=== PATIENT | male | born 1940 | race Caucasian/White ===

== ENCOUNTER 2016-12-06 12:20 | Emergency (ER) | payer OTHER ==
[~2016-12-06] VITALS: Ht 185.4 cm; Wt 117.2 kg
[~2016-12-06 12:20] MED LIST: FLUT0.15 NAE; NAPR1TAB9 PO
[2016-12-06 12:26] VITALS: TEMP 36.6; Ht 185.4 cm; Wt 117.2 kg
[2016-12-06 12:37] VITALS: O2SAT 94
--- NOTE | 2016-12-06 13:05 | EMERGENCY ROOM VISIT NOTE ---
History Report prepared by Miko: Frank García Under the Supervision of: Dr. Melecio Mcneil M.D. First contact with patient: 12:50 Chief Complaint: PALPITATIONS Stated Complaint: HEART PALPITATION, DIZZY, SOB X 2 DAYS Nursing Triage Summary: Triage note: Pt denies any chest pain. pt reports he was seen at [facility] Critique^It and sent to ed for further eval. pt reports heart palpitations, dizziness and shortness of breath "it has been going on for awhile but i have been blowing it off." History of Present Illness The patient is a 76 year old male who presents to the Emergency Room via referral from [facility] with complaints of episodes of dizziness that started around 3 weeks ago. The patient notes that at night, he occasionally gets episodes where he has trouble speaking, he gets groggy, and his head would turn to the side uncontrollably. During the episodes, he also experiences arm numbness and chest pressure. The episodes usually would last around a half an hour. Lately, he notes that he has been getting a bit nauseated. He says that he also has been having episodes of dizziness in the past few weeks, and it is getting to the point where he has to be careful getting out of bed in the morning. The patient additionally notes intermittent shortness of breath, and he currently feels short of breath. He has never seen any doctors for these symptoms before today at [facility]. He says these kind of episodes have occurred a couple times in the past before these past 3 weeks. The patient denies any back pain and any recent confusion was denied by a friend. The patient is an ex-smoker. He says that he does not drink any alcohol. Source of History: patient, friend Onset: 3 weeks ago Position: other (global - dizziness) Symptom Intensity: has to be careful getting out of bed in morning Timing: other (episodes) Associated Symptoms: + SOB, + chest pain, + nausea, + numbness (arm), No back pain Note: Associated symptoms: Head turns to side uncontrollably during episodes. Denies recent confusion. Review of Systems See HPI for pertinent positives & negatives. A total of 10 systems reviewed and were otherwise negative. Past Medical & Surgical Medical Problems: (1) HTN (hypertension) (2) Stomach problems Old medical records were reviewed. Nurse's notes were reviewed and I agree with. Family History No significant family history Social History Smoking Status: Never Smoker Alcohol Use: none Marital Status: single Housing Status: lives alone Occupation Status: unemployed Current/Historical Medications Scheduled Fish Oil (Rockwell-3), 1 CAP PO QAM Fluticasone Propionate (Nasal) (Flonase Allergy Relief), 2 SPRAYS CHUCK DAILY Multiple Vitamins W/ Minerals (Multi For Him 50+), 1 TAB PO DAILY Oregano (Oil Of Oregano), 1 CAP PO DAILY Potassium Chloride (Potassium Chloride), 3,500 MEQ PO UD Turmeric (Curcuma Longa) (Bulk (Turmeric), 1 DOSE PO DAILY Scheduled PRN Naproxen (Aleve), 440-660 MG PO UD PRN for Pain Allergies Coded Allergies: No Known Allergies (Verified , 12/06/16) Physical Exam Vital Signs Date Time Temp Pulse Resp B/P Pulse Ox O2 Delivery O2 Flow Rate FiO2 12/06/16 15:35 80 16 179/122 95 Room Air 12/06/16 15:03 75 18 187/103 94 Room Air 12/06/16 14:12 79 18 147/97 94 Room Air 12/06/16 12:53 78 12/06/16 12:37 94 Room Air 12/06/16 12:26 36.6 88 18 215/109 96 Room Air Physical Exam General: Well developed well nourished non ill appearing older in no acute distress, breathing comfortably on room air. Normal speech. Alert and oriented x3. HEENT: Normal cephalic atraumatic. Pupils are equal round and reactive to light. Extraocular movements are intact. Oropharynx is pink with moist mucous membranes. No swelling of the mouth lips or tongue. Neck: Supple with a midline trachea. No meningeal signs or stiffness, no JVD or bruits. No Stridor. Chest: Clear to auscultation bilaterally. No wheezes or rhonchi. No increased work of breathing. Heart: regular rate and rhythm. Abdomen: Soft nontender, nondistended without rebound guarding or rigidity. Extremities: No cyanosis clubbing or edema. No calf tenderness or assymetry Spine/Back. Non tender to palpation. No CVA tenderness Skin: Good turgor without rashes. Neurologic exam: Cranial nerves two through 12 are intact. Motor and sensation are intact and symmetrical throughout. Finger to nose intact. No tremor. Medical Decision & Procedures ER Provider Diagnostic Interpretation: Radiology results as stated below per my review and radiologist interpretation: HEAD CT NONCONTRAST CT DOSE: 614.27 mGy.cm HISTORY: dizziness TECHNIQUE: Multiaxial CT images of the head were performed without the use of intravenous contrast. Automated exposure control was utilized for this study. Comparison: None. Findings: The paranasal sinuses and mastoid air cells are clear. The calvarium and skull base are intact. The ventricles and sulci are within normal limits. There is no mass, hematoma, midline shift, or acute infarct. Impression: No acute intracranial abnormality. Electronically signed by: Tre Lee M.D. 12/06/2016 1:59 PM Dictated Date/Time: 12/06/2016 1:36 PM SINGLE VIEW CHEST CLINICAL HISTORY: Atypical chest pain. Dizziness. FINDINGS: An AP, portable, upright chest radiograph is compared to study dated 06/07/2011. The examination is degraded by portable technique, apical lordotic positioning, and patient rotation. The heart is enlarged and there is atherosclerotic calcification of the thoracic aorta. The pulmonary vasculature is noncongested. Chronic interstitial thickening is unchanged. No airspace consolidation or large pleural effusion is identified. No pneumothorax is seen. The skeletal structures are osteopenic. Degenerative change is noted throughout the thoracic spine. Arthritic change is present in the shoulders. IMPRESSION: Cardiomegaly with no acute cardiopulmonary abnormality. Electronically signed by: Luis Tillman M.D. 12/06/2016 1:52 PM Dictated Date/Time: 12/06/2016 1:51 PM Laboratory Results 12/06/16 12:40 Red Blood Count 5.53, Mean Corpuscular Volume 90.8, Mean Corpuscular Hemoglobin 32.0, Mean Corpuscular Hemoglobin Concent 35.3, Mean Platelet Volume 9.8, Neutrophils (%) (Auto) 69.1, Lymphocytes (%) (Auto) 16.7, Monocytes (%) (Auto) 7.5, Eosinophils (%) (Auto) 6.0, Basophils (%) (Auto) 0.4, Neutrophils # (Auto) 6.31, Lymphocytes # (Auto) 1.53, Monocytes # (Auto) 0.69, Eosinophils # (Auto) 0.55, Basophils # (Auto) 0.04 12/06/16 12:40 Test 12/06/16 12:40 4/13/17 13:02 12/06/16 13:10 White Blood Count 9.15 K/uL (4.8-10.8) Red Blood Count 5.53 M/uL (4.7-6.1) Hemoglobin 17.7 g/dL (14.0-18.0) Hematocrit 50.2 % (42-52) Mean Corpuscular Volume 90.8 fL (80-100) Mean Corpuscular Hemoglobin 32.0 pg (25-34) Mean Corpuscular Hemoglobin Concent 35.3 g/dl (32-36) Platelet Count 235 K/uL (130-400) Mean Platelet Volume 9.8 fL (7.4-10.4) Neutrophils (%) (Auto) 69.1 % Lymphocytes (%) (Auto) 16.7 % Monocytes (%) (Auto) 7.5 % Eosinophils (%) (Auto) 6.0 % Basophils (%) (Auto) 0.4 % Neutrophils # (Auto) 6.31 K/uL (1.4-6.5) Lymphocytes # (Auto) 1.53 K/uL (1.2-3.4) Monocytes # (Auto) 0.69 K/uL (0.11-0.59) Eosinophils # (Auto) 0.55 K/uL (0-0.5) Basophils # (Auto) 0.04 K/uL (0-0.2) RDW Standard Deviation 44.9 fL (36.4-46.3) RDW Coefficient of Variation 13.6 % (11.5-14.5) Immature Granulocyte % (Auto) 0.3 % Immature Granulocyte # (Auto) 0.03 K/uL (0.00-0.02) Anion Gap 7.0 mmol/L (3-11) Est Creatinine Clear Calc Drug Dose 65.8 ml/min Estimated GFR () 61.9 Estimated GFR (Non- 53.4 BUN/Creatinine Ratio 19.8 (10-20) Calcium Level 9.2 mg/dl (8.5-10.1) Total Bilirubin 0.5 mg/dl (0.2-1) Direct Bilirubin 0.1 mg/dl (0-0.2) Aspartate Amino Transf (AST/SGOT) 16 U/L (15-37) Alanine Aminotransferase (ALT/SGPT) 26 U/L (12-78) Alkaline Phosphatase 100 U/L (45-117) Total Creatine Kinase 163 U/L (39-308) Creatine Kinase MB 2.9 ng/ml (0.5-3.6) Total Protein 7.8 gm/dl (6.4-8.2) Albumin 4.3 gm/dl (3.4-5.0) Lipase 133 U/L (73-393) Thyroid Stimulating Hormone (TSH) 2.160 uIu/ml (0.300-4.500) Creatine Kinase MB Ratio (0-3.0) Bedside Troponin I 0.020 ng/ml (0-0.045) Laboratory studies as stated above per my review. ECG Indication: SOB/dyspnea Rate (beats per minute): 79 Rhythm: normal sinus Findings: 1st degree AV block, other (right bundle branch block, LVH, nonspecific T-wave abnormalities) Comparison ECG Date: compared to June 07 2011, T waves were nonspecific at present Change: Second ECG: Normal sinus rhythm at 70 bpm with a 1st degree AV block. T-wave inversions laterally which appear new compared to ECG #1. ED Course 1249: Past medical records reviewed. The patient was evaluated in room A2, and a complete history and physical examination were performed. 1416: I reevaluated the patient and he is comfortable. We are going to do a second EKG. 1448: I reevaluated the patient and I told him that his EKG has very concerning changes for a possible blockage that could cause heart attack or , but the patient refuses to stay. He also refuses a chest CT. The patient is willing to follow up with someone tomorrow. We will have case management come down to talk to the patient. The patient's blood pressure has come down to 140s/90s. 1518: The caseworker intake has notified me that the patient has a scheduled appointment with Dr. Claudia Montalvo at 1245 tomorrow. The patient is agreeable to this appointment. 1521: Ordered Aspirin Chew 324 mg PO. 1525: Upon reevaluation, the patient's blood pressure is back up to 180/110. I discussed the results and treatment plan with him. He verbalized agreement of the treatment plan. The patient was discharged home. I gave the patient a prescription for Hydrochlorothiazide. Medical Decision Differentials include, but are not limited to; acute coronary syndrome, arrhythmia, central neurologic process, electrolyte or metabolic abnormality, infection. This patient comes in as described above. He's had multiple different complaints and is somewhat vague historian. he had has dizziness at times. He also has some shortness of breath and chest pain at times. This seems to have been going on for several weeks or so. He looks well at presen.t he also is noted have high blood pressure and do not know what he runs a baseline. He was seen in [facility] who sent over here. I reviewed his EKGs from [facility] on [facility] 1 EKG, he ,did have some T-wave inversions laterally. His EKG here does not appear ischemic appearing. Chest x-ray, EKG, and multiple blood testing was obtained including CAT scan of his head he does have a normal neurologic exam. The patient and his friend have made it very clear that he will not agree to stay inpatient and wants to go home. He did agree to have a workup here. He was reassessed frequently. His initial EKG was unremarkable without ischemia. I did a second EKG and he does have T-wave inversions that were absent on the first. His cardiac enzymes are normal. CAT scan of his head is unremarkable. He has a normal neurologic exam he has nothing to suggest a posterior circulation problem. His blood pressure seems to be very labile it's normal limits up minutes down. He's not been treated for this. This could be a cause or an effect. I talked to the patient at length. I told him I was concerned that this could be related to his heart and his EKG changes be from a heart blockage and he could go home and of a heart attack. he aknowledges this but absolutely refuses to be admitted. He had was given aspirin prior to arrival. I suggest we do a CAT scan of his chest but he declines this as well. I did have her case management team get him follow-up with Dr. Taylor tomorrow and he could have further workup as an outpatient and can watch his blood pressure. I did start him on HCTZ and he was given prescription for 25 mg they will need further recheck his blood pressure. He was happy with the plan and again adamantly declines admission and we have helped arrange follow-up tomorrow for close recheck. Impression Primary Impression: Dizziness Additional Impression: Chest pain Scribe Attestation The scribe's documentation has been prepared under my direction and personally reviewed by me in its entirety. I confirm that the note above accurately reflects all work, treatment, procedures, and medical decision making performed by me. Departure Information Dispostion Home / Self-Care Referrals No Doctor, Assigned (PCP) Forms HOME CARE DOCUMENTATION FORM, IMPORTANT VISIT INFORMATION, WORK / SCHOOL INSTRUCTIONS Patient Instructions My [facility] Additional Instructions Rest. Drink plenty of fluids. Take an enteric-coated 325 mg aspirin once a day Return if: Worsening of symptoms, reconsideration upon being admitted, shortness of breath, numbness weakness, fever chills, any new problems or concerns Follow-up with your doctor that we are hoping you get in with tomorrow. He will likely need further workup. Dr. Taylor I am concerned that this may be her heart and you may have a heart blockage based on EKG changes. As we discussedn I do think that you should be admitted to the hospital but you declined. Please return if your symptoms worsen or you reconsider and ensure that he get close follow-up with your doctor Problem Qualifiers
[2016-12-06 13:20] LABS: BASO % 0.4 %; BASO ABS # 0.04 K/uL (0-0.2); COMPLETE YES; HEMATOCRIT 50.2 % (42-52); IG% 0.3 %; LYMPH % 16.7 %; LYMPH ABS # 1.53 K/uL (1.2-3.4); MEAN CELL VOLUME 90.8 fL (80-100); MEAN CORPUSCULAR HGB CONC 35.3 g/dl (32-36); MEAN PLATELET VOLUME 9.8 fL (7.4-10.4); MONO % 7.5 %; NEUT % 69.1 %; PLATELET COUNT 235 K/uL (130-400); POTASSIUM 4.3 mmol/L (3.5-5.1); RED BLOOD COUNT 5.53 M/uL (4.7-6.1); WHITE BLOOD COUNT 9.15 K/uL (4.8-10.8)
[2016-12-06 13:26] LABS: BUN/CREATININE RATIO 19.8 (10-20); CALCIUM 9.2 mg/dl (8.5-10.1); CREATININE 1.3 mg/dl (0.60-1.40)
[2016-12-06] MEDS ORDERED: OMEG10007 PO (13:29)
[2016-12-06] MEDS ORDERED: TURMPOW PO (13:29)
[2016-12-06] MEDS ORDERED: MULT-221 PO (13:29)
[2016-12-06] MEDS ORDERED: POTA1GRA PO (13:29)
[2016-12-06] MEDS ORDERED: OREGCAP PO (13:29)
--- NOTE | 2016-12-06 13:54 | DIAGNOSTIC IMAGING REPORT ---
SINGLE VIEW CHEST CLINICAL HISTORY: Atypical chest pain. Dizziness. FINDINGS: An AP, portable, upright chest radiograph is compared to study dated 06/07/2011. The examination is degraded by portable technique, apical lordotic positioning, and patient rotation. The heart is enlarged and there is atherosclerotic calcification of the thoracic aorta. The pulmonary vasculature is noncongested. Chronic interstitial thickening is unchanged. No airspace consolidation or large pleural effusion is identified. No pneumothorax is seen. The skeletal structures are osteopenic. Degenerative change is noted throughout the thoracic spine. Arthritic change is present in the shoulders. IMPRESSION: Cardiomegaly with no acute cardiopulmonary abnormality. Electronically signed by: Luis Tillman M.D. 12/06/2016 1:52 PM Dictated Date/Time: 12/06/2016 1:51 PM
--- NOTE | 2016-12-06 14:01 | DIAGNOSTIC IMAGING REPORT ---
HEAD CT NONCONTRAST CT DOSE: 614.27 mGy.cm HISTORY: dizziness TECHNIQUE: Multiaxial CT images of the head were performed without the use of intravenous contrast. Automated exposure control was utilized for this study. Comparison: None. Findings: The paranasal sinuses and mastoid air cells are clear. The calvarium and skull base are intact. The ventricles and sulci are within normal limits. There is no mass, hematoma, midline shift, or acute infarct. Impression: No acute intracranial abnormality. Electronically signed by: Tre Lee M.D. 12/06/2016 1:59 PM Dictated Date/Time: 12/06/2016 1:36 PM
[2016-12-06] MEDS ORDERED: ASPIRIN 81 MG CHEW PO STA (15:21)
[2016-12-06 15:22] LABS: CKMB/CK RATIO 1.8 (0-3.0); THYROID STIMULATING HORMONE 2.16 uIu/ml (0.300-4.500)
[2016-12-06 15:35] VITALS: BP 179/122; PULSE 80; O2SAT 95
== END 2016-12-06 15:44 | disposition home or self-care (01) ==
LOC: C.EDB 12:22 → C.EDA 15:44
DX: R42 Dizziness and giddiness (principal); R07.9 Chest pain, unspecified; I44.0 Atrioventricular block, first degree; I45.10 Unspecified right bundle-branch block; I10 Essential (primary) hypertension; Z87.19 Personal history of other diseases of the digestive system; Z79.899 Other long term (current) drug therapy

== ENCOUNTER 2023-09-30 16:41 | Inpatient (IN) ==
--- NOTE | 2023-09-30 17:25 | Emergency Department Note ---
Impression & Plan Acute confusion, Chest pain ED Provider Note HISTORY OF PRESENT ILLNESS: Patient is an 82-year-old male presenting with chest pain and altered mental status. Patient reportedly was at a buddhist service when he became very altered and was speaking gibberish. He reportedly complained he had some substernal chest pain and they called EMS. On arrival to the ER, the patient is very confused and does not know where he is. He is able to state his name but nothing else. He states that it feels like he has a elephant sitting on his chest. He does not know if he is short of breath or having any abdominal pain. ROS: as above PHYSICAL EXAM: Constitutional: Patient appears in distress. HENT: Head: Normocephalic and atraumatic. Eyes: EOMI, PERRL Mouth/Throat: Mucous membranes moist. Neck: Trachea midline. Neck supple. Cardiovascular: RRR, No murmurs, rubs or gallops. Intact distal pulses. Pulmonary/Chest: No respiratory distress. Breath sounds clear and equal bilaterally. No wheezes or rales. Abdominal: Abdomen soft, no tenderness, rebound or guarding. Musculoskeletal: No edema, tenderness or deformity noted. Skin: Warm and dry. No rash, erythema, pallor or cyanosis Neurological: Alert. CN II-XII grossly intact, moving all extremities spontaneously MDM: - Vitals signs stable - History obtained via patient and EMS, given patient's confusion. Patient presents with confusion and chest pain. Patient reportedly was at a buddhist service when he became very altered and was speaking gibberish. He also was complaining of some chest pain and they called EMS. Patient is confused and does not know where he is. He is able to state his name. He states he feels like an elephant is sitting on his chest. He does not know if he is short of breath or having any abdominal pain. - Chronic conditions affecting care: HTN - Differential diagnoses include, but are not limited to: Acute coronary syndrome; pulmonary embolism; dissection; tension pneumothorax; esophageal rupture; pneumonia; UTI - Order placed for continuous cardiac monitoring. At this time, monitor showed rate of 80 bpm with normal sinus rhythm, per my interpretation. - External medical records reviewed. EMS run sheet was reviewed. Patient was vitally stable and route. No medications were given prehospital. - EKG interpreted by myself showed normal sinus rhythm. Rate 100 bpm. QT 362. Noted have right bundle branch block and a left anterior fascicular block. - Laboratory workup interpreted by myself showed slight leukocytosis (WBC 11.59); stable electrolytes; CKD; normal troponin; normal procalcitonin; normal lipase - CXR negative for pneumonia, per my interpretation - CT head wo contrast negative for acute intracranial pathology. - Repeat troponin WNL - UA negative for infection - Heart score 4 (History +1 moderately suspicious; EKG +0; Age +2; Risk factors +1; Initial troponin +0), amounting to a moderate score. - Patient is still very confused in the ER. He does not know where he is or how he got here. Friend at bedside does not think this is patient's normal. - Discussion was had with health care facilities inspector about patient's case and need for admission - Hospitalist consulted for admission - Patient admitted to [facility] for further evaluation and management. ASSESSMENT AND PLAN: Diagnosis: confusion; chest pain Plan: admit Past Med/Surg History Medical History SOB (shortness of breath) Stomach problems HTN (hypertension) Social History Smoking Status: Former smoker Preferred Language: Samoan Feels Safe at Home: Yes Allergies Allergies Allergy/AdvReac Type Severity Reaction Status Date / Time No Known Allergies Allergy Unknown Verified 09/30/23 17:05 Home Meds Home Medications Medication Instructions Recorded Confirmed hydrochlorothiazide 25 mg tablet 25 mg PO QAM 09/11/23 09/30/23 meclizine 25 mg tablet 25 mg PO TID PRN Dizziness 09/11/23 09/30/23 Results & Data (ED) Vital Signs Vital Signs - 24 hr 09/30/23 16:53 09/30/23 17:04 09/30/23 19:00 Temperature 36.6 C Temperature Source Oral Pulse Rate 104 H 105 H 102 H Pulse Rate from SpO2 Sensor Respiratory Rate 20 22 Blood Pressure 166/96 H Blood Pressure Mean 119 Pulse Oximetry 93 94 Oxygen Delivery Method Room Air Oxygen Flow Rate Sepsis Recent Fever Within 48 Hours No Sepsis New/Unexplained Change in Mental Status Yes Sepsis Action Taken by Nursing Physician Notified 09/30/23 19:33 09/30/23 20:30 09/30/23 20:48 Temperature Temperature Source Pulse Rate 92 H 91 H Pulse Rate from SpO2 Sensor 94 H Respiratory Rate 22 Blood Pressure Blood Pressure Mean Pulse Oximetry 94 Oxygen Delivery Method Room Air Room Air Oxygen Flow Rate 96 Sepsis Recent Fever Within 48 Hours Sepsis New/Unexplained Change in Mental Status Sepsis Action Taken by Nursing 09/30/23 21:13 09/30/23 22:00 09/30/23 23:00 Temperature Temperature Source Pulse Rate 92 H 88 82 Pulse Rate from SpO2 Sensor 93 H Respiratory Rate 21 20 14 Blood Pressure 117/84 109/81 117/77 Blood Pressure Mean 95 90 90 Pulse Oximetry 95 95 96 Oxygen Delivery Method Room Air Room Air Room Air Oxygen Flow Rate Sepsis Recent Fever Within 48 Hours Sepsis New/Unexplained Change in Mental Status Sepsis Action Taken by Nursing Laboratory Data 09/30/23 17:00 09/30/23 17:00 Lab Results 09/30/23 09/30/23 09/30/23 Range/Units 17:00 21:06 21:28 WBC 11.59 H (4.8-10.8) K/ul RBC 4.78 (4.70-6.10) M/uL Hgb 15.3 (14.0-18.0) g/dl Hct 44.8 (42.0-52.0) % MCV 93.7 (80.0-100.0) fL MCH 32.0 (25.0-34.0) pg MCHC 34.2 (32.0-36.0) g/dL RDW Std Deviation 44.9 (36.4-46.3) fL RDW Coeff of [place] 13.0 (11.5-14.5) % Plt Count 269 (130-400) K/uL MPV 9.1 L (9.4-12.4) fL Immature Gran % (Auto) 0.4 % Neut % (Auto) 75.8 % Lymph % (Auto) 13.9 % [place] % (Auto) 5.8 % Eos % (Auto) 3.6 % Baso % (Auto) 0.5 % Neut # (Auto) 8.78 H (1.40-6.50) K/uL Lymph # (Auto) 1.61 (1.20-3.40) K/uL [place] # (Auto) 0.67 H (0.11-0.59) K/uL Eos # (Auto) 0.42 (0.00-0.50) K/uL Baso # (Auto) 0.06 (0.00-0.20) K/uL Immature Gran # (Auto) 0.05 (0.01-0.20) K/uL PT 12.2 H (9.0-12.0) Seconds INR 1.1 (0.9-1.1) Sodium 139 (136-145) mmol/L Potassium 3.6 (3.5-5.1) mmol/L Chloride 105 (98-107) mmol/L Carbon Dioxide 27 (21-32) mmol/L Anion Gap 7 (3-11) BUN 22 (6-23) mg/dl Creatinine 1.45 H (0.6-1.4) mg/dl Est Cr Clr Drug Dosing 47.5 ml/min Est GFR ( Amer) 52.0 ml/min Est GFR (Non-Af Amer) 44.8 ml/min BUN/Creatinine Ratio 15.2 (10-20) Glucose 148 H (70-99(Fasting)) mg/dl Calcium 9.0 (8.6-10.3) mg/dl Total Bilirubin 0.7 (0.2-1.0) mg/dl AST 19 (13-39) U/L ALT 13 (7-52) U/L Alkaline Phosphatase 79 (34-104) U/L Troponin I High Sens 9.3 9.6 (0-20) pg/ml Total Protein 6.7 (6.0-8.3) gm/dl Albumin 4.0 (3.4-5.0) gm/dl Globulin 2.7 (2.5-4.0) gm/dl Albumin/Globulin Ratio 1.5 (0.9-2) Lipase 12 (11-82) U/L Procalcitonin < 0.05 (0-0.5) ng/ml Urine Color Yellow Urine Appearance Clear (Clear) Urine pH 6.5 (4.5-7.5) Ur Specific [place] 1.016 (1.000-1.030) Urine Protein Negative (Negative) Urine Glucose (UA) Negative (Negative) Urine Ketones Trace H (Negative) Urine Blood Negative (Negative) Urine Nitrite Negative (Negative) Urine Bilirubin Negative (Negative) Urine Urobilinogen Negative (Negative) Ur Leukocyte Esterase Negative (Negative) Imaging Data Radiologist's Impression: Chest X-Ray 09/30/23 17:18 XR chest 1V portable CLINICAL HISTORY: Chest pain, nonspecific COMPARISON STUDY: Chest radiograph September 11, 2023. FINDINGS: Lung volumes are normal. Lungs are clear. There is no pneumothorax or pleural effusion. Mild cardiomegaly is again noted. Mediastinal contours are normal. There is no evidence for pulmonary edema. IMPRESSION: No acute cardiopulmonary findings. No change in appearance of the chest. ACT 112: Negative or not required by law. Electronically signed by: Temo Villanueva M.D. 09/30/2023 7:[address] 09/30/23 17:18 CT OF THE HEAD WITHOUT CONTRAST CLINICAL HISTORY: Confusion. COMPARISON STUDY: Head CT and CTA of the head November 20, 2020. CT DOSE: 703.85 mGy.cm TECHNIQUE: Helical axial images of the head were obtained without IV contrast. Automated exposure control was utilized for the study. A dose lowering technique was utilized adhering to the principles of ALARA. FINDINGS: No acute intracranial hemorrhage, midline shift or mass effect is present. The ventricular system is stable. The basal cisterns are patent. No extra-axial collections are present. There are no findings to suggest acute dural sinus thrombosis or acute territorial infarct. No significant calvarial abnormalities are present. Visualized portions of the sinuses and mastoid air cells are clear. IMPRESSION: No acute intracranial findings. ACT 112: Negative or not required by law. Electronically signed by: Temo Villanueva M.D. 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
[2023-09-30 17:44] LABS: Basophils # (auto) 0.06 K/uL (0.00-0.20); Basophils % (auto) 0.5 %; Eosinophils # (auto) 0.42 K/uL (0.00-0.50); Eosinophils % (auto) 3.6 %; Hematocrit (blood only) 44.8 % (42.0-52.0); Hemoglobin 15.3 g/dl (14.0-18.0); Immature Granulocytes # (auto) 0.05 K/uL (0.01-0.20); Immature Granulocytes % (auto) 0.4 %; Lymphocytes # (auto) 1.61 K/uL (1.20-3.40); Lymphocytes % (auto) 13.9 %; Mean Corpuscular Hgb Conc 34.2 g/dL (32.0-36.0); Mean Corpuscular Volume 93.7 fL (80.0-100.0); Mean Platelet Volume 9.1 fL (9.4-12.4); Monocytes # (auto) 0.67 K/uL (0.11-0.59); Monocytes % (auto) 5.8 %; Neutrophils # (auto) 8.78 K/uL (1.40-6.50); Neutrophils % (auto) 75.8 %; Platelet Count 269 K/uL (130-400); RDW Standard Deviation 44.9 fL (36.4-46.3); Red Blood Count 4.78 M/uL (4.70-6.10); White Blood Count 11.59 K/ul (4.8-10.8)
[2023-09-30 18:00] LABS: Albumin Globulin Ratio 1.5 (0.9-2); BUN Creatinine Ratio 15.2 (10-20); Bilirubin,Total 0.7 mg/dl (0.2-1.0); Creatinine Clr Calc Pharmacy 47.5 ml/min; Est GFR (Non-African American) 44.8 ml/min; Globulin 2.7 gm/dl (2.5-4.0); Potassium 3.6 mmol/L (3.5-5.1); Total Protein 6.7 gm/dl (6.0-8.3)
[2023-09-30 18:07] LABS: INR 1.1 (0.9-1.1); Prothrombin Time 12.2 Seconds (9.0-12.0)
[2023-09-30 18:08] LABS: Troponin I High Sensitivity 9.3 pg/ml (0-20)
--- NOTE | 2023-09-30 18:31 | CT Scan Report ---
CT OF THE HEAD WITHOUT CONTRAST CLINICAL HISTORY: Confusion. COMPARISON STUDY: Head CT and CTA of the head November 20, 2020. CT DOSE: 703.85 mGy.cm TECHNIQUE: Helical axial images of the head were obtained without IV contrast. Automated exposure con trol was utilized for the study. A dose lowering technique was utilized adhering to the principles o f ALARA. FINDINGS: No acute intracranial hemorrhage, midline shift or mass effect is present. The ventricular system is stable. The basal cisterns are patent. No extra-axial collections are present. There are no findings to suggest acute dural sinus thrombosis or acute territorial infarct. No significant calvar ial abnormalities are present. Visualized portions of the sinuses and mastoid air cells are clear. IMPRESSION: No acute intracranial findings. ACT 112: Negative or not required by law. Electronically signed by: Temo Villanueva M.D. 09/30/2023 6:29 PM
--- NOTE | 2023-09-30 19:24 | XRay Report ---
XR chest 1V portable CLINICAL HISTORY: Chest pain, nonspecific COMPARISON STUDY: Chest radiograph September 11, 2023. FINDINGS: Lung volumes are normal. Lungs are clear. There is no pneumothorax or pleural effusion. Mil d cardiomegaly is again noted. Mediastinal contours are normal. There is no evidence for pulmonary ed roya. IMPRESSION: No acute cardiopulmonary findings. No change in appearance of the chest. ACT 112: Negative or not required by law. Electronically signed by: Temo Villanueva M.D. 09/30/2023 7:23 PM
[2023-09-30 21:29] LABS: Appearance Urine Clear (Clear); Bilirubin Urine Negative (Negative); Blood Urine Negative (Negative); Color Urine Yellow; Glucose Urine UA Negative (Negative); Ketones Urine Trace (Negative); Leukocyte Esterase Urine Negative (Negative); Nitrite Urine Negative (Negative); Protein Urine Negative (Negative); Specific Gravity Urine 1.016 (1.000-1.030); Urobilinogen Urine Negative (Negative); pH Urine 6.5 (4.5-7.5)
--- NOTE | 2023-10-01 02:12 | History & Physical Report ---
Date of Service October 01, 2023 Assessment & Plan (1) Acute confusion: Plan: 82-year-old male with past medical history significant for hypertension, abdominal aortic aneurysm, CKD stage III, mild vascular dementia with agitation was brought in by friend because he was confused and speaking gibberish and also complained of chest pain. When he came in he was confused and seemed only oriented to name. Currently patient is more alert and awake and oriented x 3. Now he agrees that he took 2 THC Gummies for his right shoulder pain. He is having a lot of right shoulder pain and states he has appointment 5 weeks from now. And one of his friends gave him THC Gummies. After after he took two gummies Patient states that he does not know what happened. He states he [place] [facility] the [facility] of [facility]. After he took Gummies he was walking out and does not know what he happened and what he talked. He also had some chest pain, like elephant sitting on his chest but that resolved now and he thinks it was a gas pain. Denies any shortness of breath. No headaches. Vision is okay. Has some runny nose and sore throat and some cough. Denies any fevers. Appetite is okay. Has some nausea. Has some abdominal discomfort. He said he had diarrhea before but that got resolved. Micturating okay. Currently resting comfortably and hemodynamically stable. Acute confusion CT head is okay Currently patient seems to back to baseline though he is repeating himself while talking Admits that he took 2 THC Gummies Will check drug screen And monitor Chest pain Currently resolved Abnormal EKG Will follow repeat EKG was bradycardic on monitor. Follow serial cardiac enzymes and echo Telemetry Cardiac consult in a.m. History of hypertension On hydrochlorothiazide History of mild vascular dementia with agitation We will monitor for delirium History of CKD stage III Creatinine 1.4 Seems around baseline We will monitor Right shoulder pain Pain control May consider pain management while in the hospital DVT prophylaxis SCDs Disposition Observation telemetry Full code History of Present Illness Chief Complaint: Confusion and chest pain Primary Care Provider: Gabino Taylor MD 82-year-old male with past medical history significant for hypertension, abdominal aortic aneurysm, CKD stage III, mild vascular dementia with agitation was brought in by friend because he was confused and speaking gibberish and also complained of chest pain. When he came in he was confused and seemed only oriented to name. Currently patient is more alert and awake and oriented x 3. Now he agrees that he took 2 THC Gummies for his right shoulder pain. He is having a lot of right shoulder pain and states he has appointment 5 weeks from now. And one of his friends gave him THC Gummies. After after he took two gummies Patient states that he does not know what happened. He states he lives in the basement of [facility]. After he took Gummies he was walking out and does not know what he happened and what he talked. He also had some chest pain, like elephant sitting on his chest but that resolved now and he thinks it was a gas pain. Denies any shortness of breath. No headaches. Vision is okay. Has some runny nose and sore throat and some cough. Denies any fevers. Appetite is okay . Has some nausea. Has some abdominal discomfort. He said he had diarrhea before but that got resolved. Micturating okay. Currently resting comfortably and hemodynamically stable. Past medical history. As mentioned above Past surgical history. No surgical history on file Social history. . Quit smoking 2011. No alcohol use. No drug use. Family history. No family history on file Allergies Allergy/AdvReac Type Severity Reaction Status Date / Time No Known Allergies Allergy Unknown Verified 09/30/23 17:05 Home Medications Medication Instructions Recorded Confirmed Type hydrochlorothiazide 25 mg tablet 25 mg PO QAM 09/11/23 09/30/23 History meclizine 25 mg tablet 25 mg PO TID PRN Dizziness 09/11/23 09/30/23 History Past Med/Surg History Medical History SOB (shortness of breath) Stomach problems HTN (hypertension) Social History Smoking Status: Former smoker Tobacco Type: Cigarettes Hx Alcohol Use: No Hx Substance Use: No Preferred Language: Lithuanian Communication Ability: Effective Qualifications Examiner Required: No Beliefs That Will Affect Care: None Current Living Situation: Alone Feels Safe at Home: Yes Safety Concerns: Feels Safe At This Time Review of Systems Review of Systems: All systems reviewed & are unremarkable except as noted in HPI & below Physical Exam Physical Exam: General- Not in distress Head- atraumatic Eyes- PERRL ENT- oropharynx clear Neck- supple, no JVD. Lungs- clear to auscultation no wheezing or crackles. Heart- regular rhythm; no murmur, no gallop. Abdomen- normal bowel sounds, soft, nontender, no distension. Extremities- no pretibial edema, no erythema seen. Neuro- alert, oriented x 3; PERRL no facial palsy; no dysarthria; motor 5/5 bilaterally; no pronator drift coordination of movements normal sensations intact. Skin- warm & dry Results & Data Results & Data Vital Signs (Past 12 Hours) Vital Signs Temp Pulse Resp BP Pulse Ox O2 Del Method O2 Flow Rate 10/01/23 00:41 79 10/01/23 00:30 81 19 98 10/01/23 00:00 79 16 96 Room Air 09/30/23 23:30 93 H 20 96 Room Air 09/30/23 23:00 82 14 117/77 96 Room Air 09/30/23 22:00 88 20 109/81 95 Room Air 09/30/23 21:13 92 H 21 117/84 95 Room Air 09/30/23 20:48 91 H 09/30/23 20:30 92 H 22 94 Room Air 09/30/23 19:33 Room Air 96 09/30/23 19:00 102 H 22 94 09/30/23 17:04 105 H 09/30/23 16:53 36.6 C 104 H 20 166/96 H 93 Room Air Diagnostic Findings Laboratory Results WBC 11.59 K/ul (4.8-10.8) H 09/30/23 17:00 RBC 4.78 M/uL (4.70-6.10) 09/30/23 17:00 Hgb 15.3 g/dl (14.0-18.0) 09/30/23 17:00 Hct 44.8 % (42.0-52.0) 09/30/23 17:00 MCV 93.7 fL (80.0-100.0) 09/30/23 17:00 MCH 32.0 pg (25.0-34.0) 09/30/23 17:00 MCHC 34.2 g/dL (32.0-36.0) 09/30/23 17:00 RDW Std Deviation 44.9 fL (36.4-46.3) 09/30/23 17:00 RDW Coeff of Beulah 13.0 % (11.5-14.5) 09/30/23 17:00 Plt Count 269 K/uL (130-400) 09/30/23 17:00 MPV 9.1 fL (9.4-12.4) L 09/30/23 17:00 Immature Gran % (Auto) 0.4 % 09/30/23 17:00 Neut % (Auto) 75.8 % 09/30/23 17:00 Lymph % (Auto) 13.9 % 09/30/23 17:00 Valencia % (Auto) 5.8 % 09/30/23 17:00 Eos % (Auto) 3.6 % 09/30/23 17:00 Baso % (Auto) 0.5 % 09/30/23 17:00 Neut # (Auto) 8.78 K/uL (1.40-6.50) H 09/30/23 17:00 Lymph # (Auto) 1.61 K/uL (1.20-3.40) 09/30/23 17:00 Valencia # (Auto) 0.67 K/uL (0.11-0.59) H 09/30/23 17:00 Eos # (Auto) 0.42 K/uL (0.00-0.50) 09/30/23 17:00 Baso # (Auto) 0.06 K/uL (0.00-0.20) 09/30/23 17:00 Immature Gran # (Auto) 0.05 K/uL (0.01-0.20) 09/30/23 17:00 PT 12.2 Seconds (9.0-12.0) H 09/30/23 17:00 INR 1.1 (0.9-1.1) 09/30/23 17:00 Sodium 139 mmol/L (136-145) 09/30/23 17:00 Potassium 3.6 mmol/L (3.5-5.1) 09/30/23 17:00 Chloride 105 mmol/L (98-107) 09/30/23 17:00 Carbon Dioxide 27 mmol/L (21-32) 09/30/23 17:00 Anion Gap 7 (3-11) 09/30/23 17:00 BUN 22 mg/dl (6-23) 09/30/23 17:00 Creatinine 1.45 mg/dl (0.6-1.4) H 09/30/23 17:00 Est Cr Clr Drug Dosing 47.5 ml/min 09/30/23 17:00 Est GFR ( Amer) 52.0 ml/min 09/30/23 17:00 Est GFR (Non-Af Amer) 44.8 ml/min 09/30/23 17:00 BUN/Creatinine Ratio 15.2 (10-20) 09/30/23 17:00 Glucose 148 mg/dl (70-99(Fasting)) H 09/30/23 17:00 Calcium 9.0 mg/dl (8.6-10.3) 09/30/23 17:00 Total Bilirubin 0.7 mg/dl (0.2-1.0) 09/30/23 17:00 AST 19 U/L (13-39) 09/30/23 17:00 ALT 13 U/L (7-52) 09/30/23 17:00 Alkaline Phosphatase 79 U/L (34-104) 09/30/23 17:00 Troponin I High Sens 9.6 pg/ml (0-20) 09/30/23 21:28 Total Protein 6.7 gm/dl (6.0-8.3) 09/30/23 17:00 Albumin 4.0 gm/dl (3.4-5.0) 09/30/23 17:00 Globulin 2.7 gm/dl (2.5-4.0) 09/30/23 17:00 Albumin/Globulin Ratio 1.5 (0.9-2) 09/30/23 17:00 Lipase 12 U/L (11-82) 09/30/23 17:00 Procalcitonin < 0.05 ng/ml (0-0.5) 09/30/23 17:00 Urine Color Yellow 09/30/23 21:06 Urine Appearance Clear (Clear) 09/30/23 21:06 Urine pH 6.5 (4.5-7.5) 09/30/23 21:06 Ur Specific Beaver 1.016 (1.000-1.030) 09/30/23 21:06 Urine Protein Negative (Negative) 09/30/23 21:06 Urine Glucose (UA) Negative (Negative) 09/30/23 21:06 Urine Ketones Trace (Negative) H 09/30/23 21:06 Urine Blood Negative (Negative) 09/30/23 21:06 Urine Nitrite Negative (Negative) 09/30/23 21:06 Urine Bilirubin Negative (Negative) 09/30/23 21:06 Urine Urobilinogen Negative (Negative) 09/30/23 21:06 Ur Leukocyte Esterase Negative (Negative) 09/30/23 21:06 Impressions Chest X-Ray 09/30/23 17:18 XR chest 1V portable CLINICAL HISTORY: Chest pain, nonspecific COMPARISON STUDY: Chest radiograph September 11, 2023. FINDINGS: Lung volumes are normal. Lungs are clear. There is no pneumothorax or pleural effusion. Mild cardiomegaly is again noted. Mediastinal contours are normal. There is no evidence for pulmonary edema. IMPRESSION: No acute cardiopulmonary findings. No change in appearance of the chest. ACT 112: Negative or not required by law. Electronically signed by: Temo Villanueva M.D. 09/30/2023 7:[address] 09/30/23 17:18 CT OF THE HEAD WITHOUT CONTRAST CLINICAL HISTORY: Confusion. COMPARISON STUDY: Head CT and CTA of the head November 20, 2020. CT DOSE: 703.85 mGy.cm TECHNIQUE: Helical axial images of the head were obtained without IV contrast. Automated exposure control was utilized for the study. A dose lowering technique was utilized adhering to the principles of ALARA. FINDINGS: No acute intracranial hemorrhage, midline shift or mass effect is present. The ventricular system is stable. The basal cisterns are patent. No extra-axial collections are present. There are no findings to suggest acute dural sinus thrombosis or acute territorial infarct. No significant calvarial abnormalities are present. Visualized portions of the sinuses and mastoid air cells are clear. IMPRESSION: No acute intracranial findings. ACT 112: Negative or not required by law. Electronically signed by: Temo Villanueva M.D. 09/30/2023 6:29 PM ECG Additional Comments: ECG. Wide QRS rhythm with right bundle branch and left anterior fascicle block, bifascicular block Heart rate of 100. Left ventricle hypertrophy Code Status & VTE Plan VTE Prophylaxis Plan VTE Prophylaxis will be ordered: Yes
[2023-10-01] MEDS ORDERED: NITROGLYCERIN SL 0.4 MG/TAB TAB SL PRN (03:46)
[2023-10-01] MEDS ORDERED: MECLIZINE HCL 25 MG TAB PO PRN (03:46)
[2023-10-01] MEDS ORDERED: POLYETHYLENE (MIRALAX) 17 GM PACK PO PRN (03:46)
--- OUTSIDE RECORDS SUMMARY | 2023-10-01 04:07 | External Medical Summary | Summary of Care ---
Author Name Unknown Organization [facility] Address [address] [place] [address] Phone [phone] Care Team Providers Care Wound/Ostomy Nurse Name Role Phone Gabino Taylor MD Primary Care Provider [phone] Reason for Visit * Reason Comments Physical-Exam Pt here for cpe, c/o extreme pain in bilateral shoulder pain, c/o dizziness. Pt appears to be confused and agitated Encounter Details Date Type Department Care Team (Late st Contact Info) Description 09/25/2023 10:20 AM EST Office Visit Family Practice [facility] [address] [place] [id number] Gabino Taylor MD [address] [place] [id number] Mild vascular dementia with agitation (HCC)*; Infrarenal abdominal aortic aneurysm (AAA) without rupture (HCC); HTN, goal below 130/80; Stage 3a chronic kidney disease (HCC); Overweight (BMI 25.0-29.9) Allergies No known active allergiesdocumented as of this encounter (statuses as of 09/25/2023) Medications Medication Sig Dispensed Refills Start Date End Date Status methocarbamol (ROBAMOL) 500 MG Tablet Take 1 Tab by mouth 4 times a day. 30 Tab 0 01/05/2020 Active Clindamycin Phosphate 1 % external solutionIndicati ons:Facial rash Apply topically to affected area 2 times a day. To affected area of skin. 60 mL 11 05/13/2020 Active Meclizine HCl 25 MG Oral Tablet (Antivert)Indica tions:Dizziness Take 1 Tab by mouth 3 times a day as needed for Dizziness. 60 Tab 1 11/30/2020 Active hydroCHLOROthiaz brittney 25 MG Oral Tablet (Hydrodiuril)Ind ications:HTN, goal below 150/90 Take 1 Tablet by mouth in the morning. 90 Tablet 3 07/08/2023 Active amLODIPine (NORVASC) 5 MG TabletIndication s:HTN, goal below 150/90 TAKE 1 TABLET BY MOUTH EVERY DAY 90 Tab 3 02/03/2020 09/25/2023 Discontinued documented as of this encounter (statuses as of 09/25/2023) Active Problems Problem Noted Date Diagnosed Date Infrarenal abdominal aortic aneurysm (AAA) witho ut rupture 09/25/2023 Overweight (BMI 25.0-29.9) 09/25/2023 Mild vascular dementia with agitation 09/25/2023 Stage 3a chronic kidney disease 09/24/2023 HTN, goal below 130/80 12/07/2016 documented as of this encounter (statuses as of 09/25/2023) Resolved Problems Problem Noted Date Diagnosed Date Resolved Date Obesity, Class I, BMI 30.0-3 4.9 (see actual BMI) 09/24/2023 09/25/2023 documented as of this encounter (statuses as of 09/25/2023) Social History Tobacco Use Types Packs/Day Years Used Date Smoking Tobacco: Former Cigarettes Q uit: 12/08/2011 Smokeless Tobacco: Never Alcohol Use Standard Drinks/Week Comments No 0 (1 standard drink = 0.6 oz pur e alcohol) PHQ-2 Answer Date Recorded PHQ-2 Score 12 10/22/2018 Sex and Gender Information Value Date Recorded Sex Assigned at Not on file Gender Identity Not on file Sexual Orientation Not on file Job Start Date Occupation Industry Not on file Not on file Not on file documented as of this encounter Last Filed Vital Signs Vital Sign Reading Time Taken Comments Blood Pressure 122/72 09/25/2023 10:32 AM EST Pulse 72 09/25/2023 10:32 AM EST Temperature 36.3 C (97.4 F) 09/25/2023 10:[address] Respiratory Rate 18 09/25/2023 10:32 AM EST Oxygen Saturation - - Inhaled Oxygen Concentration - - Weight 93 kg (205 lb) 09/25/2023 10:32 AM EST Height 177.8 cm (5' 10") 09/25/2023 10:32 AM EST Body Mass Index 29.41 09/25/2023 10:32 AM EST documented in this encounter Progress Notes * Gabino Taylor MD - 09/25/2023 5:48 PM EST SUBJECTIVE: Rossy Lagunas is a 82 year old male. Chief Complaint Patient presents with Physical-Exam Pt here for cpe, c/o extreme pain in bilateral shoulder pain, c/o dizziness. Pt appears to be confused and agitated HPI: Here for CPE. Was brought by a "friend" who waits in the waiting room. I have seen Rossy a few times over the past several years. He is mildly demented and does not particularly like to follow up regularly with me. He was recently in the ED for abdominal pain but doesn't seem to remember. He is pleasant and has some neighbors who keep an eye on him. 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 30 Tab 0 Clindamycin Phosphate 1 % external solution Apply topically to affected area 2 times a day. To affected area of skin. 60 mL 11 Meclizine HCl 25 MG Oral Tablet (Antivert) Take 1 Tab by mouth 3 times a day as needed for Dizziness. 60 Tab 1 hydroCHLOROthiazide 25 MG Oral Tablet (Hydrodiuril) Take 1 Tablet by mouth in the morning. 90 Tablet 3 No current facility-administered medications for this visit. Allergy: Review of patient's allergies indicates: No Known Allergies OBJECTIVE: BP 122/72 | Pulse 72 | Temp 36.3 C (97.4 F) (Tympanic) | Resp 18 | Ht 1.778 m (5' 10") | Wt 93kg (205 lb) | BMI 29.41 kg/m | BSA 2.14 m Gen: nad Lungs: ctab Heart: rrr, no mrg Ext: no c/c/e Neuro: no focal deficits ASSESSMENT AND PLAN: (F01.A11) Mild vascular dementia with agitation (HCC) (primary encounter diagnosis) Plan: stable (I71.43) Infrarenal abdominal aortic aneurysm (AAA) without rupture (HCC) Plan: patient not interested in follow up at this time (I10) HTN, goal below 130/80 Plan: stable (N18.31) Stage 3a chronic kidney disease (HCC) Plan: stable (E66.3) Overweight (BMI 25.0-29.9) Plan: stable Follow up as needed. No other complaints were offered at this time. Gabino Taylor MD documented in this encounter Plan of Treatment Upcoming Encounters Date Type Department Care Team (Late st Contact Info) Description 10/09/2023 9:30 AM EST Office Visit Orthopaedics [facility] [address] [place] [id number] Patricia Lala MD [address] [place] [phone] Health Maintenance Due Date Last Done Comments COVID-19 Vaccine (#1) 06/06/1941 AAA Monitoring 12/06/1959 Albumin/Creatinine Ratio 12/06/1959 CKD PHOS USE SMARTSET 64875 12/06/1959 DTaP,Tdap,and Td Vaccines (1 - Tdap) 1960 Zoster Vaccines (1 of 2) 12/06/1991 Pneumococcal Vaccine: 65+ Years (1 - PCV) 2006 Depression, Most Recent Scor e >= 10 (will fire each visit until score < 10) 10/23/2018 10/22/2018 Influenza Vaccine (FLU shot) (#1) 2023 07/25/2007 GFR 01/30/2024 07/31/2023, 11/30/2020 CKD HGB USE SMARTSET 57461 07/31/202407/31, 07/31/2023 GARDASIL-HPV IMMUNIZATION SERIES Aged Out No longer eligible b ased on patient's age to complete this topic Hepatitis B Aged Out No longer eligi ble based on patient's age to complete this topic MENINGOCOCCAL (MENACTRA/MENVEO) Aged Out No longer eligible b ased on patient's age to complete this topic documented as of this encounter Medical Devices Not on filedocumented as of this encounter Visit Diagnoses Diagnosis Mild vascular dementia with agitation (HCC)- Primary Infrarenal abdominal aortic aneurysm (AAA) without rupture (HCC) HTN, goal below 130/80 Unspecified essential hypertension Stage 3a chronic kidney disease (HCC) Overweight (BMI 25.0-29.9) Overweight documented in this encounter Care Teams Wound/Ostomy Nurse Relationship Specialty Start Date End Date Gabino Taylor MD [address] [place] [id number] PCP - General Family Medicine 12/07/16 documented as of this encounter
[2023-10-01] MEDS: SODIUM CHLORIDE 0.9% 1,000 ML IV SCH (04:48)
[2023-10-01 06:30] LABS: Basophils # (auto) 0.05 K/uL (0.00-0.20); Basophils % (auto) 0.5 %; Eosinophils % (auto) 4.1 %; Hemoglobin 14.1 g/dl (14.0-18.0); Immature Granulocytes # (auto) 0.04 K/uL (0.01-0.20); Immature Granulocytes % (auto) 0.4 %; Lymphocytes # (auto) 1.33 K/uL (1.20-3.40); Lymphocytes % (auto) 13.5 %; Mean Corpuscular Hgb Conc 34.4 g/dL (32.0-36.0); Mean Corpuscular Volume 93.2 fL (80.0-100.0); Mean Platelet Volume 8.9 fL (9.4-12.4); Monocytes # (auto) 0.75 K/uL (0.11-0.59); Monocytes % (auto) 7.6 %; Neutrophils # (auto) 7.25 K/uL (1.40-6.50); Neutrophils % (auto) 73.9 %; Platelet Count 253 K/uL (130-400); RDW Coefficient of Variation 13.1 % (11.5-14.5); RDW Standard Deviation 44.6 fL (36.4-46.3); White Blood Count 9.82 K/ul (4.8-10.8)
[2023-10-01 06:40] LABS: BUN Creatinine Ratio 18.8 (10-20); Calcium 8.9 mg/dl (8.6-10.3); Creatinine Clr Calc Pharmacy 51.8 ml/min; Est GFR (African American) 57.7 ml/min; Est GFR (Non-African American) 49.8 ml/min; Magnesium 2.1 mg/dl (1.7-2.4); Potassium 3.8 mmol/L (3.5-5.1)
[2023-10-01 06:44] LABS: Amphetamines+Metham, Urine Neg (Neg); Barbiturates, Urine Neg (Neg); Benzodiazepine, Urine Neg (Neg); Cocaine, Urine Neg (Neg); MDMA (Ecstacy), Urine Neg (Neg); Marijuana, Urine Pos (Neg); Methadone, Urine Neg (Neg); Opiate, Urine Neg (Neg); Phencyclidine, Urine Neg (Neg)
[2023-10-01 06:46] LABS: Troponin I High Sensitivity 8.2 pg/ml (0-20)
[2023-10-01] MEDS: ACETAMINOPHEN 325 MG TAB PO PRN (07:38)
--- NOTE | 2023-10-01 07:53 | Electrocardiogram Report ---
Test Reason : Blood Pressure : / mmHG Vent. Rate : 100 BPM Atrial Rate : 000 BPM P-R Int : 000 ms QRS Dur : 134 ms QT Int : 362 ms P-R-T Axes : 000 -68 089 degrees QTc Int : 466 ms Probable Sinus rhythm with 1st degree A-V block Right bundle branch block Left anterior fascicular block Left ventricular hypertrophy with repolarization abnormality ( R in aVL , Romhilt-Iqbal ) Abnormal ECG When compared with ECG of 11-SEP-2023 14:28, P waves more diffficult to discern Right bundle branch block now present Confirmed by Gabino Pichardo ([id number]) on 10/01/2023 7:52:52 AM Referred By: REFERRED SELF Confirmed By:Gabino Pichardo
[2023-10-01] MEDS: hydroCHLOROthiazide 25 MG TAB PO SCH (09:02)
--- NOTE | 2023-10-01 10:11 | XRay Report ---
XR shoulder RT min 2V routine HISTORY: 82 years-old Male Shoulder Pain chronic right shoulder pain COMPARISON: Chest radiograph of same day TECHNIQUE: 3 views of the right shoulder FINDINGS: Moderate AC joint with severe glenohumeral osteoarthritis. No acute fracture, dislocation or opaque f oreign body. The imaged lung beltran appear clear. IMPRESSION: 1. No acute fracture or dislocation. 2. Severe glenohumeral osteoarthritis. ACT 112: Negative or not required by law. The above report was generated using voice recognition software. It may contain grammatical, syntax o r spelling errors. Electronically signed by: Bong Suarez M.D. 10/01/2023 10:10 AM
--- NOTE | 2023-10-01 11:02 | Electrocardiogram Report ---
Test Reason : Blood Pressure : / mmHG Vent. Rate : 061 BPM Atrial Rate : 061 BPM P-R Int : 374 ms QRS Dur : 134 ms QT Int : 460 ms P-R-T Axes : 017 -67 -30 degrees QTc Int : 463 ms Sinus rhythm with 1st degree A-V block Right bundle branch block Left anterior fascicular block Voltage criteria for left ventricular hypertrophy Possible Old Septal infarct (cited on or before 01-OCT-2023) Abnormal ECG When compared with ECG of 30-SEP-2023 16:53, Vent. rate has decreased BY 39 BPM Borderline Criteria for Septal infarct now present Confirmed by Gabino Pichardo ([id number]) on 10/01/2023 11:02:02 AM Referred By: REFERRED SELF Confirmed By:Gabino Pichardo
[2023-10-01 11:32] LABS: Adenovirus PCR Not Detected (NotDetected); Bordetella parapertussis PCR Not Detected (NotDetected); Bordetella pertussis PCR Not Detected (NotDetected); Chlamydia pneumoniae PCR Not Detected (NotDetected); Coronavirus 229E PCR Not Detected (NotDetected); Coronavirus CoV-2 (COVID19)PCR Not Detected (NotDetected); Coronavirus HKU1 PCR Not Detected (NotDetected); Coronavirus NL63 PCR Not Detected (NotDetected); Coronavirus OC43PCR Not Detected (NotDetected); Human Metapneumovirus PCR Not Detected (NotDetected); Influenza A PCR Not Detected (NotDetected); Influenza B PCR Not Detected (NotDetected); Mycoplasma pneumoniae PCR Not Detected (NotDetected); Parainfluenza Virus 1 PCR Not Detected (NotDetected); Parainfluenza Virus 2 PCR Not Detected (NotDetected); Parainfluenza Virus 3 PCR Not Detected (NotDetected); Parainfluenza Virus 4 PCR Not Detected (NotDetected); Respiratory Syncytial VirusPCR Not Detected (NotDetected); Rhinovirus/Enterovirus PCR Not Detected (NotDetected)
--- NOTE | 2023-10-01 12:07 | Cardiology Consultation ---
Date of Consultation October 01, 2023 Assessment & Plan (1) Chest pain: (2) Trifascicular block: (3) Acute confusion: (4) Aortic stenosis: Plan 82-year-old male admitted with acute confusion. Reports symptoms of atypical chest discomfort not suggestive of exertional angina. There is no evidence of acute coronary syndrome. Bedside echocardiogram demonstrating normal wall motion with mild aortic valve stenosis. No further inpatient testing recommended at this time. Recommend outpatient follow-up to consider stress testing pending reassessment. Surveillance of mild aortic stenosis recommended in 2 to 5 years. Conduction disease noted with first-degree AV block, right bundle branch block, and left anterior fascicular block (trifascicular block). Patient asymptomatic with telemetry demonstrates evidence of asymptomatic sinus bradycardia at 40 bpm. Continue telemetry monitoring while hospitalized. Assess TSH. Avoid AV cameron blocking agents. Recommend outpatient follow-up. Consider ZIO monitor for further assessment with any symptoms including lightheadedness, dizziness, syncope, or near syncope. History of Present Illness Reason for Consultation: Chest pain Requesting Physician: Dr. Draper Attending Physician: Jay Draper MD History of Present Illness 82-year-old patient presented to the emergency department with confusion. Patient does not recall events immediately prior to arrival. Most recent memory includes taking CBD gummy for treatment of chronic shoulder discomfort. Normally he takes one half of the edible gummy, however, yesterday he took both halves in rapid succession. Denies any THC use, however, urine drug screen is positive for THC. He does not recall events immediately upon arrival to the ER. At some point he mentioned chest pain to a healthcare provider who subsequently ordered a cardiology consult. Patient reports intermittent bilateral shoulder discomfort ongoing for several years. Denies exertional chest discomfort or unusual shortness of breath. Notes occasional episodes of epigastric and lower substernal discomfort in the a.m. upon awakening. Discomfort typically resolves spontaneous in the morning. Symptoms are intermittent and not consistently reproducible. Denies palpitations, lightheadedness, dizziness, syncope, or near syncope. No orthopnea, PND, or lower extremity edema. Conversation is somewhat tangential. Patient is a poor historian. Family friend present at bedside who also notes issues with ongoing confusion for several months. Allergies Allergy/AdvReac Type Severity Reaction Status Date / Time No Known Allergies Allergy Unknown Verified 09/30/23 17:05 Home Medications Medication Instructions Recorded Confirmed Type hydrochlorothiazide 25 mg tablet 25 mg PO QAM 09/11/23 09/30/23 History meclizine 25 mg tablet 25 mg PO TID PRN Dizziness 09/11/23 09/30/23 History Patient History Medical History SOB (shortness of breath) Stomach problems HTN (hypertension) Social History Smoking Status: Former smoker Tobacco Type: Cigarettes Hx Alcohol Use: No Hx Substance Use: No Preferred Language: Belarusian Communication Ability: Effective Crew Scheduler Required: No Beliefs That Will Affect Care: None Current Living Situation: Alone Feels Safe at Home: Yes Safety Concerns: Feels Safe At This Time Review of Systems Review of Systems: All systems reviewed & are unremarkable except as noted in Subjective Physical Exam Constitutional: well developed and well nourished Respiratory: no respiratory distress and no labored breathing Auscultation: lungs clear to auscultation bilaterally; no crackles, no rales, no rhonchi and no wheezes Cardiovascular: Rate/Rhythm: regular rate and regular rhythm Heart Sounds: normal S1, normal S2 and + murmur (1/6 JANI) Gastrointestinal (Abdomen): Inspection/Auscultation: abdomen normal to inspection and normal bowel sounds; abdomen not distended Percussion/Palpation: abdomen soft; abdomen nontender, no guarding and abdomen not rigid Neurologic: CN's II-XI intact bilaterally and moves all extremities; no focal motor deficits Results & Data Vital Signs (Past 12 Hours) Vital Signs Temp Pulse Pulse Resp BP BP Pulse Ox 10/01/23 11:30 58 L 20 118/84 97 10/01/23 07:30 58 L 17 157/74 H 96 10/01/23 07:13 63 10/01/23 05:58 37.1 C 52 L 18 120/71 99 10/01/23 05:00 67 15 130/78 95 10/01/23 04:05 55 L 10/01/23 04:00 52 L 15 110/67 99 10/01/23 03:56 10/01/23 03:54 36.7 C 65 16 121/93 99 10/01/23 03:00 69 22 121/93 98 10/01/23 02:00 65 14 128/73 96 10/01/23 01:32 67 22 124/79 96 10/01/23 00:41 79 10/01/23 00:30 81 19 98 10/01/23 00:00 79 16 96 Pulse Ox O2 Del Method O2 Del Method 10/01/23 11:30 Room Air 10/01/23 07:30 Room Air 10/01/23 07:13 10/01/23 05:58 Room Air 10/01/23 05:00 Room Air 10/01/23 04:05 10/01/23 04:00 Room Air 10/01/23 03:56 98 Room Air 10/01/23 03:54 Room Air 10/01/23 03:00 Room Air 10/01/23 02:00 Room Air 10/01/23 01:32 Room Air 10/01/23 00:41 10/01/23 00:30 10/01/23 00:00 Room Air Laboratory Results Cardiac Enzymes 09/30/23 09/30/23 10/01/23 Range/Units 17:00 21:28 05:57 AST 19 (13-39) U/L Troponin I High Sens 9.3 9.6 8.2 (0-20) pg/ml Coagulation 09/30/23 Range/Units 17:00 PT 12.2 H (9.0-12.0) Seconds CBC 09/30/23 10/01/23 Range/Units 17:00 05:57 WBC 11.59 H 9.82 (4.8-10.8) K/ul RBC 4.78 4.40 L (4.70-6.10) M/uL Hgb 15.3 14.1 (14.0-18.0) g/dl Hct 44.8 41.0 L (42.0-52.0) % Plt Count 269 253 (130-400) K/uL Neut # (Auto) 8.78 H 7.25 H (1.40-6.50) K/uL Lymph # (Auto) 1.61 1.33 (1.20-3.40) K/uL [place] # (Auto) 0.67 H 0.75 H (0.11-0.59) K/uL Eos # (Auto) 0.42 0.40 (0.00-0.50) K/uL Baso # (Auto) 0.06 0.05 (0.00-0.20) K/uL Comprehensive Metabolic Panel 09/30/23 10/01/23 Range/Units 17:00 05:57 Sodium 139 137 (136-145) mmol/L Potassium 3.6 3.8 (3.5-5.1) mmol/L Chloride 105 103 (98-107) mmol/L Carbon Dioxide 27 28 (21-32) mmol/L BUN 22 25 H (6-23) mg/dl Creatinine 1.45 H 1.33 (0.6-1.4) mg/dl Glucose 148 H 105 H (70-99(Fasting)) mg/dl Calcium 9.0 8.9 (8.6-10.3) mg/dl AST 19 (13-39) U/L ALT 13 (7-52) U/L Alkaline Phosphatase 79 (34-104) U/L Total Protein 6.7 (6.0-8.3) gm/dl Albumin 4.0 (3.4-5.0) gm/dl Intake and Output 09/30/23 10/01/23 10/01/23 22:59 06:59 14:59 Other: Weight 93.6 kg 93.6 kg Weight Measurement Method [facility] Additional Comments: ECG: Sinus bradycardia with first-degree AV block, right bundle branch block, left anterior fascicular block (1) Chest pain Chest pain type: other chest pain Qualified Code(s): R07.89 - Other chest pain
[2023-10-01 13:28] LABS: Troponin I High Sensitivity 9.4 pg/ml (0-20)
[2023-10-01 13:38] LABS: Thyroid Stimulating Hormone 1.207 uIu/ml (0.300-4.500)
--- NOTE | 2023-10-01 14:07 | Hospitalist Progress Note ---
Date of Service October 01, 2023 Assessment & Plan (1) Acute confusion: Plan: 82-year-old male with past medical history significant for hypertension, abdominal aortic aneurysm, CKD stage III, mild vascular dementia with agitation was brought in by friend because he was confused and speaking gibberish and also complained of chest pain. When he came in he was confused and seemed only oriented to name. Currently patient is more alert and awake and oriented x 3. Now he agrees that he took 2 THC Gummies for his right shoulder pain. He is having a lot of right shoulder pain and states he has appointment 5 weeks from now. And one of his friends gave him THC Gummies. After after he took two gummies Patient states that he does not know what happened. He states [place] of [place]. After he took Gummies he was walking out and does not know what he happened and what he talked. He also had some chest pain, like elephant sitting on his chest but that resolved now and he thinks it was a gas pain. Denies any shortness of breath. No headaches. Vision is okay. Has some runny nose and sore throat and some cough. Denies any fevers. Appetite is okay. Has some nausea. Has some abdominal discomfort. He said he had diarrhea before but that got resolved. Micturating okay. Currently resting comfortably and hemodynamically stable. Acute confusion Likely toxic encephalopathy secondary to THC --CT head:No acute intracranial findings. -- Toxicology screen positive for THC Confusion resolved Advised to avoid THC in the future. Patient understands and agrees Mental status back to baseline Chest pain--Resolved Trifascicular block Arctic stenosis Sinus bradycardia --CXR:No acute cardiopulmonary findings. No change in appearance of the chest. --Normal TSH --ECHO: Left ventricle systolic function is normal. EF 60 to 65%. Moderate concentric LVH. Ventricle wall motion is normal. Attic valve is trileaflet. Attic valve is mildly calcified. Mild valvular aortic stenosis. Mild aortic regurgitation. Mild tricuspid regurgitation. --Troponin x 3 negative Appreciate cardiology input Avoid AV cameron blocking agents Advised to follow-up with cardiology as outpatient Will likely need ZIO monitor arranged Despite explaining the risks and complications of need for further observation while hospitalized, patient prefers to be discharged home today He understands the risks and complications and agrees to follow-up with PCP and cardiology as outpatient Mild Cough Chest x-ray showed no signs of pneumonia Bio fire negative Normal procalcitonin Conservative management for now HTN On hydrochlorothiazide H/O Mild vascular dementia with agitation As per records Oriented x 3 during my encounter CKD stage III Creatinine 1.4>1.3 Renal function at baseline Avoid nephrotoxic agents as able Monitor Right shoulder pain Chronic secondary to arthritis Reported rotator cuff tear --Shoulder X ray:No acute fracture or dislocation. Severe glenohumeral os teoarthritis. Plans to follow-up with PCP/orthopedics on discharge Currently denies any significant pain Offered evaluation by orthopedics while inpatient, patient currently not interested DVT prophylaxis SCDs Code Status Full code Disposition Home Admission and Anticipated Discharge Date Admission Date: October 01, 2023 Subjective Patient is seen and examined at bedside Eager to get discharged Reports right shoulder pain is chronic Admits to have dry cough but otherwise no complaints Denies any chest pain, dizziness, nausea, vomiting, abdominal pain Review of Systems Review of Systems: All systems reviewed & are unremarkable except as noted in Subjective Physical Exam Physical Exam: Physical Exam: Vitals signs as noted above General Appearance:Moderately built and nourished, no apparent distress Head: normocephalic, Atraumatic Eyes: normal inspection, EOMI Neck: supple, Trachea midline Respiratory/Chest: Normal breath sounds, CTA, No accessory muscle use Cardiovascular: S1, S2, + murmur Abdomen/GI:Soft, Non tender, Bowel sounds present Extremities/Musculoskeletal:normal inspection, no edema Neurologic/Psych:AAOX3, grossly no focal neurological deficits Skin: normal color, warm Results & Data Results & Data Vital Signs (Past 12 Hours) Vital Signs Temp Pulse Pulse Resp BP BP Pulse Ox 10/01/23 11:30 58 L 20 118/84 97 10/01/23 07:30 58 L 17 157/74 H 96 10/01/23 07:13 63 10/01/23 05:58 37.1 C 52 L 18 120/71 99 10/01/23 05:00 67 15 130/78 95 10/01/23 04:05 55 L 10/01/23 04:00 52 L 15 110/67 99 10/01/23 03:56 10/01/23 03:54 36.7 C 65 16 121/93 99 10/01/23 03:00 69 22 121/93 98 02/06/24 02:00 65 14 128/73 96 Pulse Ox O2 Del Method O2 Del Method 10/01/23 11:30 Room Air 10/01/23 07:30 Room Air 10/01/23 07:13 10/01/23 05:58 Room Air 10/01/23 05:00 Room Air 10/01/23 04:05 10/01/23 04:00 Room Air 10/01/23 03:56 98 Room Air 10/01/23 03:54 Room Air 10/01/23 03:00 Room Air 10/01/23 02:00 Room Air Laboratory Results Short CBC 09/30/23 10/01/23 Range/Units 17:00 05:57 WBC 11.59 H 9.82 (4.8-10.8) K/ul Hgb 15.3 14.1 (14.0-18.0) g/dl Hct 44.8 41.0 L (42.0-52.0) % Plt Count 269 253 (130-400) K/uL BMP 09/30/23 10/01/23 17:00 05:57 Sodium 139 137 Potassium 3.6 3.8 Chloride 105 103 Carbon Dioxide 27 28 BUN 22 25 H Creatinine 1.45 H 1.33 Glucose 148 H 105 H Calcium 9.0 8.9 Liver Function 09/30/23 Range/Units 17:00 Total Bilirubin 0.7 (0.2-1.0) mg/dl AST 19 (13-39) U/L ALT 13 (7-52) U/L Alkaline Phosphatase 79 (34-104) U/L Albumin 4.0 (3.4-5.0) gm/dl Urine 09/30/23 Range/Units 21:06 Urine Color Yellow Urine Appearance Clear (Clear) Urine pH 6.5 (4.5-7.5) Ur Specific Ethel 1.016 (1.000-1.030) Urine Protein Negative (Negative) Urine Glucose (UA) Negative (Negative)
--- NOTE | 2023-10-01 14:19 | Communication Note ---
Date of Service: October 01, 2023 By CMS guidelines, a determination that the admission or continued stay is not medically necessary has been made by a member of the UR committee and a ph ysician for this hospital stay, therefore a Code 44 will be completed and the Inpatient admission will be changed to outpatient.
--- NOTE | 2023-10-01 14:20 | Discharge Summary ---
Date of Service October 01, 2023 Admission HPI Per Admitting Provider 82-year-old male with past medical history significant for hypertension, abdominal aortic aneurysm, CKD stage III, mild vascular dementia with agitation was brought in by friend because he was confused and speaking gibberish and also complained of chest pain. When he came in he was confused and seemed only oriented to name. Currently patient is more alert and awake and oriented x 3. Now he agrees that he took 2 THC Gummies for his right shoulder pain. He is having a lot of right shoulder pain and states he has appointment 5 weeks from now. And one of his friends gave him THC Gummies. After after he took two gummies Patient states that he does not know what happened. He states he lives in the basement of scientologist. After he took Gummies he was walking out and does not know what he happened and what he talked. He also had some chest pain, like elephant sitting on his chest but that resolved now and he thinks it was a gas pain. Denies any shortness of breath. No headaches. Vision is okay. Has some runny nose and sore throat and some cough. Denies any fevers. Appetite is okay. Has some nausea. Has some abdominal discomfort. He said he had diarrhea before but that got resolved. Micturating okay. Currently resting comfortably and hemodynamically stable. Past medical history. As mentioned above Past surgical history. No surgical history on file Social history. . Quit smoking 2011. No alcohol use. No drug use. Family history. No family history on file Admission Exam Per Admitting Provider General- Not in distress Head- atraumatic Eyes- PERRL ENT- oropharynx clear Neck- supple, no JVD. Lungs- clear to auscultation no wheezing or crackles. Heart- regular rhythm; no murmur, no gallop. Abdomen- normal bowel sounds, soft, nontender, no distension. Extremities- no pretibial edema, no erythema seen. Neuro- alert, oriented x 3; PERRL no facial palsy; no dysarthria; motor 5/5 florentino aterally; no pronator drift coordination of movements normal sensations intact. Skin- warm & dry Principal Diagnosis Toxic encephalopathy--Resolved Chest pain--resolved Right shoulder osteoarthritis Discharge Data Allergies Allergy/AdvReac Type Severity Reaction Status Date / Time No Known Allergies Allergy Unknown Verified 09/30/23 17:05 Consultations 09/30/23 22:36 ED Decision to Admit Stat 10/01/23 08:00 Consult Cardiology Routine Procedures Performed Laboratory Results WBC 9.82 K/ul (4.8-10.8) 10/01/23 05:57 RBC 4.40 M/uL (4.70-6.10) L 10/01/23 05:57 Hgb 14.1 g/dl (14.0-18.0) 10/01/23 05:57 Hct 41.0 % (42.0-52.0) L 10/01/23 05:57 MCV 93.2 fL (80.0-100.0) 10/01/23 05:57 MCH 32.0 pg (25.0-34.0) 10/01/23 05:57 MCHC 34.4 g/dL (32.0-36.0) 10/01/23 05:57 RDW Std Deviation 44.6 fL (36.4-46.3) 10/01/23 05:57 RDW Coeff of [place] 13.1 % (11.5-14.5) 10/01/23 05:57 Plt Count 253 K/uL (130-400) 10/01/23 05:57 MPV 8.9 fL (9.4-12.4) L 10/01/23 05:57 Immature Gran % (Auto) 0.4 % 10/01/23 05:57 Neut % (Auto) 73.9 % 10/01/23 05:57 Lymph % (Auto) 13.5 % 10/01/23 05:57 [place] % (Auto) 7.6 % 10/01/23 05:57 Eos % (Auto) 4.1 % 10/01/23 05:57 Baso % (Auto) 0.5 % 10/01/23 05:57 Neut # (Auto) 7.25 K/uL (1.40-6.50) H 10/01/23 05:57 Lymph # (Auto) 1.33 K/uL (1.20-3.40) 10/01/23 05:57 [place] # (Auto) 0.75 K/uL (0.11-0.59) H 10/01/23 05:57 Eos # (Auto) 0.40 K/uL (0.00-0.50) 10/01/23 05:57 Baso # (Auto) 0.05 K/uL (0.00-0.20) 10/01/23 05:57 Immature Gran # (Auto) 0.04 K/uL (0.01-0.20) 10/01/23 05:57 PT 12.2 Seconds (9.0-12.0) H 09/30/23 17:00 INR 1.1 (0.9-1.1) 09/30/23 17:00 Sodium 137 mmol/L (136-145) 10/01/23 05:57 Potassium 3.8 mmol/L (3.5-5.1) 10/01/23 05:57 Chloride 103 mmol/L (98-107) 10/01/23 05:57 Carbon Dioxide 28 mmol/L (21-32) 10/01/23 05:57 Anion Gap 6 (3-11) 10/01/23 05:57 BUN 25 mg/dl (6-23) H 10/01/23 05:57 Creatinine 1.33 mg/dl (0.6-1.4) 10/01/23 05:57 Est Cr Clr Drug Dosing 51.8 ml/min 10/01/23 05:57 Est GFR ( Amer) 57.7 ml/min 10/01/23 05:57 Est GFR (Non-Af Amer) 49.8 ml/min 10/01/23 05:57 BUN/Creatinine Ratio 18.8 (10-20) 10/01/23 05:57 Glucose 105 mg/dl (70-99(Fasting)) H 10/01/23 05:57 Calcium 8.9 mg/dl (8.6-10.3) 10/01/23 05:57 Magnesium 2.1 mg/dl (1.7-2.4) 10/01/23 05:57 Total Bilirubin 0.7 mg/dl (0.2-1.0) 09/30/23 17:00 AST 19 U/L (13-39) 09/30/23 17:00 ALT 13 U/L (7-52) 09/30/23 17:00 Alkaline Phosphatase 79 U/L (34-104) 09/30/23 17:00 Troponin I High Sens 9.4 pg/ml (0-20) 10/01/23 12:36 Total Protein 6.7 gm/dl (6.0-8.3) 09/30/23 17:00 Albumin 4.0 gm/dl (3.4-5.0) 09/30/23 17:00 Globulin 2.7 gm/dl (2.5-4.0) 09/30/23 17:00 Albumin/Globulin Ratio 1.5 (0.9-2) 09/30/23 17:00 Lipase 12 U/L (11-82) 09/30/23 17:00 Procalcitonin < 0.05 ng/ml (0-0.5) 09/30/23 17:00 TSH 1.207 uIu/ml (0.300-4.500) 10/01/23 12:36 Urine Color Yellow 09/30/23 21:06 Urine Appearance Clear (Clear) 09/30/23 21:06 Urine pH 6.5 (4.5-7.5) 09/30/23 21:06 Ur Specific [place] 1.016 (1.000-1.030) 09/30/23 21:06 Urine Protein Negative (Negative) 09/30/23 21:06 Urine Glucose (UA) Negative (Negative) 09/30/23 21:06 Urine Ketones Trace (Negative) H 09/30/23 21:06 Urine Blood Negative (Negative) 09/30/23 21:06 Urine Nitrite Negative (Negative) 09/30/23 21:06 Urine Bilirubin Negative (Negative) 09/30/23 21:06 Urine Urobilinogen Negative (Negative) 09/30/23 21:06 Ur Leukocyte Esterase Negative (Negative) 09/30/23 21:06 Urine Opiates Screen Neg (Neg) 10/01/23 05:33 Ur Methadone, Qual Neg (Neg) 10/01/23 05:33 Urine Barbiturates Neg (Neg) 10/01/23 05:33 Ur Phencyclidine (PCP) Neg (Neg) 10/01/23 05:33 U Amphetamin/Meth Scrn Neg (Neg) 10/01/23 05:33 MDMA (Ecstasy) Screen Neg (Neg) 10/01/23 05:33 U Benzodiazepines Scrn Neg (Neg) 10/01/23 05:33 Ur Cocaine Metabolite Neg (Neg) 10/01/23 05:33 U Marijuana (THC) Screen Pos (Neg) H 10/01/23 05:33 Adenovirus (PCR) Not Detected (NotDetected) 10/01/23 10:20 B. pertussis DNA (PCR) Not Detected (NotDetected) 10/01/23 10:20 B.parapertussis DNA PCR Not Detected (NotDetected) 10/01/23 10:20 C. pneumoniae DNA (PCR) Not Detected (NotDetected) 10/01/23 10:20 Coronavirus OC43 (PCR) Not Detected (NotDetected) 10/01/23 10:20 Coronavirus HKU1 (PCR) Not Detected (NotDetected) 10/01/23 10:20 Coronavirus 229E (PCR) Not Detected (NotDetected) 10/01/23 10:20 SARS-CoV-2 (PCR) Not Detected (NotDetected) 10/01/23 10:20 Coronavirus NL63 (PCR) Not Detected (NotDetected) 10/01/23 10:20 Human Metapneumovir PCR Not Detected (NotDetected) 10/01/23 10:20 Influenza Type A (PCR) Not Detected (NotDetected) 10/01/23 10:20 Influenza Type B (PCR) Not Detected (NotDetected) 10/01/23 10:20 M. pneumoniae (PCR) Not Detected (NotDetected) 10/01/23 10:20 Parainfluenza 1 (PCR) Not Detected (NotDetected) 10/01/23 10:20 Parainfluenza 2 (PCR) Not Detected (NotDetected) 10/01/23 10:20 Parainfluenza 3 (PCR) Not Detected (NotDetected) 10/01/23 10:20 Parainfluenza 4 (PCR) Not Detected (NotDetected) 10/01/23 10:20 RSV (PCR) Not Detected (NotDetected) 10/01/23 10:20 Entero/Rhino (PCR) Not Detected (NotDetected) 10/01/23 10:20 Impressions Chest X-Ray 09/30/23 17:18 XR chest 1V portable CLINICAL HISTORY: Chest pain, nonspecific COMPARISON STUDY: Chest radiograph September 11, 2023. FINDINGS: Lung volumes are normal. Lungs are clear. There is no pneumothorax or pleural effusion. Mild cardiomegaly is again noted. Mediastinal contours are normal. There is no evidence for pulmonary edema. IMPRESSION: No acute cardiopulmonary findings. No change in appearance of the chest. ACT 112: Negative or not required by law. Electronically signed by: Temo Villanueva M.D. 09/30/2023 7:[address] 09/30/23 17:18 CT OF THE HEAD WITHOUT CONTRAST CLINICAL HISTORY: Confusion. COMPARISON STUDY: Head CT and CTA of the head November 20, 2020. CT DOSE: 703.85 mGy.cm TECHNIQUE: Helical axial images of the head were obtained without IV contrast. Automated exposure control was utilized for the study. A dose lowering technique was utilized adhering to the principles of ALARA. FINDINGS: No acute intracranial hemorrhage, midline shift or mass effect is present. The ventricular system is stable. The basal cisterns are patent. No extra-axial collections are present. There are no findings to suggest acute dural sinus thrombosis or acute territorial infarct. No significant calvarial abnormalities are present. Visualized portions of the sinuses and mastoid air cells are clear. IMPRESSION: No acute intracranial findings. ACT 112: Negative or not required by law. Electronically signed by: Temo Villanueva M.D. 09/30/2023 6:29 PM Shoulder X-Ray 10/01/23 09:13 XR shoulder RT min 2V routine HISTORY: 82 years-old Male Shoulder Pain chronic right shoulder pain COMPARISON: Chest radiograph of same day TECHNIQUE: 3 views of the right shoulder FINDINGS: Moderate AC joint with severe glenohumeral osteoarthritis. No acute fracture, dislocation or opaque foreign body. The imaged lung beltran appear clear. IMPRESSION: 1. No acute fracture or dislocation. 2. Severe glenohumeral osteoarthritis. ACT 112: Negative or not required by law. The above report was generated using voice recognition software. It may contain grammatical, syntax or spelling errors. Electronically signed by: Bong Suarez M.D. 10/01/2023 10:10 AM Ordered Studies 09/30/23 17:18 CT head/brain wo con Stat Hospital Course (1) Acute confusion: 82-year-old male with past medical history significant for hypertension, abdominal aortic aneurysm, CKD stage III, mild vascular dementia with agitation was brought in by friend because he was confused and speaking gibberish and also complained of chest pain. When he came in he was confused and seemed only oriented to name. Currently patient is more alert and awake and oriented x 3. Now he agrees that he took 2 THC Gummies for his right shoulder pain. He is having a lot of right shoulder pain and states he has appointment 5 weeks from now. And one of his friends gave him THC Gummies. After after he took two gummies Patient states that he does not know what happened. He states he lives in the basement of scientologist. After he took Gummies he was walking out and does not know what he happened and what he talked. He also had some chest pain, like elephant sitting on his chest but that resolved now and he thinks it was a gas pain. Denies any shortness of breath. No headaches. Vision is okay. Has some runny nose and sore throat and some cough. Denies any fevers. Appetite is okay. Has some nausea. Has some abdominal discomfort. He said he had diarrhea before but that got resolved. Micturating okay. Currently resting comfortably and hemodynamically stable. Acute confusion Likely toxic encephalopathy secondary to THC --CT head:No acute intracranial findings. -- Toxicology screen positive for THC Confusion resolved Advised to avoid THC in the future. Patient understands and agrees Mental status back to baseline Chest pain--Resolved Trifascicular block Arctic stenosis Sinus bradycardia --CXR:No acute cardiopulmonary findings. No change in appearance of the chest. --Normal TSH --ECHO: Left ventricle systolic function is normal. EF 60 to 65%. Moderate concentric LVH. Ventricle wall motion is normal. Attic valve is trileaflet. Attic valve is mildly calcified. Mild valvular aortic stenosis. Mild aortic regurgitation. Mild tricuspid regurgitation. --Troponin x 3 negative Appreciate cardiology input Avoid AV cameron blocking agents Advised to follow-up with cardiology as outpatient Will likely need ZIO monitor arranged Despite explaining the risks and complications of need for further observation while hospitalized, patient prefers to be discharged home today He understands the risks and complications and agrees to follow-up with PCP and cardiology as outpatient Mild Cough Chest x-ray showed no signs of pneumonia Bio fire negative Normal procalcitonin Conservative management for now HTN On hydrochlorothiazide H/O Mild vascular dementia with agitation As per records Oriented x 3 during my encounter CKD stage III Creatinine 1.4>1.3 Renal function at baseline Avoid nephrotoxic agents as able Monitor Right shoulder pain Chronic secondary to arthritis Reported rotator cuff tear --Shoulder X ray:No acute fracture or dislocation. Severe glenohumeral osteoarthritis. Plans to follow-up with PCP/orthopedics on discharge Currently denies any significant pain Offered evaluation by orthopedics while inpatient, patient currently not interested DVT prophylaxis SCDs Code Status Full code Disposition Home Total Time Total Time Spent Total Time Spent (In Minutes): 55 minutes Discharge Plan Discharge Items Patient Disposition: Home - Self-Care Reason For Visit: CONFUSION, CHEST PAIN Discharge Diagnosis: Toxic encephalopathy--Resolved Chest pain--resolved Right shoulder osteoarthritis Activity: Per Instructions section Exercise/Sports: Wait until after follow-up appointment Non-emergency contact: Primary Care Provider Call non-emergency contact if: you have any medication questions, your symptoms worsen, your pain is concerning for you and you have a fever Follow-up/Referrals: Gabino Taylor MD [Primary Care Provider] - (Date & Time 10/08/2023 3:20 PM Provider Gabino Taylor MD Department [facility] ) Diet: Heart Healthy Addtl Attending Provider Instructions: Follow-up with your primary care physician Dr. Taylor on 10/08/2023 3:20 PM Follow-up with your sales forecast analyst Dr. Hernandez in 3 to 4 weeks as advised. Follow-up with your orthopedic surgeon for further management of right shoulder pain as advised -- Your sales forecast analyst recommends outpatient stress test and ZIO monitor as outpatient. --Avoid using THC/marijuana as advised Seek immediate medical attention if your symptoms reoccur or worsen Please take all medications as instructed on discharge list below. Please call if you have any questions or problems. You can reach a [facility] hospitalist on duty at [facility] 24 hours a day by calling [phone] Pending Studies at Discharge: No Stand-Alone Forms: My [facility], Smoking Cessation Medications and DC Order Prescriptions: Continued meclizine 25 mg Tablet 25 mg PO TID PRN (Reason: Dizziness) hydrochlorothiazide 25 mg tablet 25 mg PO QAM Discharge Orders: Discharge Order (Routine); Ordered 10/01/23 Ordered By: Jay Draper Admission Data Admit Date/Time: 10/01/23 01:57 Attending Provider: Jay Draper Admit Provider: Willie Levine Primary Care Provider: Gabino Tayolr Other Providers: Willie Levine; [place] Hernandez
--- NOTE | 2023-10-01 23:54 | Communication Note ---
Date of Service: October 01, 2023 Code 44 attestation: 82-year-old male with admitted with acute confusion likely secondary to use of THC with history of aortic stenosis. He was appropriately cared and his confusion cleared. He was seen by the corporate strategist for his cardiac issues and he was discharged home by the attending in a stable medical condition By CMS guidelines, a determination that the admission or continued stay is not medically necessary has been made by a member of the UR committee and a physician for this hospital stay, therefore a Code 44 will be completed and the Inpatient admission will be changed to outpatient. Dr. Luiz Garcia Member UR committee
[2023-10-03 13:12] LABS: Marijuana Quant, GCMS Urine 796 ng/mL (<5)
== END 2023-10-01 14:45 | disposition home or self-care (01) | DRG 917 ==
LOC: ED 16:41 → EDINP 10-01 01:57

== ENCOUNTER 2024-08-17 15:17 | Inpatient (IN) ==
[2024-08-17 16:09] LABS: Basophils # (auto) 0.05 K/uL (0.00-0.20); Basophils % (auto) 0.6 %; Eosinophils # (auto) 0.32 K/uL (0.00-0.50); Hematocrit (blood only) 48.2 % (42.0-52.0); Hemoglobin 16.3 g/dl (14.0-18.0); Immature Granulocytes # (auto) 0.03 K/uL (0.01-0.20); Immature Granulocytes % (auto) 0.4 %; Lymphocytes % (auto) 17.7 %; Mean Corpuscular Hemoglobin 32.1 pg (25.0-34.0); Mean Corpuscular Hgb Conc 33.8 g/dL (32.0-36.0); Mean Corpuscular Volume 95.1 fL (80.0-100.0); Mean Platelet Volume 9.2 fL (9.4-12.4); Monocytes % (auto) 6.3 %; Neutrophils # (auto) 5.62 K/uL (1.40-6.50); Platelet Count 249 K/uL (130-400); RDW Coefficient of Variation 13.7 % (11.5-14.5); RDW Standard Deviation 47.9 fL (36.4-46.3); Red Blood Count 5.07 M/uL (4.70-6.10); White Blood Count 7.92 K/ul (4.8-10.8)
--- NOTE | 2024-08-17 16:20 | CT Scan Report ---
EXAM: CT Head Without Intravenous Contrast INDICATION: Confusion TECHNIQUE: Axial computed tomography images of the head/brain without intravenous contrast. Sagittal and/or coronal reformats are provided. Sagittal and coronal reformatted images were created and reviewed. This CT exam was performed using one or more of the following dose reduction techniques: automated exposure control, adjustment of the mA and/or kV according to patient size, and/or use of iterative reconstruction technique. COMPARISON: 09/30/2023 FINDINGS: Limitations: None. Brain and extra-axial spaces: There is age appropriate cortical atrophy and chronic ischemic periventricular white matter hypodensity. No acute infarct, hemorrhage or mass noted. Bones/joints: No acute changes. Soft tissues: No significant abnormality noted. Vasculature: Intracranial atherosclerotic calcification is noted. Sinuses: No layering fluid in the visualized portions of the paranasal sinuses. Mastoid air cells: No mastoid effusion. Orbits: No significant abnormality noted. IMPRESSION: Cerebral atrophy. No acute changes. ACT 112: Negative or not required by law. Electronically signed by Hilda Faria 08-17-2024 4:19 PM
[2024-08-17 16:28] LABS: Albumin Globulin Ratio 1.6 (0.9-2); Albumin Level 4.6 gm/dl (3.4-5.0); Bilirubin,Total 1.1 mg/dl (0.2-1.0); Calcium 10.2 mg/dl (8.6-10.3); Creatinine Clr Calc Pharmacy 51.2 ml/min; Globulin 2.9 gm/dl (2.5-4.0); Total Protein 7.5 gm/dl (6.0-8.3)
--- NOTE | 2024-08-17 16:29 | Emergency Department Note ---
Impression & Plan Acute confusion, Altered mental status, unspecified, Bradycardia ED Provider Note NAME: LI GALLAGHER AGE: 83 SEX: M : 1940 ARRIVES VIA: Ambulance INFORMANT: [Patient][friend, POA] ED PROVIDER(S): [Luis Hou MD] CHIEF COMPLAINT: Altered mental status HISTORY OF PRESENT ILLNESS: The patient is an 83-year-old male who presents to the ER with an altered mental state. He has been on the decline lately. Recently, he was placed on some medications for depression but, he has not shown any improvement. He has been having some hallucinations. He apparently has also been eating some CBD Gummies from a local store. The patient was found today outside in the cold, it is around 20 F. He was wearing shorts, he did not know why he was outside or where he was. He was brought for evaluation. As per the power of attorney law clerk at bedside, the patient requires placement. They have been trying to do this on their own outpatient but have been unsuccessful. The patient is currently living alone. The patient denies any pain but otherwise cannot really give a concise history. He is a very poor historian and seems confused. PMHx/PSHx/Social Hx: See Below PHYSICAL EXAM: GENERAL: Patient is in no acute distress. HEENT: No acute trauma, normocephalic atraumatic, mucous membranes moist, no nasal congestion. NECK: No stridor, no adenopathy, no meningismus, trachea is midline. LUNGS: Scattered crackles heard, no wheezing, no respiratory distress. HEART: 2/6 systolic murmur, regular rate and rhythm. ABDOMEN: Soft, nontender, no peritonitis. EXTREMITIES: No cyanosis, full range of motion of all the joints without pain or difficulty. NEUROLOGIC: Awake, no acute motor or sensory deficits, no focal weakness. Poor historian. SKIN: No jaundice, no diaphoresis. DIFFERENTIAL DIAGNOSIS: Dementia, intracranial bleeding, UTI, electrolyte imbalance, medication reaction, among others. EMERGENCY DEPARTMENT PROCEDURES: MEDICAL DECISION MAKING: There is no leukocytosis or concerning anemia. There is a normal platelet count. No renal failure or significant electrolyte abnormality. No concerning liver enzyme elevation. Ammonia level was not elevated. The patient appeared to be in a euthyroid state. ECG shows a sinus rhythm, no dysrhythmia or ischemia. Cardiac enzyme testing x 1 is not consistent with acute cardiac injury. Urinalysis suggest some dehydration, no infection. Aspirin, Tylenol and alcohol levels were undetectable. Lyme disease testing was negative. Urine tox does show marijuana. Brain CT shows no acute bleed or mass effect. Chest x-ray does not show pneumonia or CHF. On exam, the patient was confused. He was not toxic or febrile. Patient presents after being found wandering outside in the cold wearing shorts. He was not felt safe at home. The cause for his confusion and disorientation is unclear. Certainly, he may be having some difficulty with the CBD Gummies he has been consuming. This may be just a worsening of dementia. I did speak with the patient's power of attorney law clerk. I spoke with the patient. The on-call hospitalist has been consulted. Case management has been involved. Of note, the patient was found to be bradycardic during his ED stay, he was asymptomatic with the bradycardia. Prior/Outside records/notes reviewed: Today's EMS notes describing his presentation and transport to this hospital. ECG per my interpretation: Indication was weakness and confusion. The ECG shows a sinus rhythm with some sinus arrhythmia. There is a first-degree AV block. The rate is 68. There is LVH present. No obvious ST elevation, no PVCs. The QTc is 489. Continuous Cardiac Monitoring per my interpretation: An order was placed for continuous cardiac monitoring. The monitor shows a rate of 42 with sinus bradycardia with a first-degree block. Imaging/x-ray results per my interpretation: Chest x-ray does not show mediastinal widening, pneumonia or pneumothorax. Chronic Medical/Social conditions affecting care: Advanced age. Care/Management discussed with: Case management, the on-call hospitalist. Level of care consideration(s): After review of the information above and other included data: --I believe the patient requires escalation of care to admission DISPOSITION: Admission Past Med/Surg History Problem List (Updated 08/17/24 @ 23:53 by Luis Hou MD) Bradycardia (Acute) Acute confusion (Acute) Altered mental status, unspecified (Acute) No significant past surgical history Trifascicular block SOB (shortness of breath) (Acute) Stomach problems (Chronic) HTN (hypertension) (Chronic) Medical History Aortic stenosis Social History Smoking Status: Unknown if ever smoked Tobacco Type: Cigarettes Hx Alcohol Use: No Hx Substance Use: Yes Preferred Language: Faroese Communication Ability: Effective Investment Advisor Required: No Beliefs That Will Affect Care: None Current Living Situation: Alone Feels Safe at Home: Yes Safety Concerns: Feels Safe At This Time Assistive Devices: Glasses Allergies Allergies Allergy/AdvReac Type Severity Reaction Status Date / Time No Known Allergies Allergy Unknown Verified 02/09/24 17:09 Home Meds Home Medications Medication Instructions Recorded Confirmed hydrochlorothiazide 25 mg tablet 25 mg PO QAM 09/11/23 08/17/24 aspirin 81 mg tablet,delayed 81 mg PO DAILY 02/09/24 08/17/24 release diclofenac sodium 50 mg 50 mg PO BID PRN Pain 08/17/24 08/17/24 tablet,delayed release escitalopram oxalate 10 mg tablet 10 mg PO DAILY 08/17/24 08/17/24 lisinopril 10 mg tablet 10 mg PO DAILY 08/17/24 08/17/24 meclizine 25 mg tablet 25 mg PO TID PRN Dizziness 08/17/24 08/17/24 quetiapine 25 mg tablet 25 mg PO DAILY 08/17/24 08/17/24 Results & Data (ED) Vital Signs Vital Signs - 24 hr 08/17/24 15:39 08/17/24 15:45 08/17/24 15:58 Temperature 36.8 C Temperature Source Rectal Pulse Rate 81 69 Pulse Rate from SpO2 Sensor 65 Respiratory Rate 18 17 Respiratory Effort / Characteristics Non-Labored Respiratory Depth Normal Blood Pressure 177/88 H Blood Pressure Mean 117 Pulse Oximetry 97 95 97 Oxygen Delivery Method Room Air Room Air Sepsis Recent Fever Within 48 Hours No Sepsis New/Unexplained Change in Mental Status No Sepsis Action Taken by Nursing No Action Required 08/17/24 16:13 08/17/24 16:24 08/17/24 16:26 Temperature Temperature Source Pulse Rate 40 L 59 L Pulse Rate from SpO2 Sensor 56 L Respiratory Rate 14 Respiratory Effort / Characteristics Respiratory Depth Blood Pressure 145/100 H Blood Pressure Mean 123 Pulse Oximetry 98 Oxygen Delivery Method Sepsis Recent Fever Within 48 Hours Sepsis New/Unexplained Change in Mental Status Sepsis Action Taken by Nursing 08/17/24 16:26 08/17/24 16:27 08/17/24 16:30 Temperature Temperature Source Pulse Rate 61 58 L Pulse Rate from SpO2 Sensor 62 59 L Respiratory Rate 19 21 Respiratory Effort / Characteristics Respiratory Depth Blood Pressure 145/100 H Blood Pressure Mean 123 Pulse Oximetry 95 98 Oxygen Delivery Method Sepsis Recent Fever Within 48 Hours Sepsis New/Unexplained Change in Mental Status Sepsis Action Taken by Nursing 08/17/24 16:31 08/17/24 17:30 08/17/24 17:48 Temperature Temperature Source Pulse Rate 55 L 52 L Pulse Rate from SpO2 Sensor Respiratory Rate 16 18 Respiratory Effort / Characteristics Respiratory Depth Blood Pressure 158/84 H Blood Pressure Mean 107 Pulse Oximetry Oxygen Delivery Method Sepsis Recent Fever Within 48 Hours Sepsis New/Unexplained Change in Mental Status Sepsis Action Taken by Nursing 08/17/24 18:00 Temperature Temperature Source Pulse Rate Pulse Rate from SpO2 Sensor Respiratory Rate Respiratory Effort / Characteristics Respiratory Depth Blood Pressure 165/86 H Blood Pressure Mean 122 Pulse Oximetry Oxygen Delivery Method Sepsis Recent Fever Within 48 Hours Sepsis New/Unexplained Change in Mental Status Sepsis Action Taken by Snf Medications Current Medication List: was personally reviewed by me Laboratory Data Attestation: I reviewed the patient's lab results. 08/17/24 15:35 08/17/24 15:35 Lab Results 08/17/24 08/17/24 08/17/24 Range/Units 15:35 15:36 16:33 WBC 7.92 (4.8-10.8) K/ul RBC 5.07 (4.70-6.10) M/uL Hgb 16.3 (14.0-18.0) g/dl Hct 48.2 (42.0-52.0) % MCV 95.1 (80.0-100.0) fL MCH 32.1 (25.0-34.0) pg MCHC 33.8 (32.0-36.0) g/dL RDW Std Deviation 47.9 H (36.4-46.3) fL RDW Coeff of Beulah 13.7 (11.5-14.5) % Plt Count 249 (130-400) K/uL MPV 9.2 L (9.4-12.4) fL Immature Gran % (Auto) 0.4 % Neut % (Auto) 71.0 % Lymph % (Auto) 17.7 % [place] % (Auto) 6.3 % Eos % (Auto) 4.0 % Baso % (Auto) 0.6 % Neut # (Auto) 5.62 (1.40-6.50) K/uL Lymph # (Auto) 1.40 (1.20-3.40) K/uL [place] # (Auto) 0.50 (0.11-0.59) K/uL Eos # (Auto) 0.32 (0.00-0.50) K/uL Baso # (Auto) 0.05 (0.00-0.20) K/uL Immature Gran # (Auto) 0.03 (0.01-0.20) K/uL Sodium 144 (136-145) mmol/L Potassium 4.0 (3.5-5.1) mmol/L Chloride 105 (98-107) mmol/L Carbon Dioxide 26 (21-32) mmol/L Anion Gap 13 H (3-11) BUN 22 (6-23) mg/dl Creatinine 1.22 (0.6-1.4) mg/dl Est Cr Clr Drug Dosing 51.2 ml/min eGFR 59.19 BUN/Creatinine Ratio 18.0 (10-20) Glucose 98 (70-99(Fasting)) mg/dl Calcium 10.2 (8.6-10.3) mg/dl Magnesium 2.0 (1.7-2.4) mg/dl Total Bilirubin 1.1 H (0.2-1.0) mg/dl AST 14 (13-39) U/L ALT 9 (7-52) U/L Alkaline Phosphatase 77 (34-104) U/L Ammonia 13.0 L (18-72) umol/L Troponin I High Sens 15.0 (0-20) pg/ml Total Protein 7.5 (6.0-8.3) gm/dl Albumin 4.6 (3.4-5.0) gm/dl Globulin 2.9 (2.5-4.0) gm/dl Albumin/Globulin Ratio 1.6 (0.9-2) TSH 2.923 (0.300-4.500) uIu/ml Urine Color Urine Appearance (Clear) Urine pH (4.5-7.5) Ur Specific Theresa (1.000-1.030) Urine Protein (Negative) Urine Glucose (UA) (Negative) Urine Ketones (Negative) Urine Blood (Negative) Urine Nitrite (Negative) Urine Bilirubin (Negative) Urine Urobilinogen (Negative) Ur Leukocyte Esterase (Negative) Urine WBC (Auto) (0-5) /hpf Urine RBC (Auto) (0-2) /hpf U Hyaline Cast (Auto) (0-2) /lpf U Epithel Cells (Auto) (0-2) /hpf Urine Bacteria (Auto) (None Seen) Calcium Oxalate Crystal (None Prsent) Salicylates < 3.0 L (3.0-30) mg/dl Urine Opiates Screen (Neg) Ur Methadone, Qual (Neg) Urine Fentanyl Screen (Neg) Acetaminophen < 3 L (10-30) ug/ml Urine Barbiturates (Neg) Ur Phencyclidine (PCP) (Neg) U Amphetamin/Meth Scrn (Neg) MDMA (Ecstasy) Screen (Neg) U Benzodiazepines Scrn (Neg) Ur Cocaine Metabolite (Neg) U Marijuana (THC) Screen (Neg) Ethyl Alcohol mg/dL < 10.0 (<10.0) mg/dl Lyme Disease Screen Negative (Negative) 08/17/24 Range/Units 17:08 WBC (4.8-10.8) K/ul RBC (4.70-6.10) M/uL Hgb (14.0-18.0) g/dl Hct (42.0-52.0) % MCV (80.0-100.0) fL MCH (25.0-34.0) pg MCHC (32.0-36.0) g/dL RDW Std Deviation (36.4-46.3) fL RDW Coeff of Beulah (11.5-14.5) % Plt Count (130-400) K/uL MPV (9.4-12.4) fL Immature Gran % (Auto) % Neut % (Auto) % Lymph % (Auto) % [place] % (Auto) % Eos % (Auto) % Baso % (Auto) % Neut # (Auto) (1.40-6.50) K/uL Lymph # (Auto) (1.20-3.40) K/uL [place] # (Auto) (0.11-0.59) K/uL Eos # (Auto) (0.00-0.50) K/uL Baso # (Auto) (0.00-0.20) K/uL Immature Gran # (Auto) (0.01-0.20) K/uL Sodium (136-145) mmol/L Potassium (3.5-5.1) mmol/L Chloride (98-107) mmol/L Carbon Dioxide (21-32) mmol/L Anion Gap (3-11) BUN (6-23) mg/dl Creatinine (0.6-1.4) mg/dl Est Cr Clr Drug Dosing ml/min eGFR BUN/Creatinine Ratio (10-20) Glucose (70-99(Fasting)) mg/dl Calcium (8.6-10.3) mg/dl Magnesium (1.7-2.4) mg/dl Total Bilirubin (0.2-1.0) mg/dl AST (13-39) U/L ALT (7-52) U/L Alkaline Phosphatase (34-104) U/L Ammonia (18-72) umol/L Troponin I High Sens (0-20) pg/ml Total Protein (6.0-8.3) gm/dl Albumin (3.4-5.0) gm/dl Globulin (2.5-4.0) gm/dl Albumin/Globulin Ratio (0.9-2) TSH (0.300-4.500) uIu/ml Urine Color Yellow Urine Appearance Clear (Clear) Urine pH 6.0 (4.5-7.5) Ur Specific Theresa 1.020 (1.000-1.030) Urine Protein Trace H (Negative) Urine Glucose (UA) Negative (Negative) Urine Ketones 2+ H (Negative) Urine Blood Negative (Negative) Urine Nitrite Negative (Negative) Urine Bilirubin Negative (Negative) Urine Urobilinogen Negative (Negative) Ur Leukocyte Esterase Negative (Negative) Urine WBC (Auto) 0-5 (0-5) /hpf Urine RBC (Auto) 0-2 (0-2) /hpf U Hyaline Cast (Auto) 0-2 (0-2) /lpf U Epithel Cells (Auto) 0-2 (0-2) /hpf Urine Bacteria (Auto) None Seen (None Seen) Calcium Oxalate Crystal Present A (None Prsent) Salicylates (3.0-30) mg/dl Urine Opiates Screen Neg (Neg) Ur Methadone, Qual Neg (Neg) Urine Fentanyl Screen Neg (Neg) Acetaminophen (10-30) ug/ml Urine Barbiturates Neg (Neg) Ur Phencyclidine (PCP) Neg (Neg) U Amphetamin/Meth Scrn Neg (Neg) MDMA (Ecstasy) Screen Neg (Neg) U Benzodiazepines Scrn Neg (Neg) Ur Cocaine Metabolite Neg (Neg) U Marijuana (THC) Screen Pos H (Neg) Ethyl Alcohol mg/dL (<10.0) mg/dl Lyme Disease Screen (Negative) Imaging Data Radiologist's Impression: Chest X-Ray 08/17/24 15:56 EXAM: Radiograph of the Chest 1 View INDICATION: Weakness. TECHNIQUE: Frontal view of the chest. COMPARISON: 10/06/2023 FINDINGS: Lungs and pleural spaces: Stable mild interstitial scarring. No consolidation or pulmonary edema. No pleural effusion or pneumothorax. Heart: Shape and configuration within normal limits allowing for technique. Mediastinum: Normal contour. Bones/joints: Degenerative changes noted throughout the spine and both shoulders. No lytic or blastic lesions noted. Soft tissues: No abnormality noted. No radiopaque foreign body noted. Vasculature: Stable ectatic aorta. Upper abdomen: No abnormality noted. IMPRESSION: No acute cardiopulmonary disease. ACT 112: Negative or not required by law. Electronically signed by Hilda Faria 08-17-2024 4:[address] 08/17/24 15:56 EXAM: CT Head Without Intravenous Contrast INDICATION: Confusion TECHNIQUE: Axial computed tomography images of the head/brain without intravenous contrast. Sagittal and/or coronal reformats are provided. Sagittal and coronal reformatted images were created and reviewed. This CT exam was performed using one or more of the following dose reduction techniques: automated exposure control, adjustment of the mA and/or kV according to patient size, and/or use of iterative reconstruction technique. COMPARISON: 09/30/2023 FINDINGS: Limitations: None. Brain and extra-axial spaces: There is age appropriate cortical atrophy and chronic ischemic periventricular white matter hypodensity. No acute infarct, hemorrhage or mass noted. Bones/joints: No acute changes. Soft tissues: No significant abnormality noted. Vasculature: Intracranial atherosclerotic calcification is noted. Sinuses: No layering fluid in the visualized portions of the paranasal sinuses. Mastoid air cells: No mastoid effusion. Orbits: No significant abnormality noted. IMPRESSION: Cerebral atrophy. No acute changes. ACT 112: Negative or not required by law. Electronically signed by Hilda Faria 08-17-2024 4:19 PM Discharge Plan Visit Data Chief Complaint: Altered Mental Status ED Provider: Luis Hou Discharge Problem: Acute confusion, Altered mental status, unspecified, Bradycardia Patient Disposition: Admitted As Inpatient Condition: Fair Discharge Instructions Interventions: ED Discharge Assessment Last Done: 08/17/24 20:03 Discharge Problem: Altered mental status, unspecified Qualifiers: Altered mental status type: disorientation Qualified Code(s): R41.0 - Disorientation, unspecified
--- NOTE | 2024-08-17 16:35 | XRay Report ---
EXAM: Radiograph of the Chest 1 View INDICATION: Weakness. TECHNIQUE: Frontal view of the chest. COMPARISON: 10/06/2023 FINDINGS: Lungs and pleural spaces: Stable mild interstitial scarring. No consolidation or pulmonary edema. No pleural effusion or pneumothorax. Heart: Shape and configuration within normal limits allowing for technique. Mediastinum: Normal contour. Bones/joints: Degenerative changes noted throughout the spine and both shoulders. No lytic or blastic lesions noted. Soft tissues: No abnormality noted. No radiopaque foreign body noted. Vasculature: Stable ectatic aorta. Upper abdomen: No abnormality noted. IMPRESSION: No acute cardiopulmonary disease. ACT 112: Negative or not required by law. Electronically signed by Hilda Faria 08-17-2024 4:35 PM
[2024-08-17 16:43] LABS: Thyroid Stimulating Hormone 2.923 uIu/ml (0.300-4.500)
[2024-08-17 16:44] LABS: Acetaminophen < 3 ug/ml (10-30); Salicylate < 3.0 mg/dl (3.0-30)
--- NOTE | 2024-08-17 16:56 | Electrocardiogram Report ---
Test Reason : Blood Pressure : */* mmHG Vent. Rate : 68 BPM Atrial Rate : 68 BPM P-R Int : 328 ms QRS Dur : 140 ms QT Int : 460 ms P-R-T Axes : 64 -70 75 degrees QTcB Int : 489 ms Sinus rhythm with sinus arrhythmia with 1st degree A-V block Left anterior fascicular block Left ventricular hypertrophy with QRS widening Abnormal ECG When compared with ECG of 09-Feb-2024 17:10, Vent. rate has increased by 27 bpm T wave inversion no longer evident in Inferior leads T wave inversion less evident in Anterolateral leads QT has lengthened Confirmed by Jerrell Valero ([id number]) on 08/17/2024 4:55:56 PM Referred By: Confirmed By: Jerrell Valero
--- NOTE | 2024-08-17 17:51 | History & Physical Report ---
Date of Service August 17, 2024 History of Present Illness Chief Complaint: AMS Primary Care Provider: NO PCP Patient is 83-year-old male with PMH Per inpatient chart review history of [facility] hospitalization on 10/01/23 for altered mental status after consuming THC gummies. During hospital course mental status improvement patient was discharged home. Reported progressive decline States was placed on Was trying to get outpatient placement Having hallucinations Today was found outside in the cold and patient didn't know why he was outside in shorts. Allergies Allergy/AdvReac Type Severity Reaction Status Date / Time No Known Allergies Allergy Unknown Verified 02/09/24 17:09 Home Medications Medication Instructions Recorded Confirmed Type hydrochlorothiazide 25 mg tablet 25 mg PO QAM 09/11/23 08/17/24 History aspirin 81 mg tablet,delayed 81 mg PO DAILY 02/09/24 08/17/24 History release diclofenac sodium 50 mg 50 mg PO BID PRN Pain 08/17/24 08/17/24 History tablet,delayed release escitalopram oxalate 10 mg tablet 10 mg PO DAILY 08/17/24 08/17/24 History lisinopril 10 mg tablet 10 mg PO DAILY 08/17/24 08/17/24 History meclizine 25 mg tablet 25 mg PO TID PRN Dizziness 08/17/24 08/17/24 History quetiapine 25 mg tablet 25 mg PO DAILY 08/17/24 08/17/24 History Past Med/Surg History Problem List (Updated 02/24/24 @ 00:07 by Mike Landers) No significant past surgical history Aortic stenosis Trifascicular block SOB (shortness of breath) (Acute) Stomach problems (Chronic) HTN (hypertension) (Chronic) Medical History SOB (shortness of breath) Stomach problems HTN (hypertension) Surgical History No significant past surgical history Social History Smoking Status: Never smoker Tobacco Type: Cigarettes Hx Alcohol Use: No Hx Substance Use: No Preferred Language: Maltese Communication Ability: Effective 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
[2024-08-17 18:00] LABS: Appearance Urine Clear (Clear); Bacteria Urine Automated None Seen (None Seen); Bilirubin Urine Negative (Negative); Blood Urine Negative (Negative); Calcium Oxalate Crystals Urine Present (None Prsent); Cast Urine Automated 0-2 /lpf (0-2); Color Urine Yellow; Epithelial Cell Urine Auto 0-2 /hpf (0-2); Glucose Urine UA Negative (Negative); Ketones Urine 2+ (Negative); Leukocyte Esterase Urine Negative (Negative); Nitrite Urine Negative (Negative); Protein Urine Trace (Negative); RBC Urine Automated 0-2 /hpf (0-2); Urobilinogen Urine Negative (Negative); WBC Urine Automated 0-5 /hpf (0-5)
[2024-08-17 18:05] LABS: Amphetamines+Metham, Urine Neg (Neg); Barbiturates, Urine Neg (Neg); Benzodiazepine, Urine Neg (Neg); Cocaine, Urine Neg (Neg); Fentanyl, Urine Neg (Neg); MDMA (Ecstacy), Urine Neg (Neg); Marijuana, Urine Pos (Neg); Methadone, Urine Neg (Neg); Opiate, Urine Neg (Neg); Phencyclidine, Urine Neg (Neg)
--- NOTE | 2024-08-17 18:21 | History & Physical Report ---
Date of Service August 17, 2024 Assessment & Plan (1) Altered mental status, unspecified: Plan: 83-year-old male with PMHx HTN and mild cognitive decline, brought in via EMS for AMS. Poor historian; POA helps to provide a history. Hallucinations, being managed w/ SSRI + quetiapine. Denying any current complaints. In need of placement for further care of self. Consulted PT, OT, and case management. #AMS Onset the morning of arrival, no documented h/o dementia but questionable whether or not dementia is in early stages - CBC and CMP grossly WNL - UA w/o signs of infection - CT head w/ cerebral atrophy, no acute changes - EKG sinus alex w/ sinus arrhythmia and 1st degree AV block - Toxicology (+) for THC; pt utilizes THC gummies for sleep + pain - Ammonia WNL - TSH WNL - Lyme screen pending - Placement needed 2/2 inability to care for self well at current state; case management consulted - Had a fall this year w/ ongoing dizziness; PT + OT consult placed - BMP am #Mood/Hallucinations - Continue lexapro + quetiapine #HTN/Bradycardia - Hypertensive on exam; continue outpatient medications - EKG w/ sinua arrhytmia and 1st degree AV block - Pt asymptomatic - Will monitor HR on tele Dispo: Admit Diet: Regular VTE Prophylaxis: SCDs Code: DNR/DNI (2) HTN (hypertension): Admission and Anticipated Discharge Date Admission Date: 08/17/2024 History of Present Illness Chief Complaint: AMS Primary Care Provider: [facility] 83-year-old male presenting via EMS after being found outside in shorts and 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 ED course: CBC grossly WNL with exception of RDW 47.9, MPV 9.2; CMP AG 13, total bilirubin 1.1; ammonia 13; TSH 2.923; troponin 15; UA without signs of infection; toxicology salicylates less than 3, acetaminophen less than 3, positive for marijuana (THC); CXR without acute cardiopulmonary findings; head CT with cerebral atrophy no acute changes; EKG sinus rhythm, sinus arrhythmia and first-degree AV block, left anterior fascicular block, LVH with QRS widening, rate around 70 bpm. Patient is a 83-year-old male PMHx HTN and mild cognitive decline who presents after being found outside in the cool weather wearing just a jacket and boxer shorts, noted to have AMS. Pt's POA is present and helps to provide a history. States that he was found in winter weather conditions in a jacket + boxer shorts, was unable to recall where keys were to get back into apartment. Then was refusing to go back to apartment which is when POA was called and EMS arrived to bring pt to ED. Has had decline in mental status, but overall fine health per POA. Occasional hallucinations which have been addressed and pt was placed on lexapro + quetiapine for this. Pt denies abdominal pain, chest pain, headache, or SOB. History below collected in conjunction w/ Dr. Navarro at bedside: Seen with POA who know eacher other through [employer]. Has been POA for many years. Stephon Davi is power of assistant district attorney. No family. Was found wandering in the snow in the weather. EMS was called. Refused to be seen so called POA and was brought to the ER Has had cognitive decline and radha ehalluncinations. Was placed on lexapro and seroquel. Has not improved cognitive functioning. Care needs exceed current services at home, and is at a high risk of harm especially given recent incidents with weather Follows with [facility]. Does use CBD-THC gummies which help his sleep. No tremors. No shakes has some hypertension but otherwise very healthy No history of heart problems No lightheadedness/dizzness. Unclear history around chest pain, denies chest pain at bedside. Does have rotator cuff issues Rossy gives little udnerstandable history at the bedside. Does not remember what happened this morning and TP is non-linear Medical History: Reviewed Medications: Reviewed Surgical History: Reviewed Family history: Reviewed Allergies: Reviewed Social History: CBD gummies as noted Code Status: DNR/DNI Please see Dr. Navarro's attestation for adjustments/additions to treatment plan. Allergies Allergy/AdvReac Type Severity Reaction Status Date / Time No Known Allergies Allergy Unknown Verified 02/09/24 17:09 Home Medications Medication Instructions Recorded Confirmed Type hydrochlorothiazide 25 mg tablet 25 mg PO QAM 09/11/23 08/17/24 History aspirin 81 mg tablet,delayed 81 mg PO DAILY 02/09/24 08/17/24 History release diclofenac sodium 50 mg 50 mg PO BID PRN Pain 08/17/24 08/17/24 History tablet,delayed release escitalopram oxalate 10 mg tablet 10 mg PO DAILY 08/17/24 08/17/24 History lisinopril 10 mg tablet 10 mg PO DAILY 08/17/24 08/17/24 History meclizine 25 mg tablet 25 mg PO TID PRN Dizziness 08/17/24 08/17/24 History quetiapine 25 mg tablet 25 mg PO DAILY 08/17/24 08/17/24 History Past Med/Surg History Problem List (Updated 08/17/24 @ 18:23 by Dominguez Perez PA-C) Altered mental status, unspecified No significant past surgical history Aortic stenosis Trifascicular block SOB (shortness of breath) (Acute) Stomach problems (Chronic) HTN (hypertension) (Chronic) Social History Smoking Status: Never smoker Tobacco Type: Cigarettes Hx Alcohol Use: No Hx Substance Use: No Preferred Language: [place] Communication Ability: Effective Wild Animal Caretaker Required: No Beliefs That Will Affect Care: None Current Living Situation: Alone Feels Safe at Home: Yes Review of Systems Review of Systems: All systems reviewed & are unremarkable except as noted in Subjective Physical Exam Physical Exam: General: No acute distress Skin: Warm and dry, without rashes or lesions Head: Normocephalic, atraumatic Eyes: PERRL, conjunctivae clear, sclera non-icteric ENT: External ear and ear canal without swelling; nose atraumatic; poor dentition, tongue normal appearance Neck: Supple, no LAD Cardio: bradycardia, regular rhythm, no M/G/R, S1 and S2 normal Resp: No respiratory distress, Lungs CTA in all lobes bilaterally, no wheezes, rales, or rhonchi Abdomen: Soft, symmetric, nontender; No masses or hepatosplenomegaly; Bowel sounds normoactive MSK: No deformities; pulses palpable and equal; no edema. Neuro: Awake, alert; CN grossly intact Psych: Alert, not answering questions appropriately, story telling; non-linear thought processing. POA present in room at time of visit. Results & Data Results & Data Vital Signs (Past 12 Hours) Vital Signs Temp Pulse Resp BP Pulse Ox O2 Del Method 08/17/24 18:00 165/86 H 08/17/24 17:48 52 L 18 08/17/24 17:30 55 L 16 08/17/24 16:31 158/84 H 08/17/24 16:30 58 L 21 98 08/17/24 16:27 61 19 95 08/17/24 16:26 145/100 H 08/17/24 16:26 145/100 H 08/17/24 16:24 59 L 14 98 08/17/24 16:13 40 L 08/17/24 15:58 97 Room Air 08/17/24 15:45 69 17 95 08/17/24 15:39 36.8 C 81 18 177/88 H 97 Room Air Laboratory Results 08/17/24 08/17/24 08/17/24 17:08 16:33 15:35 WBC 7.92 RBC 5.07 Hgb 16.3 Hct 48.2 MCV 95.1 MCH 32.1 MCHC 33.8 RDW Std Deviation 47.9 H RDW Coeff of Beul[place] 13.7 Plt Count 249 MPV 9.2 L Immature Gran % (Auto) 0.4 Neut % (Auto) 71.0 Lymph % (Auto) 17.7 [place] % (Auto) 6.3 Eos % (Auto) 4.0 Baso % (Auto) 0.6 Neut # (Auto) 5.62 Lymph # (Auto) 1.40 [place] # (Auto) 0.50 Eos # (Auto) 0.32 Baso # (Auto) 0.05 Immature Gran # (Auto) 0.03 Sodium 144 Potassium 4.0 Chloride 105 Carbon Dioxide 26 Anion Gap 13 H BUN 22 Creatinine 1.22 Est Cr Clr Drug Dosing 51.2 eGFR 59.19 BUN/Creatinine Ratio 18.0 Glucose 98 Calcium 10.2 Magnesium 2.0 Total Bilirubin 1.1 H AST 14 ALT 9 Alkaline Phosphatase 77 Ammonia 13.0 L Troponin I High Sens 15.0 Total Protein 7.5 Albumin 4.6 Globulin 2.9 Albumin/Globulin Ratio 1.6 TSH 2.923 Urine Color Yellow Urine Appearance Clear Urine pH 6.0 Ur Specific Clifford 1.020 Urine Protein Trace H Urine Glucose (UA) Negative Urine Ketones 2+ H Urine Blood Negative Urine Nitrite Negative Urine Bilirubin Negative Urine Urobilinogen Negative Ur Leukocyte Esterase Negative Urine WBC (Auto) 0-5 Urine RBC (Auto) 0-2 U Hyaline Cast (Auto) 0-2 U Epithel Cells (Auto) 0-2 Urine Bacteria (Auto) None Seen Calcium Oxalate Crystal Present A Salicylates < 3.0 L Urine Opiates Screen Neg Ur Methadone, Qual Neg Urine Fentanyl Screen Neg Acetaminophen < 3 L Urine Barbiturates Neg Ur Phencyclidine (PCP) Neg U Amphetamin/Meth Scrn Neg MDMA (Ecstasy) Screen Neg U Benzodiazepines Scrn Neg Ur Cocaine Metabolite Neg U Marijuana (THC) Screen Pos H Ethyl Alcohol mg/dL < 10.0 Diagnostic Findings Chest X-Ray 08/17/24 15:56 EXAM: Radiograph of the Chest 1 View INDICATION: Weakness. TECHNIQUE: Frontal view of the chest. COMPARISON: 10/06/2023 FINDINGS: Lungs and pleural spaces: Stable mild interstitial scarring. No consolidation or pulmonary edema. No pleural effusion or pneumothorax. Heart: Shape and configuration within normal limits allowing for technique. Mediastinum: Normal contour. Bones/joints: Degenerative changes noted throughout the spine and both shoulders. No lytic or blastic lesions noted. Soft tissues: No abnormality noted. No radiopaque foreign body noted. Vasculature: Stable ectatic aorta. Upper abdomen: No abnormality noted. IMPRESSION: No acute cardiopulmonary disease. ACT 112: Negative or not required by law. Electronically signed by Hilda Faria 08-17-2024 4:[address] 08/17/24 15:56 EXAM: CT Head Without Intravenous Contrast INDICATION: Confusion TECHNIQUE: Axial computed tomography images of the head/brain without intravenous contrast. Sagittal and/or coronal reformats are provided. Sagittal and coronal reformatted images were created and reviewed. This CT exam was performed using one or more of the following dose reduction techniques: automated exposure control, adjustment of the mA and/or kV according to patient size, and/or use of iterative reconstruction technique. COMPARISON: 09/30/2023 FINDINGS: Limitations: None. Brain and extra-axial spaces: There is age appropriate cortical atrophy and chronic ischemic periventricular white matter hypodensity. No acute infarct, hemorrhage or mass noted. Bones/joints: No acute changes. Soft tissues: No significant abnormality noted. Vasculature: Intracranial atherosclerotic calcification is noted. Sinuses: No layering fluid in the visualized portions of the paranasal sinuses. Mastoid air cells: No mastoid effusion. Orbits: No significant abnormality noted. IMPRESSION: Cerebral atrophy. No acute changes. ACT 112: Negative or not required by law. Electronically signed by Hilda Faria 08-17-2024 4:19 PM Code Status & VTE Plan Code Status DNR/DNI Supervising Physician Co-Signing Physician Notes Patient seen and examined, chart reviewed, case discussed with Dominguez Perez PA-C and I agree with the assessment and plan as above except as otherwise noted Labs and images reviewed Patient seen at the bedside in conjunction with BALBINA. 83-year-old male with a history of cognitive decline/dementia, hypertension, BPPV, mild who is seen with family/POA at the bedside. Has had cognitive decline which did not improve with dementia and has had some hallucinations although no tremors. Today family found him wandering outside in the cold and 20 degree weather and did not know how he got there where he was. Patient is a very poor historian and history is limited from the patient, collateral collected from family/POA at the bedside. Due to patient's cognitive decline he is no longer safe at home and have been trying to arrange placement however this has not been able to be arranged as an outpatient. Due to risk of harm and patient wandering in the cold was brought to the ER for further care and placement. Of note he also had some CBD Gummies from a local store which may contribute to metabolic encephalopathy/hallucinations. Agree with admission for failure to thrive and potential risk of harm. Will consult PT/OT for evaluations and case management to assist with potential placement needs. Will allow for washout of any cannot but I will substances, at time of admission his Tylenol is negative salicylate is negative and [id number] tox is positive for marijuana only. Alcohol level is negative. CT is clear. Bicarb is normal, AG is mildly elevated. Ammonia is not elevated. No pain. Patient has been intermittently bradycardic in the ER. No history of hypotension. Had 1 episode of syncope more than a year ago but has not had any lightheadedness/dizziness in the last few weeks. He does have appropriate chronotropic response at the bedside. First-degree heart block is noted. Will keep on continuous telemetry, Lyme test ordered. Patient's medical and legal POA is Stephon Townsend. Paperwork copied and placed on chart. Agree with above PG Care Time/CCT Total # of Minutes Spent Total Time Spent with Patient: Total time spent is greater than 50% in coordination of care (as documented) at patient's floor/unit and/or counseling patient: Coding Level of Care Code 39413 INT INP/OBS CARE 3/75MIN Diagnoses Altered mental status, unspecified R41.82 HTN (hypertension) I10
[2024-08-17] MEDS ORDERED: MECLIZINE HCL 25 MG TAB PO PRN (20:26)
--- OUTSIDE RECORDS SUMMARY | 2024-08-18 00:04 | External Medical Summary | Continuity of Care Document ---
Author Name Unknown Organization [facility] [id number] [address] [place] [id number] Care Team Providers Care Surface Miner Name Role Phone Jailene Streeter Primary Care P fatmata [phone] Encounter [facility] [id number] Date(s): 07/14/24 - 07/14/24 [facility] [address] [place] [phone] Encounter Diagnosis Body mass index [BMI] 28.0-28.9, adult(Discharge Diagnosis) - 07/14/24 Anxiety and depression(Discharge Diagnosis) - 07/14/24 HTN (hypertension)(Discharge Diagnosis) - 07/14/24 BPPV (benign paroxysmal positional vertigo)(Discharge Diagnosis) - 07/14/24 History of BPH(Discharge Diagnosis) - 07/14/24 Visual hallucination(Discharge Diagnosis) - 07/14/24 Visual hallucinations(Discharge Diagnosis) - 07/14/24 Auditory hallucinations(Discharge Diagnosis) - 07/14/24 Discharge Disposition: Home or Self Care Attending Physician: MD [facility] Allergies, Adverse Reactions, Alerts No Known Medication Allergies Immunizations Given and Recorded Vaccine Date Status Refusal Reason influenza virus vaccine, inactivated 05/21/24 Give n SARS-CoV-2 (COVID-19) mRNA BNT-162b2 vax 08/03/21 Recorded SARS-CoV-2 (COVID-19) mRNA BNT-162b2 vax 11/29/20 Recorded SARS-CoV-2 (COVID-19) mRNA BNT-162b2 vax 11/08/20 Recorded Medications aspirin 81 mg oral capsule Start: 02/20/24 8:24:00 AM EDT Start Date: 02/20/24 Status: Ordered cannabidiol Start: 02/20/24 8:23:00 AM EDT Start Date: 02/20/24 Status: Ordered diclofenac sodium 50 mg oral delayed release tablet Start: 06/22/24 11:59:00 AM EDT, See Instructions, Disp# 60 tab, Refills: 1, TAKE 1 TABLET BY MOUTHTWICE A DAY WITH FOOD NEEDED FOR PAIN, Pharmacy: [id number] Start Date: 06/22/24 Status: Ordered Iron Chews Start: 02/20/24 8:23:00 AM EDT Start Date: 02/20/24 Status: Ordered Lexapro 10 mg oral tablet Start: 07/14/24 3:55:00 PM EST, 1 tab, PO, Daily, Disp# 30 tab, Refills: 0, Pharmacy: [facility]/pharmacy #[id number] Start Date: 07/14/24 Status: Ordered lisinopril 10 mg oral tablet Start: 03/26/24 1:32:00 PM EDT, 1 tab, PO, Daily, Disp# 90 tab, Refills: 3, [id number] Start Date: 03/26/24 Stop Date: 03/21/25 Status: Ordered meclizine 25 mg oral tablet Start: 05/21/24 9:39:00 AM EDT, 1 tab, PO, tid, Disp# 30 tab, Refills: 1, PRN: as needed for dizziness, [id number] Start Date: 05/21/24 Status: Ordered Seroquel 25 mg oral tablet Start: 07/14/24 3:55:00 PM EST, 1 tab, PO, Daily, Disp# 30 tab, Refills: 0, Take 1 before bedtime, [id number] Start Date: 07/14/24 Status: Ordered turmeric Start: 02/20/24 8:25:00 AM EDT Start Date: 02/20/24 Status: Ordered zinc acetate Start: 02/20/24 8:23:00 AM EDT Start Date: 02/20/24 Status: Ordered Mental Status 07/14/24 Barriers to Learning one year None evide nt Mandatory Health Literacy Documentation Yes Health Literacy Communication Barriers N ever Primary Language Cymro Problem List Condition Confirmation Course Effective Dates Status H ealth Status Informant BPPV (benign paroxysmal positional vertigo) Confirmed Active Chronic diarrhea Confirmed Active Hypertension Confirmed Active Mild aortic stenosis Confirmed Active Osteoarthritis of bilateral glenohumeral joints Confirmed Active Polyuria Confirmed Active Shoulder pain Confirmed Active Vertigo Confirmed Active Diagnosis Diagnosis Type Effective Dates Health Status Clinical Service Informant Body mass index [BMI] 28.0-28.9, adult Discharge Diagnosis 07/14/24 Non-Specified BPPV (benign paroxysmal positional vertigo) Discharge Diagnosis 07/14/24 Non-Specified Visual hallucinations Discharge Diagnosis 07/14/24 Non-Specified Auditory hallucinations Discharge Diagnosis 07/14/24 Non-Specified HTN (hypertension) Discharge Diagnosis 07/14/24 Non-Specified History of BPH Discharge Diagnosis 07/14/24 Non-Specified Visual hallucination Discharge Diagnosis 07/14/24 Non-Specified Anxiety and depression Discharge Diagnosis 07/14/24 Non-Specified Vital Signs Most recent to oldest [Reference Range]: 1 Height 176 cm (07/14/24 2:35 PM) Patient Weight 87.3 kg (07/14/24 2:35 PM) Body Mass Index 28.18 kg/m2 (07/14/24 2:35 PM) Temperature [36.5-37.9 DegC] 36.8 DegC (07/14/24 2:35 PM) Heart Rate 53 bpm (07/14/24 2:35 PM) Respiratory Rate 18 br/min (07/14/24 2:35 PM) Blood Pressure 136/60mmHg (07/14/24 2:35 PM) Cuff Pulse Pressure 76 mmHg (07/14/24 2:35 PM) Social History Social History Type Response Smoking Status Former Smoker, quit > 1 yr Sex Male Sex Representation Male (finding) Patient Care team information Care Team Personnel Name: Robbie Snow DO, Mariana Annette Position: Physician - Family Med Member Role: Primary Care Provider [address]: [address] [place] [id number] Care Team Related Persons Name: VANESSA GOMEZ
--- OUTSIDE RECORDS SUMMARY | 2024-08-18 00:04 | External Medical Summary | Summary of Care ---
Author Name Unknown Organization [facility] Address [address] [place] [address] Phone [phone] Care Team Providers Care Purchasing Supervisor Name Role Phone Blake Perez MD Primary Care Provider [phone] Reason for Visit * Reason Comments eRx-Medication Refill Encounter Details Date Type Department Care Team (Late st Contact Info) Description 07/30/2024 Refill Family Practice [facility] [address] [facility] [place] [address] [facility] [place] [address] Stage 3a chronic kidney disease (HCC)*; HTN, goal below 150/90 Allergies No known active allergiesdocumented as of this encounter (statuses as of 08/04/2024) Medications Clindamycin Phosphate 1 % external solutionIndica tions:Facial rash Apply topically to affected area 2 times a day. To affected area of skin. 60 mL 11 05/13/20 20 Active Meclizine HCl 25 MG Oral Tablet (Antivert)Sharon cations:Dizzin ess Take 1 Tab by mouth 3 times a day as needed for Dizziness. 60 Tab 1 12/01/19 21 Active Potassium 99 MG Oral Tablet 3 times a day. 09/11/19 24 Active Magnesium 30 MG Oral Tablet daily. 09/11/19 24 Active hydroCHLOROthi azide 25 MG Oral Tablet (Hydrodiuril)I ndications:HTN , goal below 150/90 TAKE 1 TABLET BY MOUTH EVERY DAY IN THE MORNING 30 Tablet 07/31/20 24 Active hydroCHLOROthi azide 25 MG Oral Tablet (Hydrodiuril)I ndications:HTN , goal below 150/90 Take 1 Tablet by mouth in the morning. 90 Tablet 3 07/08/20 23 024 Discontinued documented as of this encounter (statuses as of 08/04/2024) Active Problems Problem Noted Date Diagnosed Date Mild aortic stenosis 10/08/2023 Overview (10/08/2023): Recheck in 2-5 years per cardiology recommendation in September of 2023 while patient was admitted to [facility] Infrarenal abdominal aortic aneurysm (AAA) witho ut rupture 09/25/2023 Overweight (BMI 25.0-29.9) 09/25/2023 Mild vascular dementia with agitation 09/25/2023 Stage 3a chronic kidney disease 09/24/2023 HTN, goal below 130/80 12/07/2016 documented as of this encounter (statuses as of 08/04/2024) Resolved Problems Problem Noted Date Diagnosed Date Resolved Date Obesity, Class I, BMI 30.0-3 4.9 (see actual BMI) 09/24/2023 09/25/2023 documented as of this encounter (statuses as of 08/04/2024) Social History Tobacco Use Types Packs/Day Years Used Date Smoking Tobacco: Former Cigarettes Q uit: 12/08/2011 Smokeless Tobacco: Never Alcohol Use Standard Drinks/Week Comments No 0 (1 standard drink = 0.6 oz pur e alcohol) PHQ-2 Answer Date Recorded PHQ-2 Score 12 10/22/2018 Utilities Answer Date Recorded Do you have trouble paying y our heating, water, or electric bill? (Adult - for ages 18 years and over) Not on file 02/11/2024 Is your family able to pay t he heat, water, or electric bill? (Household - for ages 0-17 years) Not on file 02/11/2024 Does your family have access to good internet? (Household - for ages 0-17 years) Not on file 02/11/2024 Social Connections Answer Date Recorded How often do you feel lonely or isolated from those around you? (Adult - for ages 18 years and over) Not on file 02/11/2024 Sex and Gender Information Value Date Recorded Sex Assigned at Not on file Legal Sex Male 5:55 AM EST Gender Identity Not on file Sexual Orientation Not on file documented as of this encounter Miscellaneous Notes * Telephone Encounter - [place] - 08/04/2024 6:08 AM EST Received message from [facility] regarding patient needing an appointment and labs. Patient was notified. Successfully contacted patient and provided [facility] message. * Telephone Encounter - Augusta Vieyra [facility] - 07/31/2024 8:02 PM ESTSigned Prescriptions: Disp Refills hydroCHLOROthiazide 25 MG Oral Tablet (Hyd*30 Tab*0 Sig: TAKE 1 TABLET BY MOUTH EVERY DAY IN THE MORNING Authorizing Provider: BLAKE PEREZ Ordering User: AUGUSTA VIEYRA * Telephone Encounter - Augusta Vieyra [facility] - 07/31/2024 8:01 PM EST Provided 30 days supply with 0 refill. Per refill protocol patient should have ROUTINE LABS on filewithin past year. Reviewed AMP report, Care Gaps/Health Maintenance, medications list, and for any routine labs typically ordered for this patient. Lab orders placed. Please contact patient to schedule office visit with PRIMARY CARE and advise of labs ordered for blood draw. Fasting is not required. Advise to obtain labs before requesting the next refill. Last Visit: 10/08/2023 (in office), Visit date not found (telemedicine) Next Visit: Visit date not found Thank you, Augusta Vieyra, PharmD Clinical Pharmacist [facility] [phone] 07/31/2024, 8:02 PM documented in this encounter Plan of Treatment Scheduled Orders Name Type Priority Associated Diagnoses Orde r Schedule BASIC METABOLIC PANEL Lab Routine HTN, goal below 150/90 Expected: 07/31/2024, Expires: 07/31/2025 CBC Lab Routine Stage 3a chronic kidney disease (HCC) Expected: 07/31/2024, Expires: 07/31/2025 Health Maintenance Due Date Last Done Comments AAA Monitoring 12/06/1959 Albumin/Creatinine Ratio 12/06/1959 CKD PHOS USE SMARTSET 50742 12/06/1959 DTap/Tdap Vaccines (1 - Tdap) 1960 Zoster Vaccines (1 of 2) 12/06/1991 Pneumococcal Vaccine: 65+ Years (1 of 1 - PCV) 2006 Adult Wellness Visit 12/06/2007 Depression Monitoring 10/22/2019 10/22/2018 GFR 01/30/2024 07/31/2023, 11/30/2020 COVID-19 Vaccine (4 - 2023-2 5 season) 2024 08/03/2021, 11/29/2020, 11/08/2020 Influenza Vaccine (FLU shot) (#1) 2024 07/25/2007 CKD HGB USE SMARTSET 40967 07/31/202407/31, 07/31/2023 HPV (Gardasil) Vaccine Aged Out No lo nger eligible based on patient's age to complete this topic Hepatitis B Vaccine Aged Out No longe r eligible based on patient's age to complete this topic MENINGOCOCCAL (MENACTRA/MENVEO) Aged Out No longer eligible b ased on patient's age to complete this topic documented as of this encounter Medical Devices Not on filedocumented as of this encounter Visit Diagnoses Diagnosis Stage 3a chronic kidney disease (HCC)- Primary HTN, goal below 150/90 documented in this encounter Care Teams Purchasing Supervisor Relationship Specialty Start Date End Date Blake Perez MD [address] [place] [id number] PCP - General Family Medicine 12/07/16 documented as of this encounter
--- OUTSIDE RECORDS SUMMARY | 2024-08-18 00:04 | External Medical Summary | Continuity of Care Document ---
Author Name Unknown Organization [facility] [id number] [address] [place] [phone] Care Team Providers Care Unix Administrator Name Role Phone Jailene Streeter Primary Care P fatmata [phone] Encounter [facility] [id number] Date(s): 07/28/24 - 07/28/24 [facility] [address] [place] [address] Medical [facility] [address] [place] [phone] Encounter Diagnosis Anxiety and depression(Discharge Diagnosis) - 07/28/24 Auditory hallucinations(Discharge Diagnosis) - 07/28/24 Visual hallucinations(Discharge Diagnosis) - 07/28/24 Hypertension(Discharge Diagnosis) - 07/28/24 History of BPH(Discharge Diagnosis) - 07/28/24 Discharge Disposition: Home or Self Care Attending Physician: DO Mcnair Franklin J Allergies, Adverse Reactions, Alerts No Known Medication [...] 50 mg oral delayed release tablet Start: 07/30/24 3:36:00 PM EST, See Instructions, Disp# 60 tab, Refills: 1, TAKE 1 TABLET BY MOUTH TWICE A DAY WITH FOOD NEEDED FOR PAIN, Pharmacy: [id number] Start Date: 07/30/24 Status: Ordered Iron Chews Start: 02/20/24 8:23:00 AM EDT Start Date: 02/20/24 Status: Ordered Lexapro 10 mg oral tablet Start: 07/28/24 4:36:00 PM EST, 1 tab, PO, Daily, Disp# 30 tab, Refills: 1, [id number] Start Date: 07/28/24 Status: Ordered lisinopril 10 mg oral tablet Start: 03/26/24 1:32:00 PM EDT, 1 tab, PO, Daily, Disp# 90 tab, Refills: 3, [id number] Start Date: 03/26/24 Stop Date: 03/21/25 Status: Ordered Seroquel 25 mg oral tablet Start: 07/28/24 4:36:00 PM EST, 1 tab, PO, Daily, Disp# 30 tab, Refills: 1, Take 1 before bedtime, Pharmacy: [id number] Start Date: 07/28/24 Status: Ordered turmeric Start: 02/20/24 8:25:00 AM EDT Start Date: 02/20/24 Status: Ordered zinc acetate Start: 02/20/24 8:23:00 AM EDT Start Date: 02/20/24 Status: Ordered Mental Status 07/28/24 Barriers to Learning one year None evide nt Mandatory Health Literacy Documentation Yes Health Literacy Communication Barriers N ever Primary Language Bahraini Problem List Condition Confirmation Course Effective Dates Status H ealth Status Informant BPPV (benign paroxysmal positional vertigo) Confirmed Active Chronic diarrhea Confirmed Active Hypertension Confirmed Active Mild aortic stenosis Confirmed Active Osteoarthritis of bilateral glenohumeral joints Confirmed Active Polyuria Confirmed Active Shoulder pain Confirmed Active Vertigo Confirmed Active Diagnosis Diagnosis Type Effective Dates Health Status Clinical Service Informant Hypertension Discharge Diagnosis 07/28/24 Non-Specified Visual hallucinations Discharge Diagnosis 07/28/24 Non-Specified Anxiety and depression Discharge Diagnosis 07/28/24 Non-Specified History of BPH Discharge Diagnosis 07/28/24 Non-Specified Auditory hallucinations Discharge Diagnosis 07/28/24 Non-Specified Vital Signs Most recent to oldest [Reference Range]: 1 Patient Weight 82.6 kg (07/28/24 3:40 PM) Heart Rate 43 bpm (07/28/24 3:40 PM) Respiratory Rate 17 br/min (07/28/24 3:40 PM) Blood Pressure 162/90mmHg (07/28/24 3:40 PM) Cuff Pulse Pressure 72 mmHg (07/28/24 3:40 PM) Social History Social History Type Response Smoking Status Former Smoker, quit > 1 yr Sex Male Sex Representation Male (finding) Patient Care team information Care Team Personnel Name: MD Percy, Diego Miles Position: Physician - Family Med Member Role: Lifetime Relationship Address: [facility] [address] [place] [address] Name: Robbie Snow DO, Mariana Annette Position: Physician - Family Med Member Role: Primary Care Provider Address: [address] [facility] [address] [place] [id number] Care Team Related Persons Name: VANESSA GOMEZ
--- OUTSIDE RECORDS SUMMARY | 2024-08-18 00:04 | External Medical Summary | Continuity of Care Document ---
Author Name Unknown Organization [facility] [address] [address] [place] [address] [phone] Care Team Providers Care Boom Pump Operator Name Role Phone Jailene Streeter Primary Care P [place] [phone] Encounter [facility] [id number] Date(s): 05/21/24 - 05/21/24 [facility] [address] [place] [address] [id number] [phone] Encounter Diagnosis Body mass index [BMI] 28.0-28.9, adult(Discharge Diagnosis) - 05/21/24 Hypertension(Discharge Diagnosis) - 05/21/24 BPPV (benign paroxysmal positional vertigo)(Discharge Diagnosis) - 05/21/24 Polyuria(Discharge Diagnosis) - 05/21/24 BPH (benign prostatic hyperplasia)(Discharge Diagnosis) - 05/21/24 Discharge Disposition: Home or Self Care Attending Physician: MD Sascha, Angi Packer Allergies, Adverse Reactions, Alerts No Known Medication [...] 50 mg oral delayed release tablet Start: 04/22/24 9:08:00 AM EDT, 1 tab, PO, bid, Disp# 60 tab, Refills: 1, with food, PRN: as needed for pain, Pharmacy: [id number] Start Date: 04/22/24 Status: Ordered Iron Chews Start: 02/20/24 8:23:00 AM EDT Start Date: 02/20/24 Status: Ordered lisinopril 10 mg oral tablet Start: 03/26/24 1:32:00 PM EDT, 1 tab, PO, Daily, Disp# 90 tab, Refills: 3, Pharmacy: [facility] #[id number] Start Date: 03/26/24 Stop Date: 03/21/25 Status: Ordered meclizine 25 mg oral tablet Start: 05/21/24 9:39:00 AM EDT, 1 tab, PO, tid, Disp# 30 tab, Refills: 1, PRN: as needed for dizziness, Pharmacy: [facility]/pharmacy #[id number] Start Date: 05/21/24 Status: Ordered turmeric Start: 02/20/24 8:25:00 AM EDT Start Date: 02/20/24 Status: Ordered zinc acetate Start: 02/20/24 8:23:00 AM EDT Start Date: 02/20/24 Status: Ordered Mental Status 05/21/24 Barriers to Learning one year None evide nt Mandatory Health Literacy Documentation Yes Health Literacy Communication Barriers N ever Primary Language South Sudanese Problem List Condition Confirmation Course Effective Dates [...] mass index [BMI] 28.0-28.9, adult Discharge Diagnosis 05/21/24 Non-Specified BPPV (benign paroxysmal positional vertigo) Discharge Diagnosis 05/21/24 Non-Specified BPH (benign prostatic hyperplasia) Discharge Diagnosis 05/21/24 Non-Specified Hypertension Discharge Diagnosis 05/21/24 Non-Specified Polyuria Discharge Diagnosis 05/21/24 Non-Specified Vital Signs Most recent to oldest [Reference Range]: 1 Height 179 cm (05/21/24 9:20 AM) Patient Weight 91.4 kg (05/21/24 9:20 AM) Body Mass Index 28.53 kg/m2 (05/21/24 9:20 AM) Heart Rate 53 bpm (05/21/24 9:20 AM) Respiratory Rate 18 br/min (05/21/24 9:20 AM) Blood Pressure 142/84mmHg (05/21/24 9:20 AM) Cuff Pulse Pressure 58 mmHg (05/21/24 9:20 AM) Social History Social History Type Response Smoking Status Former Smoker, quit > 1 yr Sex Male Sex Representation Male (finding) Patient Care team information Care Team Personnel Name: Robbie Snow DO, Mariana Annette Position: Physician - Family Med Member Role: Primary Care Provider Address: [address] [place] [address] Care Team Related Persons Name: VANESSA GOMEZ
--- OUTSIDE RECORDS SUMMARY | 2024-08-18 00:04 | External Medical Summary | Summary of Care ---
Author Name Unknown Organization [facility] Address [address] [facility] [place] [address] Phone [phone] Care Team Providers Care Dope House Operator Helper Name Role Phone Gabino Taylor MD Primary Care Provider [phone] [phone] Encounter Details Date Type Department Care Team (Late st Contact Info) Description 08/04/2024 Orders Only PATIENT PORTAL DO NOT DELETE [id number] Allergies No known active allergiesdocumented as of this encounter (statuses as of 08/04/2024) Medications Clindamycin Phosphate 1 % external solutionIndicat ions:Facial rash Apply topically to affected area 2 times a day. To affected area of skin. 60 mL 11 0 Active Meclizine HCl 25 MG Oral Tablet (Antivert)Indic ations:Dizzines s Take 1 Tab by mouth 3 times a day as needed for Dizziness. 60 Tab 1 1 Active Potassium 99 MG Oral Tablet 3 times a day. 4 Active Magnesium 30 MG Oral Tablet daily. 4 Active hydroCHLOROthia zide 25 MG Oral Tablet (Hydrodiuril)In dications:HTN, goal below 150/90 TAKE 1 TABLET BY MOUTH EVERY DAY IN THE MORNING 30 Tablet 4 Active documented as of this encounter (statuses as of 08/04/2024) Active Problems Problem Noted Date Diagnosed Date Mild aortic stenosis 10/08/2023 Overview (10/08/2023): Recheck in 2-5 years per cardiology recommendation in September of 2023 while patient was admitted to [facility] Infrarenal abdominal aortic aneurysm (AAA) [...] on file documented as of this encounter Plan of Treatment Health Maintenance Due Date Last Done Comments AAA Monitoring 12/06/1958 Albumin/Creatinine Ratio 12/06/1959 CKD PHOS USE SMARTSET 45022 12/06/1959 DTap/Tdap Vaccines (1 - Tdap) 1960 Zoster Vaccines (1 of 2) 12/06/1991 Pneumococcal Vaccine: 65+ Years (1 of 1 - PCV) 2006 Adult Wellness Visit 12/06/2007 Depression Monitoring 10/22/2019 10/22/2018 GFR 01/30/2024 07/31/2023, 11/30/2020 COVID-19 Vaccine (4 - 2023-2 5 season) 2024 08/03/2021, 11/29/2020, 11/08/2020 Influenza Vaccine (FLU shot) (#1) 2024 07/25/2007 CKD HGB USE SMARTSET 05548 07/31/202407/31, 07/31/2023 HPV (Gardasil) Vaccine Aged Out [...] Not on filedocumented as of this encounter Care Teams Dope House Operator Helper Relationship Specialty Start Date End Date Gabino Taylor MD [address] [place] [address] PCP - General Family Medicine 12/07/16 documented as of this encounter
--- OUTSIDE RECORDS SUMMARY | 2024-08-18 00:05 | External Medical Summary | Summary of Care ---
Author Name Unknown Organization [facility] Address [address] [place] [address] Phone [phone] Care Team Providers Care Metal Mover Name Role Phone Gabino Taylor MD Primary Care Provider [phone] Reason for Visit * Reason Onset Date Comments Films 04/22/2024 Encounter Details Date Type Department Care Team (Late st Contact Info) Description 04/22/2024 Telephone Radiology Film File [address] [place] [address] Support, Imaging Radiology [address] [place] [address] Films Allergies No known active allergiesdocumented as of this encounter (statuses as of 04/22/2024) Medications Medication Sig Dispensed Refills Start Date End Date Status Clindamycin Phosphate 1 % external solutionIndications: Facial rash Apply topically to affected area 2 times a day. To affected area of skin. 60 mL 11 05/13/2020 Active Meclizine HCl 25 MG Oral Tablet (Antivert)Indication s:Dizziness Take 1 Tab by mouth 3 times a day as needed for Dizziness. 60 Tab 1 11/30/2020 Active hydroCHLOROthiazide 25 MG Oral Tablet (Hydrodiuril)Indicat ions:HTN, goal below 150/90 Take 1 Tablet by mouth in the morning. 90 Tablet 3 07/08/2023 Active Potassium 99 MG Oral Tablet 3 times a day. 09/11/2023 Active Magnesium 30 MG Oral Tablet daily. 09/11/2023 Active documented as of this encounter (statuses as of 04/22/2024) Active Problems Problem Noted Date Diagnosed Date Mild aortic stenosis 10/08/2023 Overview: Recheck in 2-5 years per cardiology recommendation in September of 2023 while patient was admitted to [facility] Infrarenal abdominal aortic aneurysm (AAA) witho ut rupture 09/25/2023 Overweight (BMI 25.0-29.9) 09/25/2023 Mild vascular dementia with agitation 09/25/2023 Stage 3a chronic kidney disease 09/24/2023 HTN, goal below 130/80 12/07/2016 documented as of this encounter (statuses as of 04/22/2024) Resolved Problems Problem Noted Date Diagnosed Date Resolved Date Obesity, Class I, BMI 30.0-3 4.9 (see actual BMI) 09/24/2023 09/25/2023 documented as of this encounter (statuses as of 04/22/2024) Social History Tobacco Use Types Packs/Day Years [...] encounter Miscellaneous Notes * Telephone Encounter - Cruzito Quintero OSA - 04/22/2024 9:18 AM EDT [facility] requesting 08/25/23 Shoulder xray imaging and report(s). [place] Authorization to Release on file. Images pushed to [facility] PACS as this is the office's preferred method of transmission/retrieval. Associated report(s) not needed. documented in this encounter Plan of Treatment Health Maintenance Due Date Last Done Comments AAA Monitoring 12/06/1959 Albumin/Creatinine Ratio 12/06/1959 CKD PHOS USE SMARTSET 24338 12/06/1959 DTap/Tdap Vaccines (1 - Tdap) 1960 Zoster Vaccines (1 of 2) 12/06/1991 Pneumococcal Vaccine: 65+ Years (1 of 1 - PCV) 2006 Adult Wellness Visit 12/06/2007 Depression Monitoring 10/22/2019 10/22/2018 COVID-19 Vaccine (4 - 2022-2 4 season) 2023 08/03/2021, 11/29/2020, 11/08/2020 GFR 01/30/2024 07/31/2023, 11/30/2020 Influenza Vaccine (FLU shot) (#1) 2024 07/25/2007 CKD HGB USE SMARTSET 36999 07/31/202407/31, 07/31/2023 HPV (Gardasil) Vaccine Aged Out [...] filedocumented as of this encounter Care Teams Metal Mover Relationship Specialty Start Date End Date Gabino Taylor MD [address] [place] [id number] PCP - General Family Medicine 12/07/16 documented as of this encounter
--- OUTSIDE RECORDS SUMMARY | 2024-08-18 00:05 | External Medical Summary | Continuity of Care Document ---
Author Name Unknown Organization [address] Address [address] [place], [place] [id number] Care Team Providers Care Technical Services Representative Name Role Phone Jailene Streeter Primary Care P fatmata [phone] Encounter PS ANNIENBR [id number] Date(s): 02/20/24 - 02/20/[address] [facility] [address] [facility], [address] [address] [phone] Encounter Diagnosis Body mass index [BMI] 28.0-28.9, adult(Discharge Diagnosis) - 02/20/24 Shoulder pain(Discharge Diagnosis) - 02/20/24 Chronic diarrhea(Discharge Diagnosis) - 02/20/24 Encounter for medical examination to establish care(Discharge Diagnosis) - 02/20/24 Polyuria(Discharge Diagnosis) - 02/20/24 Mild aortic stenosis(Discharge Diagnosis) - 02/20/24 Hypertension(Discharge Diagnosis) - 02/20/24 Vertigo(Discharge Diagnosis) - 02/20/24 Discharge Disposition: Home or Self Care Attending Physician: Robbie Snow DO, Mariana Annette Referring Physician: Robbie Snow DO, Mariana Annette Allergies, Adverse Reactions, Alerts No Known Medication Allergies Assessment and Plan Extracted from: Title:Establish care/multiple concerns Author:Kristen kay DO, Gary Date:02/20/24 1.Chronic diarrhea Chronic condition exacerbated/progressive/side effects of treatment Goal:Resolution Data:unique tests ordered:Stool studies, CRP, ESR, TSH, T4 external notes reviewed including:[facility] ED notesand abdominal CT scan Plan:Unsure of the cause of the patient's chronic diarrhea currently. Given the longevity of this and without having a screening colonoscopy before, I did recommend that he should have a colonoscopy done. This was declined at today's appointmentbut he is willing to have at least stool studies to look for enteric pathogens. ESR and CRP also orderedto evaluate forCrohn's.I stated if this were to be negative, I would highly recommend he have a colonoscopy done to evaluate furtherbecause given his chronic diarrhea plusweight loss, I am certainly concerned for an undiagnosedcancerthat possibly was not seen on CT scan of the abdomen and pelvis. For now, recommend utilization ofImodium for symptomatic control. 2.Hypertension Chronic condition, stable Goal:Stable Plan:Per JNC 8 guidelines, blood pressure goal is 150/90 or less and patient is at goal at today's appointment. Continue hydrochlorothiazide 25 mg p.o. daily. 3.Polyuria Chronic condition exacerbated/progressive/side effects of treatment Goal:Resolution Data:unique tests ordered:PSA level Plan:Suspect it is due to a combination ofundiagnosed benign prostatic hyperplasiaand utilization of a thiazide diuretic causing him to go to the bathroom so frequently. Will look into further with a PSAfor working out BPH but also again concern for undiagnosed cancer given diarrhea and weight loss. 4.Vertigo Chronic condition exacerbated/progressive/side effects of treatment Goal:Resolution Plan:Refill patient's meclizine 25 mg p.o.3 times daily as needed for dizziness. Sent a referralto physical therapyfor treatment ofvertigo. 5.Shoulder pain Chronic condition exacerbated/progressive/side effects of treatment Goal:Resolution Data:external notes reviewedincluding:Right shoulder x-ray Plan:Shoulder pain likely explained by severeosteoarthritisnoted on x-ray from [facility]. Given his insurance coverageand his insurance being taken by [facility], will refer him to sports medicine forinjections if he would like to have them done. 6.Mild aortic stenosis Chronic condition, stable Goal:Stable Data:unique tests reviewed:Echocardiogram from [facility] Plan:Incidentally noted onechocardiogramearlier in the year from [facility]. No intervention required at this time. 7.Encounter for medical examination to establish care Due to the multiple complaints and complexity of the patient, we will have the patient follow-upwithin the next 2 weeks to discuss lab results. I am concerned for an undiagnosed cancer given weight loss, diarrhea, and polyuria as well. Will start with workup as above but patient will likely requiremore invasive testingsuch as colonoscopyin the future. Medications aspirin 81 mg oral capsule Start: 02/20/24 8:24:00 AM EDT Start Date: 02/20/24 Status: Ordered calcium (as carbonate) 500 mg oral tablet Start: 02/20/24 8:24:00 AM EDT Start Date: 02/20/24 Status: Ordered cannabidiol Start: 02/20/24 8:23:00 AM EDT Start Date: 02/20/24 Status: Ordered hydroCHLOROthiazide 25 mg oral tablet TAKE 1 TABLET BY MOUTH EVERY DAY IN THE MORNING Start Date: 02/20/24 Status: Ordered Iron Chews Start: 02/20/24 8:23:00 AM EDT Start Date: 02/20/24 Status: Ordered meclizine 25 mg oral tablet Start: 02/20/24 9:12:00 AM EDT, 1 tab, PO, tid, Disp# 30 tab, Refills: 1, PRN: as needed for dizziness, Pharmacy: [facility]/pharmacy #[id number] Start Date: 02/20/24 Status: Ordered turmeric Start: 02/20/24 8:25:00 AM EDT Start Date: 02/20/24 Status: Ordered zinc acetate Start: 02/20/24 8:23:00 AM EDT Start Date: 02/20/24 Status: Ordered Mental Status 02/20/24 Barriers to Learning one year None evide nt Mandatory Health Literacy Documentation Yes Health Literacy Communication Barriers N ever Primary Language Azerbaijani Problem List Condition Confirmation Course Effective Dates Status Health St atus Informant Chronic diarrhea Confirmed Active Hypertension Confirmed Active Mild aortic stenosis Confirmed Active Polyuria Confirmed Active Shoulder pain Confirmed Active Vertigo Confirmed Active Diagnosis Diagnosis Type Effective Dates Health Status Clinical Service Informant Body mass index [BMI] 28.0-28.9, adult Discharge Diagnosis 02/20/24 Non-Specified Vertigo Discharge Diagnosis 02/20/24 Non-Specified Encounter for medical examination to establish care Discharge Diagnosis 02/20/24 Non-Specified Chronic diarrhea Discharge Diagnosis 02/20/24 Non-Specified Mild aortic stenosis Discharge Diagnosis 02/20/24 Non-Specified Polyuria Discharge Diagnosis 02/20/24 Non-Specified Hypertension Discharge Diagnosis 02/20/24 Non-Specified Shoulder pain Discharge Diagnosis 02/20/24 Non-Specified Vital Signs Most recent to oldest [Reference Range]: 1 Height 179 cm (02/20/24 8:29 AM) Patient Weight 91 kg (02/20/24 8:29 AM) Body Mass Index 28.4 kg/m2 (02/20/24 8:29 AM) Heart Rate 75 bpm (02/20/24 8:29 AM) Respiratory Rate 22 br/min (02/20/24 8:29 AM) Blood Pressure 132/78mmHg (02/20/24 8:29 AM) Social History Social History Type Response Smoking Status Former Smoker, quit > 1 yr Sex Male FCM Outpt Note * DO Crowder Gary: PERFORM DO Crowder Gary: PERFORM Event Display: FCM Outpt Note Authored Date: [id number] Chief Complaint new pt - reports ongoing vertigo - having a current flare, looking for new ortho referral for shoulders History of Present Illness Rossy is an83 yo malewho presents to the clinic to establish care.They were previously seen by SUDHA/Selamnd are transferring their care due to insurance issues. PMH includes htn, mild aortic stenosis, R shoulder osteoarthritis. Primary concerns today include vertigo, polyuria, weight loss, diarrhea, shoulder pain. Supplements: CBD oil Diet: Well rounded feels he gets enough to eat Exercise: No routine exercise Occupation: Retired Living situation: Lives in an apartment by himself. Friend checks on him regularly Social relationships: Good social relationships and knows everyone in the neighborhood Stress: Chronic diarrhea Alcohol: None Tobacco: None Other recreational substances: CBD oil Vertigo:Patient has had an ongoing issue with vertigo for months and has been given meclizine 25 mg 3 times a day as needed. He has only had to take sadiq couple times per week and it does help improve his symptoms. Patient is requesting a refillas he was getting it from his previous provider and helostthe pills that he had leftover. He states that his vertigo doescome withposition changes, especially with tilting his head to the right. Polyuria:Patient reports thatforsome time, he has hadpolyuria for which he is urinatingapproximately 15 times per day. He also has nocturiathat keeps him up at nightrequiring him to go to the bathroom 3-4 times. Denies anyhematuria, dysuria, or discharge. He has never had a PSA done before. He does not have a diagnosis ofbenign prostatic hyperplasia as far as he is aware. R shoulder pain:Patient has had right shoulder pain for many yearssecondary to osteoarthritis of the glenohumeral joint. This has been seen on previous x- rays. He was seeing [facility] for injections of his shoulder, however, it turns out insurance wasnot covering these visitsbecause they were out of network. He states that the pain is improved with CBD oil, however, he is not opposed to going back for moreinjections as it seemed to work longer. Weight Loss:Patient notes weight loss over the past yearthat people have pointed out to him. Between reviewing his records from [facility] and now, he has lost 4 kg over the past 4 months.He states he does have2-3 loose bowel movementsdailyand does not have much of an appetite. Once he makes something or starts eating, he does not feelhungry anymore. He has not hadroutinecancer screenings such as colonoscopyas he does not go to the doctor routinely for health maintenance. Diarrhea:Lastly,patient has had2-3 episodes of loose stools per day for the past4 to 6 months. He has not had a colonoscopy before. He denies any fevers, chills,nausea or vomiting. Denies any hematochezia or melena. No recent travel. Patient does not live in an assisted living facility or chcf. He was put on ciprofloxacin for concern ofdiverticulitisrecently by [facility] diarrhea. He is simply been increasing his water consumptionto make upforhis fluid loss with the diarrhea. Patient notes that there is possibly history of Crohn's disease, however, he is unsureof this diagnosis. He [facility] did demonstratediverticulosis without diverticulitis. No other complaints at today's appointment. Review of Systems Per HPI Physical Exam Vitals & Measurements HR:75(Monitored) RR:22 BP:132/78 SpO2:96% HT:179cm WT:91kg WT:91.000kg(Dosing) BMI:28.4 PHQ2 Data(Data Documented on:02/20/2024 08:24) Emotional health assessment NEGATIVE General: Well-developed, well-nourished patient, in no acute distress, pleasant and normal affect, intact memory. Inattentive/hyperactive. HEENT: No scleral injection or discharge. Moist mucous membranes. Clear oropharynx. No exudate. No lesions. Tympanic membranes are clear bilaterally. Neck is supple without lymphadenopathy or thyromegaly. Lungs: Clear to auscultation bilaterally with good effort. Cardiac: Regular rate and rhythm. No murmurs. No extremity edema. Abdomen: Soft, nontender, and nondistended. No masses. No hepatosplenomegaly. Neurologic:No gross deficits. Assessment/Plan 1.Chronic diarrhea Chronic condition exacerbated/progressive/side effects of treatment Goal:Resolution Data:unique tests ordered:Stool studies, CRP, ESR, TSH, T4 external notes reviewed including:[facility] ED notesand abdominal CT scan Plan:Unsure of the cause of the patient's chronic diarrhea currently. Given the longevity of this and without having a screening colonoscopy before, I did recommend that he should have a colonoscopy done. This was declined at today's appointmentbut he is willing to have at least stool studies to look for enteric pathogens. ESR and CRP also orderedto evaluate forCrohn's.I stated if this were to be negative, I would highly recommend he have a colonoscopy done to evaluate furtherbecause given his chronic diarrhea plusweight loss, I am certainly concerned for an undiagnosedcancerthat possibly was not seen on CT scan of the abdomen and pelvis. For now, recommend utilization ofImodium for symptomatic control. 2.Hypertension Chronic condition, stable Goal:Stable Plan:Per JNC 8 guidelines, blood pressure goal is 150/90 or less and patient is at goal at today's appointment. Continue hydrochlorothiazide 25 mg p.o. daily. 3.Polyuria Chronic condition exacerbated/progressive/side effects of treatment Goal:Resolution Data:unique tests ordered:PSA level Plan:Suspect it is due to a combination ofundiagnosed benign prostatic hyperplasiaand utilization of a thiazide diuretic causing him to go to the bathroom so frequently. Will look into further with a PSAfor working out BPH but also again concern for undiagnosed cancer given diarrhea and weight loss. 4.Vertigo Chronic condition exacerbated/progressive/side effects of treatment Goal:Resolution Plan:Refill patient's meclizine 25 mg p.o.3 times daily as needed for dizziness. Sent a referralto physical therapyfor treatment ofvertigo. 5.Shoulder pain Chronic condition exacerbated/progressive/side effects of treatment Goal:Resolution Data:external notes reviewedincluding:Right shoulder x-ray Plan:Shoulder pain likely explained by severeosteoarthritisnoted on x-ray from [facility]. Given his insurance coverageand his insurance being taken by [facility], will refer him to sports medicine forinjections if he would like to have them done. 6.Mild aortic stenosis Chronic condition, stable Goal:Stable Data:unique tests reviewed:Echocardiogram from [facility] Plan:Incidentally noted onechocardiogramearlier in the year from [facility]. No intervention required at this time. 7.Encounter for medical examination to establish care Due to the multiple complaints and complexity of the patient, we will have the patient follow-upwithin the next 2 weeks to discuss lab results. I am concerned for an undiagnosed cancer given weight loss, diarrhea, and polyuria as well. Will start with workup as above but patient will likelyrequiremore invasive testingsuch as colonoscopyin the future. Attestation Pt seen and examined in concert with Dr. Crowder, agree with history and physical as documented above. Plan reviewed in detail. Any corrections or additions are noted here - active problems: chronic diarrhea, weight loss, vertigo. Will workup weight loss and diarrhea, start with stool studies, will also need colonoscopy at some point, declines today. Referral to PT for vertigo and fall prevention, would like to wean off meclizine at some point due to age. Stable chronic conditions - HTN, mild , shoulder pain, ?BPH. Problem List/Past Medical History Ongoing Chronic diarrhea Hypertension Mild aortic stenosis Polyuria Shoulder pain Vertigo Medications aspirin(aspirin 81 mg oral capsule) calcium carbonate(calcium (as carbonate) 500 mg oral tablet) cannabidiol carbonyl iron(Iron Chews) hydroCHLOROthiazide(hydroCHLOROthiazide 25 mg oral tablet) meclizine(meclizine 25 mg oral tablet), 25 mg= 1 tab, PO, tid, PRN, 1 refills turmeric zinc acetate Allergies No Known Medication Allergies Social History Smoking Status Former Smoker, quit > 1 yr Recommendations Health Maintenance Pending(in the next year) OverDue Adult Influenza Vaccine due02/22/23and every 1year Due Adult COVID-19 Vaccination due02/20/24Unknown Frequency Adult Social Determinants of Health Screening due02/20/24Unknown Frequency Adult Tdap/Td Vaccine due02/20/24Unknown Frequency Lipid Screening due02/20/24Unknown Frequency Medicare Annual Wellness Visit due02/20/24and every 1year Pneumococcal Vaccine Older Adults due02/20/24One-time only Shingles Vaccine due02/20/24One-time only Satisfied(in the past 1 year) Satisfied Body Mass Index on02/20/24.Satisfied by JERRY Hua Gillian Electronic Signature on File CC: Luis Rutledge DO [address] [facility] [address] [facility] [address] Electronically Reviewed/Signed by: Vincent Crowder DO Author Signature Dt/Tm:02/20/2024 04:48 PM Resident Department of Family Medicine Electronically Reviewed/Signed by: Jailene Snow DO Cosigner Signature Dt/Tm: 02/20/2024 05:00 PM Department of Family Medicine GF Patient Care team information Care Team Personnel Name: Robbie Snow DO, Mariana Annette Position: Physician - Family Med Member Role: Primary Care Provider Address: Address: [address] [place] [address] [address] [place] [address] [place]
--- OUTSIDE RECORDS SUMMARY | 2024-08-18 00:05 | External Medical Summary | Summary of Care ---
Author Name Unknown Organization [facility] Address [address] [place] [address] Phone [phone] Care Team Providers Care Liquid Floor And Wall Applier Name Role Phone Gabino Taylor MD Primary Care Provider [phone] Encounter Details Date Type Department Care Team (Late st Contact Info) Description 02/09/2024 Result Scan Unspecified Department <No scans attached> Allergies No known active allergiesdocumented as of this encounter (statuses as of 03/17/2024) Medications Medication Sig Dispensed Refills Start Date [...] as of this encounter (statuses as of 03/17/2024) Active Problems Problem Noted Date Diagnosed Date Mild aortic stenosis 10/08/2023 Overview: Recheck in 2-5 years per cardiology recommendation in September of 2023 while patient was admitted to [facility] Infrarenal abdominal aortic aneurysm (AAA) witho ut rupture 09/25/2023 Overweight (BMI 25.0-29.9) 09/25/2023 Mild vascular dementia with agitation 09/25/2023 Stage 3a chronic kidney disease 09/24/2023 HTN, goal below 130/80 12/07/2016 documented as of this encounter (statuses as of 03/17/2024) Resolved Problems Problem Noted Date Diagnosed Date Resolved Date Obesity, Class I, BMI 30.0-3 4.9 (see actual BMI) 09/24/2023 09/25/2023 documented as of this encounter (statuses as of 03/17/2024) Social History Tobacco Use Types Packs/Day Years [...] Albumin/Creatinine Ratio 12/06/1959 CKD PHOS USE SMARTSET 69419 12/06/1959 DTaP,Tdap,and Td Vaccines (1 - Tdap) 1960 Zoster Vaccines (1 of 2) 12/06/1991 Pneumococcal Vaccine: 65+ Years (1 of 1 - PCV) 2006 Depression Monitoring 10/22/2019 10/22/2018 COVID-19 Vaccine (4 - 2023-2 4 season) 2023 08/03/2021, 11/29/2020, 11/08/2020 GFR 01/30/2024 07/31/2023, 11/30/2020 Influenza Vaccine (FLU shot) (#1) 2024 07/25/2007 CKD HGB USE SMARTSET 31557 07/31/202407/31, 07/31/2023 HPV (Gardasil) Vaccine Aged Out [...] Not on filedocumented as of this encounter Procedures Procedure Name Priority Date/Time Associated Diagnosis Comments EKG SCANNED RESULT 02/09/2024 EKG SCANNED RESULT 02/09/2024 RADIOLOGY SCANNED RESULT 02/09/2024 documented in this encounter Results * RADIOLOGY SCANNED RESULT (02/09/2024) 02/09/2024 No Physician Data Unknown DIAGNOSTIC RAD IOLOGY SERVICES * EKG SCANNED RESULT (02/09/2024) 02/09/2024 No Physician Data Unknown EKG * EKG SCANNED RESULT (02/09/2024) 02/09/2024 No Physician Data Unknown EKG documented in this encounter Care Teams Liquid Floor And Wall Applier Relationship Specialty Start Date End Date Gabino Taylor MD [address] [facility] [place] [id number] PCP - General Family Medicine 12/07/16 documented as of this encounter
--- OUTSIDE RECORDS SUMMARY | 2024-08-18 00:05 | External Medical Summary | Continuity of Care Document ---
Author Name Unknown Organization [id number] Address [address] [place] [id number] Care Team Providers Care Senior Housekeeper Name Role Phone Jailene Streeter Primary Care P fatmata [phone] Encounter [facility] [id number] Date(s): 05/19/24 - 05/19/24 [facility] [address] [place], [place] [address]A [facility] [address] [address] Encounter Diagnosis Osteoarthritis of bilateral glenohumeral joints(Discharge Diagnosis) - 05/19/24 Discharge Disposition: Home or Self Care Attending Physician: LUKE Dee Madison Allergies, Adverse Reactions, Alerts No Known Medication Allergies Assessment and Plan Extracted from: Title:Clinical Document Author:LUKE DeeGelacio son Date:05/19/24 OUTPATIENT NOTE Name: LI GALLAGHER Patient Number:[id number] : 1940 Date of Service: 05/19/2024 Chief complaint: Follow-up bilateral shoulders HPI: Patient had bilateral glenohumeral cortisone injections done by Dr. Novak in on 05/12. He says that he is "thousand times better". He is very pleased with the outcome and very grateful today. He is able to lift his arms over his head. He is not having any pain. He starts physical therapy next week. Physical exam: Patient is able to raise his arm beyond 90 degrees bilaterally, right is better than left. This is significantly better than when I last saw him where he could hardly lift both of his arms. Strength is intact. He is able to reach behind him. Assessment/plan: Bilateral severe glenohumeral OA Very pleased with how he has improved. He is very happy with the outcome from the cortisone injections. He has also been taking the diclofenac as well which has been helping. He would like to follow-up as needed. We discussed that he could repeat these in the future if he needs. He will continue with physical therapy. Immunizations Given and Recorded Vaccine Date Status [...] food, PRN: as needed for pain, Pharmacy: [facility]/pharmacy #[id number] Start Date: 04/22/24 Status: Ordered Iron Chews Start: 02/20/24 8:23:00 AM EDT Start Date: 02/20/24 Status: Ordered lisinopril 10 mg oral tablet Start: 03/26/24 1:32:00 PM EDT, 1 tab, PO, Daily, Disp# 90 tab, Refills: 3, Pharmacy: [facility]/pharmacy #[id number] Start Date: 03/26/24 Stop Date: 03/21/25 Status: Ordered meclizine 25 mg oral tablet Start: 05/21/24 9:39:00 AM EDT, 1 tab, PO, tid, Disp# 30 tab, Refills: 1, PRN: as needed for dizziness, Pharmacy: [facility]/pharmacy #[id number] Start Date: 05/21/24 Status: Ordered turmeric Start: 02/20/24 8:25:00 AM EDT Start Date: 02/20/24 Status: Ordered zinc acetate Start: 02/20/24 8:23:00 AM EDT Start Date: 02/20/24 Status: Ordered Mental Status 05/19/24 Barriers to Learning one year None evide nt Mandatory Health Literacy Documentation Yes Health Literacy Communication Barriers N ever Primary Language Nepali Problem List Condition Confirmation Course Effective Dates Status H ealth Status Informant BPPV (benign paroxysmal positional vertigo) Confirmed Active Chronic diarrhea Confirmed Active Hypertension Confirmed Active Mild aortic stenosis Confirmed Active Osteoarthritis of bilateral glenohumeral joints Confirmed Active Polyuria Confirmed Active Shoulder pain Confirmed Active Vertigo Confirmed Active Diagnosis Diagnosis Type Effective Dates Health Status Clinical Service Informant Osteoarthritis of bilateral glenohumeral joints Discharge Diagnosis 05/19/24 Non-Specified Social History Social History Type Response Smoking Status Former Smoker, quit > 1 yr Sex Male Sex Representation Male (finding) Outpatient Note * LUKE Dee, [place]: PERFORM Event Display: .Outpt Note Authored Date: [id number] OUTPATIENT NOTE Name: LI GALLAGHER Patient Number:[id number] : 1940 Date of Service: 05/19/2024 Chief complaint: Follow-up bilateral shoulders HPI: Patient had bilateral glenohumeral cortisone injections done by Dr. Novak in on 05/12. He saysthat he is "thousand times better". He is very pleased with the outcome and very grateful today. Heis able to lift his arms over his head. He is not having any pain. He starts physical therapy next week. Physical exam: Patient is able to raise his arm beyond 90 degrees bilaterally, right is better thanleft. This is significantly better than when I last saw him where he could hardly lift both of his arms. Strength is intact. He is able to reach behind him. Assessment/plan: Bilateral severe glenohumeral OA Very pleased with how he has improved. He is very happy with the outcome from the cortisone injections. He has also been taking the diclofenac as well which has been helping. He would like to follow-up as needed. We discussed that he could repeat these in the future if he needs. He will continue with physical therapy. Electronic Signature on File Electronically Reviewed/Signed by: Keyona Dee PA-C Author Signature Dt/Tm:05/19/2024 01:08 PM Physician Roadway Engineer, Dept. of Orthopaedics and Sports Medicine [facility] - [address], [address] [place] [address] Electronically Reviewed/Signed by: Rafa Cuellar MD Cosigner Signature Dt/Tm: 05/21/2024 09:50 AM [facility] Environmental Health Nurse Department of Orthopaedics and Rehabilitation [facility] [address], [place] [address] Patient Care team information Care Team Personnel Name: Robbie Snow DO, Mariana Annette Position: Physician - Family Med Member Role: Primary Care Provider Address: [address] [place] [address] [place] Care Team Related Persons Name: VANESSA GOMEZ
--- OUTSIDE RECORDS SUMMARY | 2024-08-18 00:05 | External Medical Summary | Continuity of Care Document ---
Author Name Unknown Organization [id number] Address [address] [place] [phone] Care Team Providers Care Long Term Care Social Worker Name Role Phone Jailene Streeter Primary Care P fatmata [phone] Encounter [facility] [id number] Date(s): 04/22/24 - 04/22/24 [facility] [address] [place], [place] [address]A [facility] [address] [address] Encounter Diagnosis Osteoarthritis of bilateral glenohumeral joints(Discharge Diagnosis) - 04/22/24 Discharge Disposition: Home or Self Care Attending Physician: LUKE Dee Madison Allergies, Adverse Reactions, Alerts No Known Medication Allergies Assessment and Plan Extracted from: Title:Clinical Document Author:LUKE DeeGelacio son Date:04/22/24 ORTHOPAEDICS OUTPATIENT NOTE Name: LI GALLAGHER Patient Number: [id number] : 1940 Date of Service: 04/22/2024 Chief Complaint: Bilateral shoulder pain HPI: Eric is a 83-year-old male here today for evaluation of his bilateral shoulders. He has been seeing [facility] but recently found out that they do not take his insurance so he would like to transfer care here. He has been having bilateral shoulder pain for a couple years with recent exacerbation this past winter when he was shoveling snow and having to lift 140 pounds. His left is worse than his right. He has known osteoarthritis in both of his shoulders. I reviewed Selvin's note from Dr. Lala. He had an ultrasound-guided glenohumeral joint injection in his bilateral shoulders with 1 mL lidocaine and 1 mL of triamcinolone on 10/09/23. He says that it significantly helped him but only for a couple of days. He denies any recent injury. He is not diabetic. He is not interested in any surgery. He has extreme difficulty moving his shoulders due to pain and he says he can feel "grinding". 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 He has been doing "CBD pills" which she says does somewhat help. Current Home Meds: (Last Updated 04/22 09:10) aspirin (aspirin 81 mg oral capsule) calcium carbonate (calcium (as carbonate) 500 mg oral tablet) cannabidiol carbonyl iron (Iron Chews) diclofenac (diclofenac sodium 50 mg oral delayed release tablet) 50 mg PO bid PRN: as needed for pain with food lisinopril (lisinopril 10 mg oral tablet) 10 mg PO Daily meclizine (meclizine 25 mg oral tablet) 25 mg PO tid PRN: as needed for dizziness turmeric zinc acetate Allergies and Sensitivities: No Known Medication Allergies Past Medical History: Problems: Vertigo BPPV (benign paroxysmal positional vertigo) Shoulder pain Polyuria Hypertension Chronic diarrhea Mild aortic stenosis OBJECTIVE Vitals: Last Updated 04/22/24 08:25 Date Temp BP Location Pulse RR SpO2 Pain 04/22/24 6 03/26/24 138/80 03/26/24 142/78 50 12 96 8 Vital Signs are the last 3 documented. No Orthostatic Data Available Height and Weight: Last Updated 03/26/24 12:52 Date BMI Wt(kg) Wt(lb) Method Ht(cm) (ft-in) Method 03/26/24 28.87 92.5 204 Standing Scale 179 5-10 Standing 02/20/24 28.4 91 200 Standing Scale 179 5-10 Heights and Weights are the last 3 documented. Physical Exam Left shoulder: Patient is tender to palpate over the glenohumeral joint line. He has prominence noted over his AC joint. There is some palpable crepitus felt with passive range of motion. Patient is extremely limited in his shoulder range of motion actively and passively. He is only able to forward flex and abduct about 10 degrees. He can only externally rotate to neutral. He is unable to internally rotate behind his back. Exam limited due to very limited range of motion. Right shoulder: Patient is tender to palpate over the glenohumeral joint line. Prominence noted over AC joint. No major crepitus felt with passive range of motion. He is able to forward flex to 90 and abduct about 20 degrees, passively I cannot get him much further. He can externally rotate about 10 degrees beyond neutral. He is unable to internally rotate behind his back. Exam limited due to limited range of motion. 30 Day Labs: 03/25/242008 Estimated CrCl 62.03 03/25/24 1210 BUN 20 Anion Gap 13 K 4.1 eGFR CKD-EPI 71 HCO3 23 Cret 1.05 Cl- 105 Na 141 Ca 9.8 Glu 98 X-rays: I reviewed right shoulder x-rays done at [facility] on 10/01/2023 that show severe end-stage glenohumeral osteoarthritis and severe AC joint osteoarthritis. Near [id number] articulation with sclerosis, osteophyte formation and bone cysts I reviewed [facility] chest x-ray done 10/06/2023 that did show the patient's left shoulder that shows severe end-stage glenohumeral osteoarthritis and AC joint osteoarthritis. Near nqgw-[id number] articulation with sclerosis, osteophyte formation, bone cysts and possibly slight collapse of humeral head ASSESSMENT: Severe, end-stage glenohumeral joint osteoarthritis and AC joint osteoarthritis, bilateral, acute on chronic, subsequent adhesive capsulitis left greater than right, initial visit PLAN: I reviewed exam findings, imaging and plan with the patient. We discussed conservative treatment versus surgical intervention. I discussed with him that surgical intervention would be a shoulder replacement. He is not interested in surgery. We discussed the nature of arthritis and not being able to reverse the process but hopefully being able to manage his pain and help improve his range of motion to where he can do his activities of daily living. I recommended physical therapy to help with his range of motion. To help with his pain I prescribed 50 mg diclofenac to take with food twice a day for the next 2 to 3 weeks. I checked his labs and his BUN and creatinine were drawn 03/25 and are normal. He has no known kidney issues. I also recommended doing Voltaren gel during the day if he has someone who can help him rub it on his shoulder and trying lidocaine patches at nighttime to help with the pain he is experiencing at night. I also suggested trying another cortisone injection. He did not see much relief from the first one however they used only 1 mL of lidocaine and 1 mL of 40mg triamcinolone, potentially doing a different combination with possibly 2 mL of Depo-Medrol, 2 mL lidocaine, 2 mL of Marcaine may provide him with more relief but will leave this up to the discretion of the physician doing the ultrasound-guided injection. Referral was placed today. I would like to see him back in 4 to 6 weeks. All of his questions and concerns were addressed. They will call with any further concerns. Immunizations Given and Recorded Vaccine Date Status Refusal Reason SARS-CoV-2 (COVID-19) mRNA BNT-162b2 vax 08/03/21 Recorded [...] food, PRN: as needed for pain, Pharmacy: [facility]/pharmacy #[id number] Start Date: 04/22/24 Status: Ordered Iron Chews Start: 02/20/24 8:23:00 AM EDT Start Date: 02/20/24 Status: Ordered lisinopril 10 mg oral tablet Start: 03/26/24 1:32:00 PM EDT, 1 tab, PO, Daily, Disp# 90 tab, Refills: 3, Pharmacy: [id number]/pharmacy #[id number] Start Date: 03/26/24 Stop Date: 03/21/25 Status: Ordered meclizine 25 mg oral tablet Start: 02/20/24 9:12:00 AM EDT, 1 tab, PO, tid, Disp# 30 tab, Refills: 1, PRN: as needed for dizziness, Pharmacy: [facility]/pharmacy #[id number] Start Date: 02/20/24 Status: Ordered turmeric Start: 02/20/24 8:25:00 AM EDT Start Date: 02/20/24 Status: Ordered zinc acetate Start: 02/20/24 8:23:00 AM EDT Start Date: 02/20/24 Status: Ordered Mental Status 04/22/24 Barriers to Learning one year None evide nt Mandatory Health Literacy Documentation Yes Health Literacy Communication Barriers N ever Primary Language Greenlandic Problem List Condition Confirmation Course Effective Dates Status Health St [facility] Informant BPPV (benign paroxysmal positional vertigo) Confirmed Active Chronic diarrhea Confirmed Active Hypertension Confirmed Active Mild aortic stenosis Confirmed Active Polyuria Confirmed Active Shoulder pain Confirmed Active Vertigo Confirmed Active Diagnosis Diagnosis Type Effective Dates Health Status Clinical Service Informant Osteoarthritis of bilateral glenohumeral joints Discharge Diagnosis 04/22/24 Social History Social History Type Response Smoking Status Former Smoker, quit > 1 yr Sex Male Sex Representation Male (finding) Ortho Outpt Note * LUKE Dee Madison: PERFORM, MODIFY, MODIFY Event Display: Ortho Outpt Note Authored Date: [id number] ORTHOPAEDICS OUTPATIENT NOTE Name: LI GALLAGHER Patient Number: [id number] : 1940 Date of Service: 04/22/2024 Chief Complaint: Bilateral shoulder pain HPI: Eric is a 83-year-old male here today for evaluation of his bilateral shoulders. He has been seeing [facility] but recently found out that they do not take his insurance so he would like to transfer care here. He has been having bilateral shoulder pain for a couple years with recent exacerbationthis past winter when he was shoveling snow and having to lift 140 pounds. His left is worse than his right. He has known osteoarthritis in both of his shoulders. I reviewed Selvin's note from . He had an ultrasound-guided glenohumeral joint injection in his bilateral shoulders with 1mL lidocaine and 1 mL of triamcinolone on 10/09/23. He says that it significantly helped him but only for a couple of days. He denies any recent injury. He is not diabetic. He is not interested in anysurgery. He has extreme difficulty moving his shoulders due to pain and he says he can feel "grinding". 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 He has been doing "CBD pills" which she says does somewhat help. Current Home Meds: (Last Updated 04/22 09:10) aspirin (aspirin 81 mg oral capsule) calcium carbonate (calcium (as carbonate) 500 mg oral tablet) cannabidiol carbonyl iron (Iron Chews) diclofenac (diclofenac sodium 50 mg oral delayed release tablet) 50 mg PO bid PRN: as needed for pain with food lisinopril (lisinopril 10 mg oral tablet) 10 mg PO Daily meclizine (meclizine 25 mg oral tablet) 25 mg PO tid PRN: as needed for dizziness turmeric zinc acetate Allergies and Sensitivities: No Known Medication Allergies Past Medical History: Problems: Vertigo BPPV (benign paroxysmal positional vertigo) Shoulder pain Polyuria Hypertension Chronic diarrhea Mild aortic stenosis OBJECTIVE Vitals: Last Updated 04/22/24 08:25 Date Temp BP Location Pulse RR SpO2 Pain 04/22/24 6 03/26/24 138/80 03/26/24 142/78 50 12 96 8 Vital Signs are the last 3 documented. No Orthostatic Data Available Height and Weight: Last Updated 03/26/24 12:52 Date BMI Wt(kg) Wt(lb) Method Ht(cm) (ft-in) Method 03/26/24 28.87 92.5 204 Standing Scale 179 5-10 Standing 02/20/24 28.4 91 200 Standing Scale 179 5-10 Heights and Weights are the last 3 documented. Physical Exam Left shoulder: Patient is tender to palpate over the glenohumeral joint line. He has prominence noted over his AC joint. There is some palpable crepitus felt with passive range of motion. Patient is extremely limited in his shoulder range of motion actively and passively. He is only able to forwardflex and abduct about 10 degrees. He can only externally rotate to neutral. He is unable to internally rotate behind his back. Exam limited due to very limited range of motion. Right shoulder: Patient is tender to palpate over the glenohumeral joint line. Prominence noted over AC joint. No major crepitus felt with passive range of motion. He is able to forward flex to 90 and abduct about 20 degrees, passively I cannot get him much further. He can externally rotate about 10 degrees beyond neutral. He is unable to internally rotate behind his back. Exam limited due to limited range of motion. 30 Day Labs: 03/25/242008 Estimated CrCl 62.03 03/25/24 1210 BUN 20 Anion Gap 13 K 4.1 eGFR CKD-EPI 71 HCO3 23 Cret 1.05 Cl- 105 Na 141 Ca 9.8 Glu 98 X-rays: I reviewed right shoulder x-rays done at [facility] on 10/01/2023 that showsevere end-stage glenohumeral osteoarthritis and severe AC joint osteoarthritis. Near cxjm-[id number] articulation with sclerosis, osteophyte formation and bone cysts I reviewed [facility] chest x-ray done 10/06/2023 that did show the patient's left shoulder that shows severe end-stage glenohumeral osteoarthritis and AC joint osteoarthritis. Near vplz-ns-[id number] articulation with sclerosis, osteophyte formation, bone cysts and possibly slight collapse of humeral head ASSESSMENT: Severe, end-stage glenohumeral joint osteoarthritis and AC joint osteoarthritis, bilateral, acute on chronic, subsequent adhesive capsulitis left greater than right, initial visit PLAN: I reviewed exam findings, imaging and plan with the patient. We discussed conservative treatment versus surgical intervention. I discussed with him that surgical intervention would be a shoulder replacement. He is not interested in surgery. We discussed the nature of arthritis and not being able toreverse the process but hopefully being able to manage his pain and help improve his range of motion to where he can do his activities of daily living. I recommended physical therapy to help with hisrange of motion. To help with his pain I prescribed 50 mg diclofenac to take with food twice a day for the next 2 to 3 weeks. I checked his labs and his BUN and creatinine were drawn 03/25 and are normal. He has no known kidney issues. I also recommended doing Voltaren gel during the day if he has someone who can help him rub it on his shoulder and trying lidocaine patches at nighttime to help with the pain he is experiencing at night. I also suggested trying another cortisone injection. He did not see much relief from the first one however they used only 1 mL of lidocaine and 1 mL of 40mg triamcinolone, potentially doing a different combination with possibly 2 mL of Depo-Medrol, 2 mL lidocaine, 2 mL of Marcaine may provide him with more relief but will leave this up to the discretion of the physician doing the ultrasound-guided injection. Referral was placed today. I would like to see him back in 4 to 6 weeks. All of his questions and concerns were addressed. They will call with any further concerns. Electronic Signature on File Electronically Reviewed/Signed by: Keyona Dee PA-C Author Signature Dt/Tm:04/22/2024 10:09 AM Physician Proposal Manager, Dept. of Orthopaedics and Sports Medicine [address] [address] Electronically Reviewed/Signed by: Keyona Dee PA-C Cosigner Signature Dt/Tm: 04/22/2024 10:11 AM Physician Proposal Manager, Dept. of Orthopaedics and Sports Medicine [address] [address] Electronically Reviewed/Signed by: Keyona Dee PA-C Cosigner Signature Dt/Tm: 04/22/2024 10:26 AM Physician Proposal Manager, Dept. of Orthopaedics and Sports Medicine [address] [address] Electronically Reviewed/Signed by: MD Naeem Benavides Signature Dt/Tm: 04/22/2024 01:56 PM [facility] Engine Repairer Production Department of Orthopaedics and Rehabilitation [facility] [address], [place] [address] MK Patient Care team information Care Team Personnel Name: Robbie Snow DO, Mariana Annette Position: Physician - Family Med Member Role: Primary Care Provider Address: [address] [place] [id number] [place] Care Team Related Persons Name: VANESSA GOMEZ
--- OUTSIDE RECORDS SUMMARY | 2024-08-18 00:05 | External Medical Summary | Continuity of Care Document ---
Author Name Unknown Organization [place] [id number] [place] [phone] Care Team Providers Care Mirror Machine Feeder Name Role Phone Jailene Streeter Primary Care P fatmata [phone] [id number] Date[facility]s): [facility]/25/24 - 03/25/24 [facility] [address] [place] [address] [address] [phone] Encounter Diagnosis Noninfective gastroenteritis and colitis, unspecified(Final) - Essential (primary) hypertension(Final) - Other polyuria(Final) - Dizziness and giddiness(Final) - Benign paroxysmal vertigo, unspecified ear(Final) - Discharge Disposition: Home or Self Care Attending Physician: MD Loving Ravishankar E Allergies, Adverse Reactions, Alerts No Known Medication [...] AM EDT Start Date: 02/20/24 Status: Ordered Iron Chews Start: 02/20/24 8:23:00 AM EDT Start Date: 02/20/24 Status: Ordered lisinopril 10 mg oral tablet Start: 03/26/24 1:32:00 PM EDT, 1 tab, PO, Daily, Disp# 90 tab, Refills: 3, Pharmacy: [facility]/pharmacy #[id number] Start Date: 03/26/24 Stop Date: 03/21/25 Status: Ordered meclizine 25 mg oral tablet Start: 02/20/24 9:12:00 AM EDT, 1 tab, PO, tid, Disp# 30 tab, Refills: 1, PRN: as needed for dizziness, Pharmacy: [facility]/pharmacy #[id number] Start Date: 02/20/24 Status: Ordered turmeric Start: 02/20/24 8:25:00 AM EDT Start Date: 02/20/24 Status: Ordered zinc acetate Start: 02/20/24 8:23:00 AM EDT Start Date: 02/20/24 Status: Ordered Problem List Condition Confirmation Course Effective Dates Status Health St atus Informant BPPV (benign paroxysmal positional vertigo) Confirmed Active Chronic diarrhea Confirmed Active Hypertension Confirmed Active Mild aortic stenosis Confirmed Active Polyuria Confirmed Active Shoulder pain Confirmed Active Vertigo Confirmed Active Results Laboratory List Name Date Basic Metabolic Panel (BASIC METAB PANEL ) 03/25/24 Most recent to oldest [Reference Range]: 1 eGFR CKD-EPI [>60 mL/min/1.73 m2] 71 mL/ min/1.73 m2 (03/25/24 12:10 PM) Estimated CrCl 62.03 mL/min (03/25/24 8:09 PM) Anion Gap [5-14 mmol/L] 13 mmol/L (03/25/24 12:10 PM) BUN [6-23 mg/dL] 20 mg/dL (03/25/24 12:10 PM) Ca [8.4-10.2 mg/dL] 9.8 mg/dL (03/25/24 12:10 PM) Cl- [98-107 mmol/L] 105 mmol/L (03/25/24 12:10 PM) HCO3 [22-29 mmol/L] 23 mmol/L (03/25/24 12:10 PM) Cret [0.70-1.30 mg/dL] 1.05 mg/dL (03/25/24 12:10 PM) Glu [74-109 mg/dL] 98 mg/dL 1 (03/25/24 12:10 PM) K [3.5-5.1 mmol/L] 4.1 mmol/L (03/25/24 12:10 PM) Na [136-145 mmol/L] 141 mmol/L (03/25/24 12:10 PM) 1Result Comment: ADA recommendation for FASTING Serum/Plasma Glucose: Normal: 70-100 mg/dL Prediabetes: 100-125 mg/dL Diabetes: 126 mg/dL or higher Social History Social History Type Response Smoking Status Former Smoker, quit > 1 yr Sex Male Sex Representation Male (finding) Patient Care team information Care Team Personnel Name: Robbie Snow DO, Mariana Annette Position: Physician - Family Med Member Role: Primary Care Provider Address: [address] [place] [id number] [place] Care Team Related Persons Name: VANESSA GOMEZ
--- OUTSIDE RECORDS SUMMARY | 2024-08-18 00:05 | External Medical Summary | Continuity of Care Document ---
Author Name Unknown Organization [facility] [id number] Address [address] [place] [phone] Care Team Providers Care Chief Ophthalmic Technician Name Role Phone Avalos Jailene Snow Primary Care P fatmata [phone] Encounter [facility] [id number] Date(s): 05/12/24 - 05/12/24 [facility] [address] [place], [place] [address] [address] [place] [address] Encounter Diagnosis Glenohumeral arthritis(Discharge Diagnosis) - 05/12/24 Discharge Disposition: Home or Self Care Attending Physician: DO Dee Mehwish Referring Physician: LUKE Dee Madison Allergies, Adverse Reactions, Alerts No Known Medication Allergies Assessment and Plan Extracted from: Title:Office Visit Note Author:DO Dee Me hwish Date:05/12/24 1.Glenohumeral arthritis Risks and benefits of the procedure were discussed. Patient would like to proceed with the injection, see procedure note below. After care and return precautions discussed. Follow-up as scheduled with Keyona Dee PA-C. PROCEDURE NOTE: Risks, benefits, indications and alternatives ofBilateral glenohumeral joint US guided injection were discussed. Consent was obtained per clinic protocol. Time out was performed using [facility] protocol. Sterile technique was utilized with Chloraprep skin prep and sterile US gel.With the patientside-lying, along axis viewof theLEFT glenohumeral jointwas obtained. Usingan in plane approach, a 22 gauge spinal needle was inserted into the joint capsulefrom a lateral to medial approach. After visual confirmation of placement within the joint capsule was made, the joint was injected with 1 ml of 1% lidocaine, 1 ml of 0.25%bupivacaine,and 40 mg of depomedrol (40mg/ml). The patient tolerated the procedure well without complication. Procedure wasthen completedon the right side. Sterile technique was utilized with Chloraprep skin prep and sterile US gel.With the patientside-lying, along axis viewof theRIGHT glenohumeral jointwas obtained. Usingan in plane approach, a 22 gauge spinal needle was inserted into the joint capsulefrom a lateral to medial approach. After visual confirmation of placement within the joint capsule was made, the joint was injected with 1 ml of 1% lidocaine, 1 ml of 0.25%bupivacaine,and 40 mg of depomedrol(40mg/ml). The patient tolerated the procedure well without complication. Immunizations Given and Recorded Vaccine Date Status [...] food, PRN: as needed for pain, Pharmacy: [facility]/pharmacy #[id number] Start Date: 04/22/24 Status: Ordered Iron Chews Start: 02/20/24 8:23:00 AM EDT Start Date: 02/20/24 Status: Ordered lisinopril 10 mg oral tablet Start: 03/26/24 1:32:00 PM EDT, 1 tab, PO, Daily, Disp# 90 tab, Refills: 3, Pharmacy: [facility]/pharmacy #[id number] Start Date: 03/26/24 Stop Date: 03/21/25 Status: Ordered meclizine 25 mg oral tablet Start: 02/20/24 9:12:00 AM EDT, 1 tab, PO, tid, Disp# 30 tab, Refills: 1, PRN: as needed for dizziness, Pharmacy: [facility]/pharmacy #[id number] Start Date: 02/20/24 Status: Ordered turmeric Start: 02/20/24 8:25:00 AM EDT Start Date: 02/20/24 Status: Ordered zinc acetate Start: 02/20/24 8:23:00 AM EDT Start Date: 02/20/24 Status: Ordered Mental Status 05/12/24 Barriers to Learning one year None evide nt Mandatory Health Literacy Documentation Yes Health Literacy Communication Barriers N ever Primary Language Chinese Problem List Condition Confirmation Course Effective Dates Status Health St atus Informant BPPV (benign paroxysmal positional vertigo) Confirmed Active Chronic diarrhea Confirmed Active Hypertension Confirmed Active Mild aortic stenosis Confirmed Active Polyuria Confirmed Active Shoulder pain Confirmed Active Vertigo Confirmed Active Diagnosis Diagnosis Type Effective Dates Health Status Clinical Service Informant Glenohumeral arthritis Discharge Diagnosis 05/12/24 Non-Specified Social History Social History Type Response Smoking Status Former Smoker, quit > 1 yr Sex Male Sex Representation Male (finding) Ortho Outpt Note * DO Dee Mehwish: PERFORM Event Display: Ortho Outpt Note Authored Date: Chief Complaint USGI Bilateral shoulders History of Present Illness Li is an 83yo male who presents for US-guided bilateral glenohumeral joint injections. Physical Exam Bilateral shoulders: no erythema, ecchymosis oredema at planned injection Assessment/Plan 1.Glenohumeral arthritis Risks and benefits of the procedure were discussed. Patient would like to proceed with the injection, see procedure note below. After care and return precautions discussed. Follow-up as scheduled with Keyona Dee PA-C. PROCEDURE NOTE: Risks, benefits, indications and alternatives ofBilateral glenohumeral joint US guided injection were discussed. Consent was obtained per clinic protocol. Time out was performed using [facility] protocol.Sterile technique was utilized with Chloraprep skin prep and sterile US gel.With the patientside-lying, along axis viewof theLEFT glenohumeral jointwas obtained. Usingan in plane approach, a 22 gauge spinal needle was inserted into the joint capsulefrom a lateral to medial approach.After visual confirmation of placement within the joint capsule was made, the joint was injected with 1 ml of 1% lidocaine, 1 ml of 0.25%bupivacaine,and 40 mg of depomedrol (40mg/ml). The patienttolerated the procedure well without complication. Procedure wasthen completedon the right side. Sterile technique was utilized with Chloraprepskin prep and sterile US gel.With the patientside- lying, along axis viewof theRIGHT glenohumeral jointwas obtained. Usingan in plane approach, a 22 gauge spinal needle was inserted intothe joint capsulefrom a lateral to medial approach. After visual confirmation of placement withinthe joint capsule was made, the joint was injected with 1 ml of 1% lidocaine, 1 ml of 0.25%bupivacaine,and 40 mg of depomedrol(40mg/ml). The patient tolerated the procedure well without complication. Problem List/Past Medical History Ongoing BPPV (benign paroxysmal positional vertigo) Chronic diarrhea Hypertension Mild aortic stenosis Polyuria Shoulder pain Vertigo Medications aspirin(aspirin 81 mg oral capsule) calcium carbonate(calcium (as carbonate) 500 mg oral tablet) cannabidiol carbonyl iron(Iron Chews) diclofenac(diclofenac sodium 50 mg oral delayed release tablet), 50 mg= 1 tab, PO, bid, PRN, 1 refills lisinopril(lisinopril 10 mg oral tablet), 10 mg= 1 tab, PO, Daily, 3 refills meclizine(meclizine 25 mg oral tablet), 25 mg= 1 tab, PO, tid, PRN, 1 refills turmeric zinc acetate Allergies No Known Medication Allergies Social History Smoking Status Former Smoker, quit > 1 yr Immunizations Vaccine Date Status SARS-CoV-2 (COVID-19) mRNA BNT-162b2 vax 08/03/2021 Recorded SARS-CoV-2 (COVID-19) mRNA BNT-162b2 vax 11/29/2020 Recorded SARS-CoV-2 (COVID-19) mRNA BNT-162b2 vax 11/08/2020 Recorded Recommendations Health Maintenance Pending(in the next year) OverDue Adult Influenza Vaccine due02/23/24and every 1year Due Adult COVID-19 Vaccination due05/13/24Unknown Frequency Adult Social Determinants of Health Screening due05/13/24Unknown Frequency Adult Tdap/Td Vaccine due05/13/24Unknown Frequency Falls Plan of Care due05/13/24Unknown Frequency Lipid Screening due05/13/24Unknown Frequency Medicare Annual Wellness Visit due05/13/24and every 1year Pneumococcal Vaccine Older Adults due05/13/24One-time only Shingles Vaccine due05/13/24One-time only Due In Future Body Mass Index not due until03/27/25and every 366day Satisfied(in the past 1 year) Satisfied Body Mass Index on03/26/24.Satisfied by DORINA Renee Paul Electronic Signature on File CC: Keyona Dee PA-C [address] [facility] [address] [facility] [address] Electronically Reviewed/Signed by: Whitney Dee DO Author Signature Dt/Tm:05/13/2024 09:18 PM Division of Sports Medicine MM Patient Care team information Care Team Personnel Name: Robbie Snow DO, Mariana Annette Position: Physician - Family Med Member Role: Primary Care Provider Address: [address] [place] [address] [address] [place] [address] [place] Care Team Related Persons Name: VANESSA GOMEZ
--- OUTSIDE RECORDS SUMMARY | 2024-08-18 00:05 | External Medical Summary | Continuity of Care Document ---
Author Name Unknown Organization [facility] [address] [place] [phone] Care Team Providers Care Yard Warehouse Worker Name Role Phone Jailene Streeter Primary Care P fatmata [phone] Encounter [facility] [id number] Date(s): 03/26/24 - 03/26/24 [facility] [address] [address] [phone] Encounter Diagnosis Body mass index [BMI] 28.0-28.9, adult(Discharge Diagnosis) - 03/26/24 Hypertension(Discharge Diagnosis) - 03/26/24 Polyuria(Discharge Diagnosis) - 03/26/24 Shoulder pain(Discharge Diagnosis) - 03/26/24 Chronic diarrhea(Discharge Diagnosis) - 03/26/24 Rosacea(Discharge Diagnosis) - 03/26/24 BPPV (benign paroxysmal positional vertigo)(Discharge Diagnosis) - 03/26/24 Discharge Disposition: Home or Self Care Attending Physician: MD Singh Christopher Referring Physician: MD Singh Christopher Allergies, Adverse Reactions, Alerts No Known Medication Allergies Assessment and Plan Extracted from: Title:Office Visit Note Author:DO Rutledge Eric Da te:03/26/24 1.Hypertension - At goal on lisinopril 10mg. - cr and BUN improved with stopping HZTZ. - Will follow up in 1 month. 2.Polyuria - Still going 10 times a day even stopping HZTZ. - having no nocturia. - Recommend reducing fluid intake and see if polyuria improves. - f/u in one month may consider further workup. 3.Shoulder pain - Shoulder pain likely explained by severeosteoarthritisnoted on x-ray from [facility] - Also has adhesive capsulitison the bilateral shoulderswithareducedROM. - recommend to schedule with PT and ortho. 4.BPPV (benign paroxysmal positional vertigo) - Vertigo getting better when he does the exercises. - Recommend to continue meclizine asneeded and to continue to do the exercises. - Recommend to schedule with PT as they can do the exercises as well. 5.Rosacea - Rosacea of the face after shaving. - Recommend to use sensitive skin shaving cream as well as moisturizerafter shaving. - Will follow up in one month to see if more intervention is needed. Immunizations Given and Recorded Vaccine Date Status [...] Daily, Disp# 90 tab, Refills: 3, Pharmacy: [facility]/pharmacy #[id number] Start Date: 03/26/24 Stop Date: 03/21/25 Status: Ordered meclizine 25 mg oral tablet Start: 02/20/24 9:12:00 AM EDT, 1 tab, PO, tid, Disp# 30 tab, Refills: 1, PRN: as needed for dizziness, Pharmacy: [facility]/pharmacy #[id number] Start Date: 02/20/24 Status: Ordered turmeric Start: 02/20/24 8:25:00 AM EDT Start Date: 02/20/24 Status: Ordered zinc acetate Start: 02/20/24 8:23:00 AM EDT Start Date: 02/20/24 Status: Ordered Mental Status 03/26/24 Barriers to Learning one year None evide nt Mandatory Health Literacy Documentation Yes Health Literacy Communication Barriers N ever Primary Language Indian Problem List Condition Confirmation Course Effective Dates Status Health St atus Informant BPPV (benign paroxysmal positional vertigo) Confirmed Active Chronic diarrhea Confirmed Active Hypertension Confirmed Active Mild aortic stenosis Confirmed Active Polyuria Confirmed Active Shoulder pain Confirmed Active Vertigo Confirmed Active Diagnosis Diagnosis Type Effective Dates Health Status Clinical Service Informant Body mass index [BMI] 28.0-28.9, adult Discharge Diagnosis 03/26/24 Non-Specified BPPV (benign paroxysmal positional vertigo) Discharge Diagnosis 03/26/24 Non-Specified Rosacea Discharge Diagnosis 03/26/24 Non-Specified Chronic diarrhea Discharge Diagnosis 03/26/24 Non-Specified Polyuria Discharge Diagnosis 03/26/24 Non-Specified Shoulder pain Discharge Diagnosis 03/26/24 Non-Specified Hypertension Discharge Diagnosis 03/26/24 Non-Specified Vital Signs Most recent to oldest [Reference Range]: 1 2 Height 179 cm (03/26/24 12:52 PM) Patient Weight 92.5 kg (03/26/24 12:52 PM) Body Mass Index 28.87 kg/m2 (03/26/24 12:52 PM) Heart Rate 50 bpm (03/26/24 12:52 PM) Respiratory Rate 12 br/min (03/26/24 12:52 PM) Blood Pressure 138/80mmHg (03/26/24 1:13 PM) 142/78mmHg (03/26/24 12:52 PM) Cuff Pulse Pressure 64 mmHg (03/26/24 12:52 PM) Social History Social History Type Response Smoking Status Former Smoker, quit > 1 yr Sex Male Sex Representation Male (finding) FCM Outpt Note * MD Francisco, Jerrell: MODIFY MD Singh Christopher: MODIFY Event Display: FCM Outpt Note Authored Date: [id number] Chief Complaint F/U completed lab work change in medication History of Present Illness 83 y/o here for f/u on multiple issues. Redness on the skin: - redness on the skin - usually after shaving. - uses a straight razor. Vertigo: - meclizine,does help. - Off and on for a couple of months. - waking up, turning head make it occur. - a little bit better polyuria: - drinks propel - going 10 times a day - no issues with starting and stopping - no dysuria, blood, - Urinary frequency - no nocturia HTN: - Stopped HZTZ due to polyuria. - On lisinopril 10mg. - BP at home, not taking it at home. bilateral shoulder pain: - continues to have shoulder pain. - Has had injections in the past but only lasted about 1 week. - hard to lift up shoulders. - Has not tried to go to ortho or try PT. Review of Systems Negative ROS besides what is stated in the HPI above. Physical Exam Vitals & Measurements HR:50(Monitored) RR:12 BP:138/80 SpO2:96% HT:179cm WT:92.5kg WT:92.500kg(Dosing) BMI:28.87 PHQ2 Data(Data Documented on:03/26/2024 12:52) Emotional health assessment NEGATIVE General:Well-developed, well-nourished patient, in no acute distress, pleasant and normal affect, intact memory. Eyes:No scleral injection or discharge. ENT:Moist mucous membranes. Lungs:No increased work of breathing. MSK: bilateral shoulders reducedROM Cardiac:Well perfused.No extremity edema. Neurologic:Grossly intact cranial nerves Assessment/Plan 1.Hypertension - At goal on lisinopril 10mg. - cr and BUN improved with stopping HZTZ. - Will follow up in 1 month. 2.Polyuria - Still going 10 times a day even stopping HZTZ. - having no nocturia. - Recommend reducing fluid intake and see if polyuria improves. - f/u in one month may consider further workup. 3.Shoulder pain - Shoulder pain likely explained by severeosteoarthritisnoted on x-ray from [facility] - Also has adhesive capsulitison the bilateral shoulderswithareducedROM. - recommend to schedule with PT and ortho. 4.BPPV (benign paroxysmal positional vertigo) - Vertigo getting better when he does the exercises. - Recommend to continue meclizine asneeded and to continue to do the exercises. - Recommend to schedule with PT as they can do the exercises as well. 5.Rosacea - Rosacea of the face after shaving. - Recommend to use sensitive skin shaving cream as well as moisturizerafter shaving. - Will follow up in one month to see if more intervention is needed. Attestation Patient's case reviewed in detail with Dr. Rutledge, agree with detail of history and physical as documented above. Plan reviewed in detail with providing resident physician. Problem List/Past Medical History Ongoing BPPV (benign paroxysmal positional vertigo) Chronic diarrhea Hypertension Mild aortic stenosis Polyuria Shoulder pain Vertigo Medications aspirin(aspirin 81 mg oral capsule) calcium carbonate(calcium (as carbonate) 500 mg oral tablet) cannabidiol carbonyl iron(Iron Chews) lisinopril(lisinopril 10 mg oral tablet), 10 mg= [...] due02/23/24and every 1year Due Adult COVID-19 Vaccination due03/26/24Unknown Frequency Adult Social Determinants of Health Screening due03/26/24Unknown Frequency Adult Tdap/Td Vaccine due03/26/24Unknown Frequency Falls Plan of Care due03/26/24Unknown Frequency Lipid Screening due03/26/24Unknown Frequency Medicare Annual Wellness Visit due03/26/24and every 1year Pneumococcal Vaccine Older Adults due03/26/24One-time only Shingles Vaccine due03/26/24One-time only Satisfied(in the past 1 year) Satisfied Body Mass Index on03/26/24.Satisfied by DORINA Renee Paul Electronic Signature on File Electronically Reviewed/Signed by: Luis Rutledge DO Author Signature Dt/Tm:03/26/2024 02:09 PM Resident Department of Family Medicine Electronically Reviewed/Signed by: Jerrell Singh MD Cosigner Signature Dt/Tm: 03/26/2024 02:27PM Department of Family Medicine EB Patient Care team information Care Team Personnel Name: Robbie Snow DO, Mariana Annette Position: Physician - Family Med Member Role: Primary Care Provider Address: [address] [place] [address] Care Team Related Persons Name: VANESSA GOMEZ
--- OUTSIDE RECORDS SUMMARY | 2024-08-18 00:05 | External Medical Summary | Continuity of Care Document ---
Author Name Unknown Organization [facility] [id number] [place] [address] [phone] Care Team Providers Care Fisher Lampara Net Name Role Phone Jailene Streeter Primary Care P fatmata [phone] Encounter [facility] [id number] Date(s): 02/24/24 - 02/24/24 [facility] [address] [place] [address] [id number] [phone] Encounter Diagnosis Noninfective gastroenteritis and colitis, unspecified(Final) - Discharge Disposition: Home or Self Care Attending Physician: Robbie Snow DO, Mariana Annette Referring Physician: Robbie Snow DO, Mariana Annette Allergies, Adverse Reactions, Alerts No Known Medication Allergies Medications aspirin 81 mg oral capsule Start: [...] 1, PRN: as needed for dizziness, Pharmacy: [id number] Start Date: 02/20/24 Status: Ordered turmeric [...] Confirmed Active Results Laboratory List Name Date C Reactive Protein, Quantitation (CRP QU ANTITATION) 02/24/24 Complete Blood Count (CBC) 02/24/24 Comprehensive Metabolic Panel (COMP META B PANEL) 02/24/24 Erythrocyte Sedimentation Rate (SEDIMENT ATION RATE) 02/24/24 PSA Reflex to FREE PSA (PSA REFLEX TO FR EEPSA) 02/24/24 T4, Free (T4, FREE) 02/24/24 Thyroid Stimulating Hormone (TSH) 02/24/24 Most recent to oldest [Reference Range]: 1 CReacProt [<0.50 mg/dL] <0.30 mg/dL (02/24/24 11:52 AM) eGFR CKD-EPI [>60 mL/min/1.73 m2] 47 mL/ min/1.73 m2 *LOW* (02/24/24 11:52 AM) PSA Screen [<7.21 ng/mL] 3.92 ng/mL (02/24/24 11:52 AM) Estimated CrCl 44.01 mL/min (02/24/24 10:41 PM) MPV [9.0-12.2 fL] 10.5 fL (02/24/24 11:52 AM) RDW [11.5-14.2 %] 13.3 % (02/24/24 11:52 AM) Anion Gap [5-14 mmol/L] 13 mmol/L (02/24/24 11:52 AM) Alb [3.5-5.2 g/dL] 4.4 g/dL (02/24/24 11:52 AM) Alk Phos [40-130 unit/L] 111 unit/L 1 (02/24/24 11:52 AM) ALT [0-41 unit/L] 13 unit/L (02/24/24 11:52 AM) AST [0-40 unit/L] 18 unit/L (02/24/24 11:52 AM) BUN [6-23 mg/dL] 24 mg/dL *HI* (02/24/24 11:52 AM) Ca [8.4-10.2 mg/dL] 9.6 mg/dL (02/24/24 11:52 AM) Cl- [98-107 mmol/L] 106 mmol/L (02/24/24 11:52 AM) HCO3 [22-29 mmol/L] 25 mmol/L (02/24/2452 AM) Cret [0.70-1.30 mg/dL] 1.48 mg/dL *HI* (02/24/24 11:52 AM) ESR [0-40 mm/hr] 14 mm/hr (02/24/24:52 AM) Glu [74-109 mg/dL] 122 mg/dL 2 *HI* (02/24/24 11:52 AM) Hct [39-48 %] 46.4 % (02/24/24 11: AM) Hgb [13.0-17.0 g/dL] 15.7 g/dL (02/24/24 11:52 AM) K [3.5-5.1 mmol/L] 3.7 mmol/L (02/24/24 11:52 AM) MCH [28-33 pg] 32.0 pg (02/24/24: AM) MCHC [32-36 g/dL] 33.8 g/dL (02/24/24 11:52 AM) MCV [81-96 fL] 94.5 fL (02/24/24:52 AM) Na [136-145 mmol/L] 144 mmol/L (02/24/24 11:52 AM) Plts [150-350 K/uL] 313 K/uL (02/24/24 11:52 AM) RBC [4.40-5.60 M/uL] 4.91 M/uL (02/24/24 11:52 AM) Free T4 [0.9-1.7 ng/dL] 1.19 ng/dL (02/24/24 11:52 AM) T Bili [0.0-1.2 mg/dL] 0.4 mg/dL (02/24/24 11:52 AM) Prot [6.4-8.3 g/dL] 7.2 g/dL (02/24/24 11:52 AM) TSH [0.30-4.20 uIU/mL] 2.45 uIU/mL (02/24/24 11:52 AM) WBC [4.0-10.4 K/uL] 10.17 K/uL (02/24/24 11:52 AM) 1Result Comment: Low levels of ALKP may indicate a deficiency in zinc, magnesium, or malnutritionbutcan also be an indicator of a rare genetic disease hypophosphatasia (HPP). 2Result Comment: ADA recommendation for FASTING Serum/Plasma Glucose: Normal: 70-100 mg/dL Prediabetes: 100-125 mg/dL Diabetes: 126 mg/dL or higher Orders for Microbiology Reports Name Date Enteric Pathogen Panel, Stool (ENTERIC P ATHOGEN PANEL) 02/24/24 Microbiology Reports TEST:Enteric Pathogen Panel STATUS:Auth (Verified) BODY SITE: SOURCE:Stool COLLECTED DATE/TIME:02/24/24 8:00 AM Molecular Detection No bacterial pathogens detected. This specimen has been tested for: Shigella spp./EIEC DNA, Shiga-toxin producing genes, Campylobacter spp. (jejuni and coli) DNA, and Salmonella spp. DNA. Any pathogen not listed as positive above has not been detected. Social History Social History Type Response Smoking Status Former Smoker, quit > 1 yr Sex Male Patient Care team information Care Team Personnel Name: Robbie Snow DO, Mariana Annette Position: Physician - Family Med Member Role: Primary Care Provider Address: Address: [address] [place] [address]
--- OUTSIDE RECORDS SUMMARY | 2024-08-18 00:05 | External Medical Summary | Continuity of Care Document ---
Author Name Unknown Organization [address] Address [address] [place], [place] [id number] Care Team Providers Care Rn Integrity Name Role Phone Jailene Streeter Primary Care P hysician [phone] Encounter [facility] [id number] Date(s): 03/02/24 - 03/02/[address] [facility] [address] [facility], [address] [place] [address] [phone] Encounter Diagnosis Chronic diarrhea(Discharge Diagnosis) - 03/02/24 Hypertension(Discharge Diagnosis) - 03/02/24 Polyuria(Discharge Diagnosis) - 03/02/24 BPPV (benign paroxysmal positional vertigo)(Discharge Diagnosis) - 03/02/24 Discharge Disposition: Home or Self Care Attending Physician: MD Loving Ravishankar E Referring Physician: Robbie Snow DO, Mariana Annette Allergies, Adverse Reactions, Alerts No Known Medication Allergies Assessment and Plan Extracted from: Title:Office Visit Note Author:DO Rutledge Eric Da te:03/02/24 1.Chronic diarrhea - stool studies, CRP, ESR, TSH, T4 were negative - CMP negative. slight bump to creatinineand BUN. - decline colonoscopy in the past. - Willing to get one. referral sent in. - Chronic diarrhea still occurringevery day. - Recommend to try Imodium. 2.Hypertension - Will stop HZTZ 25mg d/t polyuria and dehydration - elevated creatinine of 1.48 and BUN of 24 most likely 2/2 to dehydration. - will start on lisinopril 10mg - recommend checking BP at home. - BMP in 2 weeks and f/u in 2 weeks. 3.Polyuria - PSA was WNL - most likely 2/2 to HZTZ - Will stop HZTZ and try lisinopril and f/u in 2 weeks. 4.BPPV (benign paroxysmal positional vertigo) -Antonio-Hallpike maneuver positivein office. -meclizine 25mg PO TID - Gaveexercisesto help at home. recommend PT. Medications aspirin 81 mg oral capsule Start: 02/20/24 8:24:00 AM EDT Start Date: 02/20/24 Status: Ordered calcium (as carbonate) 500 mg oral tablet Start: 02/20/24 8:24:00 AM EDT Start Date: 02/20/24 Status: Ordered cannabidiol Start: 02/20/24 8:23:00 AM EDT Start Date: 02/20/24 Status: Ordered Iron Chews Start: 02/20/24 8:23:00 AM EDT Start Date: 02/20/24 Status: Ordered lisinopril 10 mg oral tablet Start: 03/02/24 1:40:00 PM EDT, 1 tab, PO, Daily, Disp# 30 tab, Refills: 1, Pharmacy: [id number] Start Date: 03/02/24 Stop Date: 05/01/24 Status: Ordered meclizine 25 mg oral tablet Start: 02/20/24 9:12:00 AM EDT, 1 tab, PO, tid, Disp# 30 tab, Refills: 1, PRN: as needed for dizziness, Pharmacy: [id number] Start Date: 02/20/24 Status: Ordered turmeric Start: 02/20/24 8:25:00 AM EDT Start Date: 02/20/24 Status: Ordered zinc acetate Start: 02/20/24 8:23:00 AM EDT Start Date: 02/20/24 Status: Ordered Mental Status 03/02/24 Barriers to Learning one year None evide nt Mandatory Health Literacy Documentation Yes Health Literacy Communication Barriers N ever Primary Language Bangladeshi Problem List Condition Confirmation Course Effective Dates Status Health St atus Informant Chronic diarrhea Confirmed Active Hypertension Confirmed Active Mild aortic stenosis Confirmed Active Polyuria Confirmed Active Shoulder pain Confirmed Active Vertigo Confirmed Active Diagnosis Diagnosis Type Effective Dates Health Status Clinical Service Informant Chronic diarrhea Discharge Diagnosis 03/02/24 Non-Specified BPPV (benign paroxysmal positional vertigo) Discharge Diagnosis 03/02/24 Non-Specified Hypertension Discharge Diagnosis 03/02/24 Non-Specified Polyuria Discharge Diagnosis 03/02/24 Non-Specified Vital Signs Most recent to oldest [Reference Range]: 1 Temperature [36.5-37.9 DegC] 37.0 DegC (03/02/24 12:55 PM) Blood Pressure 120/70mmHg (03/02/24 12:55 PM) Cuff Pulse Pressure 50 mmHg (03/02/24 12:55 PM) Social History Social History Type Response Smoking Status Former Smoker, quit > 1 yr Sex Male FCM Outpt Note * MD Loving Ravishankar E: MODIFY MD Loving Ravishankar E: MODIFY Event Display: FCM Outpt Note Authored Date: [id number] Chief Complaint pt here for 2 wk f/u. Still having vertigo and some cramping in his legs frequently had stool studies and labs drawn and wants to discuss results History of Present Illness Patient is a 83 y/o male here for 2 week f/u on multiple issues. chronic diarrhea: - stool studies, CRP, ESR, TSH, T4 were negative - 2-3 loose stools daily 4-6 months - denies N/V, fevers, chills. - negative stool stools - Imodium? has not tried. - Colonoscopy declined in the past but will be willing to get. wt loss: - 4kg over 4 months - pt concerned about cancer Vertigo: - PT? has not tried. - meclizine? does help - Off and on for a couple of months. - waking up, turning head make it occur. polyuria: - drinks propel - on HZTZ - going 10 times a day - no issues with starting and stopping - no dysuria, blood, - Urinary frequency HTN: - does have a BP cuff but does not check. Review of Systems Negative ROS besides what is stated in the HPI above. Physical Exam Vitals & Measurements T:37.0C BP:120/70 SpO2:96% PHQ2 Data(Data Documented on:03/02/2024 12:52) Emotional health assessment NEGATIVE General:Alert and oriented, No acute distress HEENT:Normocephalic, TM clear, Nl gross hearing, moist oral mucosa Cardiovascular:Normal rate, Regular rhythm, systolic murmur hear at the L 2nd intercostal space, No gallop. Respiratory:Lungs are clear to auscultation, Respirations are non-labored, Breath sounds are equal Gastrointestinal:Soft, Non-tender, Non-distended, Normal bowel sounds. Musculoskeletal:Normal range of motion,normal strength. Neurologic:Normal sensory, Normal motor function, CN II-XII grossly intact.positiveDix-Hallpike maneuver Integumentary:Warm, Dry, Crouch. Psych:Mood-affect congruence. Speech is of normal pace and content Assessment/Plan 1.Chronic diarrhea - stool studies, CRP, ESR, TSH, T4 were negative - CMP negative. slight bump to creatinineand BUN. - decline colonoscopy in the past. - Willing to get one. referral sent in. - Chronic diarrhea still occurringevery day. - Recommend to try Imodium. 2.Hypertension - Will stop HZTZ 25mg d/t polyuria and dehydration - elevated creatinine of 1.48 and BUN of 24 most likely 2/2 to dehydration. - will start on lisinopril 10mg - recommend checking BP at home. - BMP in 2 weeks and f/u in 2 weeks. 3.Polyuria - PSA was WNL - most likely 2/2 to HZTZ - Will stop HZTZ and try lisinopril and f/u in 2 weeks. 4.BPPV (benign paroxysmal positional vertigo) -Calvin-Hallpike maneuver positivein office. -meclizine 25mg PO TID - Gaveexercisesto help at home. recommend PT. Attestation ATTENDING PHYSICIAN ATTESTATION: I saw the patient and confirmed greco portions of the history and physical exam and agree with the resident impression and plan as above. Dr. Josette Loving MD Problem List/Past Medical History Ongoing Chronic diarrhea Hypertension Mild aortic stenosis Polyuria Shoulder pain Vertigo Medications aspirin(aspirin 81 mg oral capsule) calcium carbonate(calcium (as carbonate) 500 mg oral tablet) cannabidiol carbonyl iron(Iron Chews) lisinopril(lisinopril 10 mg oral tablet), 10 mg= 1 tab, PO, Daily, 1 refills meclizine(meclizine 25 mg oral tablet), 25 mg= 1 tab, PO, tid, PRN, 1 refills turmeric zinc acetate Allergies No Known Medication Allergies Social History Smoking Status Former Smoker, quit > 1 yr Recommendations Health Maintenance Pending(in the next year) Due Adult Influenza Vaccine due02/23/24and every 1year Adult COVID-19 Vaccination due03/02/24Unknown Frequency Adult Social Determinants of Health Screening due03/02/24Unknown Frequency Adult Tdap/Td Vaccine due03/02/24Unknown Frequency Falls Plan of Care due03/02/24Unknown Frequency Lipid Screening due03/02/24Unknown Frequency Medicare Annual Wellness Visit due03/02/24and every 1year Pneumococcal Vaccine Older Adults due03/02/24One-time only Shingles Vaccine due03/02/24One-time only Due In Future Body Mass Index not due until02/20/25and every 366day Satisfied(in the past 1 year) Satisfied Body Mass Index on02/20/24.Satisfied by JERRY Hua Gillian Electronic Signature on File Electronically Reviewed/Signed by: Luis Rutledge DO Author Signature Dt/Tm:03/02/2024 03:01 PM Resident Department of Family Medicine Electronically Reviewed/Signed by: Josette Loving MD Cosigner Signature Dt/Tm: 03/02/2024 03:19PM Department of Family Medicine EB Patient Care team information Care Team Personnel Name: Robbie Snow DO, Mariana Annette Position: Physician - Family Med Member Role: Primary Care Provider Address: Address: [address] [place] [address]
[2024-08-18 06:29] LABS: Calcium 9.3 mg/dl (8.6-10.3); Creatinine Clr Calc Pharmacy 61.2 ml/min; Potassium 3.8 mmol/L (3.5-5.1)
--- NOTE | 2024-08-18 08:18 | Hospitalist Progress Note ---
Date of Service August 18, 2024 Assessment & Plan (1) Acute encephalopathy: Plan: 83-year-old male with PMHx HTN and vascular dementia of her discharge summary in September 2023, brought in via EMS for AMS. recently he has had more cognitive decline including hallucinations but no tremors. They have been attempting to manage this outside the hospital with medications he is on Seroquel, also have been trying to arrange placement as an outpatient. he was found outside the house wandering and his boxer shorts and it was 20 degrees. 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 Similar presentation 09/2023 when admitted by [facility] also associated with THC. No evidence of infection or metabolic disturbance. Check vitamin B12 and B1 Stop use of THC Meds as below #Mood/Hallucinations - Continue lexapro + quetiapine - Consulted psychiatrist, discussed with Dr. Bojorquez - recommended moving seroquel to and olanzapine 2.5 mg q8h PRN agitation - QTC was 489 on admitting EKG, recheck EKG with any dose increases (2) Bradycardia: Plan: He has had asymptomatic sinus bradycardia. No history of hypotension. Had 1 episode of syncope more than a year ago but has not had any lightheadedness/dizziness in the last few weeks. He does have appropriate chronotropic response at the bedside. First-degree heart block is noted. -Lyme screen negative. TSH was normal. 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 DVT ppx - enoxaparin Care coordination, PT, OT consulted Admission and Anticipated Discharge Date Admission Date: August 17, 2024 Subjective Has been very confused. It talking however his conversation is not apropos to the situation. Can tell me he lives in [place], but not which neighborhood, why he's here, what his friend's name is etc I asked him about the reported hallucinations, he seems unaware of this, denies any depressed mood No physical symptoms - denied headache, neck pain, cough/dyspnea, N/V abdominal pain and dysuria. No report of falls. Physical Exam 2 Physical Exam: PHYSICAL EXAMINATION Last 24h vital signs reviewed, see documentation in flowsheet General: comfortable appearing, no distress, sitting in bed sleeping but aroused easily to voice HEENT: Normocephalic, atraumatic, pupils round and equal, sclerae anicteric, no conjunctival injection, moist mucus membranes Lungs: Normal respiratory effort. Clear to auscultation bilaterally. No RRW Heart: Regular rate and rhythm, no murmurs. No JVD Abdomen: Soft, nontender, nondistended. Bowel sounds present. Extremities: Warm, dry, well-perfused. No extremity edema. Neuro: Alert oriented to self only, oriented to town but not any further than that, not aware of why he is in the hospital, normal speech but very confused, face symmetric, moves 4 extremities well Psych: Normal affect and behavior Results & Data Results & Data Vital Signs (Past 12 Hours) Vital Signs Temp Pulse Resp BP Pulse Ox O2 Del Method 08/18/24 08:05 98.2 F 38 L 19 171/85 H 98 Room Air 08/18/24 06:49 44 L 20 179/80 H 94 Room Air 08/17/24 23:10 97.9 F 43 L 19 177/74 H 95 Room Air 08/17/24 20:26 97.6 F 42 L 20 180/78 H 98 Room Air Laboratory Results 08/17/24 15:35 08/18/24 05:52 PG Care Time/CCT Total # of Minutes Spent Total Time Spent with Patient: Total time spent is greater than 50% in coordination of care (as documented) at patient's floor/unit and/or counseling patient: Coding Level of Care Code 11584 SUB INP/OBS CARE 2/35MIN Diagnoses Acute encephalopathy G93.40 Bradycardia R00.1 HTN (hypertension) I10 Vascular dementia F01.50
[2024-08-18] MEDS: DICLOFENAC SODIUM 25 MG TABDR PO PRN (08:36)
[2024-08-18] MEDS: lisinopril 10 MG TAB PO SCH (08:37)
[2024-08-18] MEDS: ESCITALOPRAM OXALATE 10 MG TAB PO SCH (08:37)
[2024-08-18] MEDS: QUEtiapine FUMARATE 25 MG TABLET PO SCH (08:37)
[2024-08-18] MEDS: hydroCHLOROthiazide 25 MG TAB PO SCH (08:37)
[2024-08-18] MEDS: ASPIRIN 81 MG ECTAB PO SCH (08:37)
--- NOTE | 2024-08-18 13:19 | Psychiatric Consultation ---
Date of Consultation August 18, 2024 Impression / Recommendations Impression 83 y/o M domiciled by self h/o HTN, cognitive decline, depression presents via EMS for AMS, hallucinations after wandering outside in the cold and confused. UDS+THC and CBD gummies in possession. Psychiatry consulted for evaluation and recommendations. Patients presents AMS in the context of suspected recent cannabis ingestion and negative medical w/u. Collateral indicates h/o cognitive decline possible dementia indicating low baseline cognitive functioning. Patient lives alone with limited supports; may benefit from case management, structured housing, and/or home health care. No recent behavioral disturbances noted. Concern for visual hallucinations. Labs reviewed: CBC, CMP, TSH, UA, Lyme titers, CTH, CXR unremarkable; UDS+THC; EKG 68 BPM QTc 489ms with sinus arrhythmia and 1st degree block. Overall, I spent a total of 60 minutes with this case including review of chart records, nursing report, review of lab work, direct evaluation of the patient at bedside, counseling the patient, discussion of the patient with the hospitalist provider, discussion with the psychiatric liaison during clinical rounds, and documentation in the electronic health record. (1) Delirium: (2) Dementia: (3) Cannabis abuse: (4) Prolonged QT interval: (5) Arrhythmia: (6) Bradycardia: (7) Lack of social support: (8) Lives alone: Plan Repeat EKG in 1-2 days Schedule home Quetiapine at bedtime Continue Escitalopram For behavioral emergencies: Olanzapine 2.5mg to 5mg Q8hr PO/IM PRN Delirium precautions; consider 1:1 sitter Psych History Identifying Data 83 y/o M domciled by self h/o HTN, cognitive decline, depression presents via EMS for AMS, hallucinations after wandering outside in the cold and confused. UDS+THC and CBD gummies in possession. Psychiatry consulted for evaluation and recommendations. Chief Complaint AMS History of Present Illness On interview the patient is alert to himself only. He cannot state the location. After multiple choice prompting he understands he is in the hospital. Unable to state the year and answers and appropriately saying that he had an operation. Tangential at times. He denies any pain or feelings of sadness. He does not recall taking Gummies. Says that he wants to relax today. He did not eat lunch and appeared confused on how to move the tray table. Collateral from RN notes that patient has verbalized seeing turkeys outside the window. Has not been combative however impulsive at times. Allergies Allergy/AdvReac Type Severity Reaction Status Date / Time No Known Allergies Allergy Unknown Verified 02/09/24 17:09 Home Medications Medication Instructions Recorded Confirmed Type hydrochlorothiazide 25 mg tablet 25 mg PO QAM 09/11/23 08/17/24 History aspirin 81 mg tablet,delayed 81 mg PO DAILY 02/09/24 08/17/24 History release diclofenac sodium 50 mg 50 mg PO BID PRN Pain 08/17/24 08/17/24 History tablet,delayed release escitalopram oxalate 10 mg tablet 10 mg PO DAILY 08/17/24 08/17/24 History lisinopril 10 mg tablet 10 mg PO DAILY 08/17/24 08/17/24 History meclizine 25 mg tablet 25 mg PO TID PRN Dizziness 08/17/24 08/17/24 History quetiapine 25 mg tablet 25 mg PO DAILY 08/17/24 08/17/24 History Patient History Medical History Aortic stenosis Social History Smoking Status: Unknown if ever smoked Tobacco Type: Cigarettes Hx Alcohol Use: No Hx Substance Use: Yes Preferred Language: Turkmen Communication Ability: Effective 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: No Beliefs That Will Affect Care: None Current Living Situation: Alone Feels Safe at Home: Yes Safety Concerns: Feels Safe At This Time Assistive Devices: Glasses Physical Exam Mental Examination: Appearance: Disheveled Eye Contact: Breaks Contact Motor Behavior: Unremarkable Speech: Delayed Mood: Euthymic and Calm Affect: Congruent Thought Process: Disoriented Thought Content: Disoriented Hallucinations: Visual Insight: Poor Judgement: Poor Vital Signs (Past 24 Hours): Last Vital Signs Temp 36.6 C 08/18/24 11:51 Pulse 36 L 08/18/24 11:51 Resp 17 08/18/24 11:51 BP 156/71 H 08/18/24 11:51 Pulse Ox 97 08/18/24 11:51 O2 Del Method Room Air 08/18/24 11:51 Results & Data (PSY) Medications Administered Aspirin (Aspirin 81 Mg Ectab) 81 mg PO DAILY ARASELI Stop: 09/17/24 08:59 Last Admin: 08/18/24 08:37 Dose: 81 mg Documented By: NIVIA Diclofenac Sodium (Diclofenac Sodium 25 Mg Tabdr) 50 mg PO BID PRN PRN Reason: Pain Stop: 09/16/24 20:26 Last Admin: 08/18/24 08:36 Dose: 50 mg Documented By: NIVIA Escitalopram Oxalate (Escitalopram Oxalate 10 Mg Tab) 10 mg PO DAILY ARASELI Stop: 09/17/24 08:59 Last Admin: 08/18/24 08:37 Dose: 10 mg Documented By: NIVIA Hydrochlorothiazide (Hydrochlorothiazide 25 Mg Tab) 25 mg PO QAM [facility] Stop: 09/17/24 08:59 Last Admin: 08/18/24 08:37 Dose: 25 mg Documented By: NIVIA Lisinopril (Lisinopril 10 Mg Tab) 10 mg PO DAILY [facility] Stop: 09/17/24 08:59 Last Admin: 08/18/24 08:37 Dose: 10 mg Documented By: NIVIA Quetiapine Fumarate (Quetiapine Fumarate 25 Mg Tablet) 25 mg PO DAILY [facility] Stop: 09/17/24 08:59 Last Admin: 08/18/24 08:37 Dose: 25 mg Documented By: NIVIA [place] [address] IN/OBS CONSULT LVL 4,60M Patient Type New History Detailed Exam Detailed Medical Decision Making Moderate Complexity Diagnoses Delirium R41.0 Dementia F03.90 Cannabis abuse F12.10 Prolonged QT interval R94.31 Arrhythmia I49.9 Bradycardia R00.1 Lack of social support Z65.8 Lives alone Z60.2
[2024-08-18] MEDS: QUEtiapine FUMARATE 25 MG TABLET PO PRN (21:48)
[2024-08-19 06:21] LABS: BUN Creatinine Ratio 24.5 (10-20); Calcium 9.2 mg/dl (8.6-10.3); Creatinine Clr Calc Pharmacy 64.9 ml/min; Potassium 3.7 mmol/L (3.5-5.1)
[2024-08-19] MEDS: ENOXAPARIN INJ 40 MG/0.4 ML SYR SQ SCH (08:03)
[2024-08-19] MEDS: CYANOCOBALAMIN (B-12) 500 MCG TABLET PO SCH (10:06)
[2024-08-19] MEDS: THIAMINE HCL 100 MG TAB PO SCH (10:06)
--- NOTE | 2024-08-19 15:31 | Hospitalist Progress Note ---
Date of Service August 19, 2024 Assessment & Plan (1) Acute encephalopathy: Plan: h/o vascular dementia with increasing cognitive decline + hallucinations as of late was found outside his house wandering Extensive w/u to date has been negative including routine labs, ammonia, TSH, Lyme screen, CT head Tox screen was + for THC By report uses CBD gummies for sleep at home No evidence of infection or metabolic disturbance to date B12 level is low-normal -- will replace B1 level is pending -- will place on empiric Rx while awaiting level Remains on lexapro + quetiapine Remains on olanzapine 2.5 mg q8h PRN agitation Patient remains quite confused With recent mental status worsening will check a screening COVID test & obtain brain MRI - r/o subacute CVA (2) Bradycardia: Plan: 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 no higher block seen on telemetry no pauses does have sustained HRs in the 30s during sleep but he is not symptomatic from such during the day his rates are improved to the 60s Lyme screen negative TSH wnl cont to observe carefully (3) HTN (hypertension): Plan: Continue HCTZ and lisinopril Creatinine & electrolytes are wnl (4) Vascular dementia: Plan: per the chart he has such MRI brain ordered in light of #1 Plan Patient's medical and legal POA is Stephon Townsend DVT ppx - enoxaparin PT/OT evals appreciated needs placement Admission and Anticipated Discharge Date Admission Date: August 17, 2024 Subjective patient sitting in the chair comfortably during the visit still quite confused knew he was in the hospital, but otherwise not oriented to date he was telling stories that didn't make sense and that did not pertain to his health or current state denied pain in any location per nursing flowsheets eating ok Review of Systems Review of Systems: CV - no chest pain pulm - no dyspnea GI - no abd pain or N/V Physical Exam Physical Exam: gen - sitting in chair, NAD, pleasant confusion neck - no JVD eyes - EOMI, no nystagmus mouth - MMM heart - RRR, s1 s2, no murmur lungs - CTA b/l abd - soft NT ND BS+ ext - varicose veins of b/l legs but no edema, pulses 2+ b/l psych - oriented to person & place only Results & Data Results & Data Vital Signs (Past 12 Hours) Vital Signs Temp Pulse Pulse Resp BP BP Pulse Ox 08/19/24 14:35 49 L 08/19/24 11:06 37.0 C 48 L 18 175/83 H 96 08/19/24 07:27 36.6 C 44 L 18 181/79 H 180/69 H 96 08/19/24 07:10 39 L 08/19/24 03:25 36.4 C L 38 L 18 166/71 H 96 O2 Del Method 08/19/24 14:35 08/19/24 11:06 Room Air 08/19/24 07:27 Room Air 08/19/24 07:10 08/19/24 03:25 Room Air Laboratory Results Laboratory Results - last 24 hr 08/19/24 05:33 Sodium 142 Potassium 3.7 Chloride 107 Carbon Dioxide 28 Anion Gap 7 BUN 24 H Creatinine 0.98 Est Cr Clr Drug Dosing 64.9 eGFR 76.99 BUN/Creatinine Ratio 24.5 H Glucose 104 H Calcium 9.2 Vitamin B1 Pending PG Care Time/CCT Total # of Minutes Spent Total Time Spent with Patient: Total time spent is greater than 50% in coordination of care (as documented) at patient's floor/unit and/or counseling patient: Coding Level of Care Code 15949 SUB INP/OBS CARE 2/35MIN Diagnoses Acute encephalopathy G93.40 Bradycardia R00.1 HTN (hypertension) I10 Vascular dementia F01.50
[2024-08-19] MEDS: QUEtiapine FUMARATE 25 MG TABLET PO SCH (19:57)
[2024-08-20 10:07] LABS: Marijuana Quant, GCMS Urine 353 ng/mL (<5)
--- NOTE | 2024-08-20 10:07 | XRay Report ---
XR KUB/Abdomen 1 view CLINICAL HISTORY: clearance for MRI TECHNIQUE: 1 view of the abdomen was obtained. Comparison: Comparison is made to abdomen radiograph 06/07/2011 FINDINGS: Lung bases are unremarkable. Degenerative changes are seen in the visualized skeleton with prominent osteophyte formation. The bowel gas pattern is nonobstructive. As the calcifications are seen. IMPRESSION: No metallic bodies of concern, patient is cleared for MRI. Nonobstructive bowel gas pattern. ACT 112: Negative or not required by law. Electronically signed by: Gavin Russell M.D. 08/20/2024 10:06 AM
--- NOTE | 2024-08-20 10:14 | XRay Report ---
XR pelvis 1-2V routine HISTORY: 83 years-old Male clearance for MRI COMPARISON: CT abdomen and pelvis 02/09/2024 TECHNIQUE: AP view the pelvis FINDINGS: Degenerative changes of the spine, pelvis and hips. A telemetry lead overlies the abdomen. Vascular c alcifications. Left renal calcifications are likely vascular. No metallic density foreign bodies iden tified. IMPRESSION: No metallic density foreign bodies identified. ACT 112: Negative or not required by law. The above report was generated using voice recognition software. It may contain grammatical, syntax o r spelling errors. Electronically signed by: Bong Suarez M.D. 08/20/2024 10:13 AM
--- NOTE | 2024-08-20 13:34 | Hospitalist Progress Note ---
Date of Service August 20, 2024 Assessment & Plan (1) Acute encephalopathy: Plan: 83-year-old male with PMHx HTN and vascular dementia of her discharge summary in September 2023, brought in via EMS for AMS. recently he has had more cognitive decline including hallucinations but no tremors. They have been attempting to manage this outside the hospital with medications he is on Seroquel, also have been trying to arrange placement as an outpatient. he was found outside the house wandering and his boxer shorts and it was 20 degrees. 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 Similar presentation 09/2023 when admitted by [facility] also associated with THC. No evidence of infection or metabolic disturbance. vitamin B12 low normal - replacing, and B1 pending - replacing empirically po Stop use of THC Meds as below Brain MRI ordered - pending. Discussed with asbestos abatement technician - needs XR abdomen and pelvis for clearance, which I ordered and reviewed - arthritis and vacular calcifications, otherwise unremarkable Labile mood/Hallucinations - Continue lexapro + quetiapine - Consulted psychiatrist, discussed with Dr. Bojorquez - recommended moving seroquel to HS and olanzapine 2.5 mg q8h PRN agitation - QTC was 489 on admitting EKG, recheck EKG with any dose increases Remains very confused and not able to take care of himself, lives alone, does not have family. 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 Talking about his six cats that were "put down" Something about an injured cat or bird he had to put duct tape on because guts were hanging out Physical Exam 2 Physical Exam: PHYSICAL EXAMINATION Last 24h vital signs reviewed, see documentation in flowsheet General: awake watching TV HEENT: Normocephalic, atraumatic, pupils round and equal, sclerae anicteric, no conjunctival injection, moist mucus membranes Lungs: Normal respiratory effort. Clear to auscultation bilaterally. No RRW Heart: Regular rate and rhythm, no murmurs. No JVD Abdomen: Soft, nontender, nondistended. Bowel sounds present. Extremities: Warm, dry, well-perfused. No extremity edema. Neuro: AO to self only, not oriented to place or situation, tangential and confused Psych: labile affect and normal behavior Results & Data Results & Data Vital Signs (Past 12 Hours) Vital Signs Temp Pulse Pulse Resp BP Pulse Ox O2 Del Method 08/20/24 07:45 Room Air 08/20/24 07:38 97.5 F L 54 L 20 168/69 H 96 Room Air 08/20/24 03:34 97.5 F L 46 L 18 157/67 H 96 Room Air Laboratory Results 08/17/24 15:35 08/19/24 05:33 PG Care Time/CCT Total # of Minutes Spent Total Time Spent with Patient: Total time spent is greater than 50% in coordination of care (as documented) at patient's floor/unit and/or counseling patient: Coding Level of Care Code 90727 SUB INP/OBS CARE 2/35MIN Diagnoses Acute encephalopathy G93.40 Bradycardia R00.1 HTN (hypertension) I10 Vascular dementia F01.50
--- NOTE | 2024-08-21 00:34 | Magnetic Resonance Report ---
Exam(s): MRI HEAD Without Contrast EXAM: MR Head Without Intravenous Contrast CLINICAL HISTORY: Reason for exam: persistent altered MS. TECHNIQUE: Magnetic resonance images of the head/brain without intravenous contrast in multiple planes. COMPARISON: Prior head CT from August 17, 2024. FINDINGS: Brain: Moderate nonspecific white matter changes. There is a remote ischemic injury of the left cerebellum. No mass. No hemorrhage. No acute infarct. The flow voids at the base of the brain are intact. Ventricles: Mild ventriculomegaly. Bones/joints: Unremarkable. No acute fracture. Sinuses: Unremarkable as visualized. No acute sinusitis. Mastoid air cells: Unremarkable as visualized. No mastoid effusion. Orbits: Unremarkable as visualized. IMPRESSION: No evidence of acute intracranial pathology. Electronically signed by: Roxy Charles MD 08/21/24 00:33 AM
--- NOTE | 2024-08-21 07:14 | Hospitalist Progress Note ---
Date of Service August 21, 2024 Assessment & Plan (1) Acute encephalopathy: Plan: 83-year-old male with PMHx HTN and vascular dementia of her discharge summary in September 2023, brought in via EMS for AMS. recently he has had more cognitive decline including hallucinations but no tremors. They have been attempting to manage this outside the hospital with medications he is on Seroquel, also have been trying to arrange placement as an outpatient. he was found outside the house wandering and his boxer shorts and it was 20 degrees. 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 Similar presentation 09/2023 when admitted by [facility] also associated with THC. No evidence of infection or metabolic disturbance. 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 no higher block seen on telemetry no pauses Lyme screen negative TSH wnl heart rates improved compared to at admission (3) HTN (hypertension): Plan: Continue HCTZ and lisinopril Creatinine & electrolytes are wnl BP above goal yesterday but today has been acceptable (4) Vascular dementia: Plan: per the chart he has such MRI brain 08/20 - 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 We talked about the MRI findings but he can't recall having a stroke before. Remains confused but speech is less tangential and perseverative Physical Exam Physical Exam: PHYSICAL EXAMINATION Last 24h vital signs reviewed, see documentation in flowsheet General: calm, awake, alert HEENT: Normocephalic, atraumatic, pupils round and equal, sclerae anicteric, no conjunctival injection, moist mucus membranes Lungs: Normal respiratory effort. Clear to auscultation bilaterally. No RRW Heart: Regular rate and rhythm, no murmurs. No JVD Abdomen: Soft, nontender, nondistended. Bowel sounds present. Extremities: Warm, dry, well-perfused. No extremity edema. Neuro: AO to self only, not oriented to situation, Remains confused but speech is less tangential and perseverative Psych: normal affect and normal behavior Results & Data Results & Data Vital Signs (Past 12 Hours) Vital Signs Temp Pulse Pulse Pulse Resp BP BP 08/21/24 02:36 97.7 F 80 16 137/89 08/20/24 21:51 97.2 F L 65 16 149/83 H 08/20/24 21:43 60 08/20/24 20:28 60 142/79 H 08/20/24 20:25 08/20/24 19:52 60 08/20/24 19:39 97.5 F L 82 18 201/110 H 196/106 H Pulse Ox O2 Del Method 08/21/24 02:36 94 Room Air 08/20/24 21:51 98 Room Air 08/20/24 21:43 08/20/24 20:28 08/20/24 20:25 Room Air 08/20/24 19:52 08/20/24 19:39 93 Room Air Diagnostic Findings Brain MRI 08/20/24 00:00 Exam(s): MRI HEAD Without Contrast EXAM: MR Head Without Intravenous Contrast CLINICAL HISTORY: Reason for exam: persistent altered MS. TECHNIQUE: Magnetic resonance images of the head/brain without intravenous contrast in multiple planes. COMPARISON: Prior head CT from August 17, 2024. FINDINGS: Brain: Moderate nonspecific white matter changes. There is a remote ischemic injury of the left cerebellum. No mass. No hemorrhage. No acute infarct. The flow voids at the base of the brain are intact. Ventricles: Mild ventriculomegaly. Bones/joints: Unremarkable. No acute fracture. Sinuses: Unremarkable as visualized. No acute sinusitis. Mastoid air cells: Unremarkable as visualized. No mastoid effusion. Orbits: Unremarkable as visualized. IMPRESSION: No evidence of acute intracranial pathology. Electronically signed by: Roxy Charles MD 08/21/24 00:33 AM PG Care Time/CCT Total # of Minutes Spent Total Time Spent with Patient: Total time spent is greater than 50% in coordination of care (as documented) at patient's floor/unit and/or counseling patient: Coding Level of Care Code 49365 SUB INP/OBS CARE 1/25MIN Diagnoses Acute encephalopathy G93.40 Bradycardia R00.1 HTN (hypertension) I10 Vascular dementia F01.50
--- NOTE | 2024-08-21 13:21 | Billing Data ---
Date of Service August 21, 2024 I made error in entering CPT code for today, should be 59[address] Coding Level of Care Code 44599 SUB INP/OBS CARE
--- NOTE | 2024-08-22 15:11 | Hospitalist Progress Note ---
Date of Service August 22, 2024 Assessment & Plan (1) Acute encephalopathy: Plan: 83-year-old male with PMHx HTN and vascular dementia brought in via EMS for AMS. recently he has had more cognitive decline including hallucinations but no tremors. They have been attempting to manage this outside the hospital with medications. he is on Seroquel, also have been trying to arrange placement as an outpatient. he was found outside wandering in his boxer shorts and it was 20 degrees. 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 Similar presentation 09/2023 when admitted by [facility] also associated with THC. No evidence of infection or metabolic disturbance. 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 no higher block seen on telemetry no pauses Lyme screen negative TSH wnl heart rates improved compared to at admission (3) HTN (hypertension): Plan: Continue HCTZ and lisinopril Creatinine & electrolytes are wnl BP at goal for his age 12/28 (4) Vascular dementia: Plan: per the chart he has such MRI brain 08/20 - 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 Plan Patient's medical and legal POA is Stephon Townsend I updated him 08/21 DVT ppx - enoxaparin PT/OT evals appreciated needs placement, PT/OT recommending SNF rehab he is a , his POA's are working [facility] Admission and Anticipated Discharge Date Admission Date: August 17, 2024 Subjective overnight he was saying that he was in a residential today feeling pretty good, I got his glasses out of his coat which made him very happy no complaints other than he "feels like I am coming down with something" but cannot give any details, denied cough or sore throat, congestion etc. eating very well all of breakfast Physical Exam Physical Exam: PHYSICAL EXAMINATION Last 24h vital signs reviewed, see documentation in flowsheet General: sitting up in bed ate 100% of breakfast tray HEENT: Normocephalic, atraumatic, pupils round and equal, sclerae anicteric, no conjunctival injection, moist mucus membranes Lungs: Normal respiratory effort. Clear to auscultation bilaterally. No RRW Heart: Regular rate and rhythm, no murmurs. No JVD Abdomen: Soft, nontender, nondistended. Bowel sounds present. Extremities: Warm, dry, well-perfused. No extremity edema. Neuro: AO to self only, not oriented to situation, Remains confused but speech is less tangential and more apropos to the situation, affect no longer labile, no longer perseverating on cats Psych: normal affect and normal behavior Results & Data Results & Data Vital Signs (Past 12 Hours) Vital Signs Temp Pulse Resp BP Pulse Ox O2 Del Method 08/22/24 09:15 Room Air 08/22/24 07:43 97.4 F L 59 L 18 143/85 H 94 Room Air PG Care Time/CCT Total # of Minutes Spent Total Time Spent with Patient: Total time spent is greater than 50% in coordination of care (as documented) at patient's floor/unit and/or counseling patient: Coding Level of Care Code 25167 SUB INP/OBS CARE 09/19MIN Diagnoses Acute encephalopathy G93.40 Bradycardia R00.1 HTN (hypertension) I10 Vascular dementia F01.50
--- NOTE | 2024-08-23 14:49 | Hospitalist Progress Note ---
Date of Service August 23, 2024 Assessment & Plan (1) Acute encephalopathy: Plan: 83-year-old male with PMHx HTN and vascular dementia brought in via EMS for AMS. recently he has had more cognitive decline including hallucinations but no tremors. They have been attempting to manage this outside the hospital with medications. he is on Seroquel, also have been trying to arrange placement as an outpatient. he was found outside wandering in his boxer shorts and it was 20 degrees. 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 Similar presentation 09/2023 when admitted by [facility] also associated with THC. No evidence of infection or metabolic disturbance. 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 medically ready for discharge but needs 18/03 supervision he is a , his POA's are working [facility] Admission and Anticipated Discharge Date Admission Date: August 17, 2024 Jane Vences is sitting up by the window wearing street clothes today and he has his glasses today we talked about why he should not use cannabis Gummies anymore, he is definitely in agreement to avoid the high dose ones but not clear on whether he understands low-dose also problematic Physical Exam Physical Exam: PHYSICAL EXAMINATION Last 24h vital signs reviewed, see documentation in flowsheet General: sitting up in the chair by the window HEENT: Normocephalic, atraumatic, pupils round and equal, sclerae anicteric, no conjunctival injection, moist mucus membranes Lungs: Normal respiratory effort. Clear to auscultation bilaterally. No RRW Heart: Regular rate and rhythm, no murmurs. No JVD Abdomen: Soft, nontender, nondistended. Bowel sounds present. Extremities: Warm, dry, well-perfused. No extremity edema. Neuro: AO to self, partially to basic situation, Remains confused but speech is less tangential and more apropos to the situation, affect no longer labile, no longer perseverating as much, made 1 paranoid and confused sounding statement about a policewoman Psych: normal affect and normal behavior Results & Data Results & Data Vital Signs (Past 12 Hours) Vital Signs Temp Pulse Resp BP Pulse Ox O2 Del Method 08/23/24 07:29 97.3 F L 88 16 147/84 H 97 Room Air PG Care Time/CCT Total # of Minutes Spent Total Time Spent with Patient: Total time spent is greater than 50% in coordination of care (as documented) at patient's floor/unit and/or counseling patient: Coding Level of Care Code 24220 SUB INP/OBS CARE 09/19MIN Diagnoses Acute encephalopathy G93.40 Bradycardia R00.1 HTN (hypertension) I10 Vascular dementia F01.50
--- NOTE | 2024-08-24 17:53 | Hospitalist Progress Note ---
Date of Service August 24, 2024 Assessment & Plan (1) Acute encephalopathy: Plan: 83-year-old male with PMHx HTN and vascular dementia brought in via EMS for AMS. recently he has had more cognitive decline including hallucinations but no tremors. They have been attempting to manage this outside the hospital with medications. he is on Seroquel, also have been trying to arrange placement as an outpatient. he was found outside wandering in his boxer shorts and it was 20 degrees. 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 Similar presentation 09/2023 when admitted by [facility] also associated with THC. No evidence of infection or metabolic disturbance. 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 medically ready for discharge but needs 24/7 supervision per care coordination excepted by [facility] and insurance Auth currently pending Admission and Anticipated Discharge Date Admission Date: August 17, 2024 Subjective doing fine and no complaints Physical Exam Physical Exam: PHYSICAL EXAMINATION Last 24h vital signs reviewed, see documentation in flowsheet General: lying in bed watching TV exam unchanged 08/24 HEENT: Normocephalic, atraumatic, pupils round and equal, sclerae anicteric, no conjunctival injection, moist mucus membranes Lungs: Normal respiratory effort. Clear to auscultation bilaterally. No RRW Heart: Regular rate and rhythm, no murmurs. No JVD Abdomen: Soft, nontender, nondistended. Bowel sounds present. Extremities: Warm, dry, well-perfused. No extremity edema. Neuro: AO to self, partially to basic situation, Remains confused but speech is less tangential and more apropos to the situation, affect no longer labile, no longer perseverating as much, made 1 paranoid and confused sounding statement about a secretary of police Psych: normal affect and normal behavior Results & Data Results & Data Vital Signs (Past 12 Hours) Vital Signs Temp Pulse Resp BP Pulse Ox O2 Del Method 08/24/24 14:42 97.7 F 79 16 93/65 L 97 Room Air 08/24/24 06:54 98.6 F 68 16 145/95 H 95 Room Air PG Care Time/CCT Total # of Minutes Spent Total Time Spent with Patient: Total time spent is greater than 50% in coordination of care (as documented) at patient's floor/unit and/or counseling patient: Coding Level of Care Code 86126 SUB INP/OBS CARE /25MIN Diagnoses Acute encephalopathy G93.40 Bradycardia R00.1 HTN (hypertension) I10 Vascular dementia F01.50
--- NOTE | 2024-08-25 08:34 | Hospitalist Progress Note ---
Date of Service August 25, 2024 Assessment & Plan (1) Acute encephalopathy: Plan: 83-year-old male with PMHx HTN and vascular dementia brought in via EMS for AMS. recently he has had more cognitive decline including hallucinations but no tremors. They have been attempting to manage this outside the hospital with medications. he is on Seroquel, also have been trying to arrange placement as an outpatient. he was found outside wandering in his boxer shorts and it was 20 degrees. 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 Similar presentation 09/2023 when admitted by [facility] also associated with THC. No evidence of infection or metabolic disturbance. 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 08/25 --Very pleasant/cooperative but does report unsteadiness with ambulation at times and with turning. Thiamine deficiency being treated. On B12 PO for borderline level. See below regarding bradycardia. CM following but asked therapy to re-eval/update note given ongoing gait issues with nursing to ensure safe at dc and need for SNF prior to returning home as P2P denied today but had reported not having any issues with gait or need for any assistance. (2) Bradycardia: Plan: first 48 hours had sinus alex in 30s and 40s with 1st degree AV block + LAFB on EKG Lyme screen negative TSH wnl this has resolved, no longer bradycardic however do see HR 36 this afternoon. Review of vital signs w/ alternations and HR to 90s at times. ?w/ confusion and unsteady gait , noting meclizine on home meds for vertigo but ?if having pauses. --> ?tachybrady syndrome vs pauses -->review of vitals w/ HR to 30-40s on admission. Lyme testing NEGATIVE. Has had elevations to the 90s but then othertimes 50s/lower to 40s but overall has improved. Did have documentation HR 36 but discussed with nursing this afternoon and to be 63bpm. Does not appear to be on any rate controlling agents but has rx for meclizine prn and does report feeling unsteady with gait at times. Review psych consultation w/ recs to continue seroquel at bedside with escitalopram continued with recs for repeat EKG in 1-2 days. Will get EKG for comparison but may benefit from remote monitoring which can be arranged at dc. 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 CM to fax updated therapy notes for expedited review/hopeful quick approval once received and can plan to dc once completed/arranged. [facility] paperwork also being worked on for approval for LTC Admission and Anticipated Discharge Date Admission Date: August 17, 2024 Subjective EVal this morning, resting in bed. Alert to person, very cooperative. Intermittent to place. Does report issues with falling/balance. Discussed thiamine low and replacement ordered. Discussed rehab to get stronger, he reports "music to my ears". Pleasant/cooperative with exam. Did inquire about "bump" on his chest -- exam w/ scaphoid abdomen and xiphoid process, discussed normal anatomy/not painful and likely able to see because his belly is so small. Results & Data Results & Data Vital Signs (Past 12 Hours) Vital Signs Temp Pulse Resp BP Pulse Ox O2 Del Method 08/25/24 06:54 36.5 C 74 16 151/76 H 98 Room Air PG Care Time/CCT Total # of Minutes Spent Total Time Spent with Patient: Total time spent is greater than 50% in coordination of care (as documented) at patient's floor/unit and/or counseling patient: Coding Level of Care Code 48777 SUB INP/OBS CARE 2/35MIN Diagnoses Acute encephalopathy G93.40 Bradycardia R00.1 Thiamine deficiency E51.9 HTN (hypertension) I10 Vascular dementia F01.50 B12 deficiency E53.8
--- NOTE | 2024-08-25 20:32 | Electrocardiogram Report ---
Test Reason : Blood Pressure : */* mmHG Vent. Rate : 59 BPM Atrial Rate : 59 BPM P-R Int : 242 ms QRS Dur : 144 ms QT Int : 440 ms P-R-T Axes : * -70 53 degrees QTcB Int : 435 ms Sinus bradycardia with 1st degree A-V block Left axis deviation Non-specific intra-ventricular conduction block Cannot rule out Septal infarct (cited on or before 17-Aug-2024) Abnormal ECG When compared with ECG of 17-Aug-2024 15:37, QT has shortened Confirmed by Rich St ([id number]) on 08/25/2024 8:31:50 PM Referred By: REFERRED SELF Confirmed By: Rich St
--- NOTE | 2024-08-26 08:15 | Hospitalist Progress Note ---
Date of Service August 26, 2024 Assessment & Plan (1) Acute encephalopathy: Plan: 83-year-old male with PMHx HTN and vascular dementia brought in via EMS for AMS. recently he has had more cognitive decline including hallucinations but no tremors. They have been attempting to manage this outside the hospital with medications. he is on Seroquel, also have been trying to arrange placement as an outpatient. he was found outside wandering in his boxer shorts and it was 20 degrees. 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 Similar presentation 09/2023 when admitted by [facility] also associated with THC. No evidence of infection or metabolic disturbance. 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 P2P denied 08/25 and waiting for repeat evals with therapy this morning but per discussion actually did pretty well -may require ongoing inpatient stay for safety prior to return home if not able to afford [facility]. CM to follow (2) Bradycardia: Plan: first 48 hours had sinus alex in 30s and 40s with 1st degree AV block + LAFB on EKG this has resolved, no longer bradycardic however ? tachybrady vs other, ?thiamine deficiency/malnourishment Lyme negative, TSH wnl Improvement in HR since that time, however do see while inpatient in Sep recs for ZIO monitor by Dr Hernandez -- will need to ensure CM follow up if not done as do not see results for such. At that time was on HCTZ/meclizine, lisinopril is new since that time. Hx "vertigo" but described as room spinning and no prodromal sx however +THC testing unclear if would have clear sx described. On seroquel which could contribute to orthostatic hypotension. EKG repeated, stable 08/26 compared to prior but slightly wide QRS this morning and LAFB appearing LBBB but no CP/SOB reported but will repeat for comparison. Not on any BB/AV cameron agents at this time. Continue B12/b1 replacement, ensure zio monitor at dc if not already done. Does have hx aortic stenosis/slight dry today and will place further HCTZ on hold for now. PO hydration encouraged F/u repeat EKG (3) Thiamine deficiency: Plan: B1 RESULTED --> Low at 7, suspect contributes to #1 as well as gait issues and recs to continue already ordered PO 200mg PO BID x 1 month then decrease to once daily Therapy evals/SNF planned at dc once updated notes/auth received (4) HTN (hypertension): Plan: Continue HCTZ and lisinopril BP 119/80 however slight bump in BUN/Cr today 35/1.[address] HCTZ on hold (mild at baseline, does NOT appear volume overloaded/no LE edema/97% onRA) Monitor (5) Vascular dementia: Plan: MRI brain 08/20 - old left cerebellar infarct friends report cognitive decline over the past year at least 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 P2P declined for [facility], repeat therapy evals to be completed but if not rec/CM to follow up w/ dispo. [facility] paperwork being worked on for approval to LTC but likely remain in patient Repeat EKG for comparison given QRS widening, will discuss w/ supervising provider about moving to monitored bed for at least 24hr monitoring if changes to ensure no tachy/alex/pauses as contributing to above. If no issues, would plan for Zio at dc as prior rec in Sep if not completed Admission and Anticipated Discharge Date Admission Date: August 17, 2024 Supervising Physician Co-Signing Physician Notes The patient was not seen by me. The chart was reviewed. Case discussed with BALBINA Barajas. Agree with assessment and plan Subjective Evaluated this morning, resting in bed. Appears stable, reports good appetite but being fed "too much", ate about half of breakfast. Discussed repeat therapy evals, will see about if able to get recs for rehab placement/SNF. When asked about vertigo, he said " I have a medicine I can take". Described as room spinning when turning his head, has not complaint of this at this time. Not ordered Physical Exam Physical Exam: General: 83yo male resting in bed, NAD, alert to person/place at times, confusion/dementia at baseline HEENT: head atraumatic, normocephalic, mmm,trachea midline Resp: even/unlabored, no cough/tachypnea, no wheezing/rales, 98% on RA CV: RRR, +systolic murmur, no pitting edema/calf tenderness GI: +BS, scaphoid abdomen, no overt tenderness MSK/Neuro: nonfocal, moves all extremities Results & Data Results & Data Vital Signs (Past 12 Hours) Vital Signs Temp Pulse Resp BP Pulse Ox O2 Del Method 08/26/24 07:47 36.4 C L 99 H 16 119/80 97 Room Air 08/25/24 20:37 36.7 C 81 19 124/75 94 Room Air Laboratory Results 08/26/24 Range/Units 08:00 WBC 10.54 (4.8-10.8) K/ul RBC 5.17 (4.70-6.10) M/uL Hgb 16.4 (14.0-18.0) g/dl Hct 48.6 (42.0-52.0) % MCV 94.0 (80.0-100.0) fL MCH 31.7 (25.0-34.0) pg MCHC 33.7 (32.0-36.0) g/dL RDW Std Deviation 46.6 H (36.4-46.3) fL RDW Coeff of Beulah 13.5 (11.5-14.5) % Plt Count 325 (130-400) K/uL MPV 9.5 (9.4-12.4) fL Sodium 138 (136-145) mmol/L Potassium 3.9 (3.5-5.1) mmol/L Chloride 101 (98-107) mmol/L Carbon Dioxide 28 (21-32) mmol/L Anion Gap 9 (3-11) BUN 35 H (6-23) mg/dl Creatinine 1.24 (0.6-1.4) mg/dl Est Cr Clr Drug Dosing 51.7 ml/min eGFR 58.05 BUN/Creatinine Ratio 28.2 H (10-20) Glucose 111 H (70-99(Fasting)) mg/dl Calcium 9.8 (8.6-10.3) mg/dl Magnesium 2.0 (1.7-2.4) mg/dl PG Care Time/CCT Total # of Minutes Spent Total Time Spent with Patient: Total time spent is greater than 50% in coordination of care (as documented) at patient's floor/unit and/or counseling patient: Coding Level of Care Code 32159 SUB INP/OBS CARE 3/50MIN Diagnoses Acute encephalopathy G93.40 Bradycardia R00.1 Thiamine deficiency E51.9 HTN (hypertension) I10 Vascular dementia F01.50 B12 deficiency E53.8
[2024-08-26 08:33] LABS: Hematocrit (blood only) 48.6 % (42.0-52.0); Hemoglobin 16.4 g/dl (14.0-18.0); Mean Corpuscular Hemoglobin 31.7 pg (25.0-34.0); Mean Corpuscular Hgb Conc 33.7 g/dL (32.0-36.0); Mean Platelet Volume 9.5 fL (9.4-12.4); Platelet Count 325 K/uL (130-400); RDW Coefficient of Variation 13.5 % (11.5-14.5); RDW Standard Deviation 46.6 fL (36.4-46.3); Red Blood Count 5.17 M/uL (4.70-6.10); White Blood Count 10.54 K/ul (4.8-10.8)
[2024-08-26 08:56] LABS: BUN Creatinine Ratio 28.2 (10-20); Calcium 9.8 mg/dl (8.6-10.3); Creatinine Clr Calc Pharmacy 51.7 ml/min; Potassium 3.9 mmol/L (3.5-5.1)
--- NOTE | 2024-08-26 22:53 | Electrocardiogram Report ---
Test Reason : Blood Pressure : */* mmHG Vent. Rate : 86 BPM Atrial Rate : 85 BPM P-R Int : 264 ms QRS Dur : 140 ms QT Int : 378 ms P-R-T Axes : * -70 88 degrees QTcB Int : 452 ms Sinus rhythm with 1st degree A-V block Left axis deviation Non-specific intra-ventricular conduction block Abnormal ECG When compared with ECG of 25-Aug-2024 15:04, No significant change Confirmed by Rich St ([id number]) on 08/26/2024 10:52:30 PM Referred By: REFERRED SELF Confirmed By: Rich St
--- NOTE | 2024-08-26 22:53 | Electrocardiogram Report ---
Test Reason : Blood Pressure : */* mmHG Vent. Rate : 53 BPM Atrial Rate : 53 BPM P-R Int : 248 ms QRS Dur : 142 ms QT Int : 460 ms P-R-T Axes : * -70 40 degrees QTcB Int : 431 ms Sinus bradycardia with 1st degree A-V block Left axis deviation Non-specific intra-ventricular conduction block Cannot rule out Septal infarct , age undetermined Abnormal ECG When compared with ECG of 26-Aug-2024 09:06, Vent. rate has decreased by 33 bpm Confirmed by Rich St ([id number]) on 08/26/2024 10:53:05 PM Referred By: REFERRED SELF Confirmed By: Rich St
[2024-08-27 09:36] LABS: Hematocrit (blood only) 47.4 % (42.0-52.0); Hemoglobin 15.9 g/dl (14.0-18.0); Mean Corpuscular Hemoglobin 31.5 pg (25.0-34.0); Mean Corpuscular Hgb Conc 33.5 g/dL (32.0-36.0); Mean Corpuscular Volume 93.9 fL (80.0-100.0); Mean Platelet Volume 9.4 fL (9.4-12.4); Platelet Count 303 K/uL (130-400); RDW Coefficient of Variation 13.6 % (11.5-14.5); RDW Standard Deviation 47.3 fL (36.4-46.3); Red Blood Count 5.05 M/uL (4.70-6.10); White Blood Count 9.49 K/ul (4.8-10.8)
[2024-08-27 10:01] LABS: BUN Creatinine Ratio 30.3 (10-20); Calcium 9.9 mg/dl (8.6-10.3); Creatinine Clr Calc Pharmacy 44.1 ml/min; Magnesium 2.2 mg/dl (1.7-2.4); Potassium 4.3 mmol/L (3.5-5.1)
[2024-08-27] MEDS: SODIUM CHLORIDE 0.9% 500 ML IV ONE (11:21)
--- NOTE | 2024-08-27 11:53 | Cardiology Consultation ---
Date of Consultation August 27, 2024 Assessment & Plan (1) Bradycardia: -Sinus bradycardia noted during the sleeping hours. -He has an appropriate heart rate response to physical activity. -Do not feel this represents the tachycardia/bradycardia syndrome. -Continue to monitor while hospitalized. (2) HTN (hypertension): -Adequate control on current regimen. (3) Aortic stenosis: -Mild aortic stenosis noted on echocardiogram September 2023. -Consider yearly surveillance echocardiograms as an outpatient. History of Present Illness Attending Physician: Diego Pond MD History of Present Illness Mr. Lagunas is an 83-year-old male admitted August 17 with mental status changes . Heart rate variability has been noted on the monitor, and therefore, this consultation was ordered. 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 The patient was in his usual state of health until the day of presentation when he was found outside in the cold weather wearing only boxer shorts and a jacket. He was completely disoriented, therefore, 911 was called. On presentation, the patient was completely disoriented and was found to have THC on his toxicology screen. He had a similar presentation back in September 2022. Currently, patient is resting comfortably in bed and without complaints. He explains that he is very active on a daily basis. He cares for his 3 acre property associated with his [employer] establishment. He has never experienced exertional chest pain or limiting dyspnea. He further denies syncope, presyncope, PND, orthopnea, palpitations, lower extremity edema, and claudication. Past medical and surgical history 1. Hypertension 2. Mild aortic stenosis 3. Moderate left ventricular hypertrophy 4. Dementia Social history Single, lives alone No tobacco or alcohol Family history Noncontributory Review of systems A 10 point review of system was undertaken and negative except that described above. Allergies Allergy/AdvReac Type Severity Reaction Status Date / Time No Known Allergies Allergy Unknown Verified 02/09/24 17:09 Home Medications Medication Instructions Recorded Confirmed Type hydrochlorothiazide 25 mg tablet 25 mg PO QAM 09/11/23 08/17/24 History aspirin 81 mg tablet,delayed 81 mg PO DAILY 02/09/24 08/17/24 History release diclofenac sodium 50 mg 50 mg PO BID PRN Pain 08/17/24 08/17/24 History tablet,delayed release escitalopram oxalate 10 mg tablet 10 mg PO DAILY 08/17/24 08/17/24 History lisinopril 10 mg tablet 10 mg PO DAILY 08/17/24 08/17/24 History meclizine 25 mg tablet 25 mg PO TID PRN Dizziness 08/17/24 08/17/24 History quetiapine 25 mg tablet 25 mg PO DAILY 08/17/24 08/17/24 History Patient History Medical History Aortic stenosis Social History Smoking Status: Unknown if ever smoked Tobacco Type: Cigarettes Hx Alcohol Use: No Hx Substance Use: Yes Preferred Language: Greenlandic Communication Ability: Impaired 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 HEENT exam is negative. Neck is supple with full carotid upstrokes. There are no carotid bruits. Jugular venous pressure is flat at 9 degrees. No thyromegaly. Cardiovascular exam reveals a regular rhythm with a normal S1 and S2. No S3, S4, or murmurs are noted. Lungs are clear without rales, rhonchi or wheezes. Abdomen is soft without bruits. Extremities reveal intact radial artery pulses bilaterally. No peripheral edema. Results & Data Vital Signs (Past 12 Hours) Vital Signs Temp Pulse Pulse Resp BP Pulse Ox O2 Del Method 08/27/24 07:48 36.5 C 61 20 144/71 H 99 Room Air 08/27/24 07:17 48 L 08/27/24 02:47 36.7 C 48 L 18 112/68 94 Room Air Laboratory Results CBC notes a hemoglobin of 16.4, adequate 48.6, white count 10.5, platelet count 325,000. Electrolytes noted sodium of 138, potassium 3.9, chloride 101, bicarb 28, BUN 35, creatinine 1.24, and glucose of 111. High-sensitivity troponin is normal at 15. Diagnostic Findings EKG notes sinus bradycardia with first-degree AV block and a nonspecific interventricular conduction delay. 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 PG Care Time/CCT Total # of Minutes Spent Total Time Spent with Patient: Total time spent is greater than 50% in coordination of care (as documented) at patient's floor/unit and/or counseling patient: Coding Level of Care Code 89157 INT INP/OBS CARE MIN Diagnoses Bradycardia R00.1 HTN (hypertension) I10 Aortic stenosis I35.0
--- NOTE | 2024-08-27 13:00 | Electrocardiogram Report ---
Test Reason : Blood Pressure : */* mmHG Vent. Rate : 53 BPM Atrial Rate : 53 BPM P-R Int : 280 ms QRS Dur : 134 ms QT Int : 472 ms P-R-T Axes : * -64 -4 degrees QTcB Int : 442 ms Sinus bradycardia with 1st degree A-V block Left axis deviation Non-specific intra-ventricular conduction delay Abnormal ECG When compared with ECG of 26-Aug-2024 12:07, Nonspecific T wave abnormality now evident in Inferior leads T wave amplitude has decreased in Anterior leads Confirmed by Priyank Colon ([id number]) on 08/27/2024 1:00:33 PM Referred By: REFERRED SELF Confirmed By: Priyank Colon
--- NOTE | 2024-08-27 17:45 | Hospitalist Progress Note ---
Date of Service August 27, 2024 Assessment & Plan (1) Acute encephalopathy: (2) Thiamine deficiency: (3) Vascular dementia: (4) Bradycardia: (5) HTN (hypertension): (6) Acute kidney injury: Plan 83-year-old male with PMHx HTN and vascular dementia brought in via EMS for AMS. recently he has had more cognitive decline including hallucinations but no tremors. They have been attempting to manage this outside the hospital with medications. he is on Seroquel, also have been trying to arrange placement as an outpatient. he was found outside wandering in his boxer shorts and it was 20 degrees. Acute encephalopathy/Thiamine Deficiency/Vascular dementia Workup included CBC, CMP, UA, head CT, Lyme, ammonia, TSH all unremarkable. 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 Tox was +for THC, uses gummies for sleep - suspect cause for acute toxic encephalopathy this is concomitant dementia, had a similar presentation 09/2023. Recommend cessation B12 low normal (324) - can continue supplementation while inpatient, likely does not need to be continued on discharge B1 <7 LOW -- continue 200mg PO BID and would continue at dc Bradycardia Lyme negative, TSH wnl Multiple EKGs showing 1st degree AV block. Heart rate variable throughout the day 08/26 and cardiology consulted - bradycardia noted during sleeping hours, do not feel this is tachybrady syndrome. Continue telemetry for now During inpatent stay 09/2023 - Dr. Hernandez had recommended Zio patch - does not appear this was done, depending on length of stay could considr at discharge Hypertension/CHAIM Continue lisinopril - BPs acceptable Cr continues to rise 1.42, continue to hold HCTZ, 500cc NSS bolus given, encourage PO fluid. AM BMP Labile mood/Hallucinations - Continue lexapro + quetiapine. psych consulted earlier in the admission, agree with continuing these medications, no other daily medications. Recommend olanzapine if needed for behavioral emergencies Disposition PT/OT recommending SNF for safety, although ambulating well.P2P denied 08/25. At this time patient is not safe to go home, paperwork for [place] LTC approval has been started. Case management following Patient's medical and legal POA is Stephon Townsend -- updated 08/21 Lovenox SQ for DVT proph while inpatient Admission and Anticipated Discharge Date Admission Date: August 17, 2024 Supervising Physician Co-Signing Physician Notes Attending Attestation - Chart reviewed, care plan d/w BALBINA Rivers. I agree w/ the greco components of her documentation. Dispo planning - [place] LTC facility? Diego Pond MD Subjective Patient seen lying in bed, reports that overall he is feeling well. He denies having any chest pain or shortness of breath. Denies any lightheadedness or dizziness when he is up and moving around. No abdominal pain today Does not notice any change in his heart rate. Telemetry sinus rhythm with a first-degree and IVCD 38 to 80s Review of Systems Review of Systems: All systems reviewed & are unremarkable except as noted in Subjective Physical Exam Physical Exam: General: NAD, VS as above Resp: normal respiratory effort, lungs clear to auscultation CV: RRR, no murmur, Abd: normal bowel sounds, non tender, no hepatosplenomegaly Extremities: Moves all extremities, no edema Neuro: A&O x2, Skin: intact, no lesions noted Results & Data Results & Data Vital Signs (Past 12 Hours) Vital Signs Temp Pulse Pulse Resp BP Pulse Ox O2 Del Method 08/27/24 15:49 98.2 F 55 L 18 163/68 H 98 Room Air 08/27/24 13:54 70 08/27/24 11:42 97.9 F 79 18 113/70 96 Room Air 08/27/24 07:48 97.7 F 61 20 144/71 H 99 Room Air 08/27/24 07:17 48 L Laboratory Results CBC, chemistry and magnesium reviewed PG Care Time/CCT Total # of Minutes Spent Total Time Spent with Patient: Total time spent is greater than 50% in coordination of care (as documented) at patient's floor/unit and/or counseling patient: Coding Level of Care Code 23073 SUB INP/OBS CARE 3/50MIN Diagnoses Acute encephalopathy G93.40 Thiamine deficiency E51.9 Vascular dementia F01.50 Bradycardia R00.1 HTN (hypertension) I10 Acute kidney injury N17.9
[2024-08-28 07:10] LABS: BUN Creatinine Ratio 33.3 (10-20); Calcium 9.2 mg/dl (8.6-10.3); Creatinine Clr Calc Pharmacy 52.8 ml/min; Potassium 4.4 mmol/L (3.5-5.1)
[2024-08-28] MEDS: MECLIZINE HCL 25 MG TAB PO PRN (13:53)
--- NOTE | 2024-08-28 17:26 | Hospitalist Progress Note ---
Date of Service August 28, 2024 Assessment & Plan (1) Acute encephalopathy: (2) Thiamine deficiency: (3) Vascular dementia: (4) Bradycardia: (5) Dizziness: (6) HTN (hypertension): (7) Acute kidney injury: Plan 83-year-old male with PMHx HTN and vascular dementia brought in via EMS for AMS. recently he has had more cognitive decline including hallucinations but no tremors. They have been attempting to manage this outside the hospital with medications. he is on Seroquel, also have been trying to arrange placement as an outpatient. he was found outside wandering in his boxer shorts and it was 20 degrees. Acute encephalopathy/Thiamine Deficiency/Vascular dementia Workup included CBC, CMP, UA, head CT, Lyme, ammonia, TSH all unremarkable. 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 Tox was +for THC, uses gummies for sleep - suspect cause for acute toxic encephalopathy this is concomitant dementia, had a similar presentation 09/2023. Recommend cessation B12 low normal (324) - can continue supplementation while inpatient, likely does not need to be continued on discharge B1 <7 LOW -- continue 200mg PO BID and would continue at dc Bradycardia Lyme negative, TSH wnl Multiple EKGs showing 1st degree AV block. Heart rate variable throughout the day 08/26 and cardiology consulted - bradycardia noted during sleeping hours, do not feel this is tachybrady syndrome. Continue telemetry for now During inpatient stay 09/2023 - Dr. Hernandez had recommended Zio patch - does not appear this was done, depending on length of stay could consider at discharge Dizziness Episode of nonspecific symptoms - feeling off and the room is moving. Did state if felt different that prior episodes of vertigo, slightly anxious after PT eval. BSG 89, Orthostatic VS WNL. HR high 50s -70 during this time. Pt reports staying hydrated. Opted to try meclizine - pt reported symptoms resolved prior to med arrival but still took medication. Hypertension/CHAIM Continue lisinopril - BPs acceptable CHAIM improved with IV and PO fluids, will continue to hold HCTZ pending AM BMP AM BMP Labile mood/Hallucinations - Continue lexapro + quetiapine. psych consulted earlier in the admission, agree with continuing these medications, no other daily medications. Recommend olanzapine if needed for behavioral emergencies Disposition PT/OT recommending SNF for safety At this time patient is not safe to go home, paperwork for [place] LTC approval has been started. Case management following - plan for [facility] on Saturday Patient's medical and legal POA is Stephon GamboaLeonel -- updated 08/21 Lovenox SQ for DVT proph while inpatient Admission and Anticipated Discharge Date Admission Date: August 17, 2024 Supervising Physician Co-Signing Physician Notes Attending Attestation - Chart reviewed, care plan d/w BALBINA Rivers. I agree w/ the greco components of her documentation. Dispo planning - [place] LTC facility? [facility]? Other SNF? Diego Pond MD Subjective patient seen lying in bed shortly after his walk with PT. States that something does not feel right but he was not able to explicitly describe this. He states that the room is moving but it feels different from his normal vertigo episodes. Denies chest pain or shortness of breath. Did feel slightly ligh theaded. Denies diaphoresis. He does state that he was worried about the job interview that he had (walk with PT) because it was not something that he would want as a job. 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 In conjunction with nursing staff we obtained a blood sugar that was normal and orthostatic vital signs are also normal. When patient sat up at the side of the bed he was very unsteady but denies vision changes. RN reports no issues prior to this event Telemetry - SR/SB with a 1st degree AV block 40-80s Review of Systems Review of Systems: All systems reviewed & are unremarkable except as noted in Subjective Physical Exam Physical Exam: General: NAD, VS as above. does sway some from side to side when sitting up in bed Resp: normal respiratory effort, lungs clear to auscultation CV: RRR, no murmur, Abd: normal bowel sounds, non tender, no hepatosplenomegaly Extremities: Moves all extremities, no edema Neuro: A&O x2, tangential speech Results & Data Results & Data Vital Signs (Past 12 Hours) Vital Signs Temp Pulse Pulse Resp BP BP Pulse Ox 08/28/24 15:33 97.4 F L 65 20 180/74 H 98 08/28/24 15:05 52 L 08/28/24 12:04 97.3 F L 57 L 18 124/77 96 08/28/24 08:00 08/28/24 07:44 97.7 F 63 18 127/73 97 08/28/24 07:33 77 O2 Del Method 08/28/24 15:33 Room Air 08/28/24 15:05 08/28/24 12:04 Room Air 08/28/24 08:00 Room Air 08/28/24 07:44 Room Air 08/28/24 07:33 Laboratory Results BMP reviewed PG Care Time/CCT Total # of Minutes Spent Total Time Spent with Patient: Total time spent is greater than 50% in coordination of care (as documented) at patient's floor/unit and/or counseling patient: Coding Level of Care Code 05562 SUB INP/OBS CARE 2/35MIN Diagnoses Acute encephalopathy G93.40 Thiamine deficiency E51.9 Vascular dementia F01.50 Bradycardia R00.1 Dizziness R42 HTN (hypertension) I10 Acute kidney injury N17.9
[2024-08-29 07:01] LABS: Calcium 9.6 mg/dl (8.6-10.3); Creatinine Clr Calc Pharmacy 59.8 ml/min; Potassium 4.2 mmol/L (3.5-5.1)
--- NOTE | 2024-08-29 17:05 | Hospitalist Progress Note ---
Date of Service August 29, 2024 Assessment & Plan (1) Acute encephalopathy: (2) Thiamine deficiency: (3) Vascular dementia: (4) Bradycardia: (5) Dizziness: (6) HTN (hypertension): (7) Acute kidney injury: Plan 83-year-old male with PMHx HTN and vascular dementia brought in via EMS for AMS. recently he has had more cognitive decline including hallucinations but no tremors. They have been attempting to manage this outside the hospital with medications. he is on Seroquel, also have been trying to arrange placement as an outpatient. he was found outside wandering in his boxer shorts and it was 20 degrees. Acute encephalopathy/Thiamine Deficiency/Vascular dementia Workup included CBC, CMP, UA, head CT, Lyme, ammonia, TSH all unremarkable. 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 Tox was +for THC, uses gummies for sleep - suspect cause for acute toxic encephalopathy this is concomitant dementia, had a similar presentation 09/2023. Recommend cessation B12 low normal (324) - can continue supplementation while inpatient, likely does not need to be continued on discharge B1 <7 LOW -- continue 200mg PO BID and would continue at dc Bradycardia Lyme negative, TSH wnl Multiple EKGs showing 1st degree AV block. Heart rate variable throughout the day 08/26 and cardiology consulted - bradycardia noted during sleeping hours, do not feel this is tachybrady syndrome. No acute events on tele, rhythm reamins sinus and HR is mainly 50-60s. Discussed with Dr. Pond and stable for downgrade to medical. Dizziness Episode of nonspecific symptoms 1/3 Did state if felt different that prior episodes of vertigo, slightly anxious after PT eval. BSG 89, Orthostatic VS WNL. HR high 50s -70 during this time. Pt reports staying hydrated. Opted to try meclizine - pt reported symptoms resolved prior to med arrival but still took medication. no repeat episodes since Hypertension/CHAIM Continue lisinopril - BPs acceptable CHAIM has resolved, resume HCTZ for 1/5 Labile mood/Hallucinations - Continue lexapro + quetiapine. psych consulted earlier in the admission, agree with continuing these medications, no other daily medications. Recommend olanzapine if needed for behavioral emergencies Disposition PT/OT recommending SNF for safety At this time patient is not safe to go [place], paperwork for [place] LTC approval has been started. Case management following - plan for [facility] on Saturday Patient's medical and legal POA is Stephon GamboaDorothypatt -- updated 08/21 Lovenox SQ for DVT proph while inpatient Admission and Anticipated Discharge Date Admission Date: August 17, 2024 Supervising Physician Co-Signing Physician Notes Attending Attestation - Chart reviewed, care plan d/w BALBINA Rivers. I agree w/ the greco components of her documentation. Disposition post-d/c uncertain. Diego Pond MD Subjective Patient seen lying in bed - reports feeling better today, saying he woke up feeling less depressed. No further dizziness issues - excited to shower today Tele - SB/SR 40s-90s Review of Systems Review of Systems: All systems reviewed & are unremarkable except as noted in Subjective Physical Exam Physical Exam: General: NAD, VS as above. lying in bed, feels well Resp: normal respiratory effort, lungs clear to auscultation CV: RRR, no murmur, Abd: normal bowel sounds, non tender, no hepatosplenomegaly Extremities: Moves all extremities, no edema Neuro: A&O x2, tangential speech Results & Data Results & Data Vital Signs (Past 12 Hours) Vital Signs Temp Pulse Pulse Resp BP Pulse Ox O2 Del Method 08/29/24 15:53 97.5 F L 78 16 124/81 98 Room Air 08/29/24 14:56 76 08/29/24 11:29 97.9 F 52 L 20 152/70 H 97 Room Air 08/29/24 10:54 Room Air 08/29/24 07:37 97.5 F L 71 16 146/75 H 98 Room Air 08/29/24 07:25 53 L PG Care Time/CCT Total # of Minutes Spent Total Time Spent with Patient: Total time spent is greater than 50% in coordination of care (as documented) at patient's floor/unit and/or counseling patient: Coding Level of Care Code 24242 SUB INP/OBS CARE 3/50MIN Diagnoses Acute encephalopathy G93.40 Thiamine deficiency E51.9 Vascular dementia F01.50 Bradycardia R00.1 Dizziness R42 HTN (hypertension) I10 Acute kidney injury N17.9
[2024-08-30 08:13] VITALS: RESP 16
--- NOTE | 2024-08-30 12:20 | Hospitalist Progress Note ---
Date of Service August 30, 2024 Assessment & Plan (1) Acute encephalopathy: (2) Thiamine deficiency: (3) Vascular dementia: (4) Bradycardia: (5) Dizziness: (6) HTN (hypertension): (7) Acute kidney injury: Plan 83-year-old male with PMHx HTN and vascular dementia brought in via EMS for AMS. recently he has had more cognitive decline including hallucinations but no tremors. They have been attempting to manage this outside the hospital with medications. he is on Seroquel, also have been trying to arrange placement as an outpatient. he was found outside wandering in his boxer shorts and it was 20 degrees. Acute encephalopathy/Thiamine Deficiency/Vascular dementia Workup included CBC, CMP, UA, head CT, Lyme, ammonia, TSH all unremarkable. 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 Tox was +for THC, uses gummies for sleep - suspect cause for acute toxic encephalopathy this is concomitant dementia, had a similar presentation 09/2023. Recommend cessation B12 low normal (324) - can continue supplementation while inpatient, likely does not need to be continued on discharge B1 <7 LOW -- continue 200mg PO BID and would continue at dc Bradycardia Lyme negative, TSH wnl Multiple EKGs showing 1st degree AV block. Heart rate variable throughout the day 08/26 and cardiology consulted - bradycardia noted during sleeping hours, do not feel this is tachybrady syndrome. No acute events on tele, rhythm reamins sinus and HR is mainly 50-60s. Discussed with Dr. Pond and stable for downgrade to medical. Dizziness Episode of nonspecific symptoms 1/3 Did state if felt different that prior episodes of vertigo, slightly anxious after PT eval. BSG 89, Orthostatic VS WNL. HR high 50s -70 during this time. Pt reports staying hydrated. Opted to try meclizine - pt reported symptoms resolved prior to med arrival but still took medication. no repeat episodes since Hypertension/CHAIM Continue lisinopril - BPs acceptable CHAIM has resolved, resume HCTZ for 1/5 Labile mood/Hallucinations - Continue lexapro + quetiapine. psych consulted earlier in the admission, agree with continuing these medications, no other daily medications. Recommend olanzapine if needed for behavioral emergencies Disposition PT/OT recommending SNF for safety At this time patient is not safe to go [place], paperwork for [place] LTC approval has been started. Case management following - plan for [facility] on Thursday 08/31 Patient's medical and legal POA is Stephon SanchezDwight -- updated 08/21 DVT proh: Lovenox Admission and Anticipated Discharge Date Admission Date: August 17, 2024 Supervising Physician Co-Signing Physician Notes Attending Attestation - Chart reviewed, care plan d/w BALBINA Rivers. I agree w/ the greco components of her documentation. Tentatively scheduled for discharge to [facility] tomorrow on 08/31/24. Diego Pond MD Subjective patient seen lying in bed, reports feeling tired today and having issues with his memory. He again brings up having concerns about a job interview and thinks he supposed to have another appointment todaythis seems to occur when he is working with physical therapy I discussed with RN and she is aware reports fair appetite. No pain. no further dizziness episodes Review of Systems Review of Systems: All systems reviewed & are unremarkable except as noted in Subjective Physical Exam Physical Exam: General: NAD, VS as above. lying in bed, feels well Resp: normal respiratory effort, lungs clear to auscultation CV: RRR, no murmur, Abd: normal bowel sounds, non tender, no hepatosplenomegaly Extremities: Moves all extremities, no edema Neuro: A&O x2, tangential speech Results & Data Results & Data Vital Signs (Past 12 Hours) Vital Signs Temp Pulse Resp BP Pulse Ox O2 Del Method 08/30/24 08:00 97.9 F 73 16 123/78 98 Room Air PG Care Time/CCT Total # of Minutes Spent Total Time Spent with Patient: Total time spent is greater than 50% in coordination of care (as documented) at patient's floor/unit and/or counseling patient: Coding Level of Care Code 68285 SUB INP/OBS CARE 09/19MIN Diagnoses Acute encephalopathy G93.40 Thiamine deficiency E51.9 Vascular dementia F01.50 Bradycardia R00.1 Dizziness R42 HTN (hypertension) I10 Acute kidney injury N17.9
[2024-08-30 20:16] VITALS: O2SAT 97
[2024-08-31 07:27] VITALS: BP 107/71; PULSE 80; TEMP 97.5
--- NOTE | 2024-08-31 10:15 | Discharge Summary ---
Discharge Summary Date of Service August 31, 2024 Principal Dx & Hospital Course #1 = Principal Diagnosis (1) Acute encephalopathy: (2) Thiamine deficiency: (3) Vascular dementia: (4) Bradycardia: (5) HTN (hypertension): (6) Acute kidney injury: Plan 83-year-old male with PMHx HTN and vascular dementia brought in via EMS for AMS. recently he has had more cognitive decline including hallucinations but no tremors. They have been attempting to manage this outside the hospital with medications. he is on Seroquel, also have been trying to arrange placement as an outpatient. he was found outside wandering in his boxer shorts and it was 20 degrees. Acute encephalopathy/Thiamine Deficiency/Vascular dementia Workup included CBC, CMP, UA, head CT, Lyme, ammonia, TSH all unremarkable. 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 Tox was +for THC, uses gummies for sleep - suspect cause for acute toxic encephalopathy this is concomitant dementia, had a similar presentation 09/2023. Recommend cessation B12 low normal (324) - can continue supplementation while inpatient, likely does not need to be continued on discharge B1 <7 LOW -- continue 200mg PO BID and will continue at dc Bradycardia Lyme negative, TSH wnl Multiple EKGs showing 1st degree AV block. cardiology consulted - bradycardia noted during sleeping hours, do not feel this is tachybrady syndrome. Dizziness Episode of nonspecific symptoms 1/3 Did state if felt different that prior episodes of vertigo, slightly anxious after PT eval. BSG 89, Orthostatic VS WNL. HR high 50s -70 during this time. Pt reports staying hydrated. Opted to try meclizine - pt reported symptoms resolved prior to med arrival but still took medication. no repeat episodes since Hypertension/CHAIM Continue lisinopril - BPs acceptable CHAIM has resolved, resumed HCTZ 1/5 Labile mood/Hallucinations - Continue Lexapro + quetiapine. psych consulted earlier in the admission, agree with continuing these medications, no other daily medications. Recommend olanzapine if needed for behavioral emergencies Patient discharged to [facility] 08/31/2024. 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 ED course: CBC grossly WNL with exception of RDW 47.9, MPV 9.2; CMP AG 13, total bilirubin 1.1; ammonia 13; TSH 2.923; troponin 15; UA without signs of infection; toxicology salicylates less than 3, acetaminophen less than 3, positive for marijuana (THC); CXR without acute cardiopulmonary findings; head CT with cerebral atrophy no acute changes; EKG sinus rhythm, sinus arrhythmia and first-degree AV block, left anterior fascicular block, LVH with QRS widening, rate around 70 bpm. Patient is a 83-year-old male PMHx HTN and mild cognitive decline who presents after being found outside in the cool weather wearing just a jacket and boxer shorts, noted to have AMS. Pt's POA is present and helps to provide a history. States that he was found in winter weather conditions in a jacket + boxer shorts, was unable to recall where keys were to get back into apartment. Then w as refusing to go back to apartment which is when POA was called and EMS arrived to bring pt to ED. Has had decline in mental status, but overall fine health per POA. Occasional hallucinations which have been addressed and pt was placed on lexapro + quetiapine for this. Pt denies abdominal pain, chest pain, headache, or SOB. History below collected in conjunction w/ Dr. Navarro at bedside: Seen with POA who know eacher other through [facility]. Has been POA for many years. Stephon Tomlinson is power of level vial setter. No family. Was found wandering in the snow in the weather. EMS was called. Refused to be seen so called POA and was brought to the ER Has had cognitive decline and radha ehalluncinations. Was placed on lexapro and seroquel. Has not improved cognitive functioning. Care needs exceed current services at home, and is at a high risk of harm especially given recent incidents with weather Follows with [facility]. Does use CBD-THC gummies which help his sleep. No tremors. No shakes has some hypertension but otherwise very healthy No history of heart problems No lightheadedness/dizzness. Unclear history around chest pain, denies chest pain at bedside. Does have rotator cuff issues Rossy gives little udnerstandable history at the bedside. Does not remember what happened this morning and TP is non-linear Medical History: Reviewed Medications: Reviewed Surgical History: Reviewed Family history: Reviewed Allergies: Reviewed Social History: CBD gummies as noted Code Status: DNR/DNI Please see Dr. Navarro's attestation for adjustments/additions to treatment plan. Discharge Exam Constitutional WD/WN, vitals as above Eyes PERRL, conjunctivae normal, anicteric sclerae Respiratory breathing unlabored Cardiovascular well perfused Discharge Plan Discharge Items Patient Disposition: Transfer [facility] Reason For Visit: AMS Discharge Diagnosis: altered mental status dementia Condition on Discharge: Fair Activity: As commented below Activity Comment: work with therapy to get stronger Non-emergency contact: Primary Care Provider Call non-emergency contact if: you have any medication questions and your symptoms worsen Follow-up/Referrals: Connor Islas, [Primary Care Provider] - Diet: Regular Addtl Attending Provider Instructions: Mr. Lagunas You were hospitalized after an episodes of confusion being found outside - this was likely due to your dementia along with THC gummy use. Please STOP using all THC gummies. You will be going to rehab to get stronger while they work on finding a safe place for you to live. For [facility]: -bradycardia can be normal for him, into the 40s while sleeping - would continue high doses thiamine for 20 more days, than can decrease to maintence dosing Take Care! Pending Studies at Discharge: No Stand-Alone Forms: [employer] Skilled Items Patient informed of condition?: Yes DNR: Yes Discharge Level of Care: Skilled Communicable Disease: No Discharge Prognosis: Stable Lines: None Urinary Catheter: No Medications and DC Order Prescriptions: New thiamine HCl (vitamin B1) 100 mg Tablet 200 mg PO BID 20 Days Qty: 80 0RF Continued hydrochlorothiazide 25 mg tablet 25 mg PO QAM meclizine 25 mg tablet 25 mg PO TID PRN (Reason: Dizziness) Rx Instructions: last filled in April per pharmacy lisinopril 10 mg tablet 10 mg PO DAILY diclofenac sodium 50 mg tablet,delayed release (DR/EC) 50 mg PO BID PRN (Reason: Pain) escitalopram oxalate 10 mg tablet 10 mg PO DAILY aspirin 81 mg Tablet,Delayed Release (Dr/Ec) 81 mg PO DAILY Rx Instructions: otc unable to verify Changed quetiapine 25 mg tablet 25 mg PO HS Qty: 0 0RF Discharge Orders: Discharge Order (Routine); Ordered 08/31/24 Ordered By: Daisy Bloom Admission Data Admit Date/Time: 08/17/24 18:42 Attending Provider: Alfonzo Calderon Admit Provider: Andrew Navarro Primary Care Provider: Connor Islas Other Providers: [facility]; [facility] [place]; Andrew Navarro; [address] Other Interventions: Discharge Summary Assessment (RN) Last Done: 08/31/24 10:25 Hospital Stay Data Consultations 08/17/24 18:18 ED Decision to Admit Stat 08/26/24 16:25 Consult Cardiology Routine Diagnostic Imagining Performed 08/17/24 15:56 CT head/brain wo con Stat 08/20/24 00:00 MR brain wo con Routine Pending Results Patient Have Any Pending Studies at Discharge: No Discharge Instructions Given to Patient (Per Discharging Provider) Mr. Lagunas You were hospitalized after an episodes of confusion being found outside - this was likely due to your dementia along with THC gummy use. Please STOP using all THC gummies. You will be going to rehab to get stronger while they work on finding a safe place for you to live. For [facility]: -bradycardia can be normal for him, into the 40s while sleeping - would continue high doses thiamine for 20 more days, than can decrease to maintence dosing Take Care! Total Time Total Time Spent Total Time Spent (In Minutes): 40 Total Time Includes: Examination of the Patient, Discharge Planning and Medication Reconciliation Coding Level of Care Code 72197 INP/OBS DISCH >30 MIN Diagnoses Acute encephalopathy G93.40 Thiamine deficiency E51.9 Vascular dementia F01.50 Bradycardia R00.1 HTN (hypertension) I10 Acute kidney injury N17.9
== END 2024-08-31 11:33 | DRG 884 ==
LOC: ED 15:17 → 2E 18:42 → SUATTDRO 18:42 → 2E 20:03 → 2N 08-18 15:24 → 3N 08-22 23:17 → 2N 08-26 15:45 → 3W 08-29 20:16
DX: Z91.83 Wandering in diseases classified elsewhere; Z79.899 Other long term (current) drug therapy; Z60.2 Problems related to living alone; N17.9 Acute kidney failure, unspecified; F01.52 Vascular dementia, unspecified severity, with psychotic disturbance; R00.1 Bradycardia, unspecified; Z91.81 History of falling; R62.7 Adult failure to thrive; E53.8 Deficiency of other specified B group vitamins; I10 Essential (primary) hypertension; I44.0 Atrioventricular block, first degree; I35.0 Nonrheumatic aortic (valve) stenosis; Z60.8 Other problems related to social environment; G92.9 Unspecified toxic encephalopathy; R42 Dizziness and giddiness; Z66 Do not resuscitate; T40.711A Poisoning by cannabis, accidental (unintentional), initial encounter; F12.10 Cannabis abuse, uncomplicated; E51.9 Thiamine deficiency, unspecified; G93.49 Other encephalopathy; Z79.82 Long term (current) use of aspirin

== ENCOUNTER 2025-03-19 11:57 | Observation (INO) ==
--- NOTE | 2025-03-19 12:07 | Emergency Department Note ---
Impression & Plan Chest pain Admission ED Provider Note HPI: History obtained from patient. The patient is a 84-year-old gentleman with history of trifascicular block/bradycardia, presents the emergency department with chief complaint of intermittent shortness of breath and chest "irritation". Patient states that he was having some difficulty with his breathing the last 3 mornings in a row when he woke up. Patient states the seem to go away several hours into the morning. Patient states today he had some "irritation" in the lower part of his chest. Patient denies any nausea or vomiting, he states he has some mild dyspnea currently. Patient states that the chest irritation he was describing earlier has now resolved. On arrival here to the ED the patient is otherwise well- appearing, he is conversational and does not display any increased work of breathing. ROS: - Per HPI Differential Diagnosis: Symptomatic bradycardia/high degree heart block, acute coronary syndrome, myocarditis, pericarditis, aortic dissection, esophagitis, gastritis, PE, amongst other potential pathologies. *Outpatient medications and allergy history reviewed. PE: General: Alert, frail-appearing, no acute distress HEENT: Normocephalic, trachea midline Eyes: Extraocular eye movement is intact, no scleral erythema Pulmonary: Clear to auscultation bilaterally, no wheezing Cardio: Bradycardic rate with regular rhythm GI: Abdomen is soft to palpation : No suprapubic tenderness MSK: No evidence of trauma or malformation of the extremities, no edema Skin: No evidence of rash Neuro: Alert, no focal deficits Psychiatric: Cooperative INDEPENDENT INTERPRETATIONS: site monitor: (As interpreted by myself): - An order was placed for continuous cardiac monitoring - Patient was noted to be in sinus bradycardia with a rate of 43 EKG: (As interpreted by myself): Rate: 43 Rhythm: Sinus bradycardia Intervals: KS interval prolonged at 248 ms, QRS 134 ms, QTc within normal limits ST changes: No ST elevation Time: 1202 Chest x-ray: (As interpreted by myself): No acute disease Interventions provided in ED: - Aspirin Medical Decision Making: IV was established and lab work obtained, patient was placed on monitoring coordinator. Lab work shows no leukocytosis, hemoglobin is normal, platelet count is normal, CMP does not show any evidence of any critical findings. Troponin is mildly elevated at 26.7 which does appear to be new, EKG does not show any apparent ischemic changes per my interpretation. Chest x-ray does not show any evidence of acute disease. On my reevaluation the patient is resting comfortably in bed, I explained the above findings to the patient and he is in agreement for inpatient admission given his chest pain and mildly elevated troponin. Case was discussed with the on-call admitting provider for [facility] and the patient was placed for admission to the service of Dr. Mcmillan. Consultants/Discussions held with other healthcare providers: - HospitalistDr. Moore Disposition discussion held by myself with: - Patient Diagnosis: 1. Chest pain, acute, nonspecific 2. Elevated troponin, acute 3. 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: No Beliefs That Will Affect Care: None Current Living Situation: Alone Feels Safe at Home: Yes Assistive Devices: None Allergies Allergies Allergy/AdvReac Type Severity Reaction Status Date / Time No Known Allergies Allergy Unknown Verified 03/19/25 13:41 Home Meds Home Medications Medication Instructions Recorded Confirmed aspirin 81 mg tablet,delayed 81 mg PO DAILY 02/09/24 03/19/25 release diclofenac sodium 50 mg 50 mg PO Q8H PRN Pain 08/17/24 03/19/25 tablet,delayed release escitalopram oxalate 10 mg tablet 10 mg PO DAILY 08/17/24 03/19/25 lisinopril 10 mg tablet 10 mg PO DAILY 08/17/24 03/19/25 meclizine 25 mg tablet 25 mg PO Q8H PRN Nausea And 08/17/24 03/19/25 Vomiting acetaminophen 325 mg tablet 650 mg PO Q6H PRN Fever/Pain 03/19/25 03/19/25 bisacodyl 10 mg rectal suppository 10 mg KS DAILY PRN Constipation 03/19/25 03/19/25 (Dulcolax (bisacodyl)) divalproex 250 mg tablet,delayed 250 mg PO Q12H 03/19/25 03/19/25 release donepezil 10 mg tablet 10 mg PO HS 03/19/25 03/19/25 hydrochlorothiazide 12.5 mg tablet 12.5 mg PO DAILY 03/19/25 03/19/25 magnesium hydroxide 400 mg/5 mL 2,400 mg PO DAILY PRN Constipation 03/19/25 03/19/25 oral suspension (Milk of Magnesia) prazosin 1 mg capsule 1 mg PO HS 03/19/25 03/19/25 sodium phosphates 19 gram-7 118 ml KS DAILY PRN Constipation 03/19/25 03/19/25 gram/118 mL enema (Fleet Enema) thiamine HCl (vitamin B1) 100 mg 200 mg PO DAILY 03/19/25 03/19/25 tablet Previous Rx's Medication Instructions Recorded quetiapine 25 mg tablet 25 mg PO HS #0 tabs 08/30/24 Results & Data (ED) Vital Signs Vital Signs - 24 hr 03/19/25 12:06 03/19/25 12:35 03/19/25 12:42 Temperature 36.6 C Temperature Source Oral Pulse Rate 44 L 43 L 42 L Pulse Rate [Apical] Pulse Rate from SpO2 Sensor 43 L Respiratory Rate 18 8 L Respiratory Effort / Characteristics Non-Labored Spontaneous Respiratory Depth Normal Respiratory Pattern Regular Blood Pressure 155/92 H Blood Pressure [Left Arm] Blood Pressure Mean 113 Blood Pressure Mean [Left Arm] Blood Pressure Position [Left Arm] Pulse Oximetry 98 94 Oxygen Delivery Method Room Air Room Air Sepsis Recent Fever Within 48 Hours No Sepsis New/Unexplained Change in Mental Status No Sepsis Action Taken by Nursing No Action Required 03/19/25 13:00 03/19/25 13:00 03/19/25 13:24 Temperature Temperature Source Pulse Rate 51 L 42 L Pulse Rate [Apical] Pulse Rate from SpO2 Sensor 48 L 42 L Respiratory Rate 14 13 Respiratory Effort / Characteristics Respiratory Depth Respiratory Pattern Blood Pressure 149/78 H Blood Pressure [Left Arm] Blood Pressure Mean 94 Blood Pressure Mean [Left Arm] Blood Pressure Position [Left Arm] Pulse Oximetry 94 96 Oxygen Delivery Method Room Air Room Air Sepsis Recent Fever Within 48 Hours Sepsis New/Unexplained Change in Mental Status Sepsis Action Taken by Nursing 03/19/25 13:30 03/19/25 13:33 03/19/25 14:00 Temperature Temperature Source Pulse Rate 41 L Pulse Rate [Apical] Pulse Rate from SpO2 Sensor 42 L Respiratory Rate 17 Respiratory Effort / Characteristics Respiratory Depth Respiratory Pattern Blood Pressure 149/67 H 147/87 H Blood Pressure [Left Arm] Blood Pressure Mean 106 119 Blood Pressure Mean [Left Arm] Blood Pressure Position [Left Arm] Pulse Oximetry 92 Oxygen Delivery Method Room Air Sepsis Recent Fever Within 48 Hours Sepsis New/Unexplained Change in Mental Status Sepsis Action Taken by Nursing 03/19/25 14:00 03/19/25 15:00 Temperature Temperature Source Pulse Rate 43 L Pulse Rate [Apical] 44 L Pulse Rate from SpO2 Sensor 42 L Respiratory Rate 17 16 Respiratory Effort / Characteristics Non-Labored Spontaneous Respiratory Depth Normal Respiratory Pattern Regular Blood Pressure Blood Pressure [Left Arm] 152/69 H Blood Pressure Mean Blood Pressure Mean [Left Arm] 96 Blood Pressure Position [Left Arm] Semi-fowlers Pulse Oximetry 99 96 Oxygen Delivery Method Room Air Room Air Sepsis Recent Fever Within 48 Hours Sepsis New/Unexplained Change in Mental Status Sepsis Action Taken by Nursing Laboratory Data 03/19/25 12:12 03/19/25 12:12 Lab Results 03/19/25 03/19/25 Range/Units 12:12 14:50 WBC 7.22 (4.8-10.8) K/ul RBC 4.43 L (4.70-6.10) M/uL Hgb 14.2 (14.0-18.0) g/dl Hct 41.8 L (42.0-52.0) % MCV 94.4 (80.0-100.0) fL MCH 32.1 (25.0-34.0) pg MCHC 34.0 (32.0-36.0) g/dL RDW Std Deviation 46.5 H (36.4-46.3) fL RDW Coeff of [place] 13.4 (11.5-14.5) % Plt Count 231 (130-400) K/uL MPV 9.2 L (9.4-12.4) fL Immature Gran % (Auto) 0.4 % Neut % (Auto) 65.1 % Lymph % (Auto) 18.1 % [place] % (Auto) 8.9 % Eos % (Auto) 6.8 % Baso % (Auto) 0.7 % Neut # (Auto) 4.70 (1.40-6.50) K/uL Lymph # (Auto) 1.31 (1.20-3.40) K/uL [place] # (Auto) 0.64 H (0.11-0.59) K/uL Eos # (Auto) 0.49 (0.00-0.50) K/uL Baso # (Auto) 0.05 (0.00-0.20) K/uL Immature Gran # (Auto) 0.03 (0.01-0.20) K/uL PT 11.7 (9.0-12.0) Seconds INR 1.1 (0.9-1.1) Sodium 137 (136-145) mmol/L Potassium 4.7 (3.5-5.1) mmol/L Chloride 105 (98-107) mmol/L Carbon Dioxide 28 (21-32) mmol/L Anion Gap 4 (3-11) BUN 21 (6-23) mg/dl Creatinine 1.43 H (0.6-1.4) mg/dl Est Cr Clr Drug Dosing 45.5 ml/min eGFR 48.62 BUN/Creatinine Ratio 14.7 (10-20) Glucose 88 (70-99(Fasting)) mg/dl Calcium 9.1 (8.6-10.3) mg/dl Total Bilirubin 0.4 (0.2-1.0) mg/dl AST 12 L (13-39) U/L ALT 6 L (7-52) U/L Alkaline Phosphatase 75 (34-104) U/L Troponin I High Sens 26.7 H 30.8 H (0-20) pg/ml Total Protein 6.7 (6.0-8.3) gm/dl Albumin 3.8 (3.4-5.0) gm/dl Globulin 2.9 (2.5-4.0) gm/dl Albumin/Globulin Ratio 1.3 (0.9-2) Lipase 14 (11-82) U/L Administered Medications Discontinued Medications Aspirin (Aspirin Chew 324 Mg) 324 mg PO NOW STA Stop: 03/19/25 13:06 Last Admin: 03/19/25 13:10 Dose: Not Given Documented By: CAP Imaging Data Radiologist's Impression: Chest X-Ray 03/19/25 11:59 XR chest 1V portable CLINICAL HISTORY: Chest pain, nonspecific COMPARISON STUDY: Chest radiograph August 17, 2024. FINDINGS: Lung volumes are normal. Lungs are clear. There is no pneumothorax or pleural effusion. Cardiomegaly is unchanged. Mediastinal contours are normal. There is no evidence for pulmonary edema. IMPRESSION: No acute cardiopulmonary findings. No significant change in appearance of the chest. ACT 112: Negative or not required by law. Electronically signed by: Temo Villanueva M.D. 03/19/2025 12:44 PM Discharge Plan Visit Data Chief Complaint: Chest Pain Stated Complaint: Bradycardia, chest pain ED Provider: Mitchel Stoner Discharge Problem: Chest pain Patient Disposition: Admitted As Inpatient Condition: Fair Forms Stand Alone Forms: [facility] Prescriptions Prescriptions: No Action meclizine 25 mg tablet 25 mg PO Q8H PRN (Reason: Nausea And Vomiting) lisinopril 10 mg tablet 10 mg PO DAILY Rx Instructions: Hold for SBP less than 110 and pulse less than 60 diclofenac sodium 50 mg tablet,delayed release (DR/EC) 50 mg PO Q8H PRN (Reason: Pain) escitalopram oxalate 10 mg tablet 10 mg PO DAILY quetiapine 25 mg tablet 25 mg PO HS Qty: 0 0RF aspirin 81 mg Tablet,Delayed Release (Dr/Ec) 81 mg PO DAILY Rx Instructions: otc unable to verify acetaminophen 325 mg Tablet 650 mg PO Q6H PRN (Reason: Fever/Pain) divalproex 250 mg tablet,delayed release (DR/EC) 250 mg PO Q12H prazosin 1 mg capsule 1 mg PO HS donepezil 10 mg Tablet 10 mg PO HS thiamine HCl (vitamin B1) 100 mg Tablet 200 mg PO DAILY magnesium hydroxide [Milk of Magnesia] 400 mg/5 mL Suspension 2,400 mg PO DAILY PRN (Reason: Constipation) Rx Instructions: Give on the morning of the 3rd day of no BM bisacodyl [Dulcolax (bisacodyl)] 10 mg Suppository 10 mg KS DAILY PRN (Reason: Constipation) Rx Instructions: Give on day 3 of no BM Fleet Enema 19-7 gram/118 mL Enema 118 ml KS DAILY PRN (Reason: Constipation) Rx Instructions: Give on the morning of the 4th day of no BM hydrochlorothiazide 12.5 mg Tablet 12.5 mg PO DAILY Referrals Referrals: Islas,Connor, DO [Primary Care Provider] -
[2025-03-19 12:29] LABS: Hematocrit (blood only) 41.8 % (42.0-52.0); Hemoglobin 14.2 g/dl (14.0-18.0); Immature Granulocytes # (auto) 0.03 K/uL (0.01-0.20); Immature Granulocytes % (auto) 0.4 %; Mean Corpuscular Hemoglobin 32.1 pg (25.0-34.0); Mean Corpuscular Volume 94.4 fL (80.0-100.0); Platelet Count 231 K/uL (130-400); RDW Standard Deviation 46.5 fL (36.4-46.3); Red Blood Count 4.43 M/uL (4.70-6.10); White Blood Count 7.22 K/ul (4.8-10.8)
--- NOTE | 2025-03-19 12:45 | XRay Report ---
XR chest 1V portable CLINICAL HISTORY: Chest pain, nonspecific COMPARISON STUDY: Chest radiograph August 17, 2024. FINDINGS: Lung volumes are normal. Lungs are clear. There is no pneumothorax or pleural effusion. Car diomegaly is unchanged. Mediastinal contours are normal. There is no evidence for pulmonary edema. IMPRESSION: No acute cardiopulmonary findings. No significant change in appearance of the chest. ACT 112: Negative or not required by law. Electronically signed by: Temo Villanueva M.D. 03/19/2025 12:44 PM
[2025-03-19 12:46] LABS: Alanine Aminotransferase 6.0 U/L (7-52); Albumin Globulin Ratio 1.3 (0.9-2); Alkaline Phosphatase 75.0 U/L (34-104); Anion Gap 4.0 (3-11); Bilirubin,Total 0.4 mg/dl (0.2-1.0); Blood Urea Nitrogen 21.0 mg/dl (6-23); Calcium 9.1 mg/dl (8.6-10.3); Carbon Dioxide 28.0 mmol/L (21-32); Chloride 105.0 mmol/L (98-107); Creatinine Clr Calc Pharmacy 45.5 ml/min; Globulin 2.9 gm/dl (2.5-4.0); Glucose 88.0 mg/dl (70-99(Fasting)); Lipase 14.0 U/L (11-82); Potassium 4.7 mmol/L (3.5-5.1); Sodium 137.0 mmol/L (136-145); Total Protein 6.7 gm/dl (6.0-8.3)
[2025-03-19 12:53] LABS: INR 1.1 (0.9-1.1); Prothrombin Time 11.7 Seconds (9.0-12.0)
[2025-03-19] MEDS: ASPIRIN CHEW 324 MG PO STA (13:10)
--- NOTE | 2025-03-19 18:07 | History & Physical Report ---
Date of Service March 19, 2025 Assessment & Plan (1) Chest pain: (2) Trifascicular block: (3) Dementia: (4) Bradycardia: (5) Aortic stenosis: (6) Vascular dementia: (7) Thiamine deficiency: Plan Pleuritic Chest Pain/Bradycardia/Aortic stenosis - Chest irritation predominantly in morning for past 3 days, not worsened by exertion/rest, no radiation of pain - EKG in ED: sinus bradycardia with 1st degree AV block - TTE 2023: EF: 60-65% Mild aortic stenosis, mild aortic regurg, mild tricuspid regurg. no wall motion abnormalities - High sensitivity troponin ordered: 26.7 -> 30.8 ordered repeat to determine peak - TTE ordered, with cardio consultation. - Etiology of elevated troponin could be demand ischemia vs NSTEMI, however symptoms also consistent with milder diagnosis such as GERD - Consider PE/DVT, however patient does not reports SOB, tachypnea, and is bradycardic. No leg edema, pain, or erythema. D-dimer ordered, will consider doppler studies vs CT PE if positive d-dimer but low clinical suspicion - Hgb stable, electrolytes wnl; CBC, BMP QAM CHAIM - Cr: 1.46, eGFR: 64.3 - Likely component of dehydration, re-evaluate tomorrow with BMP - Addition of 1L NS mIVF @ 80ml/hr HTN - Lisinopril 10mg, HCTZ 12.5mg - Monitor BP and BMP Chronic problems: Vascular dementia: Continue Donepezil 10mg, Divaproex 250mg, Quetiapine 25mg Depression/anxiety: Continue Escitalopram 10mg History of Present Illness Chief Complaint: Chest pain Primary Care Provider: DO Rossy Santo is a 84 y/o M with a past medical history of trifascicular block, BPH, HTN, BPPV, dementia, cognitive decline, auditory and visual hallucinations arriving to the [facility] ED due to chest pain. Patient reports that this new chest pain feels pleuritic in nature and has noticed it present when taking deep breaths and wakes with the pain in the morning. Patient reports that this feels more like irritation and it is located at the level of his xiphoid. Patient denies radiation of pain to his arms, neck, or jaw and reports that the pain does not feel heavy or sharp, but more like discomfort that quickly resolves after he rises. The pain does not worsen at rest or during exertion and patient feels that his pain does not last more than a few minutes but does endorse that his memory is poor and is not sure of the exact timeline of his symptoms. The patient does endorse that he has had similar upper epigastric pain over the past few weeks and when describing this pain he points just under the region where he was experiencing his chest discomfort. Patient says this abdominal discomfort typically resolves when he takes his stomach pills but is unable to provide the name of this medication. Patient denies SOB, cough, wheeze, chest palpitations, headaches, fevers, chills or recent illnesses. Patient does endorse that he has chronic sinusitis symptoms but feels that this is not contributing to his current chest discomfort. Since being in the ED patient has reported that his chest symptoms, pleuritic chest discomfort and abdominal pain have resolved. He reports feeling fine at the time of examination, but is amenable to further work-up and admission to evaluate his heart. Allergies Allergy/AdvReac Type Severity Reaction Status Date / Time No Known Allergies Allergy Unknown Verified 03/19/25 13:41 Home Medications Medication Instructions Recorded Confirmed Type aspirin 81 mg tablet,delayed 81 mg PO DAILY 02/09/24 03/19/25 History release diclofenac sodium 50 mg 50 mg PO Q8H PRN Pain 08/17/24 03/19/25 History tablet,delayed release escitalopram oxalate 10 mg tablet 10 mg PO DAILY 08/17/24 03/19/25 History lisinopril 10 mg tablet 10 mg PO DAILY 08/17/24 03/19/25 History meclizine 25 mg tablet 25 mg PO Q8H PRN Nausea And 08/17/24 03/19/25 History Vomiting quetiapine 25 mg tablet 25 mg PO HS #0 tabs 08/30/24 03/19/25 Rx acetaminophen 325 mg tablet 650 mg PO Q6H PRN Fever/Pain 03/19/25 03/19/25 History bisacodyl 10 mg rectal suppository 10 mg DE DAILY PRN Constipation 03/19/25 03/19/25 History (Dulcolax (bisacodyl)) divalproex 250 mg tablet,delayed 250 mg PO Q12H 03/19/25 03/19/25 History release donepezil 10 mg tablet 10 mg PO HS 03/19/25 03/19/25 History hydrochlorothiazide 12.5 mg tablet 12.5 mg PO DAILY 03/19/25 03/19/25 History magnesium hydroxide 400 mg/5 mL 2,400 mg PO DAILY PRN Constipation 03/19/25 03/19/25 History oral suspension (Milk of Magnesia) prazosin 1 mg capsule 1 mg PO HS 03/19/25 03/19/25 History sodium phosphates 19 gram-7 118 ml DE DAILY PRN Constipation 03/19/25 03/19/25 History gram/118 mL enema (Fleet Enema) thiamine HCl (vitamin B1) 100 mg 200 mg PO DAILY 03/19/25 03/19/25 History tablet famotidine 20 mg tablet (Pepcid) 20 mg PO BID #30 tabs 03/21/25 Rx Past Med/Surg History Problem List (Updated 03/20/25 @ 17:[address] MD) Epigastric abdominal pain Paroxysmal SVT (supraventricular tachycardia) Elevated troponin Chest pain (Acute) No significant past surgical history Trifascicular block SOB (shortness of breath) (Acute) Stomach problems (Chronic) Medical History Thiamine deficiency Vascular dementia Cannabis abuse Lack of social support Dementia Bradycardia Aortic stenosis HTN (hypertension) Social History Smoking Status: Never smoker Tobacco Type: Cigarettes Hx Alcohol Use: No Hx Substance Use: Yes Substance Use Type Other:: unsure if pt. still uses Preferred Language: Andorran Communication Ability: Effective Vehicle Care Specialist Required: No Beliefs That Will Affect Care: None Current Living Situation: Skilled Nursing Current Living Situation Comment: [facility] Feels Safe at Home: Yes Assistive Devices: None Physical Exam Physical Exam: General: patient resting comfortably, NAD, non-toxic in appearance, answers questions appropriately. Skin: warm, dry, intact HEENT: NC/AT, anicteric sclera, conjunctiva without injection, moist mucus membranes. Heart: +S1/S2, regular, no m/r/g Lungs: equal air entry bilaterally, no rales/rhonchi/wheezes Abd: +BS, soft, NT/ND Ext: warm, no clubbing/cyanosis or edema Neuro: nonfocal, speech intact, no facial droop, moving all extremities. Results & Data Results & Data Vital Signs (Past 12 Hours) Vital Signs Temp Pulse Pulse Resp BP BP Pulse Ox 03/19/25 17:25 36.3 C L 46 L 18 169/78 H 97 03/19/25 17:00 155/70 H 03/19/25 17:00 155/70 H 03/19/25 16:51 40 L 14 03/19/25 16:47 44 L 13 97 03/19/25 16:42 43 L 18 98 03/19/25 16:36 39 L 03/19/25 16:30 156/60 H 03/19/25 15:15 44 L 20 97 03/19/25 15:01 152/69 H 03/19/25 15:01 152/69 H 03/19/25 15:01 152/69 H 03/19/25 15:00 42 L 12 96 03/19/25 15:00 44 L 16 152/69 H 96 03/19/25 14:54 41 L 12 96 03/19/25 14:30 147/76 H 03/19/25 14:30 147/76 H 03/19/25 14:30 44 L 11 L 97 03/19/25 14:00 43 L 17 99 03/19/25 14:00 147/87 H 03/19/25 13:33 41 L 17 92 03/19/25 13:30 149/67 H 03/19/25 13:24 42 L 13 96 03/19/25 13:00 51 L 14 94 03/19/25 13:00 149/78 H 03/19/25 12:42 42 L 8 L 94 03/19/25 12:35 43 L 03/19/25 12:06 36.6 C 44 L 18 155/92 H 98 O2 Del Method 03/19/25 17:25 Room Air 03/19/25 17:00 03/19/25 17:00 03/19/25 16:51 03/19/25 16:47 Room Air 03/19/25 16:42 03/19/25 16:36 03/19/25 16:30 03/19/25 15:15 03/19/25 15:01 03/19/25 15:01 03/19/25 15:01 03/19/25 15:00 03/19/25 15:00 Room Air 03/19/25 14:54 03/19/25 14:30 03/19/25 14:30 03/19/25 14:30 03/19/25 14:00 Room Air 03/19/25 14:00 03/19/25 13:33 Room Air 03/19/25 13:30 03/19/25 13:24 Room Air 03/19/25 13:00 Room Air 03/19/25 13:00 03/19/25 12:42 Room Air 03/19/25 12:35 03/19/25 12:06 Room Air Code Status & VTE Plan VTE Prophylaxis Plan VTE Prophylaxis will be ordered: Yes Supervising Physician Co-Signing Physician Notes Resident Physician Supervision Note: I personally examined the patient and verified all greco points of history and exam, discussed case, and agree with decision making with Dr. Islas I discussed the case with the resident and agree with the findings and plan as documented in the note. Patient admitted for pleuritic chest pain. History does not point towards pulmonary emboli at all, no tachycardia, no hypo abhinav. Pain occurs when he awakes in AM. will trend troponin, but likely demand ischemia. Resident Activity Tracking Resident Involvement: Resident Care Provided Care Provided: Adult Hospital Medicine
[2025-03-19] MEDS: DONEPEZIL HCL 10 MG TAB PO SCH (19:42)
[2025-03-19] MEDS: DIVALPROEX DELAY RELEASE 250 MG TABEC PO SCH (19:42)
[2025-03-19] MEDS: SODIUM CHLORIDE 0.9% 1,000 ML IV SCH (19:43)
--- NOTE | 2025-03-19 22:03 | Electrocardiogram Report ---
Test Reason : Blood Pressure : */* mmHG Vent. Rate : 43 BPM Atrial Rate : 43 BPM P-R Int : 248 ms QRS Dur : 134 ms QT Int : 472 ms P-R-T Axes : * -59 -32 degrees QTcB Int : 398 ms Marked sinus bradycardia with 1st degree A-V block Left axis deviation Non-specific intra-ventricular conduction block Minimal voltage criteria for LVH, may be normal variant ( Jay product ) Cannot rule out Anteroseptal infarct , age undetermined Abnormal ECG When compared with ECG of 27-Aug-2024 05:10, Minimal criteria for Anteroseptal infarct are now Present Confirmed by Daren Velasquez ([id number]) on 03/19/2025 10:03:15 PM Referred By: Confirmed By: Daren Velasquez
[2025-03-19] MEDS: HEPARIN SOD 5,000 UNIT/0.5 ML VIAL SQ SCH (22:53)
--- NOTE | 2025-03-20 00:26 | Ultrasound Report ---
Exam(s): US VENOUS BILATERAL LOWER EXTREMITIES EXAM: US Duplex Bilateral Lower Extremities Veins CLINICAL HISTORY: Bilateral thigh Pain of 2 wks w/out evident trauma. TECHNIQUE: Real-time duplex ultrasound scan of the bilateral lower extremity veins integrating B-mode two-dimensional vascular structure, Doppler spectral analysis, color flow Doppler imaging and compression. COMPARISON: No relevant prior studies available. FINDINGS: Right deep veins: Unremarkable. No Deep vein thrombosis in the right common femoral, femoral, proximal deep femoral or popliteal veins. The veins demonstrate normal color flow, are normally compressible, with normal phasic flow and/or augmentation response. Right superficial veins: Unremarkable. No thrombus in the visualized right great saphenous vein. Left deep veins: Unremarkable. No Deep vein thrombosis in the left common femoral, femoral, proximal deep femoral or popliteal veins. The veins demonstrate normal color flow, are normally compressible, with normal phasic flow and/or augmentation response. Left superficial veins: Unremarkable. No thrombus in the visualized left great saphenous vein. Soft tissues: No acute findings. No popliteal cyst. IMPRESSION: No deep vein thrombosis of either lower extremity. Electronically signed by: Ira Dasilva MD 03/20/25 00:25 AM
[2025-03-20] MEDS: hydroCHLOROthiazide 25 MG TAB PO SCH (08:14)
[2025-03-20] MEDS: ESCITALOPRAM OXALATE 10 MG TAB PO SCH (08:14)
[2025-03-20 08:33] LABS: Hematocrit (blood only) 43.9 % (42.0-52.0); Hemoglobin 14.5 g/dl (14.0-18.0); Immature Granulocytes # (auto) 0.02 K/uL (0.01-0.20); Immature Granulocytes % (auto) 0.3 %; Mean Corpuscular Hemoglobin 31.2 pg (25.0-34.0); Mean Corpuscular Volume 94.4 fL (80.0-100.0); Platelet Count 209 K/uL (130-400); RDW Standard Deviation 46.7 fL (36.4-46.3); Red Blood Count 4.65 M/uL (4.70-6.10); White Blood Count 6.49 K/ul (4.8-10.8)
[2025-03-20 08:49] LABS: Anion Gap 3.0 (3-11); Blood Urea Nitrogen 18.0 mg/dl (6-23); Calcium 8.9 mg/dl (8.6-10.3); Carbon Dioxide 30.0 mmol/L (21-32); Chloride 107.0 mmol/L (98-107); Creatinine Clr Calc Pharmacy 52.5 ml/min; Glucose 78.0 mg/dl (70-99(Fasting)); Potassium 4.4 mmol/L (3.5-5.1); Sodium 140.0 mmol/L (136-145)
[2025-03-20] MEDS ORDERED: FAMOTIDINE 20 MG TAB PO PRN (11:45)
--- NOTE | 2025-03-20 12:16 | Hospitalist Progress Note ---
Date of Service March 20, 2025 Assessment & Plan (1) Chest pain: (2) Trifascicular block: (3) Dementia: (4) Bradycardia: (5) Aortic stenosis: (6) Vascular dementia: (7) Thiamine deficiency: Plan Pleuritic Chest Pain/Bradycardia/Aortic stenosis - Chest irritation predominantly in morning for past 3 days, not worsened by exertion/rest, no radiation of pain - EKG in ED: sinus bradycardia with 1st degree AV block - TTE 2023: EF: 60-65% Mild aortic stenosis, mild aortic regurg, mild tricuspid regurg. no wall motion abnormalities - High sensitivity troponin ordered: 26.7 -> peak: 30.8 - Etiology of elevated troponin could be demand ischemia vs NSTEMI, however symptoms also consistent with milder diagnosis such as GERD - Consider PE/DVT, however patient does not report SOB, tachypnea, and is bradycardic with regards to 1st degree AV block/aortic stenosis. No leg edema, pain, or erythema. D-dimer: 960, CXR: no acute abnormalities - BL thigh pain overnight no hx of trauma, dopplers ordered and wnl, low clinical suspicion for PE - TTE ordered, cardio consulted, appreciate recs - Hgb stable, electrolytes wnl; CBC, BMP QAM CHAIM - Cr: 1.46, eGFR: 64.3 - Likely component of dehydration, re-evaluate tomorrow with BMP - Addition of 1L NS mIVF @ 80ml/hr - resolved with fluids, Cr: 1.24 HTN - Lisinopril 10mg, HCTZ 12.5mg - Monitor BP and BMP Chronic problems: Vascular dementia: Continue Donepezil 10mg, Divaproex 250mg, Quetiapine 25mg Depression/anxiety: Continue Escitalopram 10mg Admission and Anticipated Discharge Date Admission Date: March 19, 2025 Supervising Physician Co-Signing Physician Notes Resident Physician Supervision Note: I personally examined the patient and verified all greco points of history and exam, discussed case, and agree with decision making with Dr. Islas I discussed the case with the resident and agree with the findings and plan as documented in the note. Patient admitted for pleuritic chest pain. History does not point towards pulmonary emboli at all, no tachycardia, no hypoxia. Pain occurs when he awakes in AM. will trend troponin, but likely demand ischemia. U/S doppler of lower extremity negative. Patient with CHAIM, improved with fluids Subjective Patient reports feeling well this AM without return of his pleuritic chest pain. Patient does report some BL thigh pain overnight that has also resolved. Patient reports feeling back to his baseline. Patient remains afebrile and hemodynamically stable. Physical Exam Physical Exam: General: patient resting comfortably, NAD, non-toxic in appearance, answers questions appropriately. Skin: warm, dry, intact HEENT: NC/AT, anicteric sclera, conjunctiva without injection, moist mucus membranes. Heart: +S1/S2, regular, no m/r/g Lungs: equal air entry bilaterally, no rales/rhonchi/wheezes Abd: +BS, soft, NT/ND Ext: warm, no clubbing/cyanosis or edema Neuro: nonfocal, speech intact, no facial droop, moving all extremities. Results & Data Results & Data Vital Signs (Past 12 Hours) Vital Signs Temp Pulse Pulse Resp BP Pulse Ox O2 Del Method 03/20/25 11:28 36.4 C L 43 L 20 163/64 H 95 Room Air 03/20/25 08:14 36.6 C 43 L 20 162/78 H 96 Room Air 03/20/25 07:33 39 L 03/20/25 02:26 36.5 C 67 16 162/89 H 96 Room Air Resident Activity Tracking Resident Involvement: Resident Care Provided Care Provided: Adult Hospital Medicine
--- NOTE | 2025-03-20 13:08 | XCELERA ---
[id number]
--- NOTE | 2025-03-20 13:08 | Cardiology Consultation ---
Date of Consultation March 20, 2025 Assessment & Plan (1) Elevated troponin: (2) Bradycardia: (3) Paroxysmal SVT (supraventricular tachycardia): (4) Aortic stenosis: (5) Epigastric abdominal pain: (6) HTN (hypertension): Plan ASSESSMENT/PLAN: 1. Elevated troponin: Only slightly elevated. Poor historian but history provided today symptoms seem to be more epigastric/right upper quadrant abdominal pain. Would not pursue ischemic evaluation at this time as it would also be difficult given his significant dementia and bradycardia. Also, unless evidence of acute coronary syndrome, cardiac catheterization could be challenging given his dementia. No other reported symptoms to suggest acute coronary syndrome. 2. Epigastric/right upper quadrant pain: States that symptoms worsen with food, but once again poor historian. He reported tenderness on exam. Suggest con sideration for GI etiology of his symptoms and defer to primary hospitalist service. 3. Aortic stenosis: Nonsevere. Can be monitored in the outpatient setting, if applicable. 4. Dilated aortic root: Only mildly dilated. Avoid strenuous lifting for which the Valsalva maneuver is required. If applicable, annual surveillance could be performed, however he is not an optimal surgical candidate given his advanced dementia, and surveillance will be performed to evaluate for surgical indication. 5. Bradycardia: Consider weaning off of donepezil, which can cause bradycardia. Otherwise, he does not appear to be symptomatic from the bradycardia. There are episodes where heart rate remains in sinus but increases, suggesting appropriate chronotropic response. No obvious indication for pacemaker at this time. 6. SVT: Sustained episodes of SVT on 03/20/2025 on telemetry, during very bell neck hammerer hours. Would not treat, especially in the setting of otherwise sinus bradycardia. No obvious/known symptoms. 7. Hypertension: Blood pressure has been elevated. Chronically on JOANNE inhibitor and HCTZ. Consider further adjustment to antihypertensive regimen but will defer to primary hospitalist service. 8. Disposition: Please call with any further questions or concerns. Patient care discussed with Dr. Islas of the primary hospitalist service. Today's visit was 50 minutes in duration, which includes [id number]-og-[id number] time, counseling patient, coordinating care, reviewing records, and completing documentation. Thank you for allowing me to participate in the care of your patient. Please call for any other questions or concerns. Sincerely, Hau St M.D. History of Present Illness Reason for Consultation: chest pain Requesting Physician: Dr. Islas Attending Physician: Alfonzo Calderon History of Present Illness Mr. Lagunas is a pleasant 84-year-old gentleman with history significant for dementia, hypertension and aortic stenosis. He formally has been seen in the hospital setting by Dr. Colon on 08/27/2024. He was hospitalized on 03/19/2025 with chest pain. He is a very poor historian. He admits during conversation that he has "Alzheimer's" and has severe memory issues. When first asked how he is doing, he states that "some things coming down." He pointed to his nose. When asked about chest pain, he stated that he had pain and pointed to his epigastric and right upper quadrant area. He recalls having that on the day of presentation and the next day he felt tired. He states that he took "gas pills" and felt better. Symptoms are worse with eating and do not change with ambulation. He reports diarrhea but no bleeding such as melena or hematochezia. He states that he has had fevers while here, however his temperature has not b een elevated here. He recalls an episode of dizziness where the room was spinning last week. Unfortunately, his history was very scattered and did not seem consistent. Review of systems: As above and otherwise unobtainable due to patient's poor memory. Family history: Noncontributory. Social history: Quit smoking and alcohol years ago. Lives alone (he says at home but at [facility] per records and Dr. Islas). . No children. States he has no family. Allergies Allergy/AdvReac Type Severity Reaction Status Date / Time No Known Allergies Allergy Unknown Verified 03/19/25 13:41 Home Medications Medication Instructions Recorded Confirmed Type aspirin 81 mg tablet,delayed 81 mg PO DAILY 02/09/24 03/19/25 History release diclofenac sodium 50 mg 50 mg PO Q8H PRN Pain 08/17/24 03/19/25 History tablet,delayed release escitalopram oxalate 10 mg tablet 10 mg PO DAILY 08/17/24 03/19/25 History lisinopril 10 mg tablet 10 mg PO DAILY 08/17/24 03/19/25 History meclizine 25 mg tablet 25 mg PO Q8H PRN Nausea And 08/17/24 03/19/25 History Vomiting quetiapine 25 mg tablet 25 mg PO HS #0 tabs 08/30/24 03/19/25 Rx acetaminophen 325 mg tablet 650 mg PO Q6H PRN Fever/Pain 03/19/25 03/19/25 History bisacodyl 10 mg rectal suppository 10 mg WA DAILY PRN Constipation 03/19/25 03/19/25 History (Dulcolax (bisacodyl)) divalproex 250 mg tablet,delayed 250 mg PO Q12H 03/19/25 03/19/25 History release donepezil 10 mg tablet 10 mg PO HS 03/19/25 03/19/25 History hydrochlorothiazide 12.5 mg tablet 12.5 mg PO DAILY 03/19/25 03/19/25 History magnesium hydroxide 400 mg/5 mL 2,400 mg PO DAILY PRN Constipation 03/19/25 03/19/25 History oral suspension (Milk of Magnesia) prazosin 1 mg capsule 1 mg PO HS 03/19/25 03/19/25 History sodium phosphates 19 gram-7 118 ml WA DAILY PRN Constipation 03/19/25 03/19/25 History gram/118 mL enema (Fleet Enema) thiamine HCl (vitamin B1) 100 mg 200 mg PO DAILY 03/19/25 03/19/25 History tablet Patient History Medical History Thiamine deficiency Vascular dementia Cannabis abuse Lack of social support Dementia Bradycardia Aortic stenosis HTN (hypertension) Social History Smoking Status: Never smoker Tobacco Type: Cigarettes Hx Alcohol Use: No Hx Substance Use: Yes Substance Use Type Other:: unsure if pt. still uses Preferred Language: Kyrgyz Communication Ability: Effective Typewriter Ribbon Winder Required: No Beliefs That Will Affect Care: None Current Living Situation: [facility] Current Living Situation Comment: [facility] Other Information That Helps Us Care for You: No Feels Safe at Home: Yes Safety Concerns: Feels Safe At This Time Assistive Devices: None Physical Exam Physical Exam: Gen.: No acute distress. Alert and oriented only to self. HEENT: Anicteric sclera. Neck: No JVD. Bilateral bruits vs radiation of cardiac murmur. Normal carotid upstrokes bilaterally. Cardiac: Regular but bradycardic. Normal S1-S2. 2/6 mid peaking systolic ejection murmur heard best at right upper sternal border. No rubs or gallops. Pulmonary: Clear to auscultation bilaterally without wheezes, rales, or rhonchi. Abdomen: Soft, nondistended, with normoactive bowel sounds. No bruits noted. Right upper quadrant and epigastric tenderness. Extremities: 2+ radial pulses bilaterally. 1+ posterior tibialis pulses bilaterally. No edema or cyanosis. Results & Data Vital Signs (Past 12 Hours) Vital Signs Temp Pulse Pulse Resp BP Pulse Ox O2 Del Method 03/20/25 11:28 36.4 C L 43 L 20 163/64 H 95 Room Air 03/20/25 08:14 36.6 C 43 L 20 162/78 H 96 Room Air 03/20/25 07:33 39 L 03/20/25 02:26 36.5 C 67 16 162/89 H 96 Room Air Laboratory Results Laboratory Results - last 24 hr 03/19/25 03/19/25 03/20/25 19:15 Unknown 07:57 WBC 6.49 RBC 4.65 L Hgb 14.5 Hct 43.9 MCV 94.4 MCH 31.2 MCHC 33.0 RDW Std Deviation 46.7 H RDW Coeff of Beulah 13.4 Plt Count 209 MPV 9.2 L Immature Gran % (Auto) 0.3 Neut % (Auto) 65.1 Lymph % (Auto) 18.5 Towner % (Auto) 8.5 Eos % (Auto) 6.8 Baso % (Auto) 0.8 Neut # (Auto) 4.23 Lymph # (Auto) 1.20 Towner # (Auto) 0.55 Eos # (Auto) 0.44 Baso # (Auto) 0.05 Immature Gran # (Auto) 0.02 D-Dimer 960 H* Sodium 140 Potassium 4.4 Chloride 107 Carbon Dioxide 30 Anion Gap 3 BUN 18 Creatinine 1.24 Est Cr Clr Drug Dosing 52.5 eGFR 57.69 BUN/Creatinine Ratio 14.5 Glucose 78 Calcium 8.9 Troponin I High Sens 21.8 H Nasal Screen MRSA (PCR) Negative 03/20/25 09:39 WBC RBC Hgb Hct MCV MCH MCHC RDW Std Deviation RDW Coeff of Beulah Plt Count MPV Immature Gran % (Auto) Neut % (Auto) Lymph % (Auto) Towner % (Auto) Eos % (Auto) Baso % (Auto) Neut # (Auto) Lymph # (Auto) Towner # (Auto) Eos # (Auto) Baso # (Auto) Immature Gran # (Auto) D-Dimer Sodium Potassium Chloride Carbon Dioxide Anion Gap BUN Creatinine Est Cr Clr Drug Dosing eGFR BUN/Creatinine Ratio Glucose Calcium Troponin I High Sens 24.6 H Nasal Screen MRSA (PCR) Diagnostic Findings ECHO 03/20/25: 1. Normal left ventricular size and systolic function. EF 55-60%. No regional wall motion abnormalities. Moderate concentric left ventricular hypertrophy. 2. Mildly dilated right ventricle with grossly normal systolic function. 3. Mild right atrial dilation. 4. Mild to moderate aortic stenosis (transvalvular gradient suggests mild steno sis however dimensionless index suggest moderate. Visually, aortic valve appears more moderately stenotic). 5. Mildly dilated aortic root; 4.2 cm. 6. Mildly elevated right ventricular systolic pressure. 7. Technically difficult study, enhanced with IV Definity. 8. Compared to prior study on 10/01/2023, similar findings. ECGs personally reviewed: ECG 03/19/2025 at 1202: Sinus bradycardia with first-degree AV block 43 bpm. Nonspecific IVCB. Possible LVH. Nonspecific T wave abnormality. Labs reviewed and notable for minimally elevated high-sensitivity troponin, peaking at 30. Normal potassium, improved renal function compared to presentation, nonelevated transaminase levels, normal TSH, normal blood counts. History and physical report reviewed. Venous Doppler 03/19/2025: No DVT bilateral lower extremities. Chest x-ray 03/19/2025: No acute cardiopulmonary findings per radiology. Telemetry personally reviewed: Sinus bradycardia mostly in the 40s. There were episodes of abrupt tachycardia in the 120s to 130s which appeared to be SVT on telemetry. Episodes were sustained for several minutes, occurring at 3:01 AM, 3:13 AM, and 3:21 AM on 03/20/2025. Medications Administered Current Inpatient Medications Divalproex Sodium (Divalproex Delay Release 250 Mg Tabec) 250 mg PO Q12H ARASELI Stop: 04/18/25 18:32 Last Admin: 03/20/25 05:41 Dose: 250 mg Donepezil HCl (Donepezil Hcl 10 Mg Tab) 10 mg PO HS ARASELI Stop: 04/18/25 20:59 Last Admin: 03/19/25 19:42 Dose: 10 mg Escitalopram Oxalate (Escitalopram Oxalate 10 Mg Tab) 10 mg PO DAILY ARASELI Stop: 04/19/25 08:59 Last Admin: 03/20/25 08:14 Dose: 10 mg Famotidine (Famotidine 20 Mg Tab) 20 mg PO BID PRN PRN Reason: Dyspepsia Stop: 04/19/25 11:44 Heparin Sodium (Porcine) (Heparin Sod 5,000 Unit/0.5 Ml Vial) 5,000 units SQ Q12 ARASELI Stop: 04/18/25 20:59 Last Admin: 03/20/25 08:13 Dose: 5,000 units Hydrochlorothiazide (Hydrochlorothiazide 25 Mg Tab) 12.5 mg PO DAILY ARASELI Stop: 04/19/25 08:59 Last Admin: 03/20/25 08:14 Dose: 12.5 mg Sodium Chloride (Nss) 1,000 mls @ 80 mls/hr IV .[id number] ARASELI Stop: 03/22/25 19:29 Last Admin: 03/20/25 08:17 Dose: 80 mls/hr Lisinopril (Lisinopril 10 Mg Tab) 10 mg PO DAILY ARASELI Stop: 04/19/25 08:59 Last Admin: 03/20/25 08:14 Dose: 10 mg Quetiapine Fumarate (Quetiapine Fumarate 25 Mg Tablet) 25 mg PO HS [facility] Stop: 04/18/25 20:59 Last Admin: 03/19/25 19:43 Dose: 25 mg PG Care Time/CCT Total # of Minutes Spent Total Time Spent with Patient: Total time spent is greater than 50% in coordination of care (as documented) at patient's floor/unit and/or counseling patient: Coding Level of Care Code 47467 INT INP/OBS CARE 3/75MIN Diagnoses Elevated troponin R79.89 Bradycardia R00.1 Paroxysmal SVT (supraventricular tachycardia) I47.10 Aortic stenosis I35.0 Epigastric abdominal pain R10.13 HTN (hypertension) I10
[2025-03-20] MEDS: ACETAMINOPHEN 500 MG TAB PO PRN (16:58)
[2025-03-20] MEDS: MELATONIN 3 MG TAB PO PRN (21:01)
[2025-03-21 07:52] LABS: Anion Gap 5.0 (3-11); Blood Urea Nitrogen 23.0 mg/dl (6-23); Calcium 9.1 mg/dl (8.6-10.3); Carbon Dioxide 29.0 mmol/L (21-32); Chloride 105.0 mmol/L (98-107); Creatinine Clr Calc Pharmacy 56.1 ml/min; Glucose 77.0 mg/dl (70-99(Fasting)); Potassium 4.1 mmol/L (3.5-5.1); Sodium 139.0 mmol/L (136-145)
[2025-03-21 11:53] VITALS: BP 181/75; RESP 18; TEMP 97.5; O2SAT 96
--- NOTE | 2025-03-21 13:04 | Discharge Summary ---
Date of Service March 21, 2025 Admission HPI Per Admitting Provider Rossy Lagunas is a 84 y/o M with a past medical history of trifascicular block, BPH, HTN, BPPV, dementia, cognitive decline, auditory and visual hallucinations arriving to the [facility] ED due to chest pain. Patient reports that this new chest pain feels pleuritic in nature and has noticed it present when taking deep breaths and wakes with the pain in the morning. Patient reports that this feels more like irritation and it is located at the level of his xiphoid. Patient denies radiation of pain to his arms, neck, or jaw and reports that the pain does not feel heavy or sharp, but more like discomfort that quickly resolves after he rises. The pain does not worsen at rest or during exertion and patient feels that his pain does not last more than a few minutes but does endorse that his memory is poor and is not sure of the exact timeline of his symptoms. The patient does endorse that he has had similar upper epigastric pain over the past few weeks and when describing this pain he points just under the region where he was experiencing his chest discomfort. Patient says this abdominal discomfort typically resolves when he takes his stomach pills but is unable to provide the name of this medication. Patient denies SOB, cough, wheeze, chest palpitations, headaches, fevers, chills or recent illnesses. Patient does endorse that he has chronic sinusitis symptoms but feels that this is not contributing to his cur rent chest discomfort. Since being in the ED patient has reported that his chest symptoms, pleuritic chest discomfort and abdominal pain have resolved. He reports feeling fine at the time of examination, but is amenable to further work-up and admission to evaluate his heart. Admission Exam Per Admitting Provider General: patient resting comfortably, NAD, non-toxic in appearance, answers questions appropriately. Skin: warm, dry, intact HEENT: NC/AT, anicteric sclera, conjunctiva without injection, moist mucus membranes. Heart: +S1/S2, regular, no m/r/g Lungs: equal air entry bilaterally, no rales/rhonchi/wheezes Abd: +BS, soft, NT/ND Ext: warm, no clubbing/cyanosis or edema Neuro: nonfocal, speech intact, no facial droop, moving all extremities. Principal Diagnosis Chest pain Discharge Exam General: patient resting comfortably, NAD, non-toxic in appearance, answers questions appropriately. Skin: warm, dry, intact HEENT: NC/AT, anicteric sclera, conjunctiva without injection, moist mucus membranes. Heart: +S1/S2, regular, no m/r/g Lungs: equal air entry bilaterally, no rales/rhonchi/wheezes Abd: +BS, soft, NT/ND Ext: warm, no clubbing/cyanosis or edema Neuro: nonfocal, speech intact, no facial droop, moving all extremities. Discharge Data Allergies Allergy/AdvReac Type Severity Reaction Status Date / Time No Known Allergies Allergy Unknown Verified 03/19/25 13:41 Consultations 03/19/25 13:19 ED Decision to Admit Stat 03/19/25 18:33 Consult Cardiology Routine Ordered Studies 03/19/25 21:29 US venous doppler [facility] Urgent Hospital Course (1) Chest pain: (2) Trifascicular block: (3) Dementia: (4) Bradycardia: (5) Aortic stenosis: (6) Vascular dementia: (7) Thiamine deficiency: Plan Pleuritic Chest Pain/Bradycardia/Aortic stenosis - Chest irritation predominantly in morning for past 3 days, not worsened by exertion/rest, no radiation of pain - EKG in ED: sinus bradycardia with 1st degree AV block - TTE 2023: EF: 60-65% Mild aortic stenosis, mild aortic regurg, mild tricuspid regurg. no wall motion abnormalities - High sensitivity troponin ordered: 26.7 -> peak: 30.8 - Etiology of elevated troponin could be demand ischemia vs NSTEMI, however symptoms also consistent with milder diagnosis such as GERD - Consider PE/DVT, however patient does not report SOB, tachypnea, and is bradycardic with regards to 1st degree AV block/aortic stenosis. No leg edema, pain, or erythema. D-dimer: 960, CXR: no acute abnormalities - BL thigh pain overnight no hx of trauma, dopplers ordered and wnl, low clinical suspicion for PE - TTE ordered, cardio consulted, appreciate recs - Hgb stable, electrolytes wnl; CBC, BMP QAM - Resolved; majority of pain seems to be epigastric but resolved, Pepcid 20mg as needed on d/c CHAIM - Cr: 1.46, eGFR: 64.3 - Likely component of dehydration, re-evaluate tomorrow with BMP - Addition of 1L NS mIVF @ 80ml/hr - resolved with fluids, Cr at baseline HTN - Continue Lisinopril 10mg, HCTZ 12.5mg Chronic problems: Vascular dementia: Continue Donepezil 10mg, Divaproex 250mg, Quetiapine 25mg Depression/anxiety: Continue Escitalopram 10mg Total Time Total Time Spent Total Time Spent (In Minutes): See attending attestation Discharge Plan Discharge Items Patient Disposition: Personal [facility] Reason For Visit: CHEST PAIN Discharge Diagnosis: Epigastric tenderness Condition on Discharge: Fair Activity: Per Instructions section Non-emergency contact: Primary Care Provider Call non-emergency contact if: your pain is not controlled Follow-up/Referrals: Connor Islas, [Primary Care Provider] - Diet: Heart Healthy and Low Sodium (2gm) Addtl Attending Provider Instructions: You were admitted to the hospital for chest pain/epigastric irritation. While in the ED and at the hospital, your chest pain quickly resolved. A test called an EKG was completed as well as troponin which are markers for cardiac damage. These were very slightly increased and because of this increase a new echocardiogram was completed to get a picture of your heart. This echocardiogram was largely unchanged from previous and your aortic stenosis and your heart pump function have remained largely stable. You do have slow heart rates in the high 30s and low 40s and do not have symptoms from this other than sometimes feeling fatigued. Because of this I recommend that you schedule and appointment with me, Dr. Islas your PCP and we can discuss changing or decreasing certain medications that can contribute to a slower HR, Donepezil is one of these medications but as this has kept your mentation decently stable I would be weary of making such a decrease right away. Nonetheless we can review your entire home regimen of medications and make replacements as necessary. Based on your description of your epigastric abdominal pain, I believe that some of this is related to reflux and a medication called Pepsid will be useful whenever you get abdominal discomfort. I will send this medication in your home medications so that you may use this as necessary at your assisted living facility. A discharge summary will be sent to your primary care physician to ensure continuity of care. Please bring this discharge summary with you to your next office appointment so that your provider can review it at that time. Follow-up appointments: Make a follow-up appointment with your PCP within the next week. It is very important that you follow up with them shortly after discharge from the hospital. Medications: Your medication list has been reviewed and reconciled upon discharge to ensure accuracy and continuity of care. An updated list of all your medications is included with your hospital discharge paperwork. Please review this list closely, and make note of any changes. Take your medications as instructed; do not skip a dose of your medicines. Make sure all of your doctors know every medicine you are taking (including [id number] medicines, vitamins, and supplements). Call your primary care provider before taking any new medicines (including [id number] medicines, vitamins, and supplements), because some of these may interact with your current medications, or may make your symptoms worse. Tell your primary care provider if you cannot afford your medications. CONTACT YOUR PRIMARY CARE PROVIDER if you experience any of the following: Difficulty following your treatment plan, or difficulty taking medications CALL 911 OR GO TO THE EMERGENCY DEPARTMENT if you experience any of the following: Sudden, severe abdominal pain or nausea/vomiting Severe chest pain, or chest pain that radiates (moves) to your jaw or arm Sudden, severe shortness of breath or difficulty breathing Thank you for allowing us to participate in your care. Pending Studies at Discharge: No Stand-Alone Forms: My [employer], Smoking Cessation Skilled Items Patient informed of condition?: Yes DNR: Yes Discharge Level of Care: Other Communicable Disease: No Discharge Prognosis: Stable Lines: None Urinary Catheter: No Medications and DC Order Prescriptions: New famotidine [Pepcid] 20 mg tablet 20 mg PO BID Qty: 30 0RF Rx Instructions: Can use BID, as needed for GI upset/dyspepsia Continued meclizine 25 mg tablet 25 mg PO Q8H PRN (Reason: Nausea And Vomiting) lisinopril 10 mg tablet 10 mg PO DAILY Rx Instructions: Hold for SBP less than 110 and pulse less than 60 diclofenac sodium 50 mg tablet,delayed release (DR/EC) 50 mg PO Q8H PRN (Reason: Pain) escitalopram oxalate 10 mg tablet 10 mg PO DAILY quetiapine 25 mg tablet 25 mg PO HS Qty: 0 0RF aspirin 81 mg Tablet,Delayed Release (Dr/Ec) 81 mg PO DAILY Rx Instructions: otc unable to verify acetaminophen 325 mg Tablet 650 mg PO Q6H PRN (Reason: Fever/Pain) divalproex 250 mg tablet,delayed release (DR/EC) 250 mg PO Q12H prazosin 1 mg capsule 1 mg PO HS donepezil 10 mg Tablet 10 mg PO HS thiamine HCl (vitamin B1) 100 mg Tablet 200 mg PO DAILY magnesium hydroxide [Milk of Magnesia] 400 mg/5 mL Suspension 2,400 mg PO DAILY PRN (Reason: Constipation) Rx Instructions: Give on the morning of the 3rd day of no BM bisacodyl [Dulcolax (bisacodyl)] 10 mg Suppository 10 mg WV DAILY PRN (Reason: Constipation) Rx Instructions: Give on day 3 of no BM Fleet Enema 19-7 gram/118 mL Enema 118 ml WV DAILY PRN (Reason: Constipation) Rx Instructions: Give on the morning of the 4th day of no BM hydrochlorothiazide 12.5 mg Tablet 12.5 mg PO DAILY Discharge Orders: Discharge Order (Routine); Ordered 03/21/25 Ordered By: Connor Islas Admission Data Admit Date/Time: 03/19/25 16:16 Attending Provider: Alfonzo Calderon Admit Provider: Connor Islas Primary Care Provider: Connor Islas Other Providers: Rich St Other Interventions: Discharge Summary Assessment (RN) Last Done: 03/21/25 15:09 Supervising Physician Co-Signing Physician Notes Resident Physician Supervision Note: I personally examined the patient and verified all greco points of history and exam, discussed case, and agree with decision making with Dr. Islas I discussed the case with the resident and agree with the findings and plan as documented in the note. Patient admitted for pleuritic chest pain. History does not point towards pulmonary emboli at all, no tachycardia, no hypoxia. No signs of AMS. likely demand ischemia. U/S doppler of lower extremity negative. Patient with CHAIM, improved with fluids will discharge to [facility] on pepcid as pain is likely gastritis/GERD Resident Activity Tracking Resident Involvement: Resident Care Provided Care Provided: Adult Hospital Medicine
[2025-03-21 14:57] VITALS: PULSE 43
--- NOTE | 2025-03-25 23:10 | Billing Data ---
Date of Service March 19, 2025 Coding Level of Care Code 09743 INT INP/OBS CARE
--- NOTE | 2025-03-25 23:12 | Billing Data ---
Date of Service March 20, 2025 Coding Level of Care Code 41227 SUB INP/OBS CARE MIN
--- NOTE | 2025-03-26 22:59 | Billing Data ---
Date of Service March 21, 2025 Coding Level of Care Code 70714 INP/OBS DISCH >30 MIN Time Spent (min) 35
== END 2025-03-21 16:37 | disposition home or self-care (01) ==
LOC: SUATTDRO → 2N 11:57 → ED 11:57 → 2N 17:39

== ENCOUNTER 2025-07-21 16:00 | Observation (INO) ==
--- NOTE | 2025-07-21 16:10 | Emergency Department Note ---
Impression & Plan Epigastric discomfort, Abnormal EKG, Sinus bradycardia ED Provider Note NAME: LI GALLAGHER AGE: 84 SEX: M : 1940 ARRIVES VIA: Ambulance INFORMANT: Patient, EMS ED PROVIDER(S): Priyank Jones DO CHIEF COMPLAINT: Chest pain HPI: The patient is an 84-year-old male who was presented to the emergency department for an evaluation of chest pain. The patient presented to the emergency department via ambulance. Apparently the patient was having some chest discomfort which was epigastric in nature. He states he has no discomfort at this time. He was noted to have high blood pressure as well as bradycardia by the nursing staff at his long term. He was sent to the emergency department for further evaluation. ROS: See above HPI for pertinent positives & negatives. A total of 10 systems reviewed and were otherwise negative. PAST MEDICAL HISTORY: See Below PAST SURGICAL HISTORY: See Below FAMILY HISTORY: See Below SOCIAL HISTORY: See Below HOME MEDICATIONS: See Below ALLERGIES: See Below VITALS: See Below PHYSICAL EXAMINATION: GENERAL: Patient is awake alert in no acute distress patient is resting comfortably and showing no signs of anxiety EYES: The conjunctivae are clear. The pupils are round and reactive. EARS, NOSE, MOUTH AND THROAT: The nose is without any evidence of any deformity. NECK: The neck is nontender and supple. RESPIRATORY: Normal respiratory effort is noted there is no evidence of wheezing rhonchi or rales CARDIOVASCULAR: Regular rate and rhythm noted there no murmurs rubs or gallops normal S1 normal S2. GASTROINTESTINAL: The abdomen is soft. Abdomen is nontender. MUSCULOSKELETAL/EXTREMITIES: There is no evidence of gross deformity full range of motion is noted in the hips and shoulders. SKIN: There is no obvious evidence of any rash. There are no petechiae, pallor or cyanosis noted. NEUROLOGIC: Patient is awake alert and oriented to person place and situation. Strength was symmetric. MEDICAL DECISION MAKING: The patient is an 84-year-old male who presented to the emergency department for an evaluation of bradycardia. The patient states that he started having epigastric discomfort. He was given aspirin reportedly at his personal-assisted. He was noted to have elevated blood pressure and bradycardia and the patient was sent to the emergency department. The patient at this time has no discomfort. I discussed the patient's laboratory and radiographic studies with him. I discussed the limitations of the emergency department workup for chest pain with him. Ultimately given the fact the patient had an abnormal EKG and the bradycardia I did feel he was a better candidate for inpatient management. This reason I discussed his condition with the on-call [facility] hospitalist. They have agreed to evaluate the patient in the emergency department for further management and disposition. Triage Nursing notes reviewed. Prior medical records reviewed Vital Signs: reviewed and remarkable for bradycardia. Differential diagnosis: Cardiac ischemia, aortic dissection, pulmonary embolism, pneumothorax, pneumonia, pericarditis, myocarditis, esophageal rupture, GERD, cholecystitis, pancreatitis, musculoskeletal, as well as other pathologies. ER treatment provided: See below Diagnostics interpreted by me: ECG: EKG was obtained in the emergency department. My interpretation is sinus bradycardia 43 bpm. First-degree AV block is also noted. There is no ectopy. Nonspecific T wave abnormalities were appreciated. Poor R wave progression was noted. LVH was suggested by voltage criteria. Cardiac Monitoring: An order was placed for continuous cardiac monitoring. The monitor shows a rate of 51 bpm with sinus bradycardia. Laboratory studies: As stated above and show below. Imaging studies: See below. Radiographic imaging was reviewed by myself Consultation(s): I discussed this case with Dr. Garcia who is on-call for the [facility] hospitalist group. I discussed this case with Dr. Antonio who is on-call for the [facility] cardiology group. Past Med/Surg History Problem List (Updated 07/21/25 @ 20:10 by Priyank Jones DO) Vascular dementia Aortic stenosis, mild Hypertension Chest pain Sinus bradycardia (Acute) Abnormal EKG (Acute) Epigastric discomfort (Acute) Social History Smoking Status: Never smoker Preferred Language: Palestinian Feels Safe at Home: Yes Allergies Allergies Allergy/AdvReac Type Severity Reaction Status Date / Time No Known Allergies Allergy Verified 07/21/25 17:51 Home Meds Home Medications Medication Instructions Recorded Confirmed Chlorohexidine 10 ml mucous membrane BID 07/21/25 07/21/25 acetaminophen 325 mg tablet 650 mg PO Q6H PRN PAIN/FEVER >99.9F 07/21/25 07/21/25 (Tylenol) aspirin 81 mg tablet,delayed 81 mg PO QAM 07/21/25 07/21/25 release diclofenac sodium 50 mg 50 mg PO Q8H PRN PAIN/IMMFLAMMATION 07/21/25 07/21/25 tablet,delayed release divalproex 250 mg tablet,delayed 250 mg PO Q12H 07/21/25 07/21/25 release doxycycline hyclate 100 mg tablet 100 mg PO BIDM 07/21/25 07/21/25 escitalopram oxalate 10 mg tablet 10 mg PO QAM 07/21/25 07/21/25 famotidine 20 mg tablet 20 mg PO Q12H PRN GI 07/21/25 07/21/25 UPSET/DYSPEPSIA lisinopril 5 mg tablet 5 mg PO QAM 07/21/25 07/21/25 meclizine 25 mg tablet 25 mg PO Q8H PRN BENIGN PAROXYSMAL 07/21/25 07/21/25 VERTIGO naproxen sodium 220 mg tablet 220 mg PO BIDM 07/21/25 07/21/25 prazosin 1 mg capsule 1 mg PO HS 07/21/25 07/21/25 quetiapine 25 mg tablet 25 mg PO HS 07/21/25 07/21/25 thiamine HCl (vitamin B1) 100 mg 200 mg PO DAILY 07/21/25 07/21/25 tablet (Vitamin B-1) Results & Data (ED) Vital Signs Vital Signs - 24 hr 07/21/25 16:05 07/21/25 16:17 07/21/25 16:53 Pulse Rate 61 44 L 41 L Pulse Rate [Apical] Respiratory Rate 14 Respiratory Effort / Characteristics Non-Labored Spontaneous Labored Respiratory Depth Normal Respiratory Pattern Blood Pressure 182/78 H Blood Pressure [Left Arm] Blood Pressure Mean 112 Blood Pressure Mean [Left Arm] Blood Pressure Position Sitting Blood Pressure Position [Left Arm] Pulse Oximetry 96 Oxygen Delivery Method Room Air Sepsis Recent Fever Within 48 Hours No Sepsis New/Unexplained Change in Mental Status N/A Sepsis Action Taken by Nursing No Action Required 07/21/25 17:51 07/21/25 19:00 07/21/25 19:38 Pulse Rate Pulse Rate [Apical] 40 L 42 L 51 L Respiratory Rate 9 L 10 L Respiratory Effort / Characteristics Non-Labored Spontaneous Spontaneous Respiratory Depth Respiratory Pattern Regular Regular Blood Pressure Blood Pressure [Left Arm] 182/78 H 190/84 H 198/89 H Blood Pressure Mean Blood Pressure Mean [Left Arm] 112 119 125 Blood Pressure Position Blood Pressure Position [Left Arm] Lying Lying Lying Pulse Oximetry 98 97 98 Oxygen Delivery Method Room Air Room Air Room Air Sepsis Recent Fever Within 48 Hours Sepsis New/Unexplained Change in Mental Status Sepsis Action Taken by [facility] Medications Current Medication List: was personally reviewed by me Laboratory Data Attestation: I reviewed the patient's lab results. 07/21/25 16:41 07/21/25 16:41 Lab Results 07/21/25 Range/Units 16:41 WBC 7.42 (4.8-10.8) K/ul RBC 4.48 L (4.70-6.10) M/uL Hgb 14.3 (14.0-18.0) g/dL Hct 42.3 (42.0-52.0) % MCV 94.4 (80.0-100.0) fL MCH 31.9 (25.0-34.0) pg MCHC 33.8 (32.0-36.0) g/dL RDW Std Deviation 44.2 (36.4-46.3) fL RDW Coeff of Beulah 12.8 (11.5-14.5) % Plt Count 256 (130-400) K/uL MPV 9.2 L (9.4-12.4) fL Immature Gran % (Auto) 0.4 % Neut % (Auto) 64.1 % Lymph % (Auto) 18.5 % [facility] % (Auto) 9.6 % Eos % (Auto) 6.7 % Baso % (Auto) 0.7 % Neut # (Auto) 4.76 (1.40-6.50) K/uL Lymph # (Auto) 1.37 (1.20-3.40) K/uL [facility] # (Auto) 0.71 H (0.11-0.59) K/uL Eos # (Auto) 0.50 (0.00-0.50) K/uL Baso # (Auto) 0.05 (0.00-0.20) K/uL Immature Gran # (Auto) 0.03 (0.01-0.20) K/uL Sodium 138 (136-145) mmol/L Potassium 4.4 (3.5-5.1) mmol/L Chloride 105 (98-107) mmol/L Carbon Dioxide 28 (21-32) mmol/L Anion Gap 5 (3-11) BUN 26 H (6-23) mg/dl Creatinine 1.05 (0.6-1.4) mg/dl Est Cr Clr Drug Dosing Not Reportable eGFR 70.43 BUN/Creatinine Ratio 24.8 H (10-20) Glucose 84 (70-99(Fasting)) mg/dl Calcium 9.0 (8.6-10.3) mg/dl Magnesium 2.0 (1.7-2.4) mg/dl Total Bilirubin 0.3 (0.2-1.0) mg/dl AST 11 L (13-39) U/L ALT 5 L (7-52) U/L Alkaline Phosphatase 80 (34-104) U/L Troponin I High Sens 9.1 (0-20) pg/ml Total Protein 6.9 (6.0-8.3) gm/dl Albumin 3.9 (3.4-5.0) gm/dl Globulin 3.0 (2.5-4.0) gm/dl Albumin/Globulin Ratio 1.3 (0.9-2) TSH 2.489 (0.300-4.500) uIu/ml Administered Medications Nitroglycerin (Nitroglycerin 2% Ointment 30gm Tube) 0.5 inch EXT Q6H ARASELI Stop: 08/20/25 18:29 Last Admin: 07/21/25 19:40 Dose: 0.5 inch Documented By: [facility] [place] [facility] Data Attestation: I personally reviewed and interpreted this imaging study as follows: My Impression: 1 view chest x-ray was obtained in the emergency department. My interpretation is no free air or definite infiltrate, final report below. Radiologist's Impression: Chest X-Ray 07/21/25 16:08 Chest radiograph, one view History: Dysrhythmia. Comparison: None. Findings: Prominent thoracic aortic arch. Cardiomediastinal silhouette is otherwise within normal limits. Pulmonary vasculature is within normal limits. Lungs are clear. Pleural spaces are within normal limits. Impression: Stable exam with no findings to indicate source of patient's symptoms. Electronically signed by Hector Mays 07-21-2025 5:25 PM Discharge Plan Visit Data Chief Complaint: Bradycardia Stated Complaint: BRADYCARDIA ED Provider: Priyank Jones Discharge Problem: Epigastric discomfort, Abnormal EKG, Sinus bradycardia Patient Disposition: Being Evaluated by Hospitalist Condition: Fair Forms Stand Alone Forms: My [facility] Prescriptions Prescriptions: No Action quetiapine 25 mg tablet 25 mg PO HS acetaminophen [Tylenol] 325 mg Tablet 650 mg PO Q6H PRN (Reason: PAIN/FEVER >99.9F) divalproex 250 mg tablet,delayed release (DR/EC) 250 mg PO Q12H prazosin 1 mg capsule 1 mg PO HS thiamine HCl (vitamin B1) [Vitamin B-1] 100 mg Tablet 200 mg PO DAILY aspirin 81 mg tablet,delayed release (DR/EC) 81 mg PO QAM famotidine 20 mg Tablet 20 mg PO Q12H PRN (Reason: GI UPSET/DYSPEPSIA) meclizine 25 mg Tablet 25 mg PO Q8H PRN (Reason: BENIGN PAROXYSMAL VERTIGO) naproxen sodium 220 mg Tablet 220 mg PO BIDM Rx Instructions: STARTED 07/15/25 FOR 7 DAYS lisinopril 5 mg tablet 5 mg PO QAM diclofenac sodium 50 mg Tablet,Delayed Release (Dr/Ec) 50 mg PO Q8H PRN (Reason: PAIN/IMMFLAMMATION) doxycycline hyclate 100 mg Tablet 100 mg PO BIDM Rx Instructions: STARTED 07/18/25 FOR 10 DAYS escitalopram oxalate 10 mg tablet 10 mg PO QAM Chlorohexidine 10 ml mucous membrane BID Rx Instructions: STARTED 07/20/25 FOR 10 DAYS------[facility] Referrals Referrals: Earnest Singer [Primary Care Provider] -
[2025-07-21 16:55] LABS: Hematocrit (blood only) 42.3 % (42.0-52.0); Hemoglobin 14.3 g/dL (14.0-18.0); Immature Granulocytes # (auto) 0.03 K/uL (0.01-0.20); Immature Granulocytes % (auto) 0.4 %; Mean Corpuscular Hemoglobin 31.9 pg (25.0-34.0); Mean Corpuscular Volume 94.4 fL (80.0-100.0); Platelet Count 256 K/uL (130-400); RDW Standard Deviation 44.2 fL (36.4-46.3); Red Blood Count 4.48 M/uL (4.70-6.10); White Blood Count 7.42 K/ul (4.8-10.8)
[2025-07-21 17:13] LABS: Alanine Aminotransferase 5 U/L (7-52); Albumin Globulin Ratio 1.3 (0.9-2); Albumin Level 3.9 gm/dl (3.4-5.0); Alkaline Phosphatase 80 U/L (34-104); Anion Gap 5 (3-11); Bilirubin,Total 0.3 mg/dl (0.2-1.0); Blood Urea Nitrogen 26 mg/dl (6-23); Calcium 9.0 mg/dl (8.6-10.3); Carbon Dioxide 28 mmol/L (21-32); Chloride 105 mmol/L (98-107); Globulin 3.0 gm/dl (2.5-4.0); Glucose 84 mg/dl (70-99(Fasting)); Magnesium 2.0 mg/dl (1.7-2.4); Potassium 4.4 mmol/L (3.5-5.1); Sodium 138 mmol/L (136-145); Total Protein 6.9 gm/dl (6.0-8.3)
--- NOTE | 2025-07-21 17:25 | XRay Report ---
Chest radiograph, one view History: Dysrhythmia. Comparison: None. Findings: Prominent thoracic aortic arch. Cardiomediastinal silhouette is otherwise within normal limits. Pulmonary vasculature is within normal limits. Lungs are clear. Pleural spaces are within normal limits. Impression: Stable exam with no findings to indicate source of patient's symptoms. Electronically signed by Hector Mays 07-21-2025 5:25 PM
[2025-07-21 17:29] LABS: Thyroid Stimulating Hormone 2.489 uIu/ml (0.300-4.500)
--- NOTE | 2025-07-21 18:18 | Cardiology Consultation ---
Date of Consultation July 21, 2025 Assessment & Plan (1) Epigastric discomfort: (2) Abnormal EKG: (3) Sinus bradycardia: EKG performed in the emergency department 05/21/2025 at 1611 and interpreted independently reveals sinus bradycardia 43 bpm with first-degree AV block. Left ventricular hypertrophy is suggested by voltage criteria. T wave inversions noted in the inferior leads II, III and aVF. T wave inversions noted in the lateral leads V4 through V6. Patient without any additional symptoms at present. Blood pressure is stable and actually hypertensive. I do not think his presentation is due to symptomatic bradycardia. Recommend proceeding with serial troponin measurements. Continue patient's prior to hospital medications. Per review of the records again from the alf he is not on any AV cameron blockers at baseline. An attempt to find an EKG for prior comparison, it would appear that perhaps this patient has been admitted to this institution in the past under a separate medical record number and this is in the process of being resolved. Further recommendations will be forthcoming. Case discussed with Dr Jones and Dr Garcia. Vee Antonio DO History of Present Illness History of Present Illness Rossy Lagunas is an 84 year old male seen in cardiology consultation per the request of Dr Jones for the evaluation of chest pain, and bradycardia. The patient resides at [facility] and has an apparent history of cognitive impairment related to dementia. He presented via ambulance after having had epigastric discomfort earlier today. Interview with the patient was noncontributory due to his cognitive status. Unable to obtain details of past history due to cognitive status. Allergies Allergy/AdvReac Type Severity Reaction Status Date / Time No Known Allergies Allergy Verified 07/21/25 17:51 Home Medications Medication Instructions Recorded Confirmed Type Chlorohexidine 10 ml mucous membrane BID 07/21/25 07/21/25 History acetaminophen 325 mg tablet 650 mg PO Q6H PRN PAIN/FEVER >99.9F 07/21/25 07/21/25 History (Tylenol) aspirin 81 mg tablet,delayed 81 mg PO QAM 07/21/25 07/21/25 History release diclofenac sodium 50 mg 50 mg PO Q8H PRN PAIN/IMMFLAMMATION 07/21/25 07/21/25 History tablet,delayed release divalproex 250 mg tablet,delayed 250 mg PO Q12H 07/21/25 07/21/25 History release doxycycline hyclate 100 mg tablet 100 mg PO BIDM 07/21/25 07/21/25 History escitalopram oxalate 10 mg tablet 10 mg PO QAM 07/21/25 07/21/25 History famotidine 20 mg tablet 20 mg PO Q12H PRN GI 07/21/25 07/21/25 History UPSET/DYSPEPSIA lisinopril 5 mg tablet 5 mg PO QAM 07/21/25 07/21/25 History meclizine 25 mg tablet 25 mg PO Q8H PRN BENIGN PAROXYSMAL 07/21/25 07/21/25 History VERTIGO naproxen sodium 220 mg tablet 220 mg PO BIDM 07/21/25 07/21/25 History prazosin 1 mg capsule 1 mg PO HS 07/21/25 07/21/25 History quetiapine 25 mg tablet 25 mg PO HS 07/21/25 07/21/25 History thiamine HCl (vitamin B1) 100 mg 200 mg PO DAILY 07/21/25 07/21/25 History tablet (Vitamin B-1) Patient History Social History Smoking Status: Never smoker Preferred Language: Mongolian Feels Safe at Home: Yes Review of Systems Review of Systems: Unobtainable due to cognitive status Physical Exam Physical Exam: General: no acute distress Eyes: conjunctiva are pink and non-injected, sclera clear Neck: normal jugular venous pulse, no hepatojugular reflux Chest: normal shape and normal respiratory effort Lungs: clear to auscultation and percussion Cardiac Exam: - regular heart sounds, bradycardic, 1/6 SM rubs, or gallops, no jugular venous distention Abdomen: abdomen soft, non-tender, no abnormal masses and no hepatosplenomegaly Musculoskeletal: no gait disturbance, no weakness Extremities: no edema and no cyanosis Neuro:awake, conversant, follows commands, no focal motor deficits, Cognitive impairment noted Results & Data Vital Signs (Past 12 Hours) Vital Signs Pulse Resp BP Pulse Ox O2 Del Method 07/21/25 16:53 41 L 07/21/25 16:17 44 L 07/21/25 16:05 61 14 182/78 H 96 Room Air Laboratory Results Cardiac Enzymes 07/21/25 Range/Units 16:41 AST 11 L (13-39) U/L Troponin I High Sens 9.1 (0-20) pg/ml CBC 07/21/25 Range/Units 16:41 WBC 7.42 (4.8-10.8) K/ul RBC 4.48 L (4.70-6.10) M/uL Hgb 14.3 (14.0-18.0) g/dL Hct 42.3 (42.0-52.0) % Plt Count 256 (130-400) K/uL Neut # (Auto) 4.76 (1.40-6.50) K/uL Lymph # (Auto) 1.37 (1.20-3.40) K/uL [facility] # (Auto) 0.71 H (0.11-0.59) K/uL Eos # (Auto) 0.50 (0.00-0.50) K/uL Baso # (Auto) 0.05 (0.00-0.20) K/uL Comprehensive Metabolic Panel 07/21/25 Range/Units 16:41 Sodium 138 (136-145) mmol/L Potassium 4.4 (3.5-5.1) mmol/L Chloride 105 (98-107) mmol/L Carbon Dioxide 28 (21-32) mmol/L BUN 26 H (6-23) mg/dl Creatinine 1.05 (0.6-1.4) mg/dl Glucose 84 (70-99(Fasting)) mg/dl Calcium 9.0 (8.6-10.3) mg/dl AST 11 L (13-39) U/L ALT 5 L (7-52) U/L Alkaline Phosphatase 80 (34-104) U/L Total Protein 6.9 (6.0-8.3) gm/dl Albumin 3.9 (3.4-5.0) gm/dl Diagnostic Findings Cardiac Enzymes 07/21/25 Range/Units 16:41 AST 11 L (13-39) U/L Troponin I High Sens 9.1 (0-20) pg/ml CBC 07/21/25 Range/Units 16:41 WBC 7.42 (4.8-10.8) K/ul RBC 4.48 L (4.70-6.10) M/uL Hgb 14.3 (14.0-18.0) g/dL Hct 42.3 (42.0-52.0) % Plt Count 256 (130-400) K/uL Neut # (Auto) 4.76 (1.40-6.50) K/uL Lymph # (Auto) 1.37 (1.20-3.40) K/uL Harmon # (Auto) 0.71 H (0.11-0.59) K/uL Eos # (Auto) 0.50 (0.00-0.50) K/uL Baso # (Auto) 0.05 (0.00-0.20) K/uL Comprehensive Metabolic Panel 07/21/25 Range/Units 16:41 Sodium 138 (136-145) mmol/L Potassium 4.4 (3.5-5.1) mmol/L Chloride 105 (98-107) mmol/L Carbon Dioxide 28 (21-32) mmol/L BUN 26 H (6-23) mg/dl Creatinine 1.05 (0.6-1.4) mg/dl Glucose 84 (70-99(Fasting)) mg/dl Calcium 9.0 (8.6-10.3) mg/dl AST 11 L (13-39) U/L ALT 5 L (7-52) U/L Alkaline Phosphatase 80 (34-104) U/L Total Protein 6.9 (6.0-8.3) gm/dl Albumin 3.9 (3.4-5.0) gm/dl Chest x-ray reveals no acute cardiopulmonary abnormality as per radiology report PG Care Time/CCT Total # of Minutes Spent Total Time Spent with Patient: Total time spent is greater than 50% in coordination of care (as documented) at patient's floor/unit and/or counseling patient: Coding Level of Care Code 56043 IN/OBS CONSULT LVL 4,60M Diagnoses Epigastric discomfort R10.13 Abnormal EKG R94.31 Sinus bradycardia R00.1
--- NOTE | 2025-07-21 18:41 | History & Physical Report ---
Date of Service July 21, 2025 Assessment & Plan (1) Chest pain: Plan: Chest pain with ambulation associated with shortness of breath EKG showed sinus bradycardia with interventricular conduction defect Initial troponin unremarkable and the pain has been stopped since in the emergency room Will cycle troponins and echocardiogram Appreciate cardiology input and recommendation (2) Sinus bradycardia: Plan: Noted to have sinus bradycardia rate 40 Will monitor for any bradycardia arrhythmias (3) Hypertension: Plan: Blood pressure noted to be very high at 182/78 Will try Nitropaste to control the blood pressure and also chest pain if any (4) Aortic stenosis, mild: Plan: History of aortic stenosis surgery very mild Sometimes can cause chest pain Echo will be determining (5) Vascular dementia: Plan: History of vascular dementia Conversing rationally and normally No confusion DVT prophylaxis Subcu heparin CODE STATUS Full code this was discussed with the patient in detailed With full understanding of the situation of resuscitation History of Present Illness Chief Complaint: Chest pain with ambulation with shortness of breath Primary Care Provider: Earnest Singer Is an 84-year-old male obese with significant past medical history of hypertension, stage III chronic kidney disease, infrarenal abdominal aortic aneurysm without rupture, mild vascular dementia and mild aortic stenosis apparently was brought in from heart side with chest pain while ambulating associated with shortness of breath and he was not feeling well. Denies any recent fever and chills, any palpitation or dizziness. Does not have any abdom inal pain nausea and or vomiting. He was noted to have bradycardia down to 40s in the emergency room with some interventricular conduction delay. His troponin was negative. He was admitted to telemetry unit for continuation of care and to rule out possibility of ACS and significant bradycardia arrhythmia. Allergies Allergy/AdvReac Type Severity Reaction Status Date / Time No Known Allergies Allergy Verified 07/21/25 17:51 Home Medications Medication Instructions Recorded Confirmed Type Chlorohexidine 10 ml mucous membrane BID 07/21/25 07/21/25 History acetaminophen 325 mg tablet 650 mg PO Q6H PRN PAIN/FEVER >99.9F 07/21/25 07/21/25 History (Tylenol) aspirin 81 mg tablet,delayed 81 mg PO QAM 07/21/25 07/21/25 History release diclofenac sodium 50 mg 50 mg PO Q8H PRN PAIN/IMMFLAMMATION 07/21/25 07/21/25 History tablet,delayed release divalproex 250 mg tablet,delayed 250 mg PO Q12H 07/21/25 07/21/25 History release doxycycline hyclate 100 mg tablet 100 mg PO BIDM 07/21/25 07/21/25 History escitalopram oxalate 10 mg tablet 10 mg PO QAM 07/21/25 07/21/25 History famotidine 20 mg tablet 20 mg PO Q12H PRN GI 07/21/25 07/21/25 History UPSET/DYSPEPSIA lisinopril 5 mg tablet 5 mg PO QAM 07/21/25 07/21/25 History meclizine 25 mg tablet 25 mg PO Q8H PRN BENIGN PAROXYSMAL 07/21/25 07/21/25 History VERTIGO naproxen sodium 220 mg tablet 220 mg PO BIDM 07/21/25 07/21/25 History prazosin 1 mg capsule 1 mg PO HS 07/21/25 07/21/25 History quetiapine 25 mg tablet 25 mg PO HS 07/21/25 07/21/25 History thiamine HCl (vitamin B1) 100 mg 200 mg PO DAILY 07/21/25 07/21/25 History tablet (Vitamin B-1) Past Med/Surg History Problem List (Updated 07/21/25 @ 18:46 by Joshua Garcia MD) Vascular dementia Aortic stenosis, mild Hypertension Chest pain Sinus bradycardia Abnormal EKG Epigastric discomfort Social History Smoking Status: Never smoker Preferred Language: Welsh Feels Safe at Home: Yes Review of Systems Review of Systems: All systems reviewed and unremarkable except as noted below Physical Exam Physical Exam: Lying in bed without any apparent distress Constitutional: well developed, well nourished and + ill appearing Eyes: PERRL, conjunctivae normal, anicteric sclerae ENMT: external ear and nose normal, oropharynx normal Neck: trachea midline, no thyromegaly Respiratory: no respiratory distress Auscultation: lungs clear to auscultation bilaterally Cardiovascular: Rate/Rhythm: regular rate, regular rhythm and + bradycardic Heart Sounds: normal S1, normal S2 and + murmur Extremities: + edema (Trace edema bilaterally) Gastrointestinal (Abdomen): Inspection/Auscultation: normal bowel sounds; abdomen not distended Percussion/Palpation: abdomen soft; abdomen nontender Musculoskeletal: No acute arthritis involving any of the joint Neurologic: normal touch/pain/proprioception and moves all extremities; no focal motor deficits Lymphatic: no cervical or axillary lymphadenopathy Results & Data Results & Data Vital Signs (Past 12 Hours) Vital Signs Pulse Pulse Resp BP BP Pulse Ox O2 Del Method 07/21/25 17:51 40 L 9 L 182/78 H 98 Room Air 07/21/25 16:53 41 L 07/21/25 16:17 44 L 07/21/25 16:05 61 14 182/78 H 96 Room Air Laboratory Results Short CBC 07/21/25 Range/Units 16:41 WBC 7.42 (4.8-10.8) K/ul Hgb 14.3 (14.0-18.0) g/dL Hct 42.3 (42.0-52.0) % Plt Count 256 (130-400) K/uL BMP 07/21/25 16:41 Sodium 138 Potassium 4.4 Chloride 105 Carbon Dioxide 28 BUN 26 H Creatinine 1.05 Glucose 84 Calcium 9.0 Liver Function 07/21/25 Range/Units 16:41 Total Bilirubin 0.3 (0.2-1.0) mg/dl AST 11 L (13-39) U/L ALT 5 L (7-52) U/L Alkaline Phosphatase 80 (34-104) U/L Albumin 3.9 (3.4-5.0) gm/dl Medications Administered Current Inpatient Medications Heparin Sodium (Porcine) (Heparin Sod 5,000 Unit/0.5 Ml Vial) 5,000 units SQ Q12 ARASELI Stop: 08/20/25 20:59 Nitroglycerin (Nitroglycerin 2% Ointment 30gm Tube) 0.5 inch EXT Q6H ARASELI Stop: 08/20/25 18:29 Code Status & VTE Plan VTE Prophylaxis Plan VTE Prophylaxis will be ordered: Yes
[2025-07-21] MEDS: NITROGLYCERIN 2% OINTMENT 30GM TUBE EXT SCH (19:40)
[2025-07-21] MEDS ORDERED: MECLIZINE HCL 25 MG TAB PO PRN (20:52)
[2025-07-21] MEDS ORDERED: FAMOTIDINE 20 MG TAB PO PRN (20:52)
[2025-07-21] MEDS: Patient's HEIGHT &/or WEIGHT Needed STA (21:17)
[2025-07-21] MEDS: HEPARIN SOD 5,000 UNIT/0.5 ML VIAL SQ SCH (22:07)
[2025-07-21] MEDS: DIVALPROEX DELAY RELEASE 250 MG TABEC PO SCH (22:07)
[2025-07-21] MEDS: PRAZOSIN HCL 1 MG CAP PO SCH (22:07)
[2025-07-22] MEDS: ATROPINE SULFATE 0.1 MG/ML 10ML SYR IV PRN (00:18)
[2025-07-22 04:37] LABS: Hematocrit (blood only) 37.8 % (42.0-52.0); Hemoglobin 13.2 g/dL (14.0-18.0); Immature Granulocytes # (auto) 0.02 K/uL (0.01-0.20); Immature Granulocytes % (auto) 0.3 %; Mean Corpuscular Hemoglobin 32.7 pg (25.0-34.0); Mean Corpuscular Volume 93.6 fL (80.0-100.0); Platelet Count 243 K/uL (130-400); RDW Standard Deviation 43.2 fL (36.4-46.3); Red Blood Count 4.04 M/uL (4.70-6.10); White Blood Count 7.26 K/ul (4.8-10.8)
[2025-07-22 04:55] LABS: Anion Gap 6.0 (3-11); Blood Urea Nitrogen 23.0 mg/dl (6-23); Calcium 8.6 mg/dl (8.6-10.3); Carbon Dioxide 25.0 mmol/L (21-32); Chloride 108.0 mmol/L (98-107); Creatinine Clr Calc Pharmacy 73.0 ml/min; Glucose 87.0 mg/dl (70-99(Fasting)); Magnesium 2.0 mg/dl (1.7-2.4); Potassium 3.9 mmol/L (3.5-5.1); Sodium 139.0 mmol/L (136-145)
[2025-07-22 09:01] LABS: Cholesterol 132.0 mg/dl (0-200); HDL Cholesterol 29.0 mg/dl; Triglycerides 86.0 mg/dl (0-150)
[2025-07-22] MEDS: THIAMINE HCL 100 MG TAB PO SCH (09:37)
[2025-07-22] MEDS: ESCITALOPRAM OXALATE 10 MG TAB PO SCH (09:38)
[2025-07-22] MEDS: ASPIRIN 81 MG ECTAB PO SCH (09:38)
[2025-07-22] MEDS: ISOSORBIDE MONO EXTENDED REL 30 MG TABCR PO SCH (09:39)
--- NOTE | 2025-07-22 09:55 | Cardiology Progress Note ---
Date of Service July 22, 2025 Assessment & Plan (1) Epigastric discomfort: (2) Abnormal EKG: (3) Sinus bradycardia: Plan: EKG performed in the emergency department 05/21/2025 at 1611 and interpreted independently reveals sinus bradycardia 43 bpm with first-degree AV block. Left ventricular hypertrophy is suggested by voltage criteria. T wave inversions noted in the inferior leads II, III and aVF. T wave inversions noted in the lateral leads V4 through V6. Repeat EKG performed 07/20/2025 at 10:13 AM, reviewed/interpreted in person: Sinus rhythm at 89 bpm with long first-degree AV block, VA interval 296 ms, left ventricular hypertrophy by voltage criteria. - When compared to the previous tracing performed 07/21/2025 the ventricular rate has increased by 46 bpm. T wave inversion no longer evident in the inferior leads. T wave inversion no longer evident in the lateral leads. High sensitive troponin negative x 3. Patient without any additional symptoms at present. Patient was hypertensive on arrival yesterday and overnight last night but this is trended toward improvement. He initially received topical nitroglycerin last evening and has since been transition to isosorbide mononitrate. Echocardiogram reveals no regional wall motion abnormalities. Mild to moderate aortic valve stenosis present and mild aortic root enlargement. * No indication for permanent pacemaker at present. * Patient stable for discharge on medications to include aspirin 81 mg daily, lisinopril 5 mg daily, prazosin 1 mg in at bedtime, and new addition of isosorbide mononitrate. * Statin treatment considered, but he is not on this previously as an outpatient despite chart diagnosis of vascular dementia. At present I think it is reasonable to keep his medication regimen as simple as possible and to remain off of statin therapy. * Stable for [facility] from a cardiology perspective. Of note, I believe that this patient was actually registered under a new account as if he was a new patient to this facility. However review of records suggest that he has an alternative [facility] Medical Record number, [id number] which corresponds to the same name, date of , and Social Security number. There is also a photograph associated with that account that correlates with this patient's appearance and his medical problem list including chronic sinus bradycardia, mild to moderate aortic stenosis and vascular dementia all correlate with history obtained on this patient. Efforts underway to merged the accounts but have been hindered due to staffing related to the . Prior to this cardiology encounter the patient had been seen by Dr [place] Hernandez in inpatient cardiology consultation in 2023. It appears he has followed with [facility] cardiology in the interim. Vee Antonio DO Admission and Anticipated Discharge Date Admission Date: July 21, 2025 Subjective Patient seen in cardiology follow-up. He is talkative and denies any acute complaint. Telemetry revealed sinus bradycardia during anticipated time of sleep this morning but now that he is awake sinus rhythm with first-degree AV block in the 80s present. Physical Exam Physical Exam: General: no acute distress Eyes: conjunctiva are pink and non-injected, sclera clear Neck: normal jugular venous pulse, no hepatojugular reflux Chest: normal shape and normal respiratory effort Lungs: clear to auscultation and percussion Cardiac Exam: - regular heart sounds, bradycardic, 1/6 SM rubs, or gallops, no jugular venous distention Abdomen: abdomen soft, non-tender, no abnormal masses and no hepatosplenomegaly Extremities: no edema and no cyanosis Neuro:awake, conversant, follows commands, no focal motor deficits, Cognitive impairment noted Results & Data Vital Signs (Past 12 Hours) Vital Signs Temp Pulse Pulse Resp BP BP Pulse Ox 07/22/25 08:38 36.6 C 72 18 138/72 94 07/22/25 01:56 36.3 C L 49 L 16 158/74 H 94 07/21/25 23:39 28 L 07/21/25 23:11 49 L 141/72 H 07/21/25 22:27 43 L 07/21/25 22:15 36.3 C L 44 L 18 200/79 H 97 O2 Del Method 07/22/25 08:38 Room Air 07/22/25 01:56 Room Air 07/21/25 23:39 07/21/25 23:11 07/21/25 22:27 07/21/25 22:15 Room Air Diagnostic Findings Summary transthoracic echocardiogram performed today 07/22/2025: Sinus bradycardia present during the study. There is moderate concentric left ventricular hypertrophy. No regional wall motion abnormalities noted. Left ventricular systolic function is normal. Left Ventricular Ejection Fraction = 55-60%. The aortic valve is moderately calcified. Mild aortic regurgitation. Mild to moderate aortic valve stenosis is present. There is mild tricuspid regurgitation. Aortic root is mildly dilated, 4.3 cm The proximal ascending aorta was not visualized adequately enough to allow for measurement. PG Care Time/CCT Total # of Minutes Spent Total Time Spent with Patient: Total time spent is greater than 50% in coordination of care (as documented) at patient's floor/unit and/or counseling patient: Coding Level of Care Code 44337 SUB INP/OBS CARE 3/50MIN Diagnoses Epigastric discomfort R10.13 Abnormal EKG R94.31 Sinus bradycardia R00.1
--- NOTE | 2025-07-22 09:58 | XCELERA ---
[id number]
[2025-07-22] MEDS: DOXYCYCLINE HYCLATE 100 MG CAP PO SCH (11:16)
[2025-07-22] MEDS: ACETAMINOPHEN 325 MG TAB PO PRN (11:19)
--- NOTE | 2025-07-22 11:52 | Electrocardiogram Report ---
Test Reason : Blood Pressure : */* mmHG Vent. Rate : 43 BPM Atrial Rate : 43 BPM P-R Int : 266 ms QRS Dur : 128 ms QT Int : 498 ms P-R-T Axes : * -70 265 degrees QTcB Int : 420 ms Marked sinus bradycardia with 1st degree A-V block Left axis deviation Left ventricular hypertrophy with QRS widening T wave abnormality, consider inferolateral ischemia Poor R wave progression, consider anterior MS vs. lead placement vs. LVH Abnormal ECG No previous ECGs available Confirmed by Jerrell Valero ([id number]) on 07/22/2025 11:52:09 AM Referred By: REFERRED SELF Confirmed By: Jerrell Valero
--- NOTE | 2025-07-22 11:57 | Electrocardiogram Report ---
Test Reason : Blood Pressure : */* mmHG Vent. Rate : 89 BPM Atrial Rate : 89 BPM P-R Int : 296 ms QRS Dur : 128 ms QT Int : 364 ms P-R-T Axes : -17 -61 88 degrees QTcB Int : 442 ms Sinus rhythm with 1st degree A-V block Left axis deviation Left ventricular hypertrophy with QRS widening and repolarization abnormality Abnormal ECG When compared with ECG of 21-Jul-2025 16:11, (unconfirmed) Vent. rate has increased by 46 bpm T wave inversion no longer evident in Inferior leads T wave inversion less evident in Lateral leads Confirmed by Jerrell Valero ([id number]) on 07/22/2025 11:57:32 AM Referred By: REFERRED SELF Confirmed By: Jerrell Valero
[2025-07-22] MEDS ORDERED: PHA DELIRIUM CONSULT PRN (12:29)
[2025-07-22 12:38] VITALS: BP 115/75; PULSE 74; RESP 17; TEMP 97.5; O2SAT 93
--- NOTE | 2025-07-22 12:47 | Discharge Summary ---
Date of Service July 22, 2025 Admission HPI Per Admitting Provider Is an 84-year-old male obese with significant past medical history of hypertension, stage III chronic kidney disease, infrarenal abdominal aortic aneurysm without rupture, mild vascular dementia and mild aortic stenosis apparently was brought in from heart side with chest pain while ambulating associated with shortness of breath and he was not feeling well. Denies any recent fever and chills, any palpitation or dizziness. Does not have any abdominal pain nausea and or vomiting. He was noted to have bradycardia down to 40s in the emergency room with some interventricular conduction delay. His troponin was negative. He was admitted to telemetry unit for continuation of care and to rule out possibility of ACS and significant bradycardia arrhythmia. Admission Exam Per Admitting Provider Physical Exam: Lying in bed without any apparent distress Constitutional: well developed, well nourished and + ill appearing Eyes: PERRL, conjunctivae normal, anicteric sclerae ENMT: external ear and nose normal, oropharynx normal Neck: trachea midline, no thyromegaly Respiratory: no respiratory distress Auscultation: lungs clear to auscultation bilaterally Cardiovascular: Rate/Rhythm: regular rate, regular rhythm and + bradycardic Heart Sounds: normal S1, normal S2 and + murmur Extremities: + edema (Trace edema bilaterally) Gastrointestinal (Abdomen): Inspection/Auscultation: normal bowel sounds; abdomen not distended Percussion/Palpation: abdomen soft; abdomen nontender Musculoskeletal: No acute arthritis involving any of the joint Neurologic: normal touch/pain/proprioception and moves all extremities; no focal motor deficits Lymphatic: no cervical or axillary lymphadenopathy Principal Diagnosis Epigastric discomfort: Abnormal EKG: Sinus bradycardia: Discharge Exam sitting up in bed without any apparent distress Constitutional well developed and well nourished Eyes PERRL, conjunctivae normal, anicteric sclerae ENMT external ear and nose normal, oropharynx normal Neck trachea midline, no thyromegaly Respiratory no respiratory distress Auscultation: lungs clear to auscultation bilaterally Cardiovascular Rate/Rhythm: regular rate and regular rhythm Heart Sounds: normal S1, normal S2 and + murmur Extremities: + edema (Trace edema bilaterally) Gastrointestinal (Abdomen) Inspection/Auscultation: normal bowel sounds; abdomen not distended Percussion/Palpation: abdomen soft; abdomen nontender Neurologic normal touch/pain/proprioception and moves all extremities; no focal motor deficits Lymphatic no cervical or axillary lymphadenopathy Discharge Data Allergies Allergy/AdvReac Type Severity Reaction Status Date / Time No Known Allergies Allergy Verified 07/21/25 17:51 Consultations 07/21/25 17:38 ED Decision to Admit Stat 07/22/25 08:05 Consult Cardiology Routine Hospital Course (1) Chest pain: Per prior attending w/ addendum: Chest pain with ambulation associated with shortness of breath EKG showed sinus bradycardia with interventricular conduction defect Initial troponin unremarkable and the pain has been stopped since in the emergency room Will cycle troponins and echocardiogram Appreciate cardiology input and recommendation (2) Sinus bradycardia: Noted to have sinus bradycardia rate 40 Will monitor for any bradycardia arrhythmias (3) Hypertension: Blood pressure noted to be very high at 182/78 Will try Nitropaste to control the blood pressure and also chest pain if any (4) Aortic stenosis, mild: History of aortic stenosis surgery very mild Sometimes can cause chest pain Echo will be determining (5) Vascular dementia: History of vascular dementia Conversing rationally and normally No confusion DVT prophylaxis Subcu heparin CODE STATUS Full code this was discussed with the patient in detailed With full understanding of the situation of resuscitation Plan Addendum 07/22/2025: Patient was seen and examined at bedside as a follow-up of epigastric discomfort, sinus bradycardia, HTNsive urgency. Patient denies further chest pain/discomfort or shortness of breath in the hospital. His troponin has been negative x 3 and echo with no regional wall motion abnormalities. Cardiology evaluated the patient, no indication for pacemaker at present. Patient is stable for discharge from cardiac POV. Imdur has been added additionally for his blood pressure management. Currently his blood pressure and heart rate are WNL. He is hemodynamically stable and is being discharged to [facility] with following instructions at the point of discharge: Follow-up with your primary care physician within a week time and likely you will need labs CBC/CMP/magnesium/phosphorus. Cardiology evaluated today while in hospital, your cardiac medications has been optimized. Follow-up with cardiology as an outpatient in 1 to 2 months time. Take your medications as prescribed. Please make sure that you are able to get your medications today by calling your pharmacy before you leave the hospital so that your treatment continuity is not broken. Home Health Attestation I certify that this patient is under my care and that I, or a physicians assistant professor of mathematics working with me, had a face to-face encounter that meets the home health [id number] encounter requirements with this patient. The encounter with the patient was in whole, or in part, for the following medical condition, which is the primary reason for home health care (list medical condition): I certify that, based on my findings, the following services are medically necessary home health services: My clinical findings support the need for the above services because: Further, I certify that my clinical findings support that this patient is homebound (i.e. absences from home require considerable and taxing effort and are for medical reasons or jain services or infrequently or of short duration when for other reasons) because: Certification for Home Health Services: Based on the above findings, I certify that this patient is confined to the home and needs intermittent correction care, physical therapy and/or speech therapy or continues to need occupational therapy. The patient is under my care, and I have initiated the establishment of the plan of care. This patient will be followed by a physician who will periodically review the plan of care. Total Time Total Time Spent Total Time Spent (In Minutes): 45 Discharge Plan Discharge Items Patient Disposition: [facility] Reason For Visit: CHEST PAIN, BRADYCARDIA Discharge Diagnosis: Epigastric discomfort: Abnormal EKG: Sinus bradycardia: Condition on Discharge: Fair Activity: Resume your previous activity Non-emergency contact: Primary Care Provider Call non-emergency contact if: you have any medication questions and your symptoms worsen Follow-up/Referrals: Earnest Singer [Primary Care Provider] - Diet: Heart Healthy Addtl Attending Provider Instructions: Follow-up with your primary care physician within a week time and likely you will need labs CBC/CMP/magnesium/phosphorus. Cardiology evaluated today while in hospital, your cardiac medications has been optimized. Follow-up with cardiology as an outpatient in 1 to 2 months time. Take your medications as prescribed. Please make sure that you are able to get your medications today by calling your pharmacy before you leave the hospital so that your treatment continuity is not broken. Pending Studies at Discharge: No Stand-Alone Forms: My [employer], Smoking Cessation Skilled Items Patient informed of condition?: Yes DNR: No Discharge Level of Care: Other Communicable Disease: No Discharge Prognosis: Stable Lines: None Urinary Catheter: No Medications and DC Order Prescriptions: New isosorbide mononitrate 30 mg Tablet Extended Release 24 Hr 30 mg PO QAM Qty: 30 0RF Continued quetiapine 25 mg tablet 25 mg PO HS acetaminophen [Tylenol] 325 mg Tablet 650 mg PO Q6H PRN (Reason: PAIN/FEVER >99.9F) divalproex 250 mg tablet,delayed release (DR/EC) 250 mg PO Q12H prazosin 1 mg capsule 1 mg PO HS thiamine HCl (vitamin B1) [Vitamin B-1] 100 mg Tablet 200 mg PO DAILY aspirin 81 mg tablet,delayed release (DR/EC) 81 mg PO QAM famotidine 20 mg Tablet 20 mg PO Q12H PRN (Reason: GI UPSET/DYSPEPSIA) meclizine 25 mg Tablet 25 mg PO Q8H PRN (Reason: BENIGN PAROXYSMAL VERTIGO) naproxen sodium 220 mg Tablet 220 mg PO BIDM Rx Instructions: STARTED 07/15/25 FOR 7 DAYS lisinopril 5 mg tablet 5 mg PO QAM doxycycline hyclate 100 mg Tablet 100 mg PO BIDM Rx Instructions: STARTED 07/18/25 FOR 10 DAYS escitalopram oxalate 10 mg tablet 10 mg PO QAM Chlorohexidine 10 ml mucous membrane BID Rx Instructions: STARTED 07/20/25 FOR 10 DAYS------RINSE AND SPIT Discontinued diclofenac sodium 50 mg Tablet,Delayed Release (Dr/Ec) 50 mg PO Q8H PRN (Reason: PAIN/IMMFLAMMATION) Discharge Orders: Discharge Order (Routine); Ordered 07/22/25 Ordered By: Jalen Tesfaye Admission Data Admit Date/Time: 07/21/25 18:21 Attending Provider: Jalen Tesfaye Admit Provider: Joshua Garcia Primary Care Provider: Earnest Singer Other Providers: Joshua Garcia; Adolph Antonio
== END 2025-07-22 15:31 | disposition home or self-care (01) | DRG 310 ==
LOC: ED 16:00 → 2N 18:21 → MERGE 18:21 → SUATTDRO 18:21 → INTOOBSV 18:21 → 2N 20:21